=== PATIENT | male | born 1970 | race African-American/Black ===

== ENCOUNTER 2018-04-25 10:36 | Inpatient (IN) ==
[2018-04-25] MEDS ORDERED: Morphine Sulfate Inj 8 MG/ML Vial IV.PUSH ONE (11:25)
[2018-04-25] MEDS ORDERED: Acetaminophen 325 MG Tablet PO ONE (11:25)
[2018-04-25] MEDS ORDERED: Piperacil/Tazo 4.5 GM Premix 4.5 GM/100 ML BAG IV.SIG STA (11:25)
[2018-04-25] MEDS ORDERED: Vancomycin Inj 1,000 MG in Sodium Chlor 0.9% Inj 250 ML IV.SIG STA (11:25)
[2018-04-25] MEDS ORDERED: Sod Chloride 0.9% Inj 1,000 ML IV.SIG SCH ×2 (11:30)
[2018-04-25] MEDS ORDERED: Sod Chloride 0.9% Inj 400 ML IV.SIG SCH (11:30)
--- NOTE | 2018-04-25 11:39 | ED ---
HPI General Chief complaint: Skin/Abscess/Foreign Body Stated complaint: medical clearance/evac Time Seen by Provider: 04/25/18 11:09 Source: patient Mode of arrival: ambulatory Limitations: no limitations History of Present Illness HPI narrative: 47-year-old male presents to the emergency department for evaluation of swelling, erythema, pain to the left arm. Patient states his symptoms started approximately 1-1.5 weeks ago. He went to the [place] soon after symptoms started and was placed on doxycycline. He has been taking this as prescribed, but symptoms are worsening. Patient reports subjective fevers. His temperatures 100.0 in the emergency department. Patient reports 10/10 pain , throbbing and aching without radiation. He has reduced flexion of the left elbow due to pain. Patient reports being HIV positive. He states he has been off of his HIV medications for approximately 3 months. Patient denies any headaches. No chest pain or shortness of breath. No abdominal pain. No nausea , vomiting, diarrhea. Exacerbating factor is movement of the left arm. No alleviating factors. Moderate severity. Patient denies any history of IV drug use. Onset (ago): week(s) (1-1.5) Location: left and upper extremity Radiation: non-radiation Severity: moderate Severity scale (1-10): 10 Quality: aching Pain Consistency: constant Relieving factors: none and immobilization Exacerbating factors: movement Associated symptoms: fever/chills Treatments prior to arrival: NSAID and other (antibiotic) Related Data Home Medications Medication Instructions Recorded Confirmed No Known Home Medications 04/25/18 04/25/18 Allergies Allergy/AdvReac Type Severity Reaction Status Date / Time No Known Allergies Allergy Verified 04/25/18 11:26 Review of Systems ROS Unobtainable All other systems reviewed negative except as stated in HPI [facility] Medical History Medical History HIV (human immunodeficiency virus infection) (Acute) Surgical History Surgical History No history of previous surgery (Acute) Social History Social History Substance History: Past History Smoking Status: Current every day smoker Tobacco Type: Cigarettes How Often Do You Have a Drink Containing Alcohol: Never Recent Travel in [facility] within the Last 8 Weeks: No Recent Out of Country Travel within the Last 8 Weeks: No Substance Abuse Detail Marijuana: Substance Use Status: Early Remission Substance Abuse Comment: STOPPED 45 DAYS AGO Immunization History Tetanus Immunization: Unsure Hx Influenza Vaccine This Season: Yes Exam Const General: cooperative, well developed and well groomed Nutritional Appearance: average body habitus Orientation: alert, awake and oriented x3 HENMT Head: normal to inspection Eyes General: appearance normal, both eyes and all related structures Neck Neck: normal visual inspection Chest Chest: normal inspection of the chest Resp Effort & Inspection: normal respiratory effort and able to speak in complete sentences Auscultation: clear to auscultation bilaterally Cardio Rate: tachycardic Rhythm: regular rhythm GI Inspection: normal to inspection Palpation: soft and nontender Back/Spine/Pelvis Cervical Spine: normal cervical lordosis Thoracic/Lumbar Spine: thoracic and lumbar spine normal to inspection Skin General: erythema (Patient has diffuse erythema and swelling without obvious fluctuance or induration to left upper extremity.) Trauma: lacerations and/or abrasions noted Wounds: wound noted Neuro General: alert, awake and oriented x3 Cognition: normal cognition Speech: speech normal Motor: muscle tone normal throughout Extrem Left upper extremity: elbow/forearm (Patient has decreased extension of left elbow due to pain and swelling) Details: abnormal to inspection, tenderness, swelling, abnormal ROM, warmth and distal pulses intact Psych Appearance: grossly normal Mental Status: mental status grossly normal Speech and Movement: speech and movement normal Attitude: cooperative Judgment: judgment good Course Initial Documented Vital Signs Temperature 100.0 F H 04/25/18 10:51 Pulse Rate 110 H 04/25/18 10:51 Respiratory Rate 18 04/25/18 10:51 Blood Pressure 130/62 04/25/18 10:51 Pulse Oximetry 97 04/25/18 10:51 Last Documented Vital Signs Temperature 98.9 F 04/25/18 14:03 Pulse Rate 96 H 04/25/18 14:03 Respiratory Rate 17 04/25/18 14:03 Blood Pressure 99/63 L 04/25/18 14:03 Pulse Oximetry 97 04/25/18 14:03 Medical Decision Making MANASA Attestation MANASA supervised visit: No MDM Narrative Medical decision making narrative: 47-year-old male presents to the emergency department for erythema, swelling, decreased extension of the left elbow due to pain. He has been on antibiotics without improvement. Patient is HIV positive , not currently on HIV medications. He is slightly febrile upon arrival emergency department tachycardic. Sepsis workup was initiated. IV access obtained. Patient is given normal saline 30 mL's per kilogram. CBC, CMP, PTT, PT/INR are ordered and pending. Patient is given vancomycin 1 g IV, Zosyn 4.5 g IV, morphine 4 mg IV, Reglan 10 mg IV, Tylenol [address] of the left upper extremity with IV contrast is ordered and pending. CBC shows leukocytosis of 26.2. CMP shows hyponatremia of 132, BUN 26, creatinine of 2.08. Coags show no acute abnormality. Lactic acid is 2.7. CT had to be done without contrast due to elevated creatinine. CTs show soft tissue swelling. Hospitalist is called for admission for sepsis, cellulitis. Residents accepted admission. Differential Diagnosis Differential Diagnosis: Sepsis versus cellulitis versus abscess versus septic joint Medical Records Medical records reviewed: Yes I reviewed the patient's medical records. Lab Data Result diagrams: 04/25/18 11:40 04/25/18 11:40 Lab Results 04/25/18 04/25/18 04/25/18 Range/Units 11:40 11:40 11:40 WBC 26.2 H (4.0-11.0) th/mm3 RBC 4.52 (4.50-5.90) mil/mm3 Hgb 13.6 (13.0-17.0) gm/dL Hct 40.7 (39.0-51.0) % MCV 90.2 (80.0-100.0) fL MCH 30.2 (27.0-34.0) pg MCHC 33.5 (32.0-36.0) % RDW 14.0 (11.6-17.2) % Plt Count 261 (150-450) th/mm3 MPV 7.2 (7.0-11.0) fL Neut % (Auto) 88.1 H (16.0-70.0) % Lymph % (Auto) 5.5 L (9.0-44.0) % [place] % (Auto) 6.3 (0.0-8.0) % Eos % (Auto) 0.0 (0.0-4.0) % Baso % (Auto) 0.1 (0.0-2.0) % Neut # (Auto) 23.1 H (1.8-7.7) th/mm3 Lymph # (Auto) 1.4 (1.0-4.8) th/mm3 [place] # (Auto) 1.7 H (0.0-0.9) th/mm3 Eos # (Auto) 0.0 (0.0-0.4) th/mm3 Baso # (Auto) 0.0 (0.0-0.2) th/mm3 WBC Differential . Differential Comment Auto diff final PT 12.0 H (9.8-11.6) sec INR 1.2 Ratio APTT 27.4 (24.3-30.1) sec Sodium 132 L (136-145) meq/L Potassium 3.9 (3.5-5.1) meq/L Chloride 95 L (98-107) meq/L Carbon Dioxide 24.9 (21.0-32.0) meq/L Anion Gap 12 (5-15) meq/L BUN 26 H (7-18) mg/dL Creatinine 2.08 H (0.60-1.30) mg/dL Estimated GFR 42 L (>89) mL/min Random Glucose 88 (74-106) mg/dL Lactic Acid (0.4-2.0) mmol/L Calcium 8.7 (8.5-10.1) mg/dL Total Bilirubin 0.9 (0.2-1.0) mg/dL AST 33 (15-37) U/L ALT 26 (12-78) U/L Alkaline Phosphatase 72 (45-117) U/L Total Protein 8.8 H (6.4-8.2) g/dL Albumin 3.2 L (3.4-5.0) g/dL 04/25/18 Range/Units 11:40 WBC (4.0-11.0) th/mm3 RBC (4.50-5.90) mil/mm3 Hgb (13.0-17.0) gm/dL Hct (39.0-51.0) % MCV (80.0-100.0) fL MCH (27.0-34.0) pg MCHC (32.0-36.0) % RDW (11.6-17.2) % Plt Count (150-450) th/mm3 MPV (7.0-11.0) fL Neut % (Auto) (16.0-70.0) % Lymph % (Auto) (9.0-44.0) % [place] % (Auto) (0.0-8.0) % Eos % (Auto) (0.0-4.0) % Baso % (Auto) (0.0-2.0) % Neut # (Auto) (1.8-7.7) th/mm3 Lymph # (Auto) (1.0-4.8) th/mm3 [place] # (Auto) (0.0-0.9) th/mm3 Eos # (Auto) (0.0-0.4) th/mm3 Baso # (Auto) (0.0-0.2) th/mm3 WBC Differential Differential Comment PT (9.8-11.6) sec INR Ratio APTT (24.3-30.1) sec Sodium (136-145) meq/L Potassium (3.5-5.1) meq/L Chloride (98-107) meq/L Carbon Dioxide (21.0-32.0) meq/L Anion Gap (5-15) meq/L BUN (7-18) mg/dL Creatinine (0.60-1.30) mg/dL Estimated GFR (>89) mL/min Random Glucose (74-106) mg/dL Lactic Acid 2.7 H (0.4-2.0) mmol/L Calcium (8.5-10.1) mg/dL Total Bilirubin (0.2-1.0) mg/dL AST (15-37) U/L ALT (12-78) U/L Alkaline Phosphatase (45-117) U/L Total Protein (6.4-8.2) g/dL Albumin (3.4-5.0) g/dL Imaging Data Radiologist's impression: ITS Impressions Forearm CT 04/25/18 12:57 CONCLUSION: 1. Nonspecific subcutaneous edema along the medial aspect of the proximal forearm. 2. The bony structures are grossly intact. Humerus CT 04/25/18 12:57 CONCLUSION: 1. Nonspecific edema throughout the subcutaneous soft tissues along the medial aspect of the upper arm. No drainable loculated fluid collections. 2. The bony structures of the humerus are grossly unremarkable. Discharge Plan Discharge Disposition Patient Disposition: 30 Still Patient Discharge Details Anticipated Discharge Date: 04/30/18 Physicians Team ED Provider: Kelly Pascual ED Midlevel Provider: Leila Chilel Primary Care Provider: UNKNOWN, Rxs /Orders / Referrals /Forms Prescriptions: No Action No Known Home Medications RF: 0 Status ED Status: With Doctor
[2018-04-25 12:08] LABS: Baso % (Auto) 0.1 % (0.0-2.0); Hematocrit 40.7 % (39.0-51.0); Hemoglobin 13.6 gm/dL (13.0-17.0); Lymph # (Auto) 1.4 th/mm3 (1.0-4.8); Lymph % (Auto) 5.5 % (9.0-44.0); Mean Corpuscular HGB Conc 33.5 % (32.0-36.0); Mean Corpuscular Hemoglobin 30.2 pg (27.0-34.0); Mean Corpuscular Volume 90.2 fL (80.0-100.0); Mean Platelet Volume 7.2 fL (7.0-11.0); Mono # (Auto) 1.7 th/mm3 (0.0-0.9); Mono % (Auto) 6.3 % (0.0-8.0); Neut # (Auto) 23.1 th/mm3 (1.8-7.7); Neut % (Auto) 88.1 % (16.0-70.0); Platelet Count 261 th/mm3 (150-450); Red Blood Count 4.52 mil/mm3 (4.50-5.90); White Blood Count 26.2 th/mm3 (4.0-11.0)
[2018-04-25 12:16] LABS: Activated Partial Thrombo Time 27.4 sec (24.3-30.1); INR 1.2 Ratio
[2018-04-25 12:30] LABS: Alkaline Phosphatase 72 U/L (45-117); Total Protein 8.8 g/dL (6.4-8.2)
[2018-04-25 12:53] LABS: Alanine Aminotransferase 26 U/L (12-78); Albumin 3.2 g/dL (3.4-5.0); Anion Gap 12 meq/L (5-15); Aspartate Aminotransferase 33 U/L (15-37); Blood Urea Nitrogen 26 mg/dL (7-18); Calcium 8.7 mg/dL (8.5-10.1); Carbon Dioxide 24.9 meq/L (21.0-32.0); Chloride 95 meq/L (98-107); Glomerular Filtration Rate 42 mL/min (>89); Glucose,Random 88 mg/dL (74-106); Potassium 3.9 meq/L (3.5-5.1); Sodium 132 meq/L (136-145)
--- NOTE | 2018-04-25 15:36 | P.HPFP ---
<Asya Mcneil - Last Filed: 04/25/18 19:49> History of Present Illness Primary Care Physician: UNKNOWN History of Present Illness: Mr. Quezada is a 47yo male with a PMH of HIV, Bipolar disorder, PTSD, MDD presenting with left upper arm swelling. He starts that this issue started 2 weeks ago with an abscess in his left axilla that was the size of a little knot. He is unsure of the inciting even (no bites etc). He then went to the doctor [facility] the [facility] on 04/15 and was prescribed doxycycline. He has not yet finished the course. After taking this his axilla started draining malodorous green pus. 4 days ago his left upper arm starting swelling. He developed night sweats, fever/chills, fatigue, loss of appetite. No hx of IV drug use. Pt has not been on any medications in over a year for any of his chronic problems. Is to restart antiretroviral therapy at the [facility] next month. - Diagnosis (1) Sepsis (2) Abscess of left axilla (3) HIV (human immunodeficiency virus infection) (4) Nutrition, metabolism, and development symptoms (5) DVT prophylaxis - Inpatient Certification If this patient has been admitted as an Inpatient: I certify that the inpatient services were ordered in accordance with Medicare regulations governing the order. This includes certification that hospital inpatient services are reasonable and necessary and in the case of services not specified as inpatient-only under 42 CFR 419.22(n), that they are appropriately provided as inpatient services in accordance to with the 2-midnight benchmark under 43 CFR 412.3(e) Review of Systems Constitutional: Denies headache(s) Eyes: Denies blurry vision Cardiovascular: Denies chest pain Respiratory: Reports cough (nonproductive, for 2 weeks), Denies shortness of breath Gastrointestinal: Denies abdominal pain, Denies change in stools Genitourinary: Denies difficulty urinating Musculoskeletal: Denies muscle weakness PMFSH - History History Provided By: Patient - Medical History Medical History: Medical History (Last Updated 04/25/18 @ 15:32 by Asya Mcneil MD, R1) Bipolar disorder HIV (human immunodeficiency virus infection) PTSD (post-traumatic stress disorder) - Surgical History Surgical History: Surgical History (Last Reviewed 04/25/18 @ 11:35 by DANIEL Snow) No history of previous surgery - Family History Family History: Family History (Last Updated 04/25/18 @ 15:33 by Asya Mcneil MD, R1) Other Unknown family medical history - Tobacco History Tobacco Use In Past 30 Days: Yes Smoking Status: Current every day smoker (0.5 ppd for 30 yrs) Tobacco Type: Cigarettes - Alcohol History How Often Do You Have a Drink Containing Alcohol: Never (quit 5 yrs ago) - Substance Use History Substance History: Past History (stopped smoking marijuana) - Substance Use Type Marijuana Status: Early Remission Comment: STOPPED 45 DAYS AGO - Travel History Recent Travel in the [place] Within the Last 8 Weeks: No Recent Travel Out of the Country Within the Last 8 Weeks: No - Immunization History Tetanus Immunization: Unsure Hx Influenza Vaccine This Season: Yes Medications and Allergies Allergies Allergy/AdvReac Type Severity Reaction Status Date / Time No Known Allergies Allergy Verified 04/25/18 11:26 Home Medications Medication Instructions Recorded Confirmed Type No Known Home Medications 04/25/18 04/25/18 History Active Medications: Active Medications Sodium Chloride (Ns Inj) 1,000 mls @ 0 mls/hr IV.SIG .Q0M [facility] Last Infusion: 04/25/18 12:45 Dose: Infused Sodium Chloride (Ns Inj) 1,000 mls @ 0 mls/hr IV.SIG .Q0M [facility] Last Infusion: 04/25/18 12:45 Dose: Infused Sodium Chloride (Ns Inj) 400 mls @ 0 mls/hr IV.SIG .Q0M [facility]AN Last Infusion: 04/25/18 12:45 Dose: Infused Exam Vital signs: Vital Signs 04/25/18 10:51 04/25/18 11:29 04/25/18 11:33 Temperature 100.0 F H Pulse Rate 110 H 106 H 105 H Respiratory Rate 18 19 Blood Pressure 130/62 111/68 Pulse Oximetry 97 99 04/25/18 11:48 04/25/18 12:13 04/25/18 13:06 Temperature Pulse Rate 108 H 96 H Respiratory Rate 17 17 16 Blood Pressure 120/66 102/59 L Pulse Oximetry 97 98 04/25/18 14:03 Temperature 98.9 F Pulse Rate 96 H Respiratory Rate 17 Blood Pressure 99/63 L Pulse Oximetry 97 Intake & Output 04/24/18 04/25/18 04/25/18 18:59 06:59 18:59 Intake Total 2750 / 2750 Balance 2750 / 2750 Weight 72.57 kg Intake: IV 2750 / 2750 Zosyn 4.5 GM Premix 4.5 gm In 100 / 100 100 ml @ 200 mls/hr IV.SIG STAT STA Rx#:[id number] NS Inj 400 ML @ Wide Open IV. 2400 / 2400 SIG .Q0M [facility] Rx#:[id number] Vancomycin Inj 1,000 MG In NS 250 / 250 Inj 250 ML @ 250 mls/hr IV.SIG STAT STA Rx#:[id number] Narrative: GENERAL: thin male laying in bed with sling on his arm, in no acute distress SKIN: Warm and dry. HEAD: Atraumatic. Normocephalic. EYES: Pupils equal and round. No scleral icterus. No injection or drainage. ENT: No nasal bleeding or discharge. Mucous membranes pink and moist. NECK: Trachea midline. No JVD. CARDIOVASCULAR: Regular rate and rhythm. No murmurs, rubs, or gallops detected RESPIRATORY: No accessory muscle use. Course breath sounds. Breath sounds equal bilaterally. GASTROINTESTINAL: Abdomen soft, RUQ tenderness, nondistended. Hepatic and splenic margins not palpable. MUSCULOSKELETAL: Extremities without clubbing, cyanosis, or edema. No obvious deformities. Left axilla: 3.5 x 2 cm area of fluctuance. 2x2cm area of fluctuance superiorly to previous area. Medial upper arm edematous with large area of warmth and induration to elbow. No erythema. NEUROLOGICAL: Awake and alert. No obvious cranial nerve deficits. Motor grossly within normal limits. Five out of 5 muscle strength in the arms and legs. Normal speech. PSYCHIATRIC: Appropriate mood and affect; insight and judgment normal. Results - Labs Result diagrams: 04/25/18 11:40 04/25/18 11:40 Abnormal lab results 04/25/18 04/25/18 04/25/18 Range/Units 11:40 11:40 11:40 WBC 26.2 H (4.0-11.0) th/mm3 Neut % (Auto) 88.1 H (16.0-70.0) % Lymph % (Auto) 5.5 L (9.0-44.0) % Neut # (Auto) 23.1 H (1.8-7.7) th/mm3 Amite # (Auto) 1.7 H (0.0-0.9) th/mm3 PT 12.0 H (9.8-11.6) sec Sodium 132 L (136-145) meq/L Chloride 95 L (98-107) meq/L BUN 26 H (7-18) mg/dL Creatinine 2.08 H (0.60-1.30) mg/dL Estimated GFR 42 L (>89) mL/min Lactic Acid (0.4-2.0) mmol/L Total Protein 8.8 H (6.4-8.2) g/dL Albumin 3.2 L (3.4-5.0) g/dL 04/25/18 Range/Units 11:40 WBC (4.0-11.0) th/mm3 Neut % (Auto) (16.0-70.0) % Lymph % (Auto) (9.0-44.0) % Neut # (Auto) (1.8-7.7) th/mm3 Amite # (Auto) (0.0-0.9) th/mm3 PT (9.8-11.6) sec Sodium (136-145) meq/L Chloride (98-107) meq/L BUN (7-18) mg/dL Creatinine (0.60-1.30) mg/dL Estimated GFR (>89) mL/min Lactic Acid 2.7 H (0.4-2.0) mmol/L Total Protein (6.4-8.2) g/dL Albumin (3.4-5.0) g/dL Short CBC 04/25/18 Range/Units 11:40 WBC 26.2 H (4.0-11.0) th/mm3 Hgb 13.6 (13.0-17.0) gm/dL Hct 40.7 (39.0-51.0) % Plt Count 261 (150-450) th/mm3 BMP 04/25/18 11:40 Sodium 132 L Potassium 3.9 Chloride 95 L Carbon Dioxide 24.9 BUN 26 H Creatinine 2.08 H Calcium 8.7 Liver Function 04/25/18 Range/Units 11:40 Total Bilirubin 0.9 (0.2-1.0) mg/dL AST 33 (15-37) U/L ALT 26 (12-78) U/L Alkaline Phosphatase 72 (45-117) U/L Albumin 3.2 L (3.4-5.0) g/dL - Imaging Impressions Forearm CT 04/25/18 12:57 CONCLUSION: 1. Nonspecific subcutaneous edema along the medial aspect of the proximal forearm. 2. The bony structures are grossly intact. Humerus CT 04/25/18 12:57 CONCLUSION: 1. Nonspecific edema throughout the subcutaneous soft tissues along the medial aspect of the upper arm. No drainable loculated fluid collections. 2. The bony structures of the humerus are grossly unremarkable. Caprini VTE Risk Assessment Caprini VTE Risk Assessment: Moderate/High Risk (score >= 2) Caprini Risk Assessment Model: Point Value = 1 Point Value = 2 Point Value = 3 Point Value = 5 Age 41-60 Minor surgery BMI > 25 kg/m2 Swollen legs Varicose veins or History of unexplained or recurrent spontaneous Oral contraceptives or hormone replacement Sepsis (< 1 month) Serious lung disease, including pneumonia (< 1 month) Abnormal pulmonary function Acute myocardial infarction Congestive heart failure (< 1 month) History of inflammatory bowel disease Medical patient at bed rest Age 61-74 Arthroscopic surgery Major open surgery (> 45 min) Laparoscopic surgery (> 45 min) Malignancy Confined to bed (> 72 hours) Immobilizing plaster cast Central venous access Age >= 75 History of VTE Family history of VTE Factor V Leiden Prothrombin [id number] Lupus anticoagulant Anticardiolipin antibodies Elevated serum homocysteine Heparin-induced thrombocytopenia Other congenital or acquired thrombophilia Stroke (< 1 month) Elective arthroplasty Hip, pelvis, or leg fracture Acute spinal cord injury (< 1 month) Prophylaxis Regimen: Total Risk Factor Score Risk Level Prophylaxis Regimen 0-1 Low Early ambulation 2 Moderate Order ONE of the following: *Sequential Compression Device (SCD) *Heparin 5000 units SQ BID 3-4 Higher Order ONE of the following medications: *Heparin 5000 units SQ TID *Enoxaparin/Lovenox 40 mg SQ daily (WT < 150 kg, CrCl > 30 mL/min) *Enoxaparin/Lovenox 30 mg SQ daily (WT < 150 kg, CrCl > 10-29 mL/min) *Enoxaparin/Lovenox 30 mg SQ BID (WT < 150 kg, CrCl > 30 mL/min) AND/OR *Sequential Compression Device (SCD) 5 or more Highest Order ONE of the following medications: *Heparin 5000 units SQ TID (Preferred with Epidurals) *Enoxaparin/Lovenox 40 mg SQ daily (WT < 150 kg, CrCl > 30 mL/min) *Enoxaparin/Lovenox 30 mg SQ daily (WT < 150 kg, CrCl > 10-29 mL/min) *Enoxaparin/Lovenox 30 mg SQ BID (WT < 150 kg, CrCl > 30 mL/min) AND *Sequential Compression Device (SCD) Assessment and Plan - Assessment (1) Sepsis Code(s): A41.9 - Sepsis, unspecified organism Status: Acute Plan: Patient meeting sepsis criteria upon admission: WBC count of 26.2 (neutrophil predominant), Tachycardic to the 100s, with a known source of infection (left axillary abscess, see plan below) BP decreased to the 90s/60s, was given 2x 1L boluses and a 400ml bolus in the ED Lactic acid is high at 2.7. -Lactic acid protocol initiated -Blood cx pending -NS IVF at 1.5 maintenance 165 mls/hr -See plan for abscess below (2) Abscess of left axilla Code(s): L02.412 - Cutaneous abscess of left axilla Status: Acute Plan: Initial presentation of left axilla abscess, s/p treatment with doxycycline. Worsening swelling of the left upper arm. Imaging: Humerus CT: 1. Nonspecific edema throughout the subcutaneous soft tissues along the medial aspect of the upper arm. No drainable loculated fluid collections. 2. The bony structures of the humerus are grossly unremarkable. Forearm CT: 1. Nonspecific subcutaneous edema along the medial aspect of the proximal forearm. 2. The bony structures are grossly intact. Left UE US: lenticular 4 cm by slightly less than 1 cm heterogeneous hypoechoic mass/ collection in the superficial subcutaneous tissues of the left axillary region at site of focal palpable tenderness. This is presumably a phlegmonous collection. There are enlarged ipsilateral axillary lymph nodes also noted -Consult General Surgery for possible I&D, appreciate recommendations -Consult ID for abx recommendations and HIV as below, appreciate recommendations -NPO after midnight -Pt started on Vanc and Zosyn in ED -Consult Pharmacy for Vancomycin -Continue Vancomycin 1000mg IV q24h, decreased in frequency due to renal impairment -Continue Zosyn 4.5g IV q6h, do not need to adjust for GFR >40 (3) HIV (human immunodeficiency virus infection) Code(s): B20 - Human immunodeficiency virus [HIV] disease Status: Chronic Plan: PT with HIV, unsure of last CD4 count and not current on antiretroviral therapy -Ordered lymphocyte profile -Consulted christopher AZEVEDO recommendations (4) Nutrition, metabolism, and development symptoms Code(s): R63.8 - Other symptoms and signs concerning food and fluid intake Status: Acute Plan: Fluids: NS @ 165 ml/hr Electrolytes: monitor and replete as needed Nutrition: NPO after midnight GI Prophylaxis: none indicated at this time (5) DVT prophylaxis Status: Acute Plan: Early ambulation. bilateral SCDs - Plan 47yo AAM with PMH of HIV presenting with left upper arm edema and axillary abscess. Discussed Condition With: Dr. Russell and Dr. Vyas Discharge Planning: following clinical course and car sales consultant recommendations <Bianca Gonzalez - Last Filed: 04/26/18 09:58> History of Present Illness Primary Care Physician: UNKNOWN - Diagnosis (1) Sepsis (2) Abscess of left axilla (3) HIV (human immunodeficiency virus infection) (4) Nutrition, metabolism, and development symptoms (5) DVT prophylaxis - Inpatient Certification If this patient has been admitted as an Inpatient: I certify that the inpatient services were ordered in accordance with Medicare regulations governing the order. This includes certification that hospital inpatient services are reasonable and necessary and in the case of services not specified as inpatient-only under 42 CFR 419.22(n), that they are appropriately provided as inpatient services in accordance to with the 2-midnight benchmark under 43 CFR 412.3(e) [facility] - Medical History Medical History: Medical History (Last Updated 04/25/18 @ 15:32 by Asya Mcneil MD, R1) Bipolar disorder HIV (human immunodeficiency virus infection) PTSD (post-traumatic stress disorder) - Surgical History Surgical History: Surgical History (Last Reviewed 04/25/18 @ 11:35 by DANIEL Snow) No history of previous surgery - Family History Family History: Family History (Last Updated 04/25/18 @ 15:33 by Asya Mcneil MD, R1) Other Unknown family medical history Medications and Allergies Active Medications: Active Medications Acetaminophen (Tylenol) 650 mg PO Q4H PRN PRN Reason: Temp > 100.4 Last Admin: 04/26/18 04:01 Dose: 650 mg Sodium Chloride (Ns Inj) 1,000 mls @ 0 mls/hr IV.SIG .Q0M [facility] Last Infusion: 04/25/18 12:45 Dose: Infused Sodium Chloride (Ns Inj) 1,000 mls @ 0 mls/hr IV.SIG .Q0M [facility] Last Infusion: 04/25/18 12:45 Dose: Infused Sodium Chloride (Ns Inj) 400 mls @ 0 mls/hr IV.SIG .Q0M [facility] Last Infusion: 04/25/18 12:45 Dose: Infused Sodium Chloride (Ns Inj) 1,000 mls @ 165 mls/hr IV.CONT .Q6H4M [facility]AN Last Admin: 04/26/18 09:05 Dose: Not Given Pharmacy Profile Note (Vancomycin Consult Pharmacy) 0 mls @ 0 mls/hr OTHER UNSCH [facility] Piperacillin/Tazobactam/Dextrose (Zosyn 4.5 Gm Premix) 4.5 gm in 100 mls @ 200 mls/hr IV.SIG Q8H [facility]AN Last Infusion: 04/26/18 07:23 Dose: Infused Vancomycin HCl 1,250 mg/ (Sodium Chloride) 262.5 mls @ 250 mls/hr IV.SIG Q24H [facility]AN Last Admin: 04/26/18 09:05 Dose: 250 mls/hr Sodium Chloride (Ns Inj) 1,000 mls @ 0 mls/hr IV.SIG BOLUS ONE Stop: 04/26/18 09:56 Miscellaneous Information ([facility] Ordered Lab Info) 0 each OTHER ONCE ONE Stop: 04/28/18 09:46 Ondansetron HCl (Zofran Inj) 4 mg IV.PUSH Q6H PRN PRN Reason: NAUSEA OR VOMITING Senna/Docusate Sodium (Karen-Colace) 1 tab PO BID TWAN Last Admin: 04/26/18 09:05 Dose: 1 tab Exam Vital signs: Vital Signs 04/25/18 10:51 04/25/18 11:29 04/25/18 11:33 Temperature 100.0 F H Pulse Rate 110 H 106 H 105 H Respiratory Rate 18 19 Blood Pressure 130/62 111/68 Pulse Oximetry 97 99 04/25/18 11:48 04/25/18 12:13 04/25/18 13:06 Temperature Pulse Rate 108 H 96 H Respiratory Rate 17 17 16 Blood Pressure 120/66 102/59 L Pulse Oximetry 97 98 04/25/18 14:03 04/25/18 15:00 04/25/18 15:14 Temperature 98.9 F Pulse Rate 96 H 97 H 100 H Respiratory Rate 17 18 17 Blood Pressure 99/63 L 97/62 L 97/62 L Pulse Oximetry 97 97 97 04/25/18 16:23 04/25/18 17:00 04/25/18 18:10 Temperature Pulse Rate 100 H 96 H 108 H Respiratory Rate 18 18 17 Blood Pressure 94/68 L 110/76 98/59 L Pulse Oximetry 99 98 04/25/18 18:18 04/25/18 20:00 04/26/18 00:00 Temperature 103.1 F H 100.3 F H Pulse Rate 111 H 91 H Respiratory Rate 18 18 Blood Pressure 108/60 92/52 L Pulse Oximetry 97 97 04/26/18 04:00 04/26/18 08:00 Temperature 101.7 F H 98.8 F Pulse Rate 99 H 85 Respiratory Rate 18 20 Blood Pressure 107/56 L 89/54 L Pulse Oximetry 98 96 Intake & Output 04/25/18 04/26/18 04/26/18 18:59 06:59 18:59 Intake Total 2750 / 2750 1100 / 1100 100 / 100 Balance 2750 / 2750 1100 / 1100 100 / 100 Weight 72.57 kg 70.9 kg Intake: IV 2750 / 2750 1100 / 1100 100 / 100 NS Inj 1,000 ML @ 165 mls/hr IV 1000 / 1000 .CONT .Q6H4M [facility] Rx#:[id number] Zosyn 4.5 GM Premix 4.5 gm In 100 / 100 100 / 100 100 / 100 100 ml @ 200 mls/hr IV.SIG Q8H [facility] Rx#:[id number] NS Inj 400 ML @ Wide Open IV. 2400 / 2400 SIG .Q0M [facility]AN Rx#:[id number] Vancomycin Inj 1,000 MG In NS 250 / 250 Inj 250 ML @ 250 mls/hr IV.SIG STAT STA Rx#:[id number] Other: # Voids 2 Results - Labs Result diagrams: 04/26/18 07:20 04/26/18 07:20 Abnormal lab results 04/25/18 04/25/18 04/25/18 Range/Units 11:40 11:40 11:40 WBC 26.2 H (4.0-11.0) th/mm3 RBC (4.50-5.90) mil/mm3 Hgb (13.0-17.0) gm/dL Hct (39.0-51.0) % Neut % (Auto) 88.1 H (16.0-70.0) % Lymph % (Auto) 5.5 L (9.0-44.0) % Neut # (Auto) 23.1 H (1.8-7.7) th/mm3 Amite # (Auto) 1.7 H (0.0-0.9) th/mm3 PT 12.0 H (9.8-11.6) sec Sodium 132 L (136-145) meq/L Chloride 95 L (98-107) meq/L Carbon Dioxide (21.0-32.0) meq/L BUN 26 H (7-18) mg/dL Creatinine 2.08 H (0.60-1.30) mg/dL Estimated GFR 42 L (>89) mL/min Random Glucose (74-106) mg/dL Lactic Acid (0.4-2.0) mmol/L Calcium (8.5-10.1) mg/dL Total Protein 8.8 H (6.4-8.2) g/dL Albumin 3.2 L (3.4-5.0) g/dL 04/25/18 04/26/18 04/26/18 Range/Units 11:40 07:20 07:20 WBC 23.5 H (4.0-11.0) th/mm3 RBC 3.94 L (4.50-5.90) mil/mm3 Hgb 11.6 L D (13.0-17.0) gm/dL Hct 35.0 L (39.0-51.0) % Neut % (Auto) 90.7 H (16.0-70.0) % Lymph % (Auto) 4.1 L (9.0-44.0) % Neut # (Auto) 21.3 H (1.8-7.7) th/mm3 [place] # (Auto) 1.1 H (0.0-0.9) th/mm3 PT (9.8-11.6) sec Sodium (136-145) meq/L Chloride (98-107) meq/L Carbon Dioxide 20.7 L (21.0-32.0) meq/L BUN 25 H (7-18) mg/dL Creatinine 1.62 H (0.60-1.30) mg/dL Estimated GFR 56 L (>89) mL/min Random Glucose 72 L (74-106) mg/dL Lactic Acid 2.7 H (0.4-2.0) mmol/L Calcium 8.4 L (8.5-10.1) mg/dL Total Protein (6.4-8.2) g/dL Albumin 2.2 L D (3.4-5.0) g/dL Short CBC 04/25/18 04/26/18 Range/Units 11:40 07:20 WBC 26.2 H 23.5 H (4.0-11.0) th/mm3 Hgb 13.6 11.6 L D (13.0-17.0) gm/dL Hct 40.7 35.0 L (39.0-51.0) % Plt Count 261 249 (150-450) th/mm3 BMP 04/25/18 04/26/18 11:40 07:20 Sodium 132 L 140 Potassium 3.9 3.8 Chloride 95 L 107 D Carbon Dioxide 24.9 20.7 L BUN 26 H 25 H Creatinine 2.08 H 1.62 H Calcium 8.7 8.4 L Liver Function 04/25/18 04/26/18 Range/Units 11:40 07:20 Total Bilirubin 0.9 0.9 (0.2-1.0) mg/dL AST 33 20 (15-37) U/L ALT 26 16 (12-78) U/L Alkaline Phosphatase 72 64 (45-117) U/L Albumin 3.2 L 2.2 L D (3.4-5.0) g/dL - Imaging Impressions Upper Extremity Ultrasound 04/25/18 00:00 CONCLUSION: Subcutaneous tissue phlegmon in the left axillary region. Forearm CT 04/25/18 12:57 CONCLUSION: 1. Nonspecific subcutaneous edema along the medial aspect of the proximal forearm. 2. The bony structures are grossly intact. Humerus CT 04/25/18 12:57 CONCLUSION: 1. Nonspecific edema throughout the subcutaneous soft tissues along the medial aspect of the upper arm. No drainable loculated fluid collections. 2. The bony structures of the humerus are grossly unremarkable. Chest X-Ray 04/26/18 00:00 CONCLUSION: The lungs are clear. Caprini VTE Risk Assessment Caprini Risk Assessment Model: Point Value = 1 Point Value = 2 Point Value = 3 Point Value = 5 Age 41-60 Minor surgery BMI > 25 kg/m2 Swollen legs Varicose veins or History of unexplained or recurrent spontaneous Oral contraceptives or hormone replacement Sepsis (< 1 month) Serious lung disease, including pneumonia (< 1 month) Abnormal pulmonary function Acute myocardial infarction Congestive heart failure (< 1 month) History of inflammatory bowel disease Medical patient at bed rest Age 61-74 Arthroscopic surgery Major open surgery (> 45 min) Laparoscopic surgery (> 45 min) Malignancy Confined to bed (> 72 hours) Immobilizing plaster cast Central venous access Age >= 75 History of VTE Family history of VTE Factor V Leiden Prothrombin [id number] Lupus anticoagulant Anticardiolipin antibodies Elevated serum homocysteine Heparin-induced thrombocytopenia Other congenital or acquired thrombophilia Stroke (< 1 month) Elective arthroplasty Hip, pelvis, or leg fracture Acute spinal cord injury (< 1 month) Prophylaxis Regimen: Total Risk Factor Score Risk Level Prophylaxis Regimen 0-1 Low Early ambulation 2 Moderate Order ONE of the following: *Sequential Compression Device (SCD) *Heparin 5000 units SQ BID 3-4 Higher Order ONE of the following medications: *Heparin 5000 units SQ TID *Enoxaparin/Lovenox 40 mg SQ daily (WT < 150 kg, CrCl > 30 mL/min) *Enoxaparin/Lovenox 30 mg SQ daily (WT < 150 kg, CrCl > 10-29 mL/min) *Enoxaparin/Lovenox 30 mg SQ BID (WT < 150 kg, CrCl > 30 mL/min) AND/OR *Sequential Compression Device (SCD) 5 or more Highest Order ONE of the following medications: *Heparin 5000 units SQ TID (Preferred with Epidurals) *Enoxaparin/Lovenox 40 mg SQ daily (WT < 150 kg, CrCl > 30 mL/min) *Enoxaparin/Lovenox 30 mg SQ daily (WT < 150 kg, CrCl > 10-29 mL/min) *Enoxaparin/Lovenox 30 mg SQ BID (WT < 150 kg, CrCl > 30 mL/min) AND *Sequential Compression Device (SCD) Assessment and Plan - Assessment (1) Sepsis Code(s): A41.9 - Sepsis, unspecified organism Status: Acute (2) Abscess of left axilla Code(s): L02.412 - Cutaneous abscess of left axilla Status: Acute (3) HIV (human immunodeficiency virus infection) Code(s): B20 - Human immunodeficiency virus [HIV] disease Status: Chronic (4) Nutrition, metabolism, and development symptoms Code(s): R63.8 - Other symptoms and signs concerning food and fluid intake Status: Acute (5) DVT prophylaxis Status: Acute - Attending Attestation The exam, history, and the medical decision-making described in the above note were completed with the assistance of the resident physician. I reviewed and agree with the findings presented. <Asya Mcneil G - Last Filed: 04/25/18 19:49> (1) Sepsis Qualifiers: Sepsis type: sepsis due to unspecified organism Qualified Code(s): A41.9 - Sepsis, unspecified organism <Bianca Gonzalez - Last Filed: 04/26/18 09:58> (1) Sepsis Qualifiers: Sepsis type: sepsis due to unspecified organism Qualified Code(s): A41.9 - Sepsis, unspecified organism
[2018-04-25] MEDS ORDERED: Vancomycin Consult Pharmacy 1 EACH OTHER SCH (17:00)
--- NOTE | 2018-04-25 17:50 | US ---
EXAM DATE: 04/25/2018 5:36 PM EDT AGE/SEX: 47 years / Male INDICATIONS: Left axillary pain and swelling. CLINICAL DATA: This is the patient's initial encounter. Patient reports that signs and symptoms have been present for 2 weeks and indicates a pain score of 8/10. MEDICAL/SURGICAL HISTORY: HIV. None. COMPARISON: No prior exams available for comparison. FINDINGS: There is a lenticular 4 cm by slightly less than 1 cm heterogeneous hypoechoic mass/collection in the superficial subcutaneous tissues of the left axillary region at site of focal palpable tenderness. T his is presumably a phlegmonous collection. There are enlarged ipsilateral axillary lymph nodes also noted. CONCLUSION: Subcutaneous tissue phlegmon in the left axillary region. Electronically signed by: Avery Russell MD 04/25/2018 5:48 PM EDT
[2018-04-25] MEDS: Sod Chloride 0.9% Inj 1,000 ML IV.CONT SCH (18:15)
[2018-04-25] MEDS: Piperacil/Tazo 4.5 GM Premix 4.5 GM/100 ML BAG IV.SIG SCH (20:20)
[2018-04-25] MEDS: Senna/Docusate Sodium 8.6/50 MG Tablet PO SCH (20:20)
[2018-04-25] MEDS: Acetaminophen 325 MG Tablet PO PRN (20:29)
[2018-04-26] MEDS: Acetaminophen 325 MG Tablet PO PRN (04:01)
[2018-04-26] MEDS: Piperacil/Tazo 4.5 GM Premix 4.5 GM/100 ML BAG IV.SIG SCH ×3 (04:01→20:48)
[2018-04-26] MEDS: Sod Chloride 0.9% Inj 1,000 ML IV.CONT SCH ×3 (04:07→14:18)
--- NOTE | 2018-04-26 07:00 | XR ---
EXAM DATE: 04/26/2018 6:52 AM EDT AGE/SEX: 47 years / Male INDICATIONS: Cough CLINICAL DATA: This is the patient's subsequent encounter. Patient reports that signs and symptoms h ave been present for 1 day and indicates a pain score of 0/10. MEDICAL/SURGICAL HISTORY: . HIV None. COMPARISON: No prior exams available for comparison. FINDINGS: A single AP view of the chest demonstrates the lungs to be symmetrically aerated without evidence of mass, infiltrate or effusion. The cardiomediastinal contours are unremarkable. Osseous structures a re intact. CONCLUSION: The lungs are clear. Electronically signed by: Ahsan Payton MD 04/26/2018 6:58 AM EDT
--- NOTE | 2018-04-26 07:53 | P.CONGS ---
[facility] Gen Surgery Consult Note Consult date: 04/26/18 Reason for consult: other (Axillary infection) Requesting physician: Asya Mcneil Narrative: The patient is a 47-year-old male with a history of HIV who developed left axillary infection a few weeks ago and was treated as an outpatient at the [place] with oral antibiotics. He had done well until this weekend when he developed drainage from the left axilla as well as night sweats, fevers and chills. He had swelling of the left upper extremity with increasing pain. He currently complains of severe pain center primarily around the upper arm bicep area. He denies numbness or tingling. He has pain with extension of the elbow. White blood count was noted to be 26,000. Humerus CT showed significant soft tissue edema with no obvious fluid collections. Ultrasound of the axilla showed small fluid collection. Review of Systems All other systems reviewed negative except as stated in [facility] PMF[facility] - History History Provided By: Patient - Medical History Medical History: Medical History (Last Updated 04/25/18 @ 15:32 by Asya Mcneil MD, R1) Bipolar disorder HIV (human immunodeficiency virus infection) PTSD (post-traumatic stress disorder) - Surgical History Surgical History: Surgical History (Last Reviewed 04/25/18 @ 11:35 by DANIEL Snow) No history of previous surgery - Family History Family History: Family History (Last Updated 04/25/18 @ 15:33 by Asya Mcneil MD, R1) Other Unknown family medical history - Tobacco History Tobacco Use In Past 30 Days: Yes Smoking Status: Current every day smoker (0.5 ppd for 30 yrs) Tobacco Type: Cigarettes - Alcohol History How Often Do You Have a Drink Containing Alcohol: Never (quit 5 yrs ago) - Substance Use History Substance History: Past History (stopped smoking marijuana) - Substance Use Type Marijuana Status: Early Remission Comment: STOPPED 45 DAYS AGO - Travel History Recent Travel in the [place] Within the Last 8 Weeks: No Recent Travel Out of the Country Within the Last 8 Weeks: No - Immunization History Tetanus Immunization: Unsure Hx Influenza Vaccine This Season: Yes Medications and Allergies Active Medications: Active Medications Acetaminophen (Tylenol) 650 mg PO Q4H PRN PRN Reason: Temp > 100.4 Last Admin: 04/26/18 04:01 Dose: 650 mg Sodium Chloride (Ns Inj) 1,000 mls @ 0 mls/hr IV.SIG .Q0M [facility] Last Infusion: 04/25/18 12:45 Dose: Infused Sodium Chloride (Ns Inj) 1,000 mls @ 0 mls/hr IV.SIG .Q0M [facility] Last Infusion: 04/25/18 12:45 Dose: Infused Sodium Chloride (Ns Inj) 400 mls @ 0 mls/hr IV.SIG .Q0M [facility] Last Infusion: 04/25/18 12:45 Dose: Infused Sodium Chloride (Ns Inj) 1,000 mls @ 165 mls/hr IV.CONT .Q6H4M [facility] Last Admin: 04/26/18 04:07 Dose: 110 mls/hr Pharmacy Profile Note (Vancomycin Consult Pharmacy) 0 mls @ 0 mls/hr OTHER UNSCH [facility] Piperacillin/Tazobactam/Dextrose (Zosyn 4.5 Gm Premix) 4.5 gm in 100 mls @ 200 mls/hr IV.SIG Q8H [facility] Last Infusion: 04/26/18 07:23 Dose: Infused Vancomycin HCl 1,250 mg/ (Sodium Chloride) 262.5 mls @ 250 mls/hr IV.SIG Q24H [facility] Miscellaneous Information ([facility] Ordered Lab Info) 0 each OTHER ONCE ONE Stop: 04/28/18 09:46 Ondansetron HCl (Zofran Inj) 4 mg IV.PUSH Q6H PRN PRN Reason: NAUSEA OR VOMITING Senna/Docusate Sodium (Karen-Colace) 1 tab PO BID [facility] Last Admin: 04/25/18 20:20 Dose: 1 tab Allergies Allergy/AdvReac Type Severity Reaction Status Date / Time No Known Allergies Allergy Verified 04/25/18 11:26 Home Medications Medication Instructions Recorded Confirmed Type No Known Home Medications 04/25/18 04/25/18 History Exam Vital signs: Vital Signs 04/25/18 10:51 04/25/18 11:29 04/25/18 11:33 Temperature 100.0 F H Pulse Rate 110 H 106 H 105 H Respiratory Rate 18 19 Blood Pressure 130/62 111/68 Pulse Oximetry 97 99 04/25/18 11:48 04/25/18 12:13 04/25/18 13:06 Temperature Pulse Rate 108 H 96 H Respiratory Rate 17 17 16 Blood Pressure 120/66 102/59 L Pulse Oximetry 97 98 04/25/18 14:03 04/25/18 15:00 04/25/18 15:14 Temperature 98.9 F Pulse Rate 96 H 97 H 100 H Respiratory Rate 17 18 17 Blood Pressure 99/63 L 97/62 L 97/62 L Pulse Oximetry 97 97 97 04/25/18 16:23 04/25/18 17:00 04/25/18 18:10 Temperature Pulse Rate 100 H 96 H 108 H Respiratory Rate 18 18 17 Blood Pressure 94/68 L 110/76 98/59 L Pulse Oximetry 99 98 04/25/18 18:18 04/25/18 20:00 04/26/18 00:00 Temperature 103.1 F H 100.3 F H Pulse Rate 111 H 91 H Respiratory Rate 18 18 Blood Pressure 108/60 92/52 L Pulse Oximetry 97 97 04/26/18 04:00 Temperature 101.7 F H Pulse Rate 99 H Respiratory Rate 18 Blood Pressure 107/56 L Pulse Oximetry 98 Intake & Output 04/25/18 04/26/18 04/26/18 18:59 06:59 18:59 Intake Total 2750 / 2750 1100 / 1100 100 / 100 Balance 2750 / 2750 1100 / 1100 100 / 100 Weight 72.57 kg 70.9 kg Intake: IV 2750 / 2750 1100 / 1100 100 / 100 NS Inj 1,000 ML @ 165 mls/hr IV 1000 / 1000 .CONT .Q6H4M [facility] Rx#:[id number] Zosyn 4.5 GM Premix 4.5 gm In 100 / 100 100 / 100 100 / 100 100 ml @ 200 mls/hr IV.SIG Q8H [facility] Rx#:[id number] NS Inj 400 ML @ Wide Open IV. 2400 / 2400 SIG .Q0M [facility] Rx#:[id number] Vancomycin Inj 1,000 MG In NS 250 / 250 Inj 250 ML @ 250 mls/hr IV.SIG STAT [facility] Rx#:[id number] Other: # Voids 2 Narrative: GENERAL: Awake and alert. No acute distress. Cooperative. HEAD: Normocephalic. Atraumatic. EYES: Pupils equal round and reactive to light bilaterally. No scleral icterus. ENT: Moist oral mucosa. NECK: Trachea midline. CHEST: Nonlabored breathing. No respiratory distress. CARDIOVASCULAR: Regular rate and rhythm. EXTREMITIES: Left upper extremity-3 x 3 cm superficial fluctuance in the axilla. Significant edema and induration in the left upper arm primarily anteriorly in the biceps area with some erythema. Edema extends onto the proximal forearm. Pain with extension of the elbow. Full range of motion of the wrist and hand fingers. 2+ radial pulse. SKIN: Warm, dry, nonjaundiced. Results - Labs 04/25/18 11:40 04/25/18 11:40 Abnormal lab results 04/25/18 04/25/18 04/25/18 Range/Units 11:40 11:40 11:40 WBC 26.2 H (4.0-11.0) th/mm3 Neut % (Auto) 88.1 H (16.0-70.0) % Lymph % (Auto) 5.5 L (9.0-44.0) % Neut # (Auto) 23.1 H (1.8-7.7) th/mm3 [place] # (Auto) 1.7 H (0.0-0.9) th/mm3 PT 12.0 H (9.8-11.6) sec Sodium 132 L (136-145) meq/L Chloride 95 L (98-107) meq/L BUN 26 H (7-18) mg/dL Creatinine 2.08 H (0.60-1.30) mg/dL Estimated GFR 42 L (>89) mL/min Lactic Acid (0.4-2.0) mmol/L Total Protein 8.8 H (6.4-8.2) g/dL Albumin 3.2 L (3.4-5.0) g/dL 04/25/18 Range/Units 11:40 WBC (4.0-11.0) th/mm3 Neut % (Auto) (16.0-70.0) % Lymph % (Auto) (9.0-44.0) % Neut # (Auto) (1.8-7.7) th/mm3 [place] # (Auto) (0.0-0.9) th/mm3 PT (9.8-11.6) sec Sodium (136-145) meq/L Chloride (98-107) meq/L BUN (7-18) mg/dL Creatinine (0.60-1.30) mg/dL Estimated GFR (>89) mL/min Lactic Acid 2.7 H (0.4-2.0) mmol/L Total Protein (6.4-8.2) g/dL Albumin (3.4-5.0) g/dL Diabetes panel 04/25/18 Range/Units 11:40 Sodium 132 L (136-145) meq/L Potassium 3.9 (3.5-5.1) meq/L Chloride 95 L (98-107) meq/L Carbon Dioxide 24.9 (21.0-32.0) meq/L BUN 26 H (7-18) mg/dL Creatinine 2.08 H (0.60-1.30) mg/dL Calcium 8.7 (8.5-10.1) mg/dL AST 33 (15-37) U/L ALT 26 (12-78) U/L Alkaline Phosphatase 72 (45-117) U/L Total Protein 8.8 H (6.4-8.2) g/dL Albumin 3.2 L (3.4-5.0) g/dL Calcium panel 04/25/18 Range/Units 11:40 Calcium 8.7 (8.5-10.1) mg/dL Albumin 3.2 L (3.4-5.0) g/dL Pituitary panel 04/25/18 Range/Units 11:40 Sodium 132 L (136-145) meq/L Potassium 3.9 (3.5-5.1) meq/L Chloride 95 L (98-107) meq/L Carbon Dioxide 24.9 (21.0-32.0) meq/L BUN 26 H (7-18) mg/dL Creatinine 2.08 H (0.60-1.30) mg/dL Calcium 8.7 (8.5-10.1) mg/dL Adrenal panel 04/25/18 Range/Units 11:40 Sodium 132 L (136-145) meq/L Potassium 3.9 (3.5-5.1) meq/L Chloride 95 L (98-107) meq/L Carbon Dioxide 24.9 (21.0-32.0) meq/L BUN 26 H (7-18) mg/dL Creatinine 2.08 H (0.60-1.30) mg/dL Calcium 8.7 (8.5-10.1) mg/dL Total Bilirubin 0.9 (0.2-1.0) mg/dL AST 33 (15-37) U/L ALT 26 (12-78) U/L Alkaline Phosphatase 72 (45-117) U/L Total Protein 8.8 H (6.4-8.2) g/dL Albumin 3.2 L (3.4-5.0) g/dL All other labs normal. - Imaging Additional studies: Images and report of CT humerus reviewed. Report of axillary ultrasound reviewed. Assessment and Plan - Assessment (1) Cellulitis Code(s): L03.90 - Cellulitis, unspecified Status: Acute (2) Abscess of left axilla Code(s): L02.412 - Cutaneous abscess of left axilla Status: Acute - Plan Small superficial abscess of the left axilla. His primary problem at this point is severe cellulitis of the left upper extremity. I reviewed the CT images closely and I do not see any fluid collections at this point which would require drainage. He may develop fluid collections over the next few days as he continues on IV antibiotics and I will continue to follow. He has fairly significant pain but no other signs or symptoms of compartment syndrome but will continue to monitor.
[2018-04-26 08:13] LABS: Baso % (Auto) 0.2 % (0.0-2.0); Eos % (Auto) 0.1 % (0.0-4.0); Hemoglobin 11.6 gm/dL (13.0-17.0); Lymph % (Auto) 4.1 % (9.0-44.0); Mean Corpuscular HGB Conc 33.2 % (32.0-36.0); Mean Corpuscular Hemoglobin 29.5 pg (27.0-34.0); Mean Corpuscular Volume 88.9 fL (80.0-100.0); Mean Platelet Volume 7.1 fL (7.0-11.0); Mono # (Auto) 1.1 th/mm3 (0.0-0.9); Mono % (Auto) 4.9 % (0.0-8.0); Neut # (Auto) 21.3 th/mm3 (1.8-7.7); Neut % (Auto) 90.7 % (16.0-70.0); Platelet Count 249 th/mm3 (150-450); Red Blood Count 3.94 mil/mm3 (4.50-5.90); Red Cell Distribution Width 14.2 % (11.6-17.2); White Blood Count 23.5 th/mm3 (4.0-11.0)
[2018-04-26 08:41] LABS: Alanine Aminotransferase 16 U/L (12-78); Albumin 2.2 g/dL (3.4-5.0); Alkaline Phosphatase 64 U/L (45-117); Anion Gap 12 meq/L (5-15); Aspartate Aminotransferase 20 U/L (15-37); Blood Urea Nitrogen 25 mg/dL (7-18); Calcium 8.4 mg/dL (8.5-10.1); Carbon Dioxide 20.7 meq/L (21.0-32.0); Chloride 107 meq/L (98-107); Glomerular Filtration Rate 56 mL/min (>89); Glucose,Random 72 mg/dL (74-106); Potassium 3.8 meq/L (3.5-5.1); Sodium 140 meq/L (136-145); Total Protein 6.8 g/dL (6.4-8.2)
[2018-04-26] MEDS: Senna/Docusate Sodium 8.6/50 MG Tablet PO SCH ×2 (09:05→20:49)
[2018-04-26] MEDS: Vancomycin Inj 1,250 MG in Sodium Chlor 0.9% Inj 250 ML IV.SIG SCH (09:05)
--- NOTE | 2018-04-26 10:11 | P.PNADD ---
Addendum to Inpatient Note Reason for Addendum: Additional Documentation Additional information: Please see resident H/P for full documentation of the patients history. Patient with HIV not on retrovirals for over a year was admitted for left UE cellulitis. Since admission he has continued to spike fevers, patient reports swelling has increased and the pain has increased. He has pain and does not feel able to move his left elbow which is new since yesterday. He reports some pain up into the shoulder but able to move the shoulder. He denies CP, SOB, GI changes or other new issues. GENERAL: Vital Signs Temp Pulse Resp BP Pulse Ox 04/26/18 08:00 98.8 F 85 20 89/54 L 96 04/26/18 04:00 101.7 F H 99 H 18 107/56 L 98 04/26/18 00:00 100.3 F H 91 H 18 92/52 L 97 04/25/18 20:00 103.1 F H 111 H 108/60 97 04/25/18 18:18 18 04/25/18 18:10 108 H 17 98/59 L 98 04/25/18 17:00 96 H 18 110/76 99 04/25/18 16:23 100 H 18 94/68 L 04/25/18 15:14 100 H 17 97/62 L 97 04/25/18 15:00 97 H 18 97/62 L 97 04/25/18 14:03 98.9 F 96 H 17 99/63 L 97 04/25/18 13:06 96 H 16 102/59 L 98 04/25/18 12:13 108 H 17 120/66 97 04/25/18 11:48 17 04/25/18 11:33 105 H 04/25/18 11:29 106 H 19 111/68 99 04/25/18 10:51 100.0 F H 110 H 18 130/62 97 Intake and Output 04/25/18 04/26/18 04/26/18 22:59 06:59 14:59 Intake Total 100 / 100 1000 / 1000 100 / 100 Balance 100 / 100 1000 / 1000 100 / 100 Intake: IV 100 / 100 1000 / 1000 100 / 100 NS Inj 1,000 ML @ 165 mls/hr IV 1000 / 1000 .CONT .Q6H4M [facility] Rx#:[id number] Zosyn 4.5 GM Premix 4.5 gm In 100 / 100 100 / 100 100 ml @ 200 mls/hr IV.SIG Q8H [facility] Rx#:[id number] Other: # Voids 2 Weight 70.9 kg Abnormal Lab Results 04/25/18 04/25/18 04/25/18 11:40 11:40 11:40 WBC 26.2 H RBC 4.52 Hgb 13.6 Hct 40.7 MCV 90.2 MCH 30.2 MCHC 33.5 RDW 14.0 Plt Count 261 MPV 7.2 Neut % (Auto) 88.1 H Lymph % (Auto) 5.5 L Moore % (Auto) 6.3 Eos % (Auto) 0.0 Baso % (Auto) 0.1 Neut # (Auto) 23.1 H Lymph # (Auto) 1.4 Moore # (Auto) 1.7 H Eos # (Auto) 0.0 Baso # (Auto) 0.0 WBC Differential . Differential Comment Auto diff final PT 12.0 H INR 1.2 APTT 27.4 Sodium 132 L Potassium 3.9 Chloride 95 L Carbon Dioxide 24.9 Anion Gap 12 BUN 26 H Creatinine 2.08 H Estimated GFR 42 L Random Glucose 88 Lactic Acid Calcium 8.7 Total Bilirubin 0.9 AST 33 ALT 26 Alkaline Phosphatase 72 Total Protein 8.8 H Albumin 3.2 L 04/25/18 04/25/18 04/26/18 11:40 15:40 07:20 WBC 23.5 H RBC 3.94 L Hgb 11.6 L D Hct 35.0 L MCV 88.9 MCH 29.5 MCHC 33.2 RDW 14.2 Plt Count 249 MPV 7.1 Neut % (Auto) 90.7 H Lymph % (Auto) 4.1 L Moore % (Auto) 4.9 Eos % (Auto) 0.1 Baso % (Auto) 0.2 Neut # (Auto) 21.3 H Lymph # (Auto) 1.0 Moore # (Auto) 1.1 H Eos # (Auto) 0.0 Baso # (Auto) 0.0 WBC Differential . Differential Comment Auto diff final PT INR APTT Sodium Potassium Chloride Carbon Dioxide Anion Gap BUN Creatinine Estimated GFR Random Glucose Lactic Acid 2.7 H 1.2 Calcium Total Bilirubin AST ALT Alkaline Phosphatase Total Protein Albumin 04/26/18 07:20 WBC RBC Hgb Hct MCV MCH MCHC RDW Plt Count MPV Neut % (Auto) Lymph % (Auto) Moore % (Auto) Eos % (Auto) Baso % (Auto) Neut # (Auto) Lymph # (Auto) Moore # (Auto) Eos # (Auto) Baso # (Auto) WBC Differential Differential Comment PT INR APTT Sodium 140 Potassium 3.8 Chloride 107 D Carbon Dioxide 20.7 L Anion Gap 12 BUN 25 H Creatinine 1.62 H Estimated GFR 56 L Random Glucose 72 L Lactic Acid Calcium 8.4 L Total Bilirubin 0.9 AST 20 ALT 16 Alkaline Phosphatase 64 Total Protein 6.8 D Albumin 2.2 L D SKIN: Warm and dry - left upper arm -- skin is erythematous and edematous circumferentially around the upper arm. Elbow is flexed, unable to extend, edema extends about 1/[address] down the forearm. Area of air/gas seen on the bicep area. EYES: No scleral icterus. No injection or drainage. NECK: Supple, trachea midline. No JVD or lymphadenopathy. CARDIOVASCULAR: Regular rate and rhythm without murmurs, gallops, or rubs. RESPIRATORY: Breath sounds equal bilaterally. No accessory muscle use. GASTROINTESTINAL: Abdomen soft, non-tender, nondistended. MUSCULOSKELETAL: No cyanosis, or edema. BACK: Nontender without obvious deformity. : No CVA tenderness. NEURO: non-focal, no deficits A/P 1. Cellulitis/abscess -- this has worsened since admission, patient continues to spike fevers, BP low - gen surgery does not feel there is an abscess that is drainable - ortho consulted for their opinion as well due to the lack of ability to extend of the elbow -- he is aware of the patient and wants MRI - ID consult pending -- they are aware of the patient and rec adding the clinda - continue vanc/zosyn, add clinda - check lactic acid, ESR, CRP, CK, re-bolus 1L - check MRI -- if renal function improves will do contrast portion. 2. HIV - viral load pending 3. Psych - relatively stable for now. Patient seen and dw the resident team -_ Dr. Mcneil, Dr. Russell, Dr. Vyas
[2018-04-26] MEDS ORDERED: Sod Chloride 0.9% Inj 1,000 ML IV.SIG ONE (10:15)
[2018-04-26] MEDS ORDERED: Neostigmine Inj 5 MG/5 ML Syringe IV.PUSH ONE (12:00)
[2018-04-26] MEDS ORDERED: Lidocaine PF 1% Inj 5 ML Syringe INFILTRATN ONE (12:00)
[2018-04-26] MEDS ORDERED: Glycopyrrolate Inj 1 MG/5 ML Syringe IV.PUSH ONE (12:00)
[2018-04-26] MEDS ORDERED: Phenylephrine/NS 1000 MCG/10ML Syringe IV.PUSH ONE (12:00)
[2018-04-26] MEDS: Clindamycin 600 mg/NS Premix 600 MG/50 ML PIGGYBACK IV.SIG SCH ×2 (12:05→20:48)
[2018-04-26] MEDS ORDERED: Vancomycin Inj 1 GM/200 ML PIGGYBACK IV.SIG SCH (12:45)
--- NOTE | 2018-04-26 13:28 | P.CONID ---
History of Present Illness Service: Infectious Disease Consult date: 04/26/18 Requesting Physician: Asya Mcneil Reason for Consult: Evaluation and Mment of LUE axillary, Left arm,Left forearm nec fascitis Primary Care Provider: UNKNOWN History of Present Illness: Patient is not a reliable historian. Mr. Quezada is a 47yo AAM with a PMH of HIV (diagnosed in [facility] per patient, sexually transmitted, denies any IVDA. He reports he was diagnosed with HIV 10 years back and since then has been on treatment off and on. He reports he has never has any opportunistic infections or hospitalizations that would point towards these diagnosis. He reports he has been off HAART for last 1 year. He says he was depressed and hence quit taking medications. He denies any suicidal ideations. His PMHx is also significant for reported history of Bipolar disorder, PTSD, MDD unsure if he is on treatment for the same. He denies any IVDA adamantly. With this background patient presents to the hospital with left UE arm swelling. He reports this started as an axillary area swelling approximately 2 weeks back [facility] which [facility] and [facility]. He denies any trauma, insect bites, or IVDA. He reports he is still on his antibiotics unsure if he has been compliant with his medications. He then went to the [facility] on 04/15 and was prescribed doxycycline. He goes on to report that he started draining malodorous green pus. Patient reports that approximately 4 days back patient left upper arm starting swelling, became erythematous, warm. He reports he had no bus ride so he toughed it out. He reports having developed night sweats, fever/chills, fatigue, loss of appetite. He reports pain in his left UE and is unable to move his hand due to significant pain and swelling. He denies any chest pain or back pain. He denies prior endocarditis or epidural abscess. ID consulted for evaluation and Mment of possible LUE abscess ? Nec fascitis. I discussed case briefly in am (no chart reviewed, no names disclosed: vitals ok, BP improved,lactic acid improved, concern for worsening limb findings with blisters and increase in girth. Asked to add Clinda if concern for Nec fascitis and call STAT surgery consult if concern for Nec fascitis as it would be a surgical emergency. I have not seen the patient or reviewed chart at this point so asked her to use her own clinical discretion/senior/attending. Asked to order MRI LUE Stat as well. At the time of my evaluation, patient was on regular floor, vitals stable and was being taken for an MRI. Reviewed Dr.Dean eagle. RN and residents inform me worsening LUE findings since seen by him. dw about LUE findings and my concern for Nec fascitis with increasing girth imminent Compartment syndrome. will evaluate patient but also requesting hand surgery as well as general surgery evaluation. Patient is NPO post breakfast pending further evaluation by surgeons. Review of Systems All other systems reviewed negative except as stated in HPI PMFSH - History History Provided By: Patient - Medical History Medical History: Medical History (Last Updated 04/25/18 @ 15:32 by Asya Mcneil MD, R1) Bipolar disorder HIV (human immunodeficiency virus infection) PTSD (post-traumatic stress disorder) - Surgical History Surgical History: Surgical History (Last Reviewed 04/25/18 @ 11:35 by Leila Chilel PIN MACHINE OPERATOR) No history of previous surgery - Family History Family History: Family History (Last Updated 04/25/18 @ 15:33 by Asya Mcneil MD, R1) Other Unknown family medical history - Tobacco History Tobacco Use In Past 30 Days: Yes Smoking Status: Current every day smoker (0.5 ppd for 30 yrs) Tobacco Type: Cigarettes - Alcohol History How Often Do You Have a Drink Containing Alcohol: Never (quit 5 yrs ago) - Substance Use History Substance History: Past History (stopped smoking marijuana) - Substance Use Type Marijuana Status: Early Remission Comment: STOPPED 45 DAYS AGO - Travel History Recent Travel in the [place] Within the Last 8 Weeks: No Recent Travel Out of the Country Within the Last 8 Weeks: No - Immunization History Tetanus Immunization: Unsure Hx Influenza Vaccine This Season: Yes Medications and Allergies Active Medications: Active Medications Acetaminophen (Tylenol) 650 mg PO Q4H PRN PRN Reason: Temp > 100.4 Last Admin: 04/26/18 04:01 Dose: 650 mg Sodium Chloride (Ns Inj) 1,000 mls @ 0 mls/hr IV.SIG .Q0M TWAN Last Infusion: 04/25/18 12:45 Dose: Infused Sodium Chloride (Ns Inj) 1,000 mls @ 0 mls/hr IV.SIG .Q0M TWAN Last Infusion: 04/25/18 12:45 Dose: Infused Sodium Chloride (Ns Inj) 400 mls @ 0 mls/hr IV.SIG .Q0M TWAN Last Infusion: 04/25/18 12:45 Dose: Infused Sodium Chloride (Ns Inj) 1,000 mls @ 165 mls/hr IV.CONT .Q6H4M TWAN Last Infusion: 04/26/18 12:06 Dose: 165 mls/hr Pharmacy Profile Note (Vancomycin Consult Pharmacy) 0 mls @ 0 mls/hr OTHER UNSCH [facility] Piperacillin/Tazobactam/Dextrose (Zosyn 4.5 Gm Premix) 4.5 gm in 100 mls @ 200 mls/hr IV.SIG Q8H [facility] Last Admin: 04/26/18 12:42 Dose: 200 mls/hr Vancomycin HCl 1,250 mg/ (Sodium Chloride) 262.5 mls @ 250 mls/hr IV.SIG Q24H TWAN Last Infusion: 04/26/18 12:06 Dose: Infused Clindamycin/Sodium Chloride (Cleocin 600 Mg/Ns Premix) 600 mg in 50 mls @ 100 mls/hr IV.SIG Q8H TWAN Last Infusion: 04/26/18 12:42 Dose: Infused Miscellaneous Information ([facility] Ordered Lab Info) 0 each OTHER ONCE ONE Stop: 04/28/18 09:46 Ondansetron HCl (Zofran Inj) 4 mg IV.PUSH Q6H PRN PRN Reason: NAUSEA OR VOMITING Senna/Docusate Sodium (Karen-Colace) 1 tab PO BID [facility] Last Admin: 04/26/18 09:05 Dose: 1 tab Allergies Allergy/AdvReac Type Severity Reaction Status Date / Time No Known Allergies Allergy Verified 04/25/18 11:26 Home Medications Medication Instructions Recorded Confirmed Type No Known Home Medications 04/25/18 04/25/18 History Exam Vital signs: Vital Signs 04/25/18 14:03 04/25/18 15:00 04/25/18 15:14 Temperature 98.9 F Pulse Rate 96 H 97 H 100 H Respiratory Rate 17 18 17 Blood Pressure 99/63 L 97/62 L 97/62 L Pulse Oximetry 97 97 97 04/25/18 16:23 04/25/18 17:00 04/25/18 18:10 Temperature Pulse Rate 100 H 96 H 108 H Respiratory Rate 18 18 17 Blood Pressure 94/68 L 110/76 98/59 L Pulse Oximetry 99 98 04/25/18 18:18 04/25/18 20:00 04/26/18 00:00 Temperature 103.1 F H 100.3 F H Pulse Rate 111 H 91 H Respiratory Rate 18 18 Blood Pressure 108/60 92/52 L Pulse Oximetry 97 97 04/26/18 04:00 04/26/18 08:00 04/26/18 12:00 Temperature 101.7 F H 98.8 F 100.5 F H Pulse Rate 99 H 85 99 H Respiratory Rate 18 20 24 Blood Pressure 107/56 L 89/54 L 100/65 Pulse Oximetry 98 96 95 Intake & Output 04/25/18 04/26/18 04/26/18 18:59 06:59 18:59 Intake Total 2750 / 2750 1100 / 1100 1412.5 / 1412.5 Balance 2750 / 2750 1100 / 1100 1412.5 / 1412.5 Weight 72.57 kg 70.9 kg Intake: IV 2750 / 2750 1100 / 1100 1412.5 / 1412.5 NS Inj 1,000 ML @ 165 mls/hr IV 1000 / 1000 .CONT .Q6H4M TWAN Rx#:[id number] Cleocin 600 mg/NS Premix 600 mg 50 / 50 In 50 ml @ 100 mls/hr IV.SIG Q8H TWAN Rx#:[id number] Zosyn 4.5 GM Premix 4.5 gm In 100 / 100 100 / 100 100 / 100 100 ml @ 200 mls/hr IV.SIG Q8H TWAN Rx#:[id number] NS Inj 1,000 ML @ Wide Open IV. 2400 / 2400 1000 / 1000 SIG BOLUS ONE Rx#:[id number] Vancomycin Inj 1,000 MG In NS 250 / 250 Inj 250 ML @ 250 mls/hr IV.SIG STAT STA Rx#:[id number] Vancomycin Inj 1,250 MG In NS 262.5 / 262.5 Inj 250 ML @ 250 mls/hr IV.SIG Q24H TWAN Rx#:[id number] Other: # Voids 2 Date of Last Bowel Movement 04/24/18 - Constitutional no acute distress - Routine HEENT Exam Head: Present: normocephalic, atraumatic Eye: Present: EOMI, PERRL. Absent: conjunctival icterus, scleral injection ENT: Present: mucous membranes moist - Routine Neck Exam Absent: full ROM, tenderness, swelling - Routine Chest/Breast/Axilla Exam Chest wall: Absent: tenderness Breast: Absent: tenderness Axillae: Present: mass (axillary LN vs mass palpable.), tenderness - Routine Respiratory Exam Present: CTA bilaterally - Routine Cardiovascular Exam Present: S1, S2, murmur - Routine Abdominal Exam Present: soft, normoactive bowel sounds - Routine Extremities Exam Absent: cyanosis, clubbing, full ROM (LUE reduced ROM. LUE swelling, erythema, tenderness noted. Blisters noted on the LUE. Swelling of arm elbow, down to mid forearm level. The girth and size of LUE was almost twice the other limb. There were no subq creps noted. Tense skin, some tenderness, but still able to indent skin.) - Routine Skin Exam Present: intact - Routine Neurological Exam Present: alert, oriented X3 - Routine Psychiatric Exam Present: cooperative Results - Labs CBC & Chem 7: 04/27/18 03:03 04/27/18 03:03 Labs: Laboratory Results - last 24 hr 04/25/18 04/26/18 04/26/18 15:40 07:20 07:20 WBC 23.5 H RBC 3.94 L Hgb 11.6 L D Hct 35.0 L MCV 88.9 MCH 29.5 MCHC 33.2 RDW 14.2 Plt Count 249 MPV 7.1 Neut % (Auto) 90.7 H Lymph % (Auto) 4.1 L Sunflower % (Auto) 4.9 Eos % (Auto) 0.1 Baso % (Auto) 0.2 Neut # (Auto) 21.3 H Lymph # (Auto) 1.0 Sunflower # (Auto) 1.1 H Eos # (Auto) 0.0 Baso # (Auto) 0.0 WBC Differential . Differential Comment Auto diff final Sodium 140 Potassium 3.8 Chloride 107 D Carbon Dioxide 20.7 L Anion Gap 12 BUN 25 H Creatinine 1.62 H Estimated GFR 56 L Random Glucose 72 L Lactic Acid 1.2 Calcium 8.4 L Total Bilirubin 0.9 AST 20 ALT 16 Alkaline Phosphatase 64 Total Protein 6.8 D Albumin 2.2 L D - Imaging Impressions Upper Extremity Ultrasound 04/25/18 00:00 CONCLUSION: Subcutaneous tissue phlegmon in the left axillary region. Forearm CT 04/25/18 12:57 CONCLUSION: 1. Nonspecific subcutaneous edema along the medial aspect of the proximal forearm. 2. The bony structures are grossly intact. Humerus CT 04/25/18 12:57 CONCLUSION: 1. Nonspecific edema throughout the subcutaneous soft tissues along the medial aspect of the upper arm. No drainable loculated fluid collections. 2. The bony structures of the humerus are grossly unremarkable. Chest X-Ray 04/26/18 00:00 CONCLUSION: The lungs are clear. Assessment and Plan - Plan Severe Sepsis fever, leucocytosis, hypotension, lactic acid elevation. LUE abscess/cellulitis. With concern for Necrotizing fascitis due to blistering , pain out of proportion, decreased ROM. ? Infective Myositis. Axillary abscess Was on antibiotics prior to admission. HIV Immunocompromised. Recs: debbie Sousa to call Hand Surgery consult and General Surgery (with change in clinical findings and MRI results) Debbie Mars who recommends adding Hand surgery consult and he will evaluate patient as well. Informed him of pending MRI LUE. Continue Zosyn IV Continue Vanco IV (target trough 15-20) Continue Clindamycin (asked to add this to regimen for toxin neutralizing effect) Follow blood cultures. Follow clinically. debbie Sousa to follow MRI and update surgeons and continue NPO until evaluated and decisions made re:surgery. debbie pt debbie RN
[2018-04-26] MEDS ORDERED: Bupivacaine/Epinephrine 0.5% Inj 50 ML Vial ONE (13:50)
[2018-04-26] MEDS ORDERED: Gadodiamide PF Inj 287 MG/ML 5 ML Syringe (for RAD MRI) IVCONTRAST ONE (14:48)
--- NOTE | 2018-04-26 15:27 | MR ---
EXAM DATE: 04/26/2018 2:44 PM EDT AGE/SEX: 47 years / Male INDICATIONS: Swelling and pain left arm. CLINICAL DATA: This is the patient's subsequent encounter. Patient reports that signs and symptoms h ave been present for 2 days and indicates a pain score of 3/10. MEDICAL/SURGICAL HISTORY: HIV. bipolar, PTSD . Lt shoulder COMPARISON: No prior exams available for comparison. TECHNIQUE: Multiplanar, multisequence MRI examination was performed without and with 14 ml Omniscan (gadodiamide) contrast as single exam dose. FINDINGS: There is severe subcutaneous edema. There may be a tiny abscess versus a necrotic lymph node high in the upper arm on the last slice measuring 1.9 cm. Following the administration of contrast there is e xtensive weblike enhancement and subcutaneous tissues as well as enhancement of the fascia which may be reactive in nature. There is no enhancement of the deep fascial layers or muscular edema. No gas i s identified within the soft tissues. No focal areas of marrow placement are identified. CONCLUSION: Severe cellulitis confined to subcutaneous location with fascial enhancement which may be reactive in nature. There is no evidence of abscess. There is no evidence of osteomyelitis. Electronically signed by: Ike Barnhart MD 04/26/2018 3:26 PM EDT
[2018-04-26] MEDS ORDERED: Metoprolol Tartrate 25 MG Tablet PO SCH (15:30)
[2018-04-26] MEDS ORDERED: Chlorhexidine Gluconate 2% 1 Pack (2 Cloths) TOPICAL SCH (15:30)
[2018-04-26] MEDS ORDERED: Sodium Chlor 0.9% Inj 500 ML IV.SIG SCH (16:00)
[2018-04-26] MEDS ORDERED: ceFAZolin 2 GM Premix Inj 2 GM/50 ML PIGGYBACK IV.SIG ONE (16:18)
[2018-04-26] MEDS ORDERED: Post-op Orders (for Pharmacy) OTHER STA (17:46)
[2018-04-26 17:51] LABS: Hematocrit 29.1 % (39.0-51.0); Hemoglobin 9.5 gm/dL (13.0-17.0)
[2018-04-26] MEDS ORDERED: ceFAZolin Inj 2,000 MG in Sodium Chlor 0.9% Inj 80 ML IV.SIG SCH (18:00)
--- NOTE | 2018-04-26 18:08 | MP ---
cc: Jax Allen MD, Jeffrey W MD DATE OF OPERATION: 04/26/2018 PREOPERATIVE DIAGNOSES: Necrotizing fasciitis, left arm, left elbow, left forearm with septic shock. POSTOPERATIVE DIAGNOSES: Necrotizing fasciitis, left arm, left elbow, left forearm with septic shock. PROCEDURE PERFORMED: Incision and drainage, irrigation and excisional debridement of left arm, left elbow, left forearm. SURGEON: Jax Allen MD ANESTHESIA: General. ESTIMATED BLOOD LOSS: 600 mL TOURNIQUET TIME: Zero minutes. COMPLICATIONS: None. JUSTIFICATION FOR PROCEDURE: The patient is a 47-year-old male who initially developed the onset of pain and swelling in the left axilla. He has subsequently had progression of symptoms with obvious infection into the region of the left arm extending into the antecubital fossa and into the forearm along the volar aspect. He has been on IV antibiotics after admission to [facility] with progression and worsening of symptoms. He has a history of HIV with immunosuppression and compromise. The patient shows signs of septic shock with hypotension, elevated white count over 20,000 and elevated temperatures. I was consulted emergently to evaluate this patient by initially the primary care and subsequently infectious disease doctor. The Infectious Disease doctor thought the patient had necrotizing infection and potentially development of acute onset compartment syndrome. MRI was ordered, and I discussed the findings personally with Dr. Barnhart from radiology who thought the patient had significant soft tissue swellings and potentially necrotizing fasciitis by MR imaging. I canceled my clinic and came to the hospital emergently to evaluate this patient for this potentially limb and life threatening infection. I also contacted the OR prior to seeing the patient and arranged to have priority placed on his potential need for surgery. Upon evaluation of the patient, I did confirm diagnosis of necrotizing fasciitis based on my clinical examination and review of his records and above named findings. I counseled the patient as to the severe nature of his condition and treatment options. We spoke about the option of a large incision, drainage, irrigation and debridement procedure. Risks of surgery were discussed in detail including anesthesia, bleeding, continued infection, pain, damage to nerves and blood vessels, stiffness. The patient understands this is a potentially limb and life threatening infection and did wish to proceed with surgery. The patient stated "do whatever you have to do to fix it". I have obtained appropriate written consent and the surgical site has been marked. PROCEDURE IN DETAIL: The patient was taken to the operating room emergently. General anesthesia was administered as well as 2 grams of IV Ancef. He has been on Zosyn and clindamycin. The left upper extremity was prepped and draped using isopropyl alcohol, Hibiclens solution and ChloraPrep solution. After a timeout was performed, a longitudinal incision was made just distal to the axilla along the medial aspect of the left arm. The incision was carried distally to the region of the antecubital fossa and elbow and then distally into the region of the forearm, stopping just before the wrist. There was evidence of obvious infection involving the fascia with evidence of purulence and necrosis. Deep cultures were obtained. At this point, an extensive debridement was performed to include skin, subcutaneous tissue, fascia, and muscle. The debridement included tissues of the forearm, as well as into the antecubital fossa and into the region of the biceps and fascial layer extending all the way up to the region of the axilla. Bovie cautery was used for hemostasis. It was a very extensive and long debridement and I was able to undermine the tissues and create skin flaps to get exposure to the infection, which had progressed near circumferentially around the arm, elbow and forearm region. I then thoroughly irrigated with multiple liters of sterile saline pulse lavage antibiotic impregnated solution. Again, Bovie cautery was used for hemostasis. I did consult Dr. Cobb, who is the general surgeon science consultant as well. Because the infection appeared to start in the patient's axilla with an infected axillary node as per the patient report, the patient does have again swelling and sense of the pain in that region as well, I thought Dr. Cobb should explore this area as well. This is area of focus in regards to he does routine axillary node dissections in that area as opposed to myself who is an orthopedic surgeon. At this point, when I concluded my portion of the procedure, there was no significant bleeding noted from the wound. A sterile saline antibiotic soaked gauze was placed throughout the wound. I instructed the nurse to have a wound VAC sponge available for when Dr. Cobb finishes so that he can place a wound VAC over this region. Postoperatively, the patient will receive continued IV antibiotics and may require additional staged planned return to the operating room for additional debridement procedures. At this point, Dr. Cobb will take over his portion of the procedure and will dictate a separate operative report. MD ORLANDO Luz/ , 05:43 PM , 06:07 PM
[2018-04-26] MEDS ORDERED: fentaNYL Citrate Inj 100 MCG/2 ML Ampul ONE ×3 (18:13→18:54)
[2018-04-26] MEDS ORDERED: *morphine SULFATE 4 MG/ML PERIprocedure ONLY ONE ×2 (18:52→19:09)
--- NOTE | 2018-04-26 18:52 | MB ---
cc: Jax Allen MD, Jeffrey W MD DATE: 04/26/2018 REASON FOR CONSULTATION: Necrotizing fasciitis of the left arm, elbow, forearm with septic shock. HISTORY OF PRESENT ILLNESS: This patient is a 47-year-old male with a past history of HIV, who has had this condition for over 10 years. He is currently not medicated. He states he stopped taking his medications because of depression. He denies suicidal ideations. He does have a history of left axillary swelling with enlarged lymph node in this region. He states this happened about 2 weeks ago. He went to the [facility] and was placed on oral antibiotics. He denies trauma, insect bites or IV drug use. He states the pain and swelling got worse in spite of taking the doxycycline. The swelling and pain extended into the region of the left arm, left elbow and then subsequently antecubital fossa and forearm. He was admitted to [facility] and was placed on IV antibiotics. He did notice a blister forming with some malodorous drainage noted. He has been having fevers and chills, fatigue, loss of appetite. Again, his symptoms are getting worse and he has been on antibiotics since admission to [facility]. I was initially consulted by the family practice physician who had informed me of the patient's condition today and did have a consultation with the general surgeon, Dr. Cobb. Based on CT scan which showed no evidence of abscess or drainable fluid collection, Dr. Cobb felt as though surgery was not indicated at this point. Based on the patient's history, I would recommend an MRI examination. I was later contacted by the infectious disease doctor, who felt that the patient would likely require surgical intervention. I also spoke to Dr. Barnhart, the radiologist, who has read the patient's Stat MRI and, based on the soft tissue swelling and the patient's clinical picture, thought it was likely the patient may be developing some necrotizing fasciitis involving his extremity. I did, at this point, cancel my scheduled clinic and came to the hospital emergently a potentially limb threatening and life threatening infection. I also contacted the operating room to place elective scheduled cases on hold for possible emergent surgical requirements as patient's condition. PAST MEDICAL HISTORY: Positive for bipolar, HIV, posttraumatic stress disorder. PAST SURGICAL HISTORY:. No previous surgical history. FAMILY HISTORY: Reviewed and noncontributory. SOCIAL HISTORY: He does smoke about half a pack to 1 pack per day for the last 30 years. He states he stopped drinking alcohol 5 years ago. He states he has smoked marijuana in the past, but currently smoked marijuana about a month ago. CURRENT MEDICATIONS: 1. Tylenol. 2. Zosyn. 3. Vancomycin. 4. Clindamycin. REVIEW OF SYSTEMS: Negative for 10 systems other than stated in HPI. PHYSICAL EXAMINATION: VITAL SIGNS: Temperature is 101.7, pulse 99, respirations 18, blood pressure 107/56, pulse oximetry 98% on room air. GENERAL: The patient is awake, alert, lying in bed. He appears in mild distress as related to left upper extremity. HEENT: Normocephalic, atraumatic. Pupils round. Extraocular muscles intact. No scleral icterus. NECK: Supple. LUNGS: Clear. HEART: Regular rate and rhythm. ABDOMEN: Soft, nontender. EXTREMITIES: Left upper extremity shows swelling which begins in the region of the axilla extending down the medial aspect of the left arm into the antecubital fossa and then extending into the volar aspect of the forearm towards the wrist. There is an area of fluctuance and some drainage noted of the arm and region towards the antecubital fossa. He can flex his digits, but with pain. Again, he has significant swelling of his arm as well. IMAGING STUDIES: CT scan of the humerus shows nonspecific edema throughout subcutaneous soft tissues. No drainable loculated fluid collection. Bony structures unremarkable. LABORATORY DATA: White blood cell count is 23.5, hemoglobin is 11, hematocrit 35, platelets 249. Glucose is 72. Creatinine is 1.6, BUN is 25. IMPRESSION: A 47-year-old male, human immunodeficiency virus immunocompromised. He appears to have a necrotizing fasciitis infection involving his left arm, antecubital fossa of his elbow extending into the forearm. This may have started with an infected axillary lymph node. He has been noncompliant with his human immunodeficiency virus medication so he does have a likely immunosuppression, although he has significant elevated white blood cell count and is showing elevated temperatures. I do feel as though this is a limb threatening and potentially life threatening infection that does require emergent surgery. PLAN: I have discussed the above named findings with the patient as well as I spoke about treatment options. It is my recommendation and the patient's wish to undergo surgical intervention to include incision, drainage, irrigation and debridement. Risks and benefits of the procedure, necessity of the procedure have been discussed in detail. The patient does wish to proceed with surgery as outlined above. Written consent has been obtained. The surgical site has been marked. I have contacted the operating room and we will take the patient to the operating room emergently to treat his limb and life threatening infection. MD ORLANDO Luz/ , 06:23 PM , 06:50 PM
[2018-04-26] MEDS ORDERED: HYDROmorphone PF Inj 2 MG/ML Vial ONE (19:24)
--- NOTE | 2018-04-26 21:16 | P.CONCC ---
History of Present Illness Primary Care Provider: UNKNOWN History of Present Illness: 47 year old male with a PMH of HIV, Bipolar disorder, PTSD, MDD has been admitted with left upper arm swelling. He says that this issue started 2 weeks ago with an abscess in his left axilla that was the size of a little knot. He is unsure of the inciting even (no bites etc). He then went to the doctor at the [facility] on 04/15 and was prescribed doxycycline. He has not yet finished the course. After taking this, his axilla started draining malodorous green pus. 4 days ago his left upper arm starting swelling. He developed night sweats, fever/chills, fatigue, loss of appetite. No history of IV drug use. Today he was taken to operating room for I&D of his left upper arm. Postoperatively he is admitted to ICU with critical care consultation in place. During my assessment the patient is alert awake oriented 3 in no acute distress comfortable on nasal cannula with map above 65. Review of Systems Constitutional: Denies anorexia, Denies body ache(s), Denies chills, Denies daytime sleepiness, Denies excessive sweating, Denies fatigue, Denies fever(s), Denies headache(s), Denies increased appetite, Denies lack of energy, Denies malaise, Denies night sweats, Denies weakness, Denies weight gain, Denies weight loss, Denies other Eyes: Denies blind spots, Denies blurry vision, Denies bulging eyes, Denies change in vision, Denies double vision, Denies discharge, Denies dry eyes, Denies floaters, Denies irritation, Denies itchy eyes, Denies loss of vision, Denies pain, Denies requires corrective lenses, Denies sensitivity to light, Denies other Ears, Nose, Mouth, and Throat: Denies abnormal hearing, Denies bleeding gums, Denies bad breath, Denies change in voice, Denies dental pain, Denies difficulty swallowing, Denies dizziness, Denies dry mouth, Denies ear discharge , Denies ear pain, Denies facial pain, Denies headache(s), Denies hearing loss, Denies hoarseness, Denies lip swelling, Denies nosebleed, Denies mouth lesions, Denies mouth pain, Denies nasal congestion, Denies nasal discharge, Denies nasal obstruction, Denies nasal trauma, Denies neck lump, Denies neck pain, Denies nose pain, Denies pain with swallowing, Denies poor balance, Denies post nasal drip, Denies ringing in the ears, Denies sinus pain, Denies sinus pressure , Denies sore throat, Denies throat swelling, Denies tongue swelling, Denies other Cardiovascular: Denies chest pain, Denies chest pain at rest, Denies chest pain with activity, Denies excessive sweating, Denies fainting, Denies fast heart rate, Denies foot swelling, Denies generalized swelling, Denies irregular heart rhythm, Denies leg pain with activity, Denies leg sores, Denies leg swelling, Denies lightheadedness, Denies radiating jaw, neck or arm pain, Denies rapid, pounding, or irregular heartbeat, Denies shortness of breath, Denies shortness of breath with activity, Denies shortness of breath when lying down, Denies shortness of breath causing sudden awakening, Denies slow heart rate, Denies other Respiratory: Denies change in phlegm color, Denies chest congestion, Denies cough, Denies coughing up blood, Denies excessive phlegm production, Denies pain on inspiration, Denies pain with cough, Denies shortness of breath, Denies shortness of breath with activity, Denies snoring, Denies stridor, Denies wheezing, Denies other Gastrointestinal: Denies abdominal pain, Denies belching, Denies black, tarry stools, Denies bloating, Denies bright, red blood in stools, Denies change in bowel habits, Denies constant urge to pass stool, Denies change in stools, Denies coffee ground vomit, Denies constipation, Denies cramping, Denies difficulty swallowing, Denies excessive passing of gas, Denies feeling full early, Denies heartburn, Denies incontinent of stools, Denies loose stools, Denies nausea, Denies pain with swallowing, Denies vomiting, Denies vomiting blood, Denies other Genitourinary: Denies blood in semen, Denies blood in urine, Denies decreased urination, Denies difficulty urinating, Denies difficulty with ejaculations, Denies erectile dysfunction, Denies genital lesions, Denies genital pain, Denies painful urination, Denies side pain, Denies frequent nighttime urination , Denies painful ejaculations, Denies penile discharge, Denies scrotal swelling , Denies testicle lump, Denies testicle pain, Denies urinary frequency, Denies urinary hesitancy, Denies urinary incontinence, Denies urinary urgency, Denies other Musculoskeletal: Denies abnormal walking, Denies back pain, Denies body aches, Denies decreased muscle mass, Denies deformity, Denies joint pain, Denies joint swelling, Denies limited joint movement, Denies loss of height, Denies muscle cramps, Denies muscle weakness, Denies neck pain, Denies numbness, Denies radiating pain into limb, Denies stiffness, Denies tingling, Denies other Skin/Breast: Reports new lesions, Reports redness, Denies acne, Denies bleeding lesions, Denies boil, Denies breast swelling, Denies breast skin changes, Denies breast pain, Denies breast lump, Denies change in breast shape, Denies change in hair, Denies change in skin color, Denies changing lesions, Denies dry skin, Denies excessive hair growth, Denies hair loss, Denies itching, Denies lesions, Denies nail changes, Denies nipple discharge, Denies non- healing lesions, Denies sensitivity to light, Denies rash, Denies skin pain, Denies skin ulcer, Denies sores, Denies stretch pro, Denies unusual bruising, Denies wounds, Denies yellowing of the skin, Denies other Neurologic: Denies abnormal hearing, Denies abnormal movements, Denies abnormal speech, Denies abnormal walking, Denies behavioral changes, Denies burning sensations, Denies confusion, Denies dizziness, Denies fainting, Denies frequent falls, Denies headache(s), Denies lack of coordination, Denies localized weakness, Denies loss of vision, Denies memory loss, Denies numbness, Denies other visual disturbances, Denies radiating pain, Denies restless legs, Denies convulsions, Denies seizure-like activity, Denies sensory deficit, Denies tingling, Denies tingling/numbness/burning sensations, Denies tremor(s), Denies unsteadiness, Denies weakness, Denies other Psychiatric: Denies abnormal sleep pattern, Denies anxiety, Denies behavioral changes, Denies change in appetite, Denies change in sex drive, Denies confusion , Denies depression, Denies difficulty concentrating, Denies hearing things others do not hear, Denies hopelessness, Denies irritability, Denies lack of enjoyment, Denies memory loss, Denies mood swings, Denies panic attacks, Denies paranoia, Denies seeing things others do not see, Denies sensing things others do not sense, Denies tactile hallucinations, Denies thoughts of hurting/killing others, Denies thoughts of hurting/killing yourself, Denies other Endocrine: Denies cold intolerance, Denies excessive sweating, Denies flushing, Denies heat intolerance, Denies increased hunger, Denies increased thirst, Denies increased urination, Denies rapid, pounding, or irregular heartbeat, Denies other Hematologic/Lymphatic: Denies easy bleeding, Denies easy bruising, Denies enlarged lymph nodes, Denies other Allergic/Immunologic: Denies GI upset with certain foods, Denies hives, Denies itchy eyes, Denies lip swelling, Denies seasonal runny nose, Denies throat swelling, Denies tongue swelling, Denies wheezing, Denies other PMFSH - History History Provided By: Patient - Medical History Medical History: Medical History (Last Updated 04/25/18 @ 15:32 by Asya Mcneil MD, R1) Bipolar disorder HIV (human immunodeficiency virus infection) PTSD (post-traumatic stress disorder) - Surgical History Surgical History: Surgical History (Last Reviewed 04/25/18 @ 11:35 by DANIEL Snow) No history of previous surgery - Family History Family History: Family History (Last Updated 04/25/18 @ 15:33 by Asya Mcneil MD, R1) Other Unknown family medical history - Tobacco History Tobacco Use In Past 30 Days: Yes Smoking Status: Current every day smoker (0.5 ppd for 30 yrs) Tobacco Type: Cigarettes - Alcohol History How Often Do You Have a Drink Containing Alcohol: Never (quit 5 yrs ago) - Substance Use History Substance History: Past History (stopped smoking marijuana) - Substance Use Type Marijuana Status: Early Remission Comment: STOPPED 45 DAYS AGO - Travel History Recent Travel in the [facility] Within the Last 8 Weeks: No Recent Travel Out of the Country Within the Last 8 Weeks: No - Immunization History Tetanus Immunization: Unsure Hx Influenza Vaccine This Season: Yes Medications and Allergies Active Medications: Active Medications Acetaminophen (Tylenol) 650 mg PO Q4H PRN PRN Reason: Temp > 100.4 Last Admin: 04/26/18 04:01 Dose: 650 mg Hydrocodone Bitart/Acetaminophen ([place] 5/325) 1 tab PO Q4H PRN PRN Reason: PAIN SCALE 4 TO 6 MODERATE Celecoxib (Celebrex) 200 mg PO DAILY [facility] Chlorhexidine Gluconate (Chlorhexidine 2% Cloth) 3 pack TOPICAL CVICU NURSE [facility] Stop: 04/29/18 15:26 Diphenhydramine HCl (Benadryl) 25 mg PO Q6H PRN PRN Reason: ITCHING Folic Acid (Folic Acid) 1 mg PO DAILY [facility] Sodium Chloride (Ns Inj) 1,000 mls @ 0 mls/hr IV.SIG .Q0M [facility] Last Infusion: 04/25/18 12:45 Dose: Infused Sodium Chloride (Ns Inj) 1,000 mls @ 0 mls/hr IV.SIG .Q0M [facility] Last Infusion: 04/25/18 12:45 Dose: Infused Sodium Chloride (Ns Inj) 400 mls @ 0 mls/hr IV.SIG .Q0M [facility] Last Infusion: 04/25/18 12:45 Dose: Infused Sodium Chloride (Ns Inj) 1,000 mls @ 165 mls/hr IV.CONT .Q6H4M [facility] Last Admin: 04/26/18 14:18 Dose: Not Given Pharmacy Profile Note (Vancomycin Consult Pharmacy) 0 mls @ 0 mls/hr OTHER [facility] Piperacillin/Tazobactam/Dextrose (Zosyn 4.5 Gm Premix) 4.5 gm in 100 mls @ 200 mls/hr IV.SIG Q8H [facility] Last Admin: 04/26/18 20:48 Dose: 200 mls/hr Vancomycin HCl 1,250 mg/ (Sodium Chloride) 262.5 mls @ 250 mls/hr IV.SIG Q24H [facility] Last Infusion: 04/26/18 12:06 Dose: Infused Clindamycin/Sodium Chloride (Cleocin 600 Mg/Ns Premix) 600 mg in 50 mls @ 100 mls/hr IV.SIG Q8H [facility] Last Admin: 04/26/18 20:48 Dose: 100 mls/hr Lactated Ringer's (Lr 1000 Ml Inj) 1,000 mls @ 30 mls/hr IV.SIG .Q24H [facility] Stop: 04/29/18 15:26 Last Admin: 04/26/18 15:00 Dose: 30 mls/hr Sodium Chloride (Ns Inj) 500 mls @ 30 mls/hr IV.SIG .Q10H [facility] Stop: 04/29/18 15:26 Lactated Ringer's (Lr 1000 Ml Inj) 1,000 mls @ 100 mls/hr IV.CONT .Q10H [facility] Cefazolin Sodium/Dextrose (Ancef 2 Gm Premix Inj) 2 gm in 50 mls @ 100 mls/hr IV.SIG Q8H [facility] Stop: 04/27/18 16:29 Metoprolol Tartrate (Lopressor) 25 mg PO CVICU NURSE [facility] Stop: 04/29/18 15:26 Miscellaneous Information ([facility] Ordered Lab Info) 0 each OTHER ONCE ONE Stop: 04/28/18 09:46 Miscellaneous Information ([facility]) 1 each OTHER UNSCH PRN PRN Reason: SEE LABEL COMMENTS Stop: 04/27/18 18:43 Morphine Sulfate (Morphine Inj) 4 mg IV.PUSH Q3H PRN PRN Reason: BREAKTHROUGH PAIN Multivitamins/Minerals (Theragran-M) 1 tab PO DAILY [facility] Ondansetron HCl (Zofran Inj) 4 mg IV.PUSH Q6H PRN PRN Reason: NAUSEA OR VOMITING Pantoprazole Sodium (Protonix) 40 mg PO DAILY [facility] Povidone Iodine (Betadine 5% Antisepsis Kit) 1 applicatio EACH NARE CVICU NURSE [facility] Stop: 04/29/18 15:26 Senna/Docusate Sodium (Karen-Colace) 1 tab PO BID [facility] Last Admin: 04/26/18 20:49 Dose: 1 tab Sodium Chloride (Ns Flush) 2 ml IV.FLUSH BID [facility] Sodium Chloride (Ns Flush) 2 ml IV.FLUSH PRN PRN PRN Reason: FLUSH AFTER USING IV ACCESS Thiamine HCl (Vitamin B1) 100 mg PO DAILY [facility] Zolpidem Tartrate (Ambien) 5 mg PO HS PRN PRN Reason: INSOMNIA Allergies Allergy/AdvReac Type Severity Reaction Status Date / Time No Known Allergies Allergy Verified 04/25/18 11:26 Home Medications Medication Instructions Recorded Confirmed Type No Known Home Medications 04/25/18 04/25/18 History Physical Exam Vital signs: Vital Signs 04/26/18 00:00 04/26/18 04:00 04/26/18 08:00 Temperature 100.3 F H 101.7 F H 98.8 F Pulse Rate 91 H 99 H 85 Respiratory Rate 18 18 20 Blood Pressure 92/52 L 107/56 L 89/54 L Pulse Oximetry 97 98 96 04/26/18 12:00 04/26/18 18:45 04/26/18 19:00 Temperature 100.5 F H 98.4 F Pulse Rate 99 H 97 H 91 H Respiratory Rate 24 18 18 Blood Pressure 100/65 106/66 103/55 L Pulse Oximetry 95 95 97 04/26/18 19:15 04/26/18 19:21 04/26/18 19:22 Temperature Pulse Rate 91 H Respiratory Rate 18 18 16 Blood Pressure 103/55 L Pulse Oximetry 97 04/26/18 19:30 04/26/18 19:45 04/26/18 20:00 Temperature 98.0 F Pulse Rate 93 H 93 H 95 H Respiratory Rate 19 19 19 Blood Pressure 105/65 96/59 L 101/58 L Pulse Oximetry 100 98 98 Intake & Output 04/26/18 04/26/18 04/27/18 06:59 18:59 06:59 Intake Total 1100 / 1100 1562.5 / 1562.5 3200 / 3200 Output Total 600 / 600 Balance 1100 / 1100 1562.5 / 1562.5 2600 / 2600 Weight 70.9 kg Intake: IV 1100 / 1100 1562.5 / 1562.5 NS Inj 1,000 ML @ 165 mls/hr IV 1000 / 1000 .CONT .Q6H4M [facility] Rx#:[id number] Cleocin 600 mg/NS Premix 600 mg 50 / 50 In 50 ml @ 100 mls/hr IV.SIG Q8H [facility] Rx#:[id number] Zosyn 4.5 GM Premix 4.5 gm In 100 / 100 200 / 200 100 ml @ 200 mls/hr IV.SIG Q8H [facility] Rx#:[id number] NS Inj 1,000 ML @ Wide Open IV. 1000 / 1000 SIG BOLUS ONE Rx#:[id number] Vancomycin Inj 1,250 MG In NS 262.5 / 262.5 Inj 250 ML @ 250 mls/hr IV.SIG Q24H [facility] Rx#:[id number] Ancef 2 GM Premix Inj 2 gm In 50 / 50 50 ml @ 0 mls/hr IV.SIG .STK- MED ONE Rx#:[id number] Anesthesia Amount 3200 / 3200 Output: Estimated Blood Loss 600 / 600 Other: # Voids 2 Date of Last Bowel Movement 04/24/18 - Constitutional no acute distress - Routine HEENT Exam Head: Present: normocephalic, atraumatic Eye: Present: PERRL ENT: Present: mucous membranes moist - Routine Neck Exam Present: supple, full ROM. Absent: JVD, carotid bruit - Routine Respiratory Exam Absent: accessory muscle use, decreased breath sounds, rales, rhonchi, stridor - Routine Cardiovascular Exam Present: RRR, S1, S2 - Routine Abdominal Exam Present: soft, normoactive bowel sounds. Absent: tenderness - Routine Skin Exam Present: intact - Routine Neurological Exam Present: alert, oriented X3 - Detailed Neurological Exam: Coma Scale Eye Opening: Spontaneous Verbal Response: Oriented Motor Response: Obey commands [place] Coma Scale Total: 15 - Routine Psychiatric Exam Present: normal affect Assessment and Plan - Assessment and Plan Plan: LUE abscess/cellulitis -concern for Necrotizing fascitis d -Status post OR I&D by general surgery and orthopedic surgery -Vancomycin, clindamycin, Zosyn -Continue antibiotics per ID recommendations and follow-up cultures HIV -Antiretroviral meds per ID DVT GI prophylaxis -Teds SCDs -Pharmacological DVT prophylaxis per surgery -Pepcid Level 3 Patient has been hemodynamically stable. Comfortable on room air. Critical care medicine will sign off. Please reconsult us if needed. Thank you very much for allowing us to participate in care of this very pleasant gentleman.
--- NOTE | 2018-04-27 00:04 | MB ---
cc: Roya Rosas MD DATE: 04/26/2018 REASON FOR CONSULTATION: Abscess and swelling, left upper extremity. HISTORY OF PRESENT ILLNESS: Korin Quezada is a 47-year-old right hand dominant male who was admitted on 04/25/2018. I was not consulted until the afternoon on 04/26/2018. At the time of my consult, the patient was seen in the PACU, after undergoing surgery by orthopedic surgery and general surgery. Hand surgery was also requested to evaluate the patient, but I was not called prior to the patient being taken to the operating room. The patient denied any paresthesias in the left upper extremity. He reported improving pain in the left upper extremity. He denied prior problems with the left upper extremity. PAST MEDICAL HISTORY: Significant for HIV, bipolar disorder, PTSD. The patient states he was initially seen at the [facility] on 04/15 and was given doxycycline. He reported drainage from his left axilla. He presented to the emergency room on 04/25/2018. Infectious disease was consulted and the patient was started on IV antibiotics. PAST SURGICAL HISTORY: Unknown. SOCIAL HISTORY: The patient is currently not working, reports a half pack per day cigarette use. Social alcohol use, intermittent IV drug use. LABORATORY DATA: White count was 23.5. ESR 31, CRP 37.2. IMAGING: MRI and CT showed no obvious abscess, left upper extremity, but significant cellulitis. PHYSICAL EXAMINATION: GENERAL: The patient is alert and oriented and evaluated in the recovery room. MUSCULOSKELETAL: Dressing in place over the left upper extremity as well as the VAC dressing. His hand is exposed. Sensation intact in the median, ulnar, radial distribution, 2+ radial pulse. No swelling over the hand. Function intact of hand intrinsics, as well as thumb opposition. No evidence of abscess in the left hand. ASSESSMENT AND PLAN: This is a 47-year-old male recently taken to the operating room by orthopedic surgery and general surgery for possible necrotizing fasciitis of left upper extremity abscess, in the axilla. At this time, no indication for involvement with hand surgery. I will sign off at this time. Please call with any further questions. At this time, the patient will be managed by orthopedic surgery and general surgery. Roya Rosas MD [facility] , 11:31 PM , 12:02 AM CINDY
[2018-04-27] MEDS: ceFAZolin 2 GM Premix Inj 2 GM/50 ML PIGGYBACK IV.SIG SCH ×3 (00:59→16:23)
[2018-04-27] MEDS: Morphine Inj 4 MG/ML Vial IV.PUSH PRN ×6 (01:13→22:18)
[2018-04-27] MEDS: Piperacil/Tazo 4.5 GM Premix 4.5 GM/100 ML BAG IV.SIG SCH ×3 (03:07→22:17)
[2018-04-27] MEDS: Clindamycin 600 mg/NS Premix 600 MG/50 ML PIGGYBACK IV.SIG SCH ×3 (03:07→17:51)
[2018-04-27 03:22] LABS: Baso # (Auto) 0.1 th/mm3 (0.0-0.2); Baso % (Auto) 0.2 % (0.0-2.0); Eos % (Auto) 0.1 % (0.0-4.0); Hematocrit 28.6 % (39.0-51.0); Hemoglobin 9.2 gm/dL (13.0-17.0); Lymph # (Auto) 0.8 th/mm3 (1.0-4.8); Lymph % (Auto) 3.5 % (9.0-44.0); Mean Corpuscular HGB Conc 32.2 % (32.0-36.0); Mean Corpuscular Hemoglobin 29.2 pg (27.0-34.0); Mean Corpuscular Volume 90.5 fL (80.0-100.0); Mean Platelet Volume 7.1 fL (7.0-11.0); Mono # (Auto) 0.7 th/mm3 (0.0-0.9); Mono % (Auto) 2.9 % (0.0-8.0); Neut # (Auto) 21.8 th/mm3 (1.8-7.7); Neut % (Auto) 93.3 % (16.0-70.0); Platelet Count 239 th/mm3 (150-450); Red Blood Count 3.16 mil/mm3 (4.50-5.90); Red Cell Distribution Width 14.6 % (11.6-17.2); White Blood Count 23.4 th/mm3 (4.0-11.0)
[2018-04-27 03:44] LABS: Anion Gap 11 meq/L (5-15); Aspartate Aminotransferase 30 U/L (15-37); Blood Urea Nitrogen 22 mg/dL (7-18); Calcium 8.6 mg/dL (8.5-10.1); Carbon Dioxide 20.6 meq/L (21.0-32.0); Chloride 106 meq/L (98-107); Glomerular Filtration Rate 64 mL/min (>89); Glucose,Random 111 mg/dL (74-106); Potassium 4.5 meq/L (3.5-5.1); Sodium 138 meq/L (136-145)
[2018-04-27 03:45] LABS: Alanine Aminotransferase 20 U/L (12-78)
[2018-04-27 03:53] LABS: Alkaline Phosphatase 67 U/L (45-117); Total Protein 6.3 g/dL (6.4-8.2)
[2018-04-27] MEDS: Vancomycin Inj 1,250 MG in Sodium Chlor 0.9% Inj 250 ML IV.SIG SCH (08:43)
[2018-04-27] MEDS: Folic Acid 1 MG Tablet PO SCH (08:44)
[2018-04-27] MEDS: Senna/Docusate Sodium 8.6/50 MG Tablet PO SCH ×2 (08:44→22:16)
[2018-04-27] MEDS: Multivitamin/Minerals Therapeutic Tablet PO SCH (08:44)
--- NOTE | 2018-04-27 09:51 | P.PNGS ---
Subjective Interval history: S/p extensive debridement left upper extremity for necrotizing fasciitis. He has no complaints this am and has been stable overnight with some marginal blood pressures. Physical Exam Vital signs: Vital Signs 04/26/18 12:00 04/26/18 18:45 04/26/18 19:00 Temperature 100.5 F H 98.4 F Pulse Rate 99 H 97 H 91 H Respiratory Rate 24 18 18 Blood Pressure 100/65 106/66 103/55 L Pulse Oximetry 95 95 97 04/26/18 19:15 04/26/18 19:21 04/26/18 19:22 Temperature Pulse Rate 91 H Respiratory Rate 18 18 16 Blood Pressure 103/55 L Pulse Oximetry 97 04/26/18 19:30 04/26/18 19:45 04/26/18 20:00 Temperature 98.0 F Pulse Rate 93 H 93 H 95 H Respiratory Rate 19 19 19 Blood Pressure 105/65 96/59 L 101/58 L Pulse Oximetry 100 98 98 04/26/18 20:15 04/26/18 22:00 04/27/18 00:00 Temperature 98.2 F 97.8 F Pulse Rate 80 60 72 Respiratory Rate 16 14 Blood Pressure 102/65 86/54 L Pulse Oximetry 98 98 04/27/18 02:00 04/27/18 02:44 04/27/18 04:00 Temperature 97.7 F Pulse Rate 70 70 Respiratory Rate 22 15 Blood Pressure 90/56 L Pulse Oximetry 100 04/27/18 06:00 Temperature Pulse Rate 92 H Respiratory Rate Blood Pressure Pulse Oximetry Intake & Output 04/26/18 04/27/18 04/27/18 18:59 06:59 18:59 Intake Total 1562.5 / 1562.5 3910 / 3910 Output Total 1200 / 1200 150 / 150 Balance 1562.5 / 1562.5 2710 / 2710 -150 / -150 Weight 72.2 kg Intake: IV 1562.5 / 1562.5 350 / 350 Cleocin 600 mg/NS Premix 600 mg 50 / 50 100 / 100 In 50 ml @ 100 mls/hr IV.SIG Q8H [facility] Rx#:[id number] Zosyn 4.5 GM Premix 4.5 gm In 200 / 200 200 / 200 100 ml @ 200 mls/hr IV.SIG Q8H [facility] Rx#:[id number] NS Inj 1,000 ML @ Wide Open IV. 1000 / 1000 SIG [facility]OL[facility] ONE Rx#:[id number] Vancomycin Inj 1,250 MG In NS 262.5 / 262.5 Inj 250 ML @ 250 mls/hr IV.SIG Q24H [facility] Rx#:[id number] Ancef 2 GM Premix Inj 2 gm In 50 / 50 50 / 50 50 ml @ 100 mls/hr IV.SIG Q8H [facility] Rx#:[id number] Oral 360 / 360 Anesthesia Amount 3200 / 3200 Output: Urine 600 / 600 Estimated Blood Loss 600 / 600 Wound Drainage 150 / 150 Left Arm 150 / 150 Other: Date of Last Bowel Movement 04/24/18 04/24/18 Narrative: LUE vac in place, good seal, soft roll and jc. Left hand with full function, no paresthesias, 2+ radial pulse Assessment and Plan - Assessment (1) Cellulitis Code(s): L03.90 - Cellulitis, unspecified Status: Acute (2) Abscess of left axilla Code(s): L02.412 - Cutaneous abscess of left axilla Status: Acute - Plan S/p extensive debridement LUE by Dr. Allen last night for necrotizing fasciitis. No significant spread into axilla at time of surgery although superficial abscesses were present and drained and likely the source of his infection. I will sign off and be available as needed.
--- NOTE | 2018-04-27 12:25 | P.PNOP ---
Subjective Interval history: Patient comfortable. Pain controlled. NAD. Physical Exam Vital signs: Vital Signs 04/26/18 18:45 04/26/18 19:00 04/26/18 19:15 Temperature 98.4 F Pulse Rate 97 H 91 H 91 H Respiratory Rate 18 18 18 Blood Pressure 106/66 103/55 L 103/55 L Pulse Oximetry 95 97 97 04/26/18 19:21 04/26/18 19:22 04/26/18 19:30 Temperature Pulse Rate 93 H Respiratory Rate 18 16 19 Blood Pressure 105/65 Pulse Oximetry 100 04/26/18 19:45 04/26/18 20:00 04/26/18 20:15 Temperature 98.0 F 98.2 F Pulse Rate 93 H 95 H 80 Respiratory Rate 19 19 16 Blood Pressure 96/59 L 101/58 L 102/65 Pulse Oximetry 98 98 98 04/26/18 22:00 04/27/18 00:00 04/27/18 02:00 Temperature 97.8 F Pulse Rate 60 72 70 Respiratory Rate 14 Blood Pressure 86/54 L Pulse Oximetry 98 04/27/18 02:44 04/27/18 04:00 04/27/18 06:00 Temperature 97.7 F Pulse Rate 70 92 H Respiratory Rate 22 15 Blood Pressure 90/56 L Pulse Oximetry 100 04/27/18 08:00 04/27/18 10:00 Temperature 97.9 F Pulse Rate 63 63 Respiratory Rate 13 Blood Pressure 84/56 L Pulse Oximetry 100 Intake & Output 04/26/18 04/27/18 04/27/18 18:59 06:59 18:59 Intake Total 1562.5 / 1562.5 3910 / 3910 Output Total 1200 / 1200 150 / 150 Balance 1562.5 / 1562.5 2710 / 2710 -150 / -150 Weight 72.2 kg Intake: IV 1562.5 / 1562.5 350 / 350 Cleocin 600 mg/NS Premix 600 mg 50 / 50 100 / 100 In 50 ml @ 100 mls/hr IV.SIG Q8H [facility] Rx#:[id number] Zosyn 4.5 GM Premix 4.5 gm In 200 / 200 200 / 200 100 ml @ 200 mls/hr IV.SIG Q8H [facility] Rx#:[id number] NS Inj 1,000 ML @ Wide Open IV. 1000 / 1000 SIG BOLUS ONE Rx#:[id number] Vancomycin Inj 1,250 MG In NS 262.5 / 262.5 Inj 250 ML @ 250 mls/hr IV.SIG Q24H [facility] Rx#:[id number] Ancef 2 GM Premix Inj 2 gm In 50 / 50 50 / 50 50 ml @ 100 mls/hr IV.SIG Q8H [facility] Rx#:[id number] Oral 360 / 360 Anesthesia Amount 3200 / 3200 Output: Urine 600 / 600 Estimated Blood Loss 600 / 600 Wound Drainage 150 / 150 Left Arm 150 / 150 Other: Date of Last Bowel Movement 04/24/18 04/24/18 04/24/18 Narrative: Left arm: jc wrap and dressing C/D/I wound vac intact good movement of digits + sensation Results - Labs CBC & Chem 7: 04/27/18 03:03 04/27/18 03:03 Laboratory Results - last 24 hr 04/26/18 04/26/18 04/26/18 12:45 12:45 12:45 WBC RBC Hgb Hct MCV MCH MCHC RDW Plt Count MPV Neut % (Auto) Lymph % (Auto) [place] % (Auto) Eos % (Auto) Baso % (Auto) Neut # (Auto) Lymph # (Auto) [place] # (Auto) Eos # (Auto) Baso # (Auto) WBC Differential Differential Comment ESR 31 H Sodium Potassium Chloride Carbon Dioxide Anion Gap BUN Creatinine Estimated GFR Random Glucose Lactic Acid 2.6 H Calcium Total Bilirubin AST ALT Alkaline Phosphatase Total Creatine Kinase 108 C-Reactive Protein Total Protein Albumin 04/26/18 04/26/18 04/27/18 12:45 17:15 03:03 WBC 23.4 H RBC 3.16 L Hgb 9.5 L D 9.2 L Hct 29.1 L 28.6 L MCV 90.5 MCH 29.2 MCHC 32.2 RDW 14.6 Plt Count 239 MPV 7.1 Neut % (Auto) 93.3 H Lymph % (Auto) 3.5 L [place] % (Auto) 2.9 Eos % (Auto) 0.1 Baso % (Auto) 0.2 Neut # (Auto) 21.8 H Lymph # (Auto) 0.8 L [place] # (Auto) 0.7 Eos # (Auto) 0.0 Baso # (Auto) 0.1 WBC Differential . Differential Comment Auto diff final ESR Greater than 140 H Sodium Potassium Chloride Carbon Dioxide Anion Gap BUN Creatinine Estimated GFR Random Glucose Lactic Acid Calcium Total Bilirubin AST ALT Alkaline Phosphatase Total Creatine Kinase C-Reactive Protein 37.20 H Total Protein Albumin 04/27/18 03:03 WBC RBC Hgb Hct MCV MCH MCHC RDW Plt Count MPV Neut % (Auto) Lymph % (Auto) [place] % (Auto) Eos % (Auto) Baso % (Auto) Neut # (Auto) Lymph # (Auto) [place] # (Auto) Eos # (Auto) Baso # (Auto) WBC Differential Differential Comment ESR Sodium 138 Potassium 4.5 Chloride 106 Carbon Dioxide 20.6 L Anion Gap 11 BUN 22 H Creatinine 1.43 H Estimated GFR 64 L Random Glucose 111 H Lactic Acid Calcium 8.6 Total Bilirubin 0.5 AST 30 ALT 20 Alkaline Phosphatase 67 Total Creatine Kinase C-Reactive Protein 30.00 H Total Protein 6.3 L Albumin 2.0 L Microbiology 04/25/18 11:40 Blood - Peripheral Aerobic Blood Culture - Preliminary No growth in 2 days 04/25/18 11:40 Blood - Peripheral Anaerobic Blood Culture - Preliminary No growth in 2 days - Imaging Impressions Humerus MRI 04/26/18 00:00 CONCLUSION: Severe cellulitis confined to subcutaneous location with fascial enhancement which may be reactive in nature. There is no evidence of abscess. There is no evidence of osteomyelitis. Assessment and Plan - Ortho Post Op Day # 1 - Assessment and Plan POD #1 s/p Incision and drainage, irrigation and excisional debridement of left arm, left elbow, left forearm. Pain management Medical management IV antibiotic therapy per ID Continue with wound vac Patient understands the possibilities of repeat surgeries. Monitor
[2018-04-27] MEDS: Celecoxib 200 MG Capsule PO SCH (14:44)
--- NOTE | 2018-04-27 14:44 | P.PNID ---
Subjective Remarks: Patient is not a reliable historian. Mr. Quezada is a 47yo AAM with a PMH of HIV (diagnosed in [facility] per patient, sexually transmitted, denies any IVDA. He reports he was diagnosed with HIV 10 years back and since then has been on treatment off and on. He reports he has never has any opportunistic infections or hospitalizations that would point towards these diagnosis. He reports he has been off HAART for last 1 year. He says he was depressed and hence quit taking medications. He denies any suicidal ideations. His PMHx is also significant for reported history of Bipolar disorder, PTSD, MDD unsure if he is on treatment for the same. He denies any IVDA adamantly. With this background patient presents to the hospital with left UE arm swelling. He reports this started as an axillary area swelling approximately 2 weeks back [facility]. He denies any trauma, insect bites, or IVDA. He reports he is still on his antibiotics unsure if he has been compliant with his medications. He then went to the doctor at the [facility] on 04/15 and was prescribed doxycycline. He goes on to report that he started draining malodorous green pus. Patient reports that approximately 4 days back patient left upper arm starting swelling, became erythematous, warm. He reports he had no bus ride so he toughed it out. He reports having developed night sweats, fever/chills, fatigue, loss of appetite. He reports pain in his left UE and is unable to move his hand due to significant pain and swelling. He denies any chest pain or back pain. He denies prior endocarditis or epidural abscess. ID consulted for evaluation and Mment of possible LUE abscess ? Nec fascitis. Overnight events reviewed. s/p s.p Irrigation and Debridement for Necrotizing fascitis. Operative note details not available. Post op patient was sent to [facility], evaluated by Critical Care who signed off once stabilized. No fever No rash No diarrhea Post op patient has a wound vac in place in his LUE and part of forearm. Not on pressors. UO ok. Antibiotics: Zosyn IV Vanco IV Clinda Lines: Lines ok Past Medical History: reviewed Allergies/Adverse Reactions: Allergies No Known Allergies Allergy (Verified 04/25/18 11:26) Objective Vital Signs 04/26/18 18:45 04/26/18 19:00 04/26/18 19:15 Temperature 98.4 F Pulse Rate 97 H 91 H 91 H Respiratory Rate 18 18 18 Blood Pressure 106/66 103/55 L 103/55 L Pulse Oximetry 95 97 97 04/26/18 19:21 04/26/18 19:22 04/26/18 19:30 Temperature Pulse Rate 93 H Respiratory Rate 18 16 19 Blood Pressure 105/65 Pulse Oximetry 100 04/26/18 19:45 04/26/18 20:00 04/26/18 20:15 Temperature 98.0 F 98.2 F Pulse Rate 93 H 95 H 80 Respiratory Rate 19 19 16 Blood Pressure 96/59 L 101/58 L 102/65 Pulse Oximetry 98 98 98 04/26/18 22:00 04/27/18 00:00 04/27/18 02:00 Temperature 97.8 F Pulse Rate 60 72 70 Respiratory Rate 14 Blood Pressure 86/54 L Pulse Oximetry 98 04/27/18 02:44 04/27/18 04:00 04/27/18 06:00 Temperature 97.7 F Pulse Rate 70 92 H Respiratory Rate 22 15 Blood Pressure 90/56 L Pulse Oximetry 100 04/27/18 08:00 04/27/18 10:00 Temperature 97.9 F Pulse Rate 63 63 Respiratory Rate 13 Blood Pressure 84/56 L Pulse Oximetry 100 Intake & Output 04/26/18 04/27/18 04/27/18 18:59 06:59 18:59 Intake Total 1562.5 / 1562.5 3910 / 3910 Output Total 1200 / 1200 150 / 150 Balance 1562.5 / 1562.5 2710 / 2710 -150 / -150 Weight 72.2 kg Intake: IV 1562.5 / 1562.5 350 / 350 Cleocin 600 mg/NS Premix 600 mg 50 / 50 100 / 100 In 50 ml @ 100 mls/hr IV.SIG Q8H [facility] Rx#:[id number] Zosyn 4.5 GM Premix 4.5 gm In 200 / 200 200 / 200 100 ml @ 200 mls/hr IV.SIG Q8H [facility] Rx#:[id number] NS Inj 1,000 ML @ Wide Open IV. 1000 / 1000 SIG BOLUS ONE Rx#:[id number] Vancomycin Inj 1,250 MG In NS 262.5 / 262.5 Inj 250 ML @ 250 mls/hr IV.SIG Q24H [facility] Rx#:[id number] Ancef 2 GM Premix Inj 2 gm In 50 / 50 50 / 50 50 ml @ 100 mls/hr IV.SIG Q8H [facility] Rx#:[id number] Oral 360 / 360 Anesthesia Amount 3200 / 3200 Output: Urine 600 / 600 Estimated Blood Loss 600 / 600 Wound Drainage 150 / 150 Left Arm 150 / 150 Other: Date of Last Bowel Movement 04/24/18 04/24/18 04/24/18 04/25/18 11:40 Blood - Peripheral Aerobic Blood Culture - Preliminary No growth in 2 days 04/25/18 11:40 Blood - Peripheral Anaerobic Blood Culture - Preliminary No growth in 2 days 04/27/18 03:03 Blood - Peripheral Aerobic Blood Culture - Pending 04/27/18 03:03 Blood - Peripheral Anaerobic Blood Culture - Pending Lab - Hematology Results 04/26/18 04/26/18 04/26/18 07:20 12:45 17:15 WBC 23.5 H RBC 3.94 L Hgb 11.6 L D 9.5 L D Hct 35.0 L 29.1 L MCV 88.9 MCH 29.5 MCHC 33.2 RDW 14.2 Plt Count 249 MPV 7.1 Neut % (Auto) 90.7 H Lymph % (Auto) 4.1 L [place] % (Auto) 4.9 Eos % (Auto) 0.1 Baso % (Auto) 0.2 Neut # (Auto) 21.3 H Lymph # (Auto) 1.0 [place] # (Auto) 1.1 H Eos # (Auto) 0.0 Baso # (Auto) 0.0 WBC Differential . Differential Comment Auto diff final ESR 31 H 04/27/18 03:03 WBC 23.4 H RBC 3.16 L Hgb 9.2 L Hct 28.6 L MCV 90.5 MCH 29.2 MCHC 32.2 RDW 14.6 Plt Count 239 MPV 7.1 Neut % (Auto) 93.3 H Lymph % (Auto) 3.5 L [place] % (Auto) 2.9 Eos % (Auto) 0.1 Baso % (Auto) 0.2 Neut # (Auto) 21.8 H Lymph # (Auto) 0.8 L [place] # (Auto) 0.7 Eos # (Auto) 0.0 Baso # (Auto) 0.1 WBC Differential . Differential Comment Auto diff final ESR Greater than 140 H Lab - Chemistry Results 04/25/18 04/26/18 04/26/18 15:40 07:20 12:45 Sodium 140 Potassium 3.8 Chloride 107 D Carbon Dioxide 20.7 L Anion Gap 12 BUN 25 H Creatinine 1.62 H Estimated GFR 56 L Random Glucose 72 L Lactic Acid 1.2 Calcium 8.4 L Total Bilirubin 0.9 AST 20 ALT 16 Alkaline Phosphatase 64 Total Creatine Kinase 108 C-Reactive Protein Total Protein 6.8 D Albumin 2.2 L D 04/26/18 04/26/18 04/27/18 12:45 12:45 03:03 Sodium 138 Potassium 4.5 Chloride 106 Carbon Dioxide 20.6 L Anion Gap 11 BUN 22 H Creatinine 1.43 H Estimated GFR 64 L Random Glucose 111 H Lactic Acid 2.6 H Calcium 8.6 Total Bilirubin 0.5 AST 30 ALT 20 Alkaline Phosphatase 67 Total Creatine Kinase C-Reactive Protein 37.20 H 30.00 H Total Protein 6.3 L Albumin 2.0 L 04/27/18 12:22 Sodium Potassium Chloride Carbon Dioxide Anion Gap BUN Creatinine Estimated GFR Random Glucose Lactic Acid 1.7 Calcium Total Bilirubin AST ALT Alkaline Phosphatase Total Creatine Kinase C-Reactive Protein Total Protein Albumin Imaging: ITS Impressions Upper Extremity Ultrasound 04/25/18 00:00 CONCLUSION: Subcutaneous tissue phlegmon in the left axillary region. Forearm CT 04/25/18 12:57 CONCLUSION: 1. Nonspecific subcutaneous edema along the medial aspect of the proximal forearm. 2. The bony structures are grossly intact. Humerus CT 04/25/18 12:57 CONCLUSION: 1. Nonspecific edema throughout the subcutaneous soft tissues along the medial aspect of the upper arm. No drainable loculated fluid collections. 2. The bony structures of the humerus are grossly unremarkable. Chest X-Ray 04/26/18 00:00 CONCLUSION: The lungs are clear. Humerus MRI 04/26/18 00:00 CONCLUSION: Severe cellulitis confined to subcutaneous location with fascial enhancement which may be reactive in nature. There is no evidence of abscess. There is no evidence of osteomyelitis. Physical Exam: GENERAL: In no acute distress SKIN: Warm and dry. HEAD: Atraumatic. Normocephalic. EYES: No scleral icterus. No injection or drainage. ENT: No nasal bleeding or discharge. NECK: Trachea midline. No JVD. CARDIOVASCULAR: Regular rate and rhythm. RESPIRATORY: No accessory muscle use. Clear to auscultation. Course breath sounds, but equal bilaterally. GASTROINTESTINAL: Abdomen soft, non-tender, nondistended. MUSCULOSKELETAL: Extremities without clubbing, cyanosis, or edema. Left arm wrapped in jc bandage c/d/i. Wound vac in place actively draining sanguinous fluid NEUROLOGICAL: Awake and alert. No obvious cranial nerve deficits. Motor grossly within normal limits. Normal speech. PSYCHIATRIC: Cooperative Assessment and Plan - Plan Severe Sepsis fever, leucocytosis, hypotension, lactic acid elevation. LUE abscess/cellulitis. With some concern for Necrotizing fascitis due to blistering, pain out of proportion, decreased ROM. ? Infective Myositis. Axillary abscess Was on antibiotics prior to admission. HIV Immunocompromised. Recs: Continue Zosyn IV Continue Vanco IV (target trough 15-20) Continue Clindamycin ok to change to oral. Follow blood cultures and intraop cultures. Follow clinically. debbie pt debbie RN debbie Resident
--- NOTE | 2018-04-27 14:46 | P.PNFP ---
Subjective Interval history: Patient seen and examined this afternoon. He states that he is doing a lot better after his surgery yesterday. He is able to move his arm again. Pain is controlled. No fever/chills, no CP, no shortness of breath, no abdominal pain. He has had some feelings of sadness and has cried while in the hospital. He is amenable to restarting his psychiatric medications. He is also amenable to speaking with a vein pumper about this acute life change. <Asya Mcneil G - 04/27/18 14:45> Results - Labs Result diagrams: 04/28/18 05:19 04/28/18 05:19 <Bianca Gonzalez R - 04/28/18 07:48> Abnormal lab results 04/26/18 04/28/18 04/28/18 Range/Units 07:20 05:19 05:19 WBC 18.8 H (4.0-11.0) th/mm3 RBC 3.34 L (4.50-5.90) mil/mm3 Hgb 9.6 L (13.0-17.0) gm/dL Hct 29.6 L (39.0-51.0) % Band Neuts % (Manual) 7 H (0-6) % Monocytes % (Manual) 11 H (0-8) % Abs Neuts (Manual) 13.7 H (1.8-7.7) th/mm3 Toxic Granulation 1+ H (None) Toxic Vacuolation Present H (None) Georgette Cells 1+ H (None) Calcium 8.3 L (8.5-10.1) mg/dL Total Protein 6.3 L (6.4-8.2) g/dL Albumin 1.9 L (3.4-5.0) g/dL Absolute CD3 Count 806 L (840-3060) /uL % CD4 Cells 12 L (30-61) % Absolute CD4 Count 128 L (490-1740) cells/uL T-Help/Suppress Ratio 0.20 L (0.86-5.00) % CD8 Cells 62 H (12-42) % Short CBC 04/28/18 Range/Units 05:19 WBC 18.8 H (4.0-11.0) th/mm3 Hgb 9.6 L (13.0-17.0) gm/dL Hct 29.6 L (39.0-51.0) % Plt Count 294 (150-450) th/mm3 BMP 04/28/18 05:19 Sodium 139 Potassium 4.1 Chloride 105 Carbon Dioxide 23.7 BUN 15 Creatinine 1.00 Calcium 8.3 L Liver Function 04/28/18 Range/Units 05:19 Total Bilirubin 0.4 (0.2-1.0) mg/dL AST 25 (15-37) U/L ALT 18 (12-78) U/L Alkaline Phosphatase 76 (45-117) U/L Albumin 1.9 L (3.4-5.0) g/dL <Bianca Gonzalez R - 04/28/18 07:48> Abnormal lab results 04/26/18 04/27/18 04/27/18 Range/Units 17:15 03:03 03:03 WBC 23.4 H (4.0-11.0) th/mm3 RBC 3.16 L (4.50-5.90) mil/mm3 Hgb 9.5 L D 9.2 L (13.0-17.0) gm/dL Hct 29.1 L 28.6 L (39.0-51.0) % Neut % (Auto) 93.3 H (16.0-70.0) % Lymph % (Auto) 3.5 L (9.0-44.0) % Neut # (Auto) 21.8 H (1.8-7.7) th/mm3 Lymph # (Auto) 0.8 L (1.0-4.8) th/mm3 ESR Greater than 140 H (0-15) mm/hr Carbon Dioxide 20.6 L (21.0-32.0) meq/L BUN 22 H (7-18) mg/dL Creatinine 1.43 H (0.60-1.30) mg/dL Estimated GFR 64 L (>89) mL/min Random Glucose 111 H (74-106) mg/dL C-Reactive Protein 30.00 H (0.00-0.30) mg/dL Total Protein 6.3 L (6.4-8.2) g/dL Albumin 2.0 L (3.4-5.0) g/dL Short CBC 04/26/18 04/27/18 Range/Units 17:15 03:03 WBC 23.4 H (4.0-11.0) th/mm3 Hgb 9.5 L D 9.2 L (13.0-17.0) gm/dL Hct 29.1 L 28.6 L (39.0-51.0) % Plt Count 239 (150-450) th/mm3 BMP 04/27/18 03:03 Sodium 138 Potassium 4.5 Chloride 106 Carbon Dioxide 20.6 L BUN 22 H Creatinine 1.43 H Calcium 8.6 Liver Function 04/27/18 Range/Units 03:03 Total Bilirubin 0.5 (0.2-1.0) mg/dL AST 30 (15-37) U/L ALT 20 (12-78) U/L Alkaline Phosphatase 67 (45-117) U/L Albumin 2.0 L (3.4-5.0) g/dL <Asya Mcneil - 04/27/18 14:45> - Imaging Impressions Upper Extremity Ultrasound 04/25/18 00:00 CONCLUSION: Subcutaneous tissue phlegmon in the left axillary region. Chest X-Ray 04/26/18 00:00 CONCLUSION: The lungs are clear. Humerus MRI 04/26/18 00:00 CONCLUSION: Severe cellulitis confined to subcutaneous location with fascial enhancement which may be reactive in nature. There is no evidence of abscess. There is no evidence of osteomyelitis. <Asya Mcneil - 04/27/18 14:45> Physical Exam Vital signs: Vital Signs 04/27/18 08:00 04/27/18 10:00 04/27/18 12:00 Temperature 97.9 F Pulse Rate 63 63 80 Respiratory Rate 13 Blood Pressure 84/56 L Pulse Oximetry 100 04/27/18 16:00 04/27/18 18:00 04/27/18 20:00 Temperature 97.8 F 98 F Pulse Rate 80 80 79 Respiratory Rate 16 20 Blood Pressure 102/70 115/75 Pulse Oximetry 100 99 04/28/18 00:00 04/28/18 04:00 Temperature 97.8 F 97.7 F Pulse Rate 64 76 Respiratory Rate 20 20 Blood Pressure 89/53 L 99/60 L Pulse Oximetry 99 99 Intake & Output 04/27/18 04/28/18 04/28/18 18:59 06:59 18:59 Intake Total 920 / 920 1440 / 1440 Output Total 950 / 950 Balance -30 / -30 1440 / 1440 Intake: IV 200 / 200 1100 / 1100 NS Inj 1,000 ML @ 165 mls/hr IV 1000 / 1000 .CONT .Q6H4M TWAN Rx#:[id number] Cleocin 600 mg/NS Premix 600 mg 50 / 50 In 50 ml @ 100 mls/hr IV.SIG Q8H TWAN Rx#:[id number] Zosyn 4.5 GM Premix 4.5 gm In 100 / 100 100 / 100 100 ml @ 200 mls/hr IV.SIG Q8H TWAN Rx#:[id number] Ancef 2 GM Premix Inj 2 gm In 50 / 50 50 ml @ 100 mls/hr IV.SIG Q8H TWAN Rx#:[id number] Oral 720 / 720 340 / 340 Output: Urine 800 / 800 Wound Drainage 150 / 150 Left Arm 150 / 150 Other: # Voids 2 Date of Last Bowel Movement 04/24/18 04/24/18 <Bianca Gonzalez R - 04/28/18 07:48> Vital Signs 04/26/18 18:45 04/26/18 19:00 04/26/18 19:15 Temperature 98.4 F Pulse Rate 97 H 91 H 91 H Respiratory Rate 18 18 18 Blood Pressure 106/66 103/55 L 103/55 L Pulse Oximetry 95 97 97 04/26/18 19:21 04/26/18 19:22 04/26/18 19:30 Temperature Pulse Rate 93 H Respiratory Rate 18 16 19 Blood Pressure 105/65 Pulse Oximetry 100 04/26/18 19:45 04/26/18 20:00 04/26/18 20:15 Temperature 98.0 F 98.2 F Pulse Rate 93 H 95 H 80 Respiratory Rate 19 19 16 Blood Pressure 96/59 L 101/58 L 102/65 Pulse Oximetry 98 98 98 04/26/18 22:00 04/27/18 00:00 04/27/18 02:00 Temperature 97.8 F Pulse Rate 60 72 70 Respiratory Rate 14 Blood Pressure 86/54 L Pulse Oximetry 98 04/27/18 02:44 04/27/18 04:00 04/27/18 06:00 Temperature 97.7 F Pulse Rate 70 92 H Respiratory Rate 22 15 Blood Pressure 90/56 L Pulse Oximetry 100 04/27/18 08:00 04/27/18 10:00 Temperature 97.9 F Pulse Rate 63 63 Respiratory Rate 13 Blood Pressure 84/56 L Pulse Oximetry 100 Intake & Output 04/26/18 04/27/18 04/27/18 18:59 06:59 18:59 Intake Total 1562.5 / 1562.5 3910 / 3910 Output Total 1200 / 1200 150 / 150 Balance 1562.5 / 1562.5 2710 / 2710 -150 / -150 Weight 72.2 kg Intake: IV 1562.5 / 1562.5 350 / 350 Cleocin 600 mg/NS Premix 600 mg 50 / 50 100 / 100 In 50 ml @ 100 mls/hr IV.SIG Q8H TWAN Rx#:[id number] Zosyn 4.5 GM Premix 4.5 gm In 200 / 200 200 / 200 100 ml @ 200 mls/hr IV.SIG Q8H TWAN Rx#:[id number] NS Inj 1,000 ML @ Wide Open IV. 1000 / 1000 SIG BOLUS ONE Rx#:[id number] Vancomycin Inj 1,250 MG In NS 262.5 / 262.5 Inj 250 ML @ 250 mls/hr IV.SIG Q24H TWAN Rx#:[id number] Ancef 2 GM Premix Inj 2 gm In 50 / 50 50 / 50 50 ml @ 100 mls/hr IV.SIG Q8H TWAN Rx#:[id number] Oral 360 / 360 Anesthesia Amount 3200 / 3200 Output: Urine 600 / 600 Estimated Blood Loss 600 / 600 Wound Drainage 150 / 150 Left Arm 150 / 150 Other: Date of Last Bowel Movement 04/24/18 04/24/18 04/24/18 <Asya Mcneil - 04/27/18 14:45> Narrative: GENERAL: thin AA male laying in bed, in no acute distress SKIN: Warm and dry. HEAD: Atraumatic. Normocephalic. EYES: No scleral icterus. No injection or drainage. ENT: No nasal bleeding or discharge. NECK: Trachea midline. No JVD. CARDIOVASCULAR: Regular rate and rhythm. RESPIRATORY: No accessory muscle use. Clear to auscultation. Course breath sounds, but equal bilaterally. GASTROINTESTINAL: Abdomen soft, non-tender, nondistended. MUSCULOSKELETAL: Extremities without clubbing, cyanosis, or edema. Left arm wrapped in jc bandage c/d/i. Wound vac in place actively draining sanguinous fluid NEUROLOGICAL: Awake and alert. No obvious cranial nerve deficits. Motor grossly within normal limits. Normal speech. PSYCHIATRIC: Appropriate mood and affect; insight and judgment normal. <Asya Mcneil G - 04/27/18 14:45> Assessment and Plan - Assessment (1) Sepsis Code(s): A41.9 - Sepsis, unspecified organism Status: Acute (2) Necrotizing fasciitis of upper arm Code(s): M72.6 - Necrotizing fasciitis Status: Acute (3) HIV (human immunodeficiency virus infection) Code(s): B20 - Human immunodeficiency virus [HIV] disease Status: Chronic (4) Nutrition, metabolism, and development symptoms Code(s): R63.8 - Other symptoms and signs concerning food and fluid intake Status: Acute (5) DVT prophylaxis Status: Acute <Bianca Gonzalez Ozzy - 04/28/18 07:48> (1) Sepsis Code(s): A41.9 - Sepsis, unspecified organism Status: Acute Plan: Patient meeting sepsis criteria upon admission: WBC count of 26.2 (neutrophil predominant), Tachycardic to the 100s, with a known source of infection (left axillary abscess, see plan below) BP decreased to the 90s/60s, was given 2x 1L boluses and a 400ml bolus in the ED Lactic acid is high at 2.7. -Lactic acid protocol initiated -Blood cx NGTD -NS IVF at 1.5 maintenance 165 mls/hr -See plan for abscess below (2) Necrotizing fasciitis of upper arm Code(s): M72.6 - Necrotizing fasciitis Status: Acute Plan: Initial presentation of left axilla abscess, s/p treatment with doxycycline. Worsening swelling of the left upper arm. 7 Rapidly worsened swelling with new erythema and multiple blisters formed. 04/27 patient is stable, will transfer to med/surg floor Imaging: Humerus CT: 1. Nonspecific edema throughout the subcutaneous soft tissues along the medial aspect of the upper arm. No drainable loculated fluid collections. 2. The bony structures of the humerus are grossly unremarkable. Forearm CT: 1. Nonspecific subcutaneous edema along the medial aspect of the proximal forearm. 2. The bony structures are grossly intact. Left UE US: lenticular 4 cm by slightly less than 1 cm heterogeneous hypoechoic mass/ collection in the superficial subcutaneous tissues of the left axillary region at site of focal palpable tenderness. This is presumably a phlegmonous collection. There are enlarged ipsilateral axillary lymph nodes also noted Left Humerus MRI: Severe cellulitis confined to subcutaneous location with fascial enhancement which may be reactive in nature. There is no evidence of abscess. There is no evidence of osteomyelitis. -Consult General Surgery for possible I&D, appreciate recommendations -Advised for us to consult Orthopedics due to possibility for fasciotomy -Signed off on 04/27 -Consulted Orthopedic Surgery, Dr. Allen -Recommended MRI -Emergency Incision and drainage, irrigation and excisional debridement of left arm, left elbow, left forearm on 04/26 -Pt may have to go back for repeat surgeries -Consult ID for abx recommendations and HIV as below, appreciate recommendations -Recommended to add Clindamycin for its toxin neutralizing effects (added 600mg q8h) -Pt started on Vanc and Zosyn in ED -Consult Pharmacy for Vancomycin -Continue Vancomycin 1000mg IV q24h, decreased in frequency due to renal impairment -Continue Zosyn 4.5g IV q6h, do not need to adjust for GFR >40 (3) HIV (human immunodeficiency virus infection) Code(s): B20 - Human immunodeficiency virus [HIV] disease Status: Chronic Plan: PT with HIV, unsure of last CD4 count and not current on antiretroviral therapy -Ordered lymphocyte profile, pending -Consulted ID, appreciate recommendations (4) Nutrition, metabolism, and development symptoms Code(s): R63.8 - Other symptoms and signs concerning food and fluid intake Status: Acute Plan: Fluids: NS @ 165 ml/hr Electrolytes: monitor and replete as needed Nutrition: regular diet GI Prophylaxis: none indicated at this time (5) DVT prophylaxis Status: Acute Plan: Early ambulation. bilateral SCDs <Asya Mcneil - 04/27/18 14:18> - Assessment and Plan 47yo AAM with PMH of HIV presenting meeting sepsis criteria with left upper arm edema and axillary abscess later determined to be necrotizing fasciitis due to rapidly progressing swelling with blister formation. POD 1 from I&D and debridement of LUE with Orthopedic Surgery. <Asya Mcneil - 04/27/18 14:45> Discussed Condition With: Dr. Gonzalez <Asya Mcneil - 04/27/18 14:45> Discharge Planning: following clinical course and residential solar sales consultant recommendations <Asya Mcneil - 04/27/18 14:45> - Attending Attestation The exam, history, and the medical decision-making described in the above note were completed with the assistance of the resident physician. I reviewed and agree with the findings presented. I attest that I had a [id number] encounter with the patient on the same day, and personally performed and documented my assessment and findings in the medical record. <Bianca Gonzalez - 04/28/18 07:48> <Asya Mcneil G - Last Filed: 04/27/18 14:18> (1) Sepsis Qualifiers: Sepsis type: sepsis due to unspecified organism Qualified Code(s): A41.9 - Sepsis, unspecified organism <Bianca Gonzalez R - Last Filed: 04/28/18 07:48> (1) Sepsis Qualifiers: Sepsis type: sepsis due to unspecified organism Qualified Code(s): A41.9 - Sepsis, unspecified organism <Asya Mcneil - Last Filed: 04/27/18 14:18> (1) Sepsis Qualifiers: Sepsis type: sepsis due to unspecified organism Qualified Code(s): A41.9 - Sepsis, unspecified organism <Bianca Gonzalez - Last Filed: 04/28/18 07:48> (1) Sepsis Qualifiers: Sepsis type: sepsis due to unspecified organism Qualified Code(s): A41.9 - Sepsis, unspecified organism
[2018-04-27] MEDS: Acetaminophen 325 MG Tablet PO PRN (17:50)
[2018-04-27] MEDS: Sod Chloride 0.9% Inj 1,000 ML IV.CONT SCH (22:27)
[2018-04-28] MEDS: Piperacil/Tazo 4.5 GM Premix 4.5 GM/100 ML BAG IV.SIG SCH ×3 (04:17→20:53)
[2018-04-28] MEDS: Sod Chloride 0.9% Inj 1,000 ML IV.CONT SCH (04:19)
[2018-04-28 06:29] LABS: Hematocrit 29.6 % (39.0-51.0); Hemoglobin 9.6 gm/dL (13.0-17.0); Mean Corpuscular HGB Conc 32.3 % (32.0-36.0); Mean Corpuscular Hemoglobin 28.7 pg (27.0-34.0); Mean Corpuscular Volume 88.6 fL (80.0-100.0); Mean Platelet Volume 7.6 fL (7.0-11.0); Platelet Count 294 th/mm3 (150-450); Red Blood Count 3.34 mil/mm3 (4.50-5.90); Red Cell Distribution Width 14.8 % (11.6-17.2); White Blood Count 18.8 th/mm3 (4.0-11.0)
[2018-04-28 06:45] LABS: Alanine Aminotransferase 18 U/L (12-78); Albumin 1.9 g/dL (3.4-5.0); Anion Gap 10 meq/L (5-15); Aspartate Aminotransferase 25 U/L (15-37); Blood Urea Nitrogen 15 mg/dL (7-18); Calcium 8.3 mg/dL (8.5-10.1); Carbon Dioxide 23.7 meq/L (21.0-32.0); Chloride 105 meq/L (98-107); Glomerular Filtration Rate Greater Than 89 mL/min (>89); Glucose,Random 77 mg/dL (74-106); Potassium 4.1 meq/L (3.5-5.1); Sodium 139 meq/L (136-145)
[2018-04-28 06:47] LABS: Alkaline Phosphatase 76 U/L (45-117); Total Protein 6.3 g/dL (6.4-8.2)
[2018-04-28 07:47] LABS: Lymphocytes 16 % (9-44); Monocytes 11 % (0-8); Toxic Granulation 1+
[2018-04-28 07:48] LABS: Burr Cells 1+; Platelet Estimate Normal (Normal); Platelet Morphology Normal (Normal); Toxic Vacuolation Present
--- NOTE | 2018-04-28 08:13 | P.PNOP ---
Subjective Interval history: pain tolerable. Physical Exam Vital signs: Vital Signs 04/27/18 10:00 04/27/18 12:00 04/27/18 16:00 Temperature 97.8 F Pulse Rate 63 80 80 Respiratory Rate 16 Blood Pressure 102/70 Pulse Oximetry 100 04/27/18 18:00 04/27/18 20:00 04/28/18 00:00 Temperature 98 F 97.8 F Pulse Rate 80 79 64 Respiratory Rate 20 20 Blood Pressure 115/75 89/53 L Pulse Oximetry 99 99 04/28/18 04:00 Temperature 97.7 F Pulse Rate 76 Respiratory Rate 20 Blood Pressure 99/60 L Pulse Oximetry 99 Intake & Output 04/27/18 04/28/18 04/28/18 18:59 06:59 18:59 Intake Total 920 / 920 1440 / 1440 Output Total 950 / 950 Balance -30 / -30 1440 / 1440 Intake: IV 200 / 200 1100 / 1100 NS Inj 1,000 ML @ 165 mls/hr IV 1000 / 1000 .CONT .Q6H4M TWAN Rx#:[id number] Cleocin 600 mg/NS Premix 600 mg 50 / 50 In 50 ml @ 100 mls/hr IV.SIG Q8H TWAN Rx#:[id number] Zosyn 4.5 GM Premix 4.5 gm In 100 / 100 100 / 100 100 ml @ 200 mls/hr IV.SIG Q8H TWAN Rx#:[id number] Ancef 2 GM Premix Inj 2 gm In 50 / 50 50 ml @ 100 mls/hr IV.SIG Q8H TWAN Rx#:[id number] Oral 720 / 720 340 / 340 Output: Urine 800 / 800 Wound Drainage 150 / 150 Left Arm 150 / 150 Other: # Voids 2 Date of Last Bowel Movement 04/24/18 04/24/18 Narrative: dressing removed, vac intact arm soft, no spreading erythema noted 2 radial pulse nvi, sensation intact distally - Constitutional no acute distress Results - Labs CBC & Chem 7: 04/28/18 05:19 04/28/18 05:19 Laboratory Results - last 24 hr 04/26/18 04/27/18 04/28/18 07:20 12:22 05:19 WBC 18.8 H RBC 3.34 L Hgb 9.6 L Hct 29.6 L MCV 88.6 MCH 28.7 MCHC 32.3 RDW 14.8 Plt Count 294 MPV 7.6 Prelim Diff (Auto) Manual diff required WBC Differential Manual diff final Seg Neuts % (Manual) 66 Band Neuts % (Manual) 7 H Lymphocytes % (Manual) 16 Monocytes % (Manual) 11 H Abs Neuts (Manual) 13.7 H Differential Comment . Toxic Granulation 1+ H Toxic Vacuolation Present H Platelet Estimate Normal Platelet Morphology Normal Georgette Cells 1+ H Sodium Potassium Chloride Carbon Dioxide Anion Gap BUN Creatinine Estimated GFR Random Glucose Lactic Acid 1.7 Calcium Total Bilirubin AST ALT Alkaline Phosphatase Total Protein Albumin Absolute Lymphocytes 1062 % CD3 Cells 76 Absolute CD3 Count 806 L % CD3-/CD16+/CD56+ 9 Abs CD3-/CD16+/CD56+ 92 % CD4 Cells 12 L Absolute CD4 Count 128 L T-Help/Suppress Ratio 0.20 L % CD8 Cells 62 H Absolute CD8 Count 649 % CD19 Cells 14 Absolute CD19 Count 156 04/28/18 05:19 WBC RBC Hgb Hct MCV MCH MCHC RDW Plt Count MPV Prelim Diff (Auto) WBC Differential Seg Neuts % (Manual) Band Neuts % (Manual) Lymphocytes % (Manual) Monocytes % (Manual) Abs Neuts (Manual) Differential Comment Toxic Granulation Toxic Vacuolation Platelet Estimate Platelet Morphology [place] Cells Sodium 139 Potassium 4.1 Chloride 105 Carbon Dioxide 23.7 Anion Gap 10 BUN 15 Creatinine 1.00 Estimated GFR Greater than 89 Random Glucose 77 Lactic Acid Calcium 8.3 L Total Bilirubin 0.4 AST 25 ALT 18 Alkaline Phosphatase 76 Total Protein 6.3 L Albumin 1.9 L Absolute Lymphocytes % CD3 Cells Absolute CD3 Count % CD3-/CD16+/CD56+ Abs CD3-/CD16+/CD56+ % CD4 Cells Absolute CD4 Count T-Help/Suppress Ratio % CD8 Cells Absolute CD8 Count % CD19 Cells Absolute CD19 Count Microbiology 04/25/18 11:40 Blood - Peripheral Aerobic Blood Culture - Preliminary No growth in 2 days 04/25/18 11:40 Blood - Peripheral Anaerobic Blood Culture - Preliminary No growth in 2 days Assessment and Plan - Ortho Post Op Day # 2 - Assessment and Plan POD #2 s/p Incision and drainage, irrigation and excisional debridement of left arm, left elbow, left forearm. Pain management Medical management IV antibiotic therapy per ID Continue with wound vac, will need to start vac changes m/w/f Patient understands the possibilities of repeat surgeries. Monitor
[2018-04-28] MEDS: Vancomycin Inj 1,250 MG in Sodium Chlor 0.9% Inj 250 ML IV.SIG SCH (09:00)
[2018-04-28] MEDS: Folic Acid 1 MG Tablet PO SCH (09:33)
[2018-04-28] MEDS: Multivitamin/Minerals Therapeutic Tablet PO SCH (09:33)
[2018-04-28] MEDS: Senna/Docusate Sodium 8.6/50 MG Tablet PO SCH ×2 (09:33→20:58)
[2018-04-28] MEDS: Celecoxib 200 MG Capsule PO SCH (09:33)
[2018-04-28] MEDS ORDERED: Pharmacy Ordered Lab Info OTHER ONE (09:45)
[2018-04-28] MEDS: Clindamycin 600 mg/NS Premix 600 MG/50 ML PIGGYBACK IV.SIG SCH (11:00)
--- NOTE | 2018-04-28 13:04 | P.PNFP ---
Subjective Interval history: Patient seen and examined this morning. He states that he is feeling a lot better. Last night he states that he had a period where he was crying. He is open to talk to psychiatry about this. His pain is well controlled. No chest pain, no shortness of breath, no abdominal pain, fevers or chills. <Asya Mcneil G - 04/28/18 13:04> Results - Labs Result diagrams: 04/29/18 10:12 04/29/18 10:12 <Bianca Gonzalez R - 04/29/18 16:31> Abnormal lab results 04/29/18 04/29/18 04/29/18 Range/Units 05:52 10:12 10:12 WBC 11.4 H (4.0-11.0) th/mm3 RBC 3.25 L (4.50-5.90) mil/mm3 Hgb 9.6 L (13.0-17.0) gm/dL Hct 28.8 L (39.0-51.0) % Estimated GFR 86 L (>89) mL/min Calcium 8.1 L (8.5-10.1) mg/dL Short CBC 04/29/18 Range/Units 10:12 WBC 11.4 H (4.0-11.0) th/mm3 Hgb 9.6 L (13.0-17.0) gm/dL Hct 28.8 L (39.0-51.0) % Plt Count 343 (150-450) th/mm3 BMP 04/29/18 04/29/18 05:52 10:12 Sodium 142 Potassium 3.6 Chloride 107 Carbon Dioxide 26.4 BUN 10 Creatinine 1.11 1.08 Calcium 8.1 L <Bianca Gonzalez R - 04/29/18 16:31> Abnormal lab results 04/26/18 04/28/18 04/28/18 Range/Units 07:20 05:19 05:19 WBC 18.8 H (4.0-11.0) th/mm3 RBC 3.34 L (4.50-5.90) mil/mm3 Hgb 9.6 L (13.0-17.0) gm/dL Hct 29.6 L (39.0-51.0) % Band Neuts % (Manual) 7 H (0-6) % Monocytes % (Manual) 11 H (0-8) % Abs Neuts (Manual) 13.7 H (1.8-7.7) th/mm3 Toxic Granulation 1+ H (None) Toxic Vacuolation Present H (None) [place] Cells 1+ H (None) Calcium 8.3 L (8.5-10.1) mg/dL Total Protein 6.3 L (6.4-8.2) g/dL Albumin 1.9 L (3.4-5.0) g/dL Absolute CD3 Count 806 L (840-3060) /uL % CD4 Cells 12 L (30-61) % Absolute CD4 Count 128 L (490-1740) cells/uL T-Help/Suppress Ratio 0.20 L (0.86-5.00) % CD8 Cells 62 H (12-42) % Short CBC 04/28/18 Range/Units 05:19 WBC 18.8 H (4.0-11.0) th/mm3 Hgb 9.6 L (13.0-17.0) gm/dL Hct 29.6 L (39.0-51.0) % Plt Count 294 (150-450) th/mm3 BMP 04/28/18 05:19 Sodium 139 Potassium 4.1 Chloride 105 Carbon Dioxide 23.7 BUN 15 Creatinine 1.00 Calcium 8.3 L Liver Function 04/28/18 Range/Units 05:19 Total Bilirubin 0.4 (0.2-1.0) mg/dL AST 25 (15-37) U/L ALT 18 (12-78) U/L Alkaline Phosphatase 76 (45-117) U/L Albumin 1.9 L (3.4-5.0) g/dL <Asya Mcneil - 04/28/18 13:04> - Imaging ITS Impressions Upper Extremity Ultrasound 04/25/18 00:00 CONCLUSION: Subcutaneous tissue phlegmon in the left axillary region. Forearm CT 04/25/18 12:57 CONCLUSION: 1. Nonspecific subcutaneous edema along the medial aspect of the proximal forearm. 2. The bony structures are grossly intact. Humerus CT 04/25/18 12:57 CONCLUSION: 1. Nonspecific edema throughout the subcutaneous soft tissues along the medial aspect of the upper arm. No drainable loculated fluid collections. 2. The bony structures of the humerus are grossly unremarkable. Chest X-Ray 04/26/18 00:00 CONCLUSION: The lungs are clear. Humerus MRI 04/26/18 00:00 CONCLUSION: Severe cellulitis confined to subcutaneous location with fascial enhancement which may be reactive in nature. There is no evidence of abscess. There is no evidence of osteomyelitis. <EwaAsya G - 04/28/18 13:04> Physical Exam Vital signs: Vital Signs 04/28/18 17:16 04/28/18 20:00 04/28/18 21:23 Temperature 98 F Pulse Rate 68 Respiratory Rate 18 20 20 Blood Pressure 106/68 Pulse Oximetry 99 04/29/18 00:00 04/29/18 04:00 04/29/18 08:00 Temperature 98.2 F 98.4 F 98.9 F Pulse Rate 77 86 85 Respiratory Rate 20 20 16 Blood Pressure 104/67 117/69 119/68 Pulse Oximetry 98 95 100 04/29/18 12:00 Temperature 98.8 F Pulse Rate 88 Respiratory Rate 16 Blood Pressure 114/65 Pulse Oximetry 100 Intake & Output 04/28/18 04/29/18 04/29/18 18:59 06:59 18:59 Intake Total 1402.5 / 1402.5 782.5 / 782.5 Output Total 600 / 600 1200 / 1200 Balance 802.5 / 802.5 -417.5 / -417.5 Intake: IV 412.5 / 412.5 362.5 / 362.5 Cleocin 600 mg/NS Premix 600 mg 50 / 50 In 50 ml @ 100 mls/hr IV.SIG Q8H [facility] Rx#:[id number] Zosyn 4.5 GM Premix 4.5 gm In 100 / 100 100 / 100 100 ml @ 200 mls/hr IV.SIG Q8H TWAN Rx#:[id number] Vancomycin Inj 1,250 MG In NS 262.5 / 262.5 262.5 / 262.5 Inj 250 ML @ 250 mls/hr IV.SIG Q12H [facility]AN Rx#:[id number] Oral 990 / 990 420 / 420 Output: Urine 600 / 600 1200 / 1200 Other: Date of Last Bowel Movement 04/27/18 04/28/18 04/28/18 # Bowel Movements 0 <Bianca Gonzalez - 04/29/18 16:31> Vital Signs 04/27/18 16:00 04/27/18 18:00 04/27/18 20:00 Temperature 97.8 F 98 F Pulse Rate 80 80 79 Respiratory Rate 16 20 Blood Pressure 102/70 115/75 Pulse Oximetry 100 99 04/28/18 00:00 04/28/18 04:00 04/28/18 08:00 Temperature 97.8 F 97.7 F 98.2 F Pulse Rate 64 76 64 Respiratory Rate 20 20 21 Blood Pressure 89/53 L 99/60 L 98/64 L Pulse Oximetry 99 99 100 04/28/18 12:00 04/28/18 12:27 Temperature 97.9 F Pulse Rate 66 Respiratory Rate 20 18 Blood Pressure 102/67 Pulse Oximetry 100 Intake & Output 04/27/18 04/28/18 04/28/18 18:59 06:59 18:59 Intake Total 1182.5 / 1182.5 1490 / 1490 312.5 / 312.5 Output Total 950 / 950 Balance 232.5 / 232.5 1490 / 1490 312.5 / 312.5 Intake: IV 462.5 / 462.5 1150 / 1150 312.5 / 312.5 NS Inj 1,000 ML @ 165 mls/hr IV 1000 / 1000 .CONT .Q6H4M [facility] Rx#:[id number] Cleocin 600 mg/NS Premix 600 mg 50 / 50 50 / 50 50 / 50 In 50 ml @ 100 mls/hr IV.SIG Q8H [facility] Rx#:[id number] Zosyn 4.5 GM Premix 4.5 gm In 100 / 100 100 / 100 100 ml @ 200 mls/hr IV.SIG Q8H [facility]AN Rx#:[id number] Vancomycin Inj 1,250 MG In NS 262.5 / 262.5 262.5 / 262.5 Inj 250 ML @ 250 mls/hr IV.SIG Q24H [facility] Rx#:[id number] Ancef 2 GM Premix Inj 2 gm In 50 / 50 50 ml @ 100 mls/hr IV.SIG Q8H [facility]AN Rx#:[id number] Oral 720 / 720 340 / 340 Output: Urine 800 / 800 Wound Drainage 150 / 150 Left Arm 150 / 150 Other: # Voids 2 Date of Last Bowel Movement 04/24/18 04/24/18 <Asya Mcneil - 04/28/18 13:04> Narrative: Narrative: GENERAL: thin AA male laying in bed watching TV, in no acute distress SKIN: Warm and dry. HEAD: Atraumatic. Normocephalic. EYES: No scleral icterus. No injection or drainage. ENT: No nasal bleeding or discharge. NECK: Trachea midline. No JVD. CARDIOVASCULAR: Regular rate and rhythm. RESPIRATORY: No accessory muscle use. Clear to auscultation. Course breath sounds, but equal bilaterally. GASTROINTESTINAL: Abdomen soft, non-tender, nondistended. MUSCULOSKELETAL: Extremities without clubbing, cyanosis, or edema. Left arm wrapped in jc bandage c/d/i. Wound vac in place actively draining sanguinous fluid NEUROLOGICAL: Awake and alert. No obvious cranial nerve deficits. Motor grossly within normal limits. Normal speech. PSYCHIATRIC: Appropriate mood and affect; insight and judgment normal. <Asya Mcneil G - 04/28/18 13:04> Assessment and Plan - Assessment (1) Necrotizing fasciitis of upper arm Code(s): M72.6 - Necrotizing fasciitis Status: Acute (2) Sepsis Code(s): A41.9 - Sepsis, unspecified organism Status: Acute (3) HIV (human immunodeficiency virus infection) Code(s): B20 - Human immunodeficiency virus [HIV] disease Status: Chronic (4) Nutrition, metabolism, and development symptoms Code(s): R63.8 - Other symptoms and signs concerning food and fluid intake Status: Acute (5) DVT prophylaxis Status: Acute <Bianca Gonzalez Ozzy - 04/29/18 16:31> (1) Necrotizing fasciitis of upper arm Code(s): M72.6 - Necrotizing fasciitis Status: Acute Plan: Initial presentation of left axilla abscess, s/p treatment with doxycycline. Worsening swelling of the left upper arm. 04/26 Rapidly worsened swelling with new erythema and multiple blisters formed. 04/28 POD 2, Patient is currently stable. Imaging: See above in Results section Medications: -Vancomycin 1000mg IV q24h, decreased in frequency due to renal impairment. Pharmacy consulted -Zosyn 4.5g IV q6h, do not need to adjust for GFR >40 -Clindamycin 300 q6h (IV to po equivalent) -Consult General Surgery for possible I&D, appreciate recommendations -Advised for us to consult Orthopedics due to possibility for fasciotomy -Signed off on 04/27 -Consulted Orthopedic Surgery, Dr. Allen -Recommended MRI -Emergency Incision and drainage, irrigation and excisional debridement of left arm, left elbow, left forearm on 04/26 -Pt may have to go back for repeat surgeries -Consult ID for abx recommendations and HIV as below, appreciate recommendations -Recommended to add Clindamycin for its toxin neutralizing effects, can change to oral -Follow blood cx and intraop cx (2) Sepsis Code(s): A41.9 - Sepsis, unspecified organism Status: Acute Plan: Patient meeting sepsis criteria upon admission: WBC count of 26.2 (neutrophil predominant), Tachycardic to the 100s, with a known source of infection (left axillary abscess, see plan below) BP decreased to the 90s/60s, was given 2x 1L boluses and a 400ml bolus in the ED Lactic acid is high at 2.7. 7/5, one episode of hypotension overnight -Lactic acid protocol initiated -Blood cx NGTD -NS IVF at 1.5 maintenance 165 mls/hr, will likely d/c tomorrow -See plan for abscess above (3) HIV (human immunodeficiency virus infection) Code(s): B20 - Human immunodeficiency virus [HIV] disease Status: Chronic Plan: PT with HIV, unsure of last CD4 count and not current on antiretroviral therapy -Ordered lymphocyte profile, pending -Consulted ID, appreciate recommendations (4) Nutrition, metabolism, and development symptoms Code(s): R63.8 - Other symptoms and signs concerning food and fluid intake Status: Acute Plan: Fluids: NS @ 165 ml/hr Electrolytes: monitor and replete as needed Nutrition: regular diet GI Prophylaxis: none indicated at this time (5) DVT prophylaxis Status: Acute Plan: Early ambulation. bilateral SCDs <Asya Mcneil - 04/28/18 17:11> - Assessment and Plan 47yo AAM with PMH of HIV presenting meeting sepsis criteria with left upper arm edema and axillary abscess later determined to be necrotizing fasciitis due to rapidly progressing swelling with blister formation. POD 2 from I&D and debridement of LUE with Orthopedic Surgery. <Asya Mcneil - 04/28/18 13:04> Discussed Condition With: Dr. Gonzalez, Dr. Russell <Asya Mcneil - 04/28/18 13:04> Discharge Planning: following clinical course and technical assistance consultant recommendations <Asya Mcneil - 04/28/18 13:04> - Attending Attestation The exam, history, and the medical decision-making described in the above note were completed with the assistance of the resident physician. I reviewed and agree with the findings presented. I attest that I had a [id number] encounter with the patient on the same day, and personally performed and documented my assessment and findings in the medical record. <Bianca Gonzalez - 04/29/18 16:31> <Asya Mcneil G - Last Filed: 04/28/18 17:11> (2) Sepsis Qualifiers: Sepsis type: sepsis due to unspecified organism Qualified Code(s): A41.9 - Sepsis, unspecified organism <Bianca Gonzalez R - Last Filed: 04/29/18 16:31> (2) Sepsis Qualifiers: Sepsis type: sepsis due to unspecified organism Qualified Code(s): A41.9 - Sepsis, unspecified organism <Asya Mcneil - Last Filed: 04/28/18 17:11> (2) Sepsis Qualifiers: Sepsis type: sepsis due to unspecified organism Qualified Code(s): A41.9 - Sepsis, unspecified organism <Bianca Gonzalez - Last Filed: 04/29/18 16:31> (2) Sepsis Qualifiers: Sepsis type: sepsis due to unspecified organism Qualified Code(s): A41.9 - Sepsis, unspecified organism
[2018-04-28] MEDS: Morphine Inj 4 MG/ML Vial IV.PUSH PRN (13:33)
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
--- NOTE | 2018-04-28 16:21 | P.PNWCN ---
Wound Care Nurse Consult Description: Received consult from Doctor Jax Allen for L arm wound VAC change. Communicated with: SHELLIE Castro Recommendation: Changed wound VAC to L arm on 04/28/2018. Doctor will do next dressing change in [place]. Additional information: Patient seen on [facility] for wound VAC dressing change on 04/28/2018. Removed dressing in place and sherman including 1 large piece of black granufoam. Cleansed wound to L arm extending from L axilla to L forearm. Wound was cleansed with normal saline and patted dry. Periwound is presenting with partial thickness skin loss that is minimally draining sero-sanguinous drainage. Wound bed description and measurements are noted below.Periwound partial thickness skin loss was covered with maxorb II and hydrocolloid dressing. Wound was window paned with VAC drape. then applied 3 pieces of black granufoam to wound bed and secured with VAC drape. Hole was cut in VAc drape to expose granufoam. Mushroom cap of granufoam was then applied over exposed granufoam with attached sensitrac pad. Wound VAC dressing was further sealed with zaira seal and stoma paste in the AC area. Wound VAC is suctioning at 125 mm/Hg low continuous suction. Low leak rate is noted. Stoma paste and extra drape was left in room to seal leaks. Wound/Pressure Injury - Patient Status Premedicated for Pain Prior to Dressing Change: Yes - Wound Left Arm Wound Assessment: Ongoing Wound Type: Abscess (L arm abscess was opened and drained surgically now is an open wound extending from L forearm to L axilla) Is This a Chronic Wound: No Requested from Provider a Wound Care Consult: Yes (Wound care was consulted for wound VAC dressing change.) Length: 33.5 (cm) Width: 9 (cm) Depth: 1.5 (~1.5cm) Wound Bed Appearance: Wound bed presents with ~70% muscle tissue, ~20% facia and ~10% adipose tissue Surrounding Tissue Appearance: Weeping (Periwound presents with partial thickness skin loss from 8 to 10 o'clock and then from 2 to 3 o'clock that has scant weeping of sanguinous drainage.) Surrounding Tissue Temperature: Warm Drainage Description: Serosanguinous Drainage Amount: Minimal Drainage Odor: No Odor Dressing Status: Changed Cleansing Solution: Saline Wound Packing Type: Woundvac Sponge Wound Dressing Change Date: 04/28/18 Wound Vac - Wound Vac Left Arm Pressure Setting (mmHg): 125 (mm/Hg) Mode Setting: Continuous Drainage Description: Serosanguinous Foam type: Black (three pieces of black granufoam)
[2018-04-28] MEDS: QUEtiapine 25 MG Tablet PO SCH (17:16)
--- NOTE | 2018-04-28 18:42 | P.PNID ---
Subjective Remarks: Patient is not a reliable historian. Mr. Quezada is a 47yo AAM with a PMH of HIV (diagnosed in [facility] per patient, sexually transmitted, denies any IVDA. He reports he was diagnosed with HIV 10 years back and since then has been on treatment off and on. He reports he has never has any opportunistic infections or hospitalizations that would point towards these diagnosis. He reports he has been off HAART for last 1 year. He says he was depressed and hence quit taking medications. He denies any suicidal ideations. His PMHx is also significant for reported history of Bipolar disorder, PTSD, MDD unsure if he is on treatment for the same. He denies any IVDA adamantly. With this background patient presents to the hospital with left UE arm swelling. He reports this started as an axillary area swelling approximately 2 weeks back [facility] which [facility]. He denies any trauma, insect bites, or IVDA. He reports he is still on his antibiotics unsure if he has been compliant with his medications. He then went to the doctor at the [facility] on 04/15 and was prescribed doxycycline. He goes on to report that he started draining malodorous green pus. Patient reports that approximately 4 days back patient left upper arm starting swelling, became erythematous, warm. He reports he had no bus ride so he toughed it out. He reports having developed night sweats, fever/chills, fatigue, loss of appetite. He reports pain in his left UE and is unable to move his hand due to significant pain and swelling. He denies any chest pain or back pain. He denies prior endocarditis or epidural abscess. ID consulted for evaluation and Mment of possible LUE abscess ? Nec fascitis. Overnight events reviewed. s/p s.p Irrigation and Debridement for Necrotizing fascitis. Operative note details not available. Post op patient was sent to [facility], evaluated by Critical Care who signed off once stabilized. No fever No rash No diarrhea Post op patient has a wound vac in place in his LUE and part of forearm. Not on pressors. UO ok. Antibiotics: Zosyn IV Vanco IV Clinda Lines: Lines ok Past Medical History: reviewed Allergies/Adverse Reactions: Allergies No Known Allergies Allergy (Verified 04/25/18 11:26) Objective Vital Signs 04/27/18 20:00 04/28/18 00:00 04/28/18 04:00 Temperature 98 F 97.8 F 97.7 F Pulse Rate 79 64 76 Respiratory Rate 20 20 20 Blood Pressure 115/75 89/53 L 99/60 L Pulse Oximetry 99 99 99 04/28/18 08:00 04/28/18 12:00 04/28/18 12:27 Temperature 98.2 F 97.9 F Pulse Rate 64 66 Respiratory Rate 21 20 18 Blood Pressure 98/64 L 102/67 Pulse Oximetry 100 100 04/28/18 16:00 04/28/18 17:16 Temperature 98.2 F Pulse Rate 73 Respiratory Rate 20 18 Blood Pressure 101/64 Pulse Oximetry 98 Intake & Output 04/27/18 04/28/18 04/28/18 18:59 06:59 18:59 Intake Total 2182.5 / 2182.5 1590 / 1590 1402.5 / 1402.5 Output Total 950 / 950 600 / 600 Balance 1232.5 / 1232.5 1590 / 1590 802.5 / 802.5 Intake: IV 1462.5 / 1462.5 1250 / 1250 412.5 / 412.5 LR 1000 mL Inj 1,000 ML @ 100 1000 / 1000 mls/hr IV.CONT .Q10H TWAN Rx#: [id number] NS Inj 1,000 ML @ 165 mls/hr IV 1000 / 1000 .CONT .Q6H4M TWAN Rx#:[id number] Cleocin 600 mg/NS Premix 600 mg 50 / 50 50 / 50 50 / 50 In 50 ml @ 100 mls/hr IV.SIG Q8H TWAN Rx#:[id number] Zosyn 4.5 GM Premix 4.5 gm In 100 / 100 200 / 200 100 / 100 100 ml @ 200 mls/hr IV.SIG Q8H TWAN Rx#:[id number] Vancomycin Inj 1,250 MG In NS 262.5 / 262.5 262.5 / 262.5 Inj 250 ML @ 250 mls/hr IV.SIG Q24H TWAN Rx#:[id number] Ancef 2 GM Premix Inj 2 gm In 50 / 50 50 ml @ 100 mls/hr IV.SIG Q8H TWAN Rx#:[id number] Oral 720 / 720 340 / 340 990 / 990 Output: Urine 800 / 800 600 / 600 Wound Drainage 150 / 150 Left Arm 150 / 150 Other: # Voids 2 Date of Last Bowel Movement 04/24/18 04/24/18 04/27/18 # Bowel Movements 0 04/26/18 16:30 Wound - Arm Fungal Smear - Final No fungal elements seen 04/26/18 16:30 Wound - Arm Fungal Culture - Pending 04/26/18 16:30 Wound - Arm Gram Stain - Final 04/26/18 16:30 Wound - Arm Wound Culture - Pending 04/26/18 16:30 Wound - Arm Gram Stain - Final 04/26/18 16:30 Wound - Arm Wound Culture - Pending 04/26/18 16:30 Wound - Arm Acid Fast Bacilli Smear - Pending 04/26/18 16:30 Wound - Arm Mycobacterial Culture - Pending 04/26/18 16:30 Wound - Arm Acid Fast Bacilli Smear - Pending 04/26/18 16:30 Wound - Arm Mycobacterial Culture - Pending 04/26/18 16:30 Wound - Arm Fungal Smear - Pending 04/26/18 16:30 Wound - Arm Fungal Culture - Pending 04/27/18 03:03 Blood - Peripheral Aerobic Blood Culture - Preliminary No growth in 1 day 04/27/18 03:03 Blood - Peripheral Anaerobic Blood Culture - Preliminary No growth in 1 day 04/25/18 11:40 Blood - Peripheral Aerobic Blood Culture - Preliminary No growth in 3 days 04/25/18 11:40 Blood - Peripheral Anaerobic Blood Culture - Preliminary No growth in 3 days Lab - Hematology Results 04/27/18 04/28/18 03:03 05:19 WBC 23.4 H 18.8 H RBC 3.16 L 3.34 L Hgb 9.2 L 9.6 L Hct 28.6 L 29.6 L MCV 90.5 88.6 MCH 29.2 28.7 MCHC 32.2 32.3 RDW 14.6 14.8 Plt Count 239 294 MPV 7.1 7.6 Prelim Diff (Auto) Manual diff required Neut % (Auto) 93.3 H Lymph % (Auto) 3.5 L Clarke % (Auto) 2.9 Eos % (Auto) 0.1 Baso % (Auto) 0.2 Neut # (Auto) 21.8 H Lymph # (Auto) 0.8 L Clarke # (Auto) 0.7 Eos # (Auto) 0.0 Baso # (Auto) 0.1 WBC Differential . Manual diff final Seg Neuts % (Manual) 66 Band Neuts % (Manual) 7 H Lymphocytes % (Manual) 16 Monocytes % (Manual) 11 H Abs Neuts (Manual) 13.7 H Differential Comment Auto diff final . Toxic Granulation 1+ H Toxic Vacuolation Present H Platelet Estimate Normal Platelet Morphology Normal [place] Cells 1+ H ESR Greater than 140 H Lab - Chemistry Results 04/27/18 04/27/18 04/28/18 03:03 12:22 05:19 Sodium 138 139 Potassium 4.5 4.1 Chloride 106 105 Carbon Dioxide 20.6 L 23.7 Anion Gap 11 10 BUN 22 H 15 Creatinine 1.43 H 1.00 Estimated GFR 64 L Greater than 89 Random Glucose 111 H 77 Lactic Acid 1.7 Calcium 8.6 8.3 L Total Bilirubin 0.5 0.4 AST 30 25 ALT 20 18 Alkaline Phosphatase 67 76 C-Reactive Protein 30.00 H Total Protein 6.3 L 6.3 L Albumin 2.0 L 1.9 L Imaging: ITS Impressions Upper Extremity Ultrasound 04/25/18 00:00 CONCLUSION: Subcutaneous tissue phlegmon in the left axillary region. Forearm CT 04/25/18 12:57 CONCLUSION: 1. Nonspecific subcutaneous edema along the medial aspect of the proximal forearm. 2. The bony structures are grossly intact. Humerus CT 04/25/18 12:57 CONCLUSION: 1. Nonspecific edema throughout the subcutaneous soft tissues along the medial aspect of the upper arm. No drainable loculated fluid collections. 2. The bony structures of the humerus are grossly unremarkable. Chest X-Ray 04/26/18 00:00 CONCLUSION: The lungs are clear. Humerus MRI 04/26/18 00:00 CONCLUSION: Severe cellulitis confined to subcutaneous location with fascial enhancement which may be reactive in nature. There is no evidence of abscess. There is no evidence of osteomyelitis. Physical Exam: GENERAL: In no acute distress SKIN: Warm and dry. HEAD: Atraumatic. Normocephalic. EYES: No scleral icterus. No injection or drainage. ENT: No nasal bleeding or discharge. NECK: Trachea midline. No JVD. CARDIOVASCULAR: Regular rate and rhythm. RESPIRATORY: No accessory muscle use. Clear to auscultation. Course breath sounds, but equal bilaterally. GASTROINTESTINAL: Abdomen soft, non-tender, nondistended. MUSCULOSKELETAL: Extremities without clubbing, cyanosis, or edema. Left arm wrapped in jc bandage c/d/i. Wound vac in place actively draining sanguinous fluid NEUROLOGICAL: Awake and alert. No obvious cranial nerve deficits. Motor grossly within normal limits. Normal speech. PSYCHIATRIC: Cooperative Assessment and Plan - Plan Severe Sepsis fever, leucocytosis, hypotension, lactic acid elevation. LUE abscess/cellulitis. With concern for Necrotizing fascitis due to blistering , pain out of proportion, decreased ROM. ? Infective Myositis. Axillary abscess Was on antibiotics prior to admission. HIV Immunocompromised. Recs: Continue Zosyn IV Continue Vanco IV (target trough 15-20) Continue Clindamycin (asked to add this to regimen for toxin neutralizing effect) Follow blood cultures. Follow clinically. debbie pt debbie RN
[2018-04-28] MEDS: QUEtiapine 100 MG Tablet PO SCH (20:58)
[2018-04-28] MEDS: Zolpidem Tartrate 5 MG Tablet PO PRN (20:58)
[2018-04-29] MEDS: Vancomycin Inj 1,250 MG in Sodium Chlor 0.9% Inj 250 ML IV.SIG SCH ×3 (02:57→21:23)
[2018-04-29] MEDS: Sod Chloride 0.9% Inj 1,000 ML IV.CONT SCH ×5 (05:06→18:26)
[2018-04-29] MEDS: Piperacil/Tazo 4.5 GM Premix 4.5 GM/100 ML BAG IV.SIG SCH ×3 (05:54→20:15)
--- NOTE | 2018-04-29 07:38 | P.PNOP ---
Subjective Interval history: pain tolerable. vac changed yesterday. Physical Exam Vital signs: Vital Signs 04/28/18 08:00 04/28/18 12:00 04/28/18 12:27 Temperature 98.2 F 97.9 F Pulse Rate 64 66 Respiratory Rate 21 20 18 Blood Pressure 98/64 L 102/67 Pulse Oximetry 100 100 04/28/18 16:00 04/28/18 17:16 04/28/18 20:00 Temperature 98.2 F 98 F Pulse Rate 73 68 Respiratory Rate 20 18 20 Blood Pressure 101/64 106/68 Pulse Oximetry 98 99 04/28/18 21:23 04/29/18 00:00 04/29/18 04:00 Temperature 98.2 F 98.4 F Pulse Rate 77 86 Respiratory Rate 20 20 20 Blood Pressure 104/67 117/69 Pulse Oximetry 98 95 Intake & Output 04/28/18 04/29/18 04/29/18 18:59 06:59 18:59 Intake Total 1402.5 / 1402.5 520 / 520 Output Total 600 / 600 1200 / 1200 Balance 802.5 / 802.5 -680 / -680 Intake: IV 412.5 / 412.5 100 / 100 Cleocin 600 mg/NS Premix 600 mg 50 / 50 In 50 ml @ 100 mls/hr IV.SIG Q8H TWAN Rx#:[id number] Zosyn 4.5 GM Premix 4.5 gm In 100 / 100 100 / 100 100 ml @ 200 mls/hr IV.SIG Q8H TWAN Rx#:[id number] Vancomycin Inj 1,250 MG In NS 262.5 / 262.5 Inj 250 ML @ 250 mls/hr IV.SIG Q24H TWAN Rx#:[id number] Oral 990 / 990 420 / 420 Output: Urine 600 / 600 1200 / 1200 Other: Date of Last Bowel Movement 04/27/18 04/28/18 # Bowel Movements 0 Narrative: in bed, nad dressing and vac intact mild swelling, compartments soft no spreading erythema noted nvi Results - Labs CBC & Chem 7: 04/28/18 05:19 04/29/18 05:52 Laboratory Results - last 24 hr 04/28/18 04/29/18 05:19 05:52 WBC Differential Manual diff final Seg Neuts % (Manual) 66 Band Neuts % (Manual) 7 H Lymphocytes % (Manual) 16 Monocytes % (Manual) 11 H Abs Neuts (Manual) 13.7 H Toxic Granulation 1+ H Toxic Vacuolation Present H Platelet Estimate Normal Platelet Morphology Normal [place] Cells 1+ H Creatinine 1.11 Estimated GFR 86 L Microbiology 04/26/18 16:30 Wound - Arm Fungal Smear - Final No fungal elements seen 04/26/18 16:30 Wound - Arm Gram Stain - Final 04/26/18 16:30 Wound - Arm Gram Stain - Final 04/27/18 03:03 Blood - Peripheral Aerobic Blood Culture - Preliminary No growth in 1 day 04/27/18 03:03 Blood - Peripheral Anaerobic Blood Culture - Preliminary No growth in 1 day 04/25/18 11:40 Blood - Peripheral Aerobic Blood Culture - Preliminary No growth in 3 days 04/25/18 11:40 Blood - Peripheral Anaerobic Blood Culture - Preliminary No growth in 3 days Assessment and Plan - Ortho Post Op Day # 3 - Assessment and Plan POD #3 s/p Incision and drainage, irrigation and excisional debridement of left arm, left elbow, left forearm. Pain management Medical management IV antibiotic therapy per ID Continue with wound vac, vac changed Wednesday Patient understands the possibilities of repeat surgeries. possible return to OR on Wednesday for repeat I&D with wound closure vs vac exchange. NPO after midnight wednesday night
[2018-04-29] MEDS: Celecoxib 200 MG Capsule PO SCH (09:46)
[2018-04-29] MEDS: Senna/Docusate Sodium 8.6/50 MG Tablet PO SCH ×2 (09:47→20:17)
[2018-04-29] MEDS: Multivitamin/Minerals Therapeutic Tablet PO SCH (09:47)
[2018-04-29] MEDS: QUEtiapine 25 MG Tablet PO SCH (09:47)
[2018-04-29] MEDS: Folic Acid 1 MG Tablet PO SCH (09:47)
[2018-04-29 10:37] LABS: Hematocrit 28.8 % (39.0-51.0); Hemoglobin 9.6 gm/dL (13.0-17.0); Mean Corpuscular HGB Conc 33.4 % (32.0-36.0); Mean Corpuscular Hemoglobin 29.5 pg (27.0-34.0); Mean Corpuscular Volume 88.6 fL (80.0-100.0); Mean Platelet Volume 7.2 fL (7.0-11.0); Platelet Count 343 th/mm3 (150-450); Red Blood Count 3.25 mil/mm3 (4.50-5.90); Red Cell Distribution Width 14.5 % (11.6-17.2); White Blood Count 11.4 th/mm3 (4.0-11.0)
[2018-04-29 11:02] LABS: Calcium 8.1 mg/dL (8.5-10.1); Carbon Dioxide 26.4 meq/L (21.0-32.0); Potassium 3.6 meq/L (3.5-5.1)
--- NOTE | 2018-04-29 11:06 | P.PNFP ---
Subjective Interval history: Patient seen and examined this morning. Patient states that he is feeling well this morning. Complains of mild LUE pain, 4/10, well controlled with pain medication. He is able to move his arm and states that he has been able to get up and move around the room during the night. Denies fever , chills, nausea, vomiting, abdominal pain, chest pain, shortness of breath or leg pain. He states that he is in good spirits this morning. Patient has a history of bipolar disorder, MDD and PTSD and was seen by Dr. Posada who started him on Seroquel 50mg in the morning and 100mg at night, Paxil 20 mg daily and prazosin 5 mg at bedtime last night. Surgery stopped by earlier this morning and told the patient that they expect to take him back to the OR on Wednesday for possible repeat I&D and wound closure vs wound vac replacement. <Lorri Russell B - 04/29/18 21:03> Results - Labs Result diagrams: 04/30/18 04:23 04/30/18 04:23 <Bianca Gonzalez R - 04/30/18 12:36> Abnormal lab results 04/29/18 04/30/18 04/30/18 Range/Units Unknown 04:23 04:23 RBC 3.19 L (4.50-5.90) mil/mm3 Hgb 9.5 L (13.0-17.0) gm/dL Hct 28.4 L (39.0-51.0) % Potassium 3.4 L (3.5-5.1) meq/L Chloride 108 H (98-107) meq/L Calcium 7.8 L (8.5-10.1) mg/dL Vancomycin Trough 12.5 H (5.0-10.0) mcg/mL Short CBC 04/30/18 Range/Units 04:23 WBC 10.4 (4.0-11.0) th/mm3 Hgb 9.5 L (13.0-17.0) gm/dL Hct 28.4 L (39.0-51.0) % Plt Count 405 (150-450) th/mm3 BMP 04/30/18 04:23 Sodium 144 Potassium 3.4 L Chloride 108 H Carbon Dioxide 26.8 BUN 9 Creatinine 1.01 Calcium 7.8 L <Bianca Gonzalez R - 04/30/18 12:36> Abnormal lab results 04/29/18 04/29/18 Range/Units 05:52 10:12 WBC 11.4 H (4.0-11.0) th/mm3 RBC 3.25 L (4.50-5.90) mil/mm3 Hgb 9.6 L (13.0-17.0) gm/dL Hct 28.8 L (39.0-51.0) % Estimated GFR 86 L (>89) mL/min Short CBC 04/29/18 Range/Units 10:12 WBC 11.4 H (4.0-11.0) th/mm3 Hgb 9.6 L (13.0-17.0) gm/dL Hct 28.8 L (39.0-51.0) % Plt Count 343 (150-450) th/mm3 BMP 04/29/18 05:52 Creatinine 1.11 <Lorri Russell B - 04/29/18 11:06> Physical Exam Vital signs: Vital Signs 04/29/18 16:00 04/29/18 20:00 04/30/18 00:00 Temperature 98.6 F 98.8 F 98.6 F Pulse Rate 82 83 84 Respiratory Rate 16 20 20 Blood Pressure 115/59 L 126/63 130/74 Pulse Oximetry 99 99 04/30/18 04:00 04/30/18 08:00 Temperature 98.9 F 98.7 F Pulse Rate 84 83 Respiratory Rate 20 19 Blood Pressure 136/79 122/75 Pulse Oximetry 97 99 Intake & Output 04/29/18 04/30/18 04/30/18 18:59 06:59 18:59 Intake Total 700 / 700 1345.0 / 1345.0 1000 / 1000 Output Total 1200 / 1200 850 / 850 Balance -500 / -500 495.0 / 495.0 1000 / 1000 Weight 72.4 kg Intake: IV 100 / 100 625.0 / 625.0 1000 / 1000 NS Inj 1,000 ML @ 165 mls/hr IV 1000 / 1000 .CONT .Q6H4M TWAN Rx#:[id number] Zosyn 4.5 GM Premix 4.5 gm In 100 / 100 100 / 100 100 ml @ 200 mls/hr IV.SIG Q8H TWAN Rx#:[id number] Vancomycin Inj 1,250 MG In NS 525.0 / 525.0 Inj 250 ML @ 250 mls/hr IV.SIG Q12H TWAN Rx#:[id number] Oral 600 / 600 720 / 720 Output: Urine 1200 / 1200 850 / 850 Other: # Voids 1 Date of Last Bowel Movement 04/28/18 <Bianca Gonzalez R - 04/30/18 12:36> Vital Signs 04/28/18 12:00 04/28/18 12:27 04/28/18 16:00 Temperature 97.9 F 98.2 F Pulse Rate 66 73 Respiratory Rate 20 18 20 Blood Pressure 102/67 101/64 Pulse Oximetry 100 98 04/28/18 17:16 04/28/18 20:00 04/28/18 21:23 Temperature 98 F Pulse Rate 68 Respiratory Rate 18 20 20 Blood Pressure 106/68 Pulse Oximetry 99 04/29/18 00:00 04/29/18 04:00 04/29/18 08:00 Temperature 98.2 F 98.4 F 98.9 F Pulse Rate 77 86 85 Respiratory Rate 20 20 16 Blood Pressure 104/67 117/69 119/68 Pulse Oximetry 98 95 98 Intake & Output 04/28/18 04/29/18 04/29/18 18:59 06:59 18:59 Intake Total 1402.5 / 1402.5 782.5 / 782.5 Output Total 600 / 600 1200 / 1200 Balance 802.5 / 802.5 -417.5 / -417.5 Intake: IV 412.5 / 412.5 362.5 / 362.5 Cleocin 600 mg/NS Premix 600 mg 50 / 50 In 50 ml @ 100 mls/hr IV.SIG Q8H TWAN Rx#:[id number] Zosyn 4.5 GM Premix 4.5 gm In 100 / 100 100 / 100 100 ml @ 200 mls/hr IV.SIG Q8H TWAN Rx#:[id number] Vancomycin Inj 1,250 MG In NS 262.5 / 262.5 262.5 / 262.5 Inj 250 ML @ 250 mls/hr IV.SIG Q12H TWAN Rx#:[id number] Oral 990 / 990 420 / 420 Output: Urine 600 / 600 1200 / 1200 Other: Date of Last Bowel Movement 07/04/18 07/05/18 # Bowel Movements 0 <[facility] 04/29/18 11:06> - Constitutional no acute distress <[facility] 04/29/18 11:06> Comments: patient laying down in bed watch television <[facility] 04/29/18 11:06> - Routine HEENT Exam Head: Present: normocephalic, atraumatic <[facility] 04/29/18 11:06> Eye: Present: EOMI. Absent: scleral injection <[facility] 04/29/18 11: 06> - Routine Respiratory Exam Present: CTA bilaterally. Absent: rhonchi, wheezes, crackles <[facility] 04/29/18 11:06> - Routine Cardiovascular Exam Present: RRR. Absent: murmur <[facility] 04/29/18 11:06> - Routine Abdominal Exam Present: soft, normoactive bowel sounds. Absent: tenderness <[facility] 04/29/18 11:06> - Routine Extremities Exam Present: full ROM, normal capillary refill. Absent: cyanosis, edema, calf tenderness <[facility] 04/29/18 20:24> Comments: Wound vac on LUE draining serosanginous fluid. Soft dressing in place. Full ROM of left arm and hand without pain. Radial pulses intact. <[facility] 04/29/18 20:24> - Routine Skin Exam Present: dry, warm <[facility] 04/29/18 11:06> - Routine Neurological Exam Present: alert, oriented X3 <[facility] 04/29/18 11:06> - Routine Psychiatric Exam Comments: patient states he is in good spirits today and is optimistic about his recovery <[facility] 04/29/18 11:06> Assessment and Plan - Assessment (1) Necrotizing fasciitis of upper arm Code(s): M72.6 - Necrotizing fasciitis Status: Acute (2) Sepsis Code(s): A41.9 - Sepsis, unspecified organism Status: Acute (3) HIV (human immunodeficiency virus infection) Code(s): B20 - Human immunodeficiency virus [HIV] disease Status: Chronic (4) Nutrition, metabolism, and development symptoms Code(s): R63.8 - Other symptoms and signs concerning food and fluid intake Status: Acute (5) DVT prophylaxis Status: Acute <Bianca Gonzalez - 04/30/18 12:36> (1) Necrotizing fasciitis of upper arm Code(s): M72.6 - Necrotizing fasciitis Status: Acute Plan: Initial presentation of left axilla abscess, s/p treatment with doxycycline. Worsening swelling of the left upper arm. 04/26 Rapidly worsened swelling with new erythema and multiple blisters formed. 04/29 POD 3. Patient is currently stable. Imaging: See above in Results section Medications: -Vancomycin 1000mg IV q24h, decreased in frequency due to renal impairment. Pharmacy consulted. -Zosyn 4.5g IV q6h, do not need to adjust for GFR >40 -Clindamycin 300 q6h (IV to po equivalent on 04/28) -Consulted Orthopedic Surgery, Dr. Allen -Recommended MRI -Emergency Incision and drainage, irrigation and excisional debridement of left arm, left elbow, left forearm on 04/26 -Wound vac placed on 04/27, changed on 04/28 -Seen by orthopedic surgery on 04/29. Per surgery, possible repeat I&D and wound closure vs wound vac replacement on 05/02. -Consult General Surgery for possible I&D, appreciate recommendations -Advised for us to consult Orthopedics due to possibility for fasciotomy -Signed off on 04/27 -Consult ID for abx recommendations and HIV as below, appreciate recommendations -Recommended to add Clindamycin for its toxin neutralizing effects, can change to oral -Blood cultures: NGTD -Intraoperative cultures: pending (2) Sepsis Code(s): A41.9 - Sepsis, unspecified organism Status: Acute Plan: Patient meeting sepsis criteria upon admission: WBC count of 26.2 (neutrophil predominant), Tachycardic to the 100s, with a known source of infection (left axillary abscess, see plan below) BP decreased to the 90s/60s, was given 2x 1L boluses and a 400ml bolus in the ED Lactic acid is high at 2.7. 04/28, one episode of hypotension overnight 04/29, patient stable overnight -Blood cx NGTD -Lactic acid protocol initiated on admission -NS IVF at 1.5 maintenance 165 mls/hr -See plan for abscess above (3) HIV (human immunodeficiency virus infection) Code(s): B20 - Human immunodeficiency virus [HIV] disease Status: Chronic Plan: PT with HIV, unsure of last CD4 count and not current on antiretroviral therapy -CD4 count 128 -Consulted ID, appreciate recommendations (4) Nutrition, metabolism, and development symptoms Code(s): R63.8 - Other symptoms and signs concerning food and fluid intake Status: Acute Plan: Fluids: NS @ 165 ml/hr Electrolytes: monitor and replete as needed Nutrition: regular diet GI Prophylaxis: none indicated at this time (5) DVT prophylaxis Status: Acute Plan: Early ambulation. bilateral SCDs <Lorri Russell - 04/30/18 00:07> - Assessment and Plan 47yo AAM with PMH of HIV presenting meeting sepsis criteria with left upper arm edema and axillary abscess later determined to be necrotizing fasciitis due to rapidly progressing swelling with blister formation. POD 2 from I&D and debridement of LUE with Orthopedic Surgery. <Lorri Russell - 04/29/18 11:06> - Attending Attestation The exam, history, and the medical decision-making described in the above note were completed with the assistance of the resident physician. I reviewed and agree with the findings presented. I attest that I had a [id number] encounter with the patient on the same day, and personally performed and documented my assessment and findings in the medical record. <Bianca Gonzalez - 04/30/18 12:36> <Lorri Russell - Last Filed: 04/30/18 00:07> (2) Sepsis Qualifiers: Sepsis type: sepsis due to unspecified organism Qualified Code(s): A41.9 - Sepsis, unspecified organism <Bianca Gonzalez Last Filed: 04/30/18 12:36> (2) Sepsis Qualifiers: Sepsis type: sepsis due to unspecified organism Qualified Code(s): A41.9 - Sepsis, unspecified organism <Lorri Russell B - Last Filed: 04/30/18 00:07> (2) Sepsis Qualifiers: Sepsis type: sepsis due to unspecified organism Qualified Code(s): A41.9 - Sepsis, unspecified organism <Bianca Gonzalez R - Last Filed: 04/30/18 12:36> (2) Sepsis Qualifiers: Sepsis type: sepsis due to unspecified organism Qualified Code(s): A41.9 - Sepsis, unspecified organism
--- NOTE | 2018-04-29 13:53 | P.PNPSY ---
Subjective Remarks: Patient was seen today for psychiatric reevaluation. Case was discussed with nurse in charge and primary medical team. The patient is found eating his breakfast, he is calm, cooperative, pleasant. The patient reports to be in a good spirits today, reports good mood. He says that last night he had a very good night, Seroquel made the difference. He denies suicidal and homicidal ideation, he denies visual and auditory hallucinations. Oriented 3. No agitation, no aggressive behavior present. Review of Systems Psychiatric: Denies abnormal sleep pattern, Denies anxiety, Denies behavioral changes, Denies change in appetite, Denies change in sex drive, Denies confusion , Denies depression, Denies difficulty concentrating, Denies hearing things others do not hear, Denies hopelessness, Denies irritability, Denies lack of enjoyment, Denies memory loss, Denies mood swings, Denies panic attacks, Denies paranoia, Denies seeing things others do not see, Denies sensing things others do not sense, Denies tactile hallucinations, Denies thoughts of hurting/killing others, Denies thoughts of hurting/killing yourself, Denies other Mental Status Examination Appearance: Appropriate Consciousness: Alert Orientation: x4 Motor Activity: Normal gait Speech: Unremarkable Language: Adequate Fund of Knowledge: Adequate Memory: Unremarkable Mood: Appropriate Affect: Sad, Flat Thought Process & Associations: Intact Thought Content: Appropriate Hallucination Type: None Suicidal Ideation: No Suicidal Plan: No Suicidal Intention: No Homicidal Ideation: No Homicidal Plan: No Homicidal Intention: No Insight: Fair Judgment: Impulsive Assessment and Plan - Assessment (1) Bipolar 1 disorder, depressed Code(s): F31.9 - Bipolar disorder, unspecified Status: Acute (2) Bipolar 1 disorder, depressed Code(s): F31.9 - Bipolar disorder, unspecified Status: Acute - Plan Plan: The patient today seems to be doing much better. He is in a better spirit, reports good mood. Compliant with medications, no significant side effects. Continue current psychotropic. No admission indicated. Brief supportive psychotherapy provided. Justification for Continued Inpatient Stay: No admission indicated
[2018-04-29] MEDS: QUEtiapine 100 MG Tablet PO SCH (20:15)
[2018-04-29] MEDS ORDERED: Pharmacy Ordered Lab Info OTHER ONE (20:45)
[2018-04-30] MEDS: Sod Chloride 0.9% Inj 1,000 ML IV.CONT SCH ×6 (03:34→23:29)
[2018-04-30] MEDS: Piperacil/Tazo 4.5 GM Premix 4.5 GM/100 ML BAG IV.SIG SCH ×3 (04:16→20:11)
[2018-04-30 05:06] LABS: Anion Gap 9 meq/L (5-15); Blood Urea Nitrogen 9 mg/dL (7-18); Calcium 7.8 mg/dL (8.5-10.1); Carbon Dioxide 26.8 meq/L (21.0-32.0); Chloride 108 meq/L (98-107); Glomerular Filtration Rate Greater Than 89 mL/min (>89); Glucose,Random 84 mg/dL (74-106); Potassium 3.4 meq/L (3.5-5.1); Sodium 144 meq/L (136-145)
[2018-04-30 05:09] LABS: Hematocrit 28.4 % (39.0-51.0); Hemoglobin 9.5 gm/dL (13.0-17.0); Mean Corpuscular HGB Conc 33.6 % (32.0-36.0); Mean Corpuscular Hemoglobin 29.8 pg (27.0-34.0); Mean Corpuscular Volume 88.9 fL (80.0-100.0); Mean Platelet Volume 7.3 fL (7.0-11.0); Platelet Count 405 th/mm3 (150-450); Red Blood Count 3.19 mil/mm3 (4.50-5.90); Red Cell Distribution Width 14.7 % (11.6-17.2); White Blood Count 10.4 th/mm3 (4.0-11.0)
--- NOTE | 2018-04-30 08:19 | P.PNOP ---
Subjective Interval history: POD #4 s/p Incision and drainage, irrigation and excisional debridement of left arm, left elbow, left forearm. The patient is awake alert answers questions appropriately. He has no new complaint. Physical Exam Vital signs: Vital Signs 04/29/18 12:00 04/29/18 16:00 04/29/18 20:00 Temperature 98.8 F 98.6 F 98.8 F Pulse Rate 88 82 83 Respiratory Rate 16 16 20 Blood Pressure 114/65 115/59 L 126/63 Pulse Oximetry 100 99 04/30/18 00:00 04/30/18 04:00 Temperature 98.6 F 98.9 F Pulse Rate 84 84 Respiratory Rate 20 20 Blood Pressure 130/74 136/79 Pulse Oximetry 99 97 Intake & Output 04/29/18 04/30/18 04/30/18 18:59 06:59 18:59 Intake Total 700 / 700 1082.5 / 1082.5 Output Total 1200 / 1200 850 / 850 Balance -500 / -500 232.5 / 232.5 Weight 72.4 kg Intake: IV 100 / 100 362.5 / 362.5 Zosyn 4.5 GM Premix 4.5 gm In 100 / 100 100 / 100 100 ml @ 200 mls/hr IV.SIG Q8H TWAN Rx#:[id number] Vancomycin Inj 1,250 MG In NS 262.5 / 262.5 Inj 250 ML @ 250 mls/hr IV.SIG Q12H TWAN Rx#:[id number] Oral 600 / 600 720 / 720 Output: Urine 1200 / 1200 850 / 850 Other: # Voids 1 Date of Last Bowel Movement 04/28/18 - Constitutional no acute distress - Routine Extremities Exam Comments: The left upper extremity dressing is dry and intact. The VAC device is intact. He moves his fingers freely and has good capillary refill and sensation. Results - Labs CBC & Chem 7: 04/30/18 04:23 04/30/18 04:23 Laboratory Results - last 24 hr 04/29/18 04/29/18 04/29/18 10:12 10:12 Unknown WBC 11.4 H RBC 3.25 L Hgb 9.6 L Hct 28.8 L MCV 88.6 MCH 29.5 MCHC 33.4 RDW 14.5 Plt Count 343 MPV 7.2 Sodium 142 Potassium 3.6 Chloride 107 Carbon Dioxide 26.4 Anion Gap 9 BUN 10 Creatinine 1.08 Estimated GFR 89 Random Glucose 91 Calcium 8.1 L Vancomycin Trough 12.5 H 04/30/18 04/30/18 04:23 04:23 WBC 10.4 RBC 3.19 L Hgb 9.5 L Hct 28.4 L MCV 88.9 MCH 29.8 MCHC 33.6 RDW 14.7 Plt Count 405 MPV 7.3 Sodium 144 Potassium 3.4 L Chloride 108 H Carbon Dioxide 26.8 Anion Gap 9 BUN 9 Creatinine 1.01 Estimated GFR Greater than 89 Random Glucose 84 Calcium 7.8 L Vancomycin Trough Microbiology 04/26/18 16:30 Wound - Arm Gram Stain - Final 04/26/18 16:30 Wound - Arm Wound Culture - Preliminary Group A beta Strep 04/26/18 16:30 Wound - Arm Gram Stain - Final 04/26/18 16:30 Wound - Arm Wound Culture - Preliminary Group A beta Strep 04/27/18 03:03 Blood - Peripheral Aerobic Blood Culture - Preliminary No growth in 2 days 04/27/18 03:03 Blood - Peripheral Anaerobic Blood Culture - Preliminary No growth in 2 days 04/25/18 11:40 Blood - Peripheral Aerobic Blood Culture - Preliminary No growth in 4 days 04/25/18 11:40 Blood - Peripheral Anaerobic Blood Culture - Preliminary No growth in 4 days 04/26/18 16:30 Wound - Arm Acid Fast Bacilli Smear - Final No acid fast bacilli seen 04/26/18 16:30 Wound - Arm Acid Fast Bacilli Smear - Final No acid fast bacilli seen 04/26/18 16:30 Wound - Arm Fungal Smear - Final No fungal elements seen - Procedures Incision and drainage, irrigation and excisional debridement of left arm, left elbow, left forearm. Assessment and Plan - Assessment and Plan POD #4 s/p Incision and drainage, irrigation and excisional debridement of left arm, left elbow, left forearm. Pain management Medical management IV antibiotic therapy per ID Continue with wound vac, vac changed Patient understands the possibilities of repeat surgeries. possible return to OR on Wednesday for repeat I&D with wound closure vs vac exchange. NPO after midnight Wednesday night
[2018-04-30] MEDS: Folic Acid 1 MG Tablet PO SCH (09:30)
[2018-04-30] MEDS: Multivitamin/Minerals Therapeutic Tablet PO SCH (09:30)
[2018-04-30] MEDS: QUEtiapine 25 MG Tablet PO SCH (09:30)
[2018-04-30] MEDS: Senna/Docusate Sodium 8.6/50 MG Tablet PO SCH ×2 (09:32→20:13)
[2018-04-30] MEDS: Vancomycin Inj 1,250 MG in Sodium Chlor 0.9% Inj 250 ML IV.SIG SCH ×2 (09:46→21:11)
[2018-04-30] MEDS: Celecoxib 200 MG Capsule PO SCH (09:57)
--- NOTE | 2018-04-30 14:37 | P.PNFP ---
Subjective Interval history: Patient seen and examined this morning. He states that he is doing well, no complaints, pain is well controlled. He does not like to take opiates so has been going long periods between doses. No fevers or chills, no chest pain, no shortness of breath, no abdominal pain, urinating and stooling well. <Asya Mcneil - 04/30/18 14:37> Results - Labs Result diagrams: 05/02/18 06:18 05/02/18 06:18 <Bianca Simon - 05/02/18 13:05> Abnormal lab results 05/01/18 05/01/18 Range/Units 05:32 05:32 RBC 3.42 L (4.50-5.90) mil/mm3 Hgb 10.1 L (13.0-17.0) gm/dL Hct 30.2 L (39.0-51.0) % Plt Count 548 H D (150-450) th/mm3 Chloride 110 H (98-107) meq/L Estimated GFR 78 L (>89) mL/min Calcium 8.3 L (8.5-10.1) mg/dL Short CBC 05/01/18 Range/Units 05:32 WBC 9.6 (4.0-11.0) th/mm3 Hgb 10.1 L (13.0-17.0) gm/dL Hct 30.2 L (39.0-51.0) % Plt Count 548 H D (150-450) th/mm3 BMP 05/01/18 05:32 Sodium 143 Potassium 3.9 Chloride 110 H Carbon Dioxide 25.9 BUN 13 Creatinine 1.21 Calcium 8.3 L <Bianca Simon R - 05/02/18 13:05> Abnormal lab results 04/29/18 04/30/18 04/30/18 Range/Units Unknown 04:23 04:23 RBC 3.19 L (4.50-5.90) mil/mm3 Hgb 9.5 L (13.0-17.0) gm/dL Hct 28.4 L (39.0-51.0) % Potassium 3.4 L (3.5-5.1) meq/L Chloride 108 H (98-107) meq/L Calcium 7.8 L (8.5-10.1) mg/dL Vancomycin Trough 12.5 H (5.0-10.0) mcg/mL Short CBC 04/30/18 Range/Units 04:23 WBC 10.4 (4.0-11.0) th/mm3 Hgb 9.5 L (13.0-17.0) gm/dL Hct 28.4 L (39.0-51.0) % Plt Count 405 (150-450) th/mm3 BMP 04/30/18 04:23 Sodium 144 Potassium 3.4 L Chloride 108 H Carbon Dioxide 26.8 BUN 9 Creatinine 1.01 Calcium 7.8 L <Asya Mcneil - 04/30/18 14:37> - Imaging ITS Impressions Upper Extremity Ultrasound 04/25/18 00:00 CONCLUSION: Subcutaneous tissue phlegmon in the left axillary region. Forearm CT 04/25/18 12:57 CONCLUSION: 1. Nonspecific subcutaneous edema along the medial aspect of the proximal forearm. 2. The bony structures are grossly intact. Humerus CT 04/25/18 12:57 CONCLUSION: 1. Nonspecific edema throughout the subcutaneous soft tissues along the medial aspect of the upper arm. No drainable loculated fluid collections. 2. The bony structures of the humerus are grossly unremarkable. Chest X-Ray 04/26/18 00:00 CONCLUSION: The lungs are clear. Humerus MRI 04/26/18 00:00 CONCLUSION: Severe cellulitis confined to subcutaneous location with fascial enhancement which may be reactive in nature. There is no evidence of abscess. There is no evidence of osteomyelitis. <Asya Mcneil - 04/30/18 14:37> Physical Exam Vital signs: Vital Signs 04/30/18 16:00 04/30/18 20:00 05/01/18 00:00 Temperature 98.1 F 98.6 F 98.4 F Pulse Rate 89 79 76 Respiratory Rate 19 16 16 Blood Pressure 110/75 145/83 H 123/78 Pulse Oximetry 100 99 99 05/01/18 04:00 05/01/18 08:00 Temperature 99.0 F 99.3 F Pulse Rate 83 Respiratory Rate 16 20 Blood Pressure 133/79 138/84 Pulse Oximetry 99 98 Intake & Output 04/30/18 05/01/18 05/01/18 18:59 06:59 18:59 Intake Total 2362.5 / 2362.5 2842.5 / 2842.5 1842.5 / 1842.5 Output Total 1550 / 1550 2 / 2 Balance 2362.5 / 2362.5 1292.5 / 1292.5 1840.5 / 1840.5 Intake: IV 2362.5 / 2362.5 2362.5 / 2362.5 1362.5 / 1362.5 NS Inj 1,000 ML @ 165 mls/hr IV 1999 / 1999 1999 / 1999 1000 / 1000 .CONT .Q6H4M TWAN Rx#:[id number] Zosyn 4.5 GM Premix 4.5 gm In 100 / 100 100 / 100 100 / 100 100 ml @ 200 mls/hr IV.SIG Q8H TWAN Rx#:[id number] Vancomycin Inj 1,250 MG In NS 262.5 / 262.5 262.5 / 262.5 262.5 / 262.5 Inj 250 ML @ 250 mls/hr IV.SIG Q12H TWAN Rx#:[id number] Oral 480 / 480 480 / 480 Output: Urine 1550 / 1550 2 Other: # Voids 2 Date of Last Bowel Movement 04/28/18 <Bianca Simon R - 05/02/18 13:05> Vital Signs 04/29/18 16:00 04/29/18 20:00 04/30/18 00:00 Temperature 98.6 F 98.8 F 98.6 F Pulse Rate 82 83 84 Respiratory Rate 16 20 20 Blood Pressure 115/59 L 126/63 130/74 Pulse Oximetry 99 99 04/30/18 04:00 04/30/18 08:00 04/30/18 12:00 Temperature 98.9 F 98.7 F 98.5 F Pulse Rate 84 83 84 Respiratory Rate 20 19 19 Blood Pressure 136/79 122/75 122/76 Pulse Oximetry 97 99 99 Intake & Output 04/29/18 04/30/18 04/30/18 18:59 06:59 18:59 Intake Total 700 / 700 1445.0 / 1445.0 1000 / 1000 Output Total 1200 / 1200 850 / 850 Balance -500 / -500 595.0 / 595.0 1000 / 1000 Weight 72.4 kg Intake: IV 100 / 100 725.0 / 725.0 1000 / 1000 NS Inj 1,000 ML @ 165 mls/hr IV 1000 / 1000 .CONT .Q6H4M TWAN Rx#:[id number] Zosyn 4.5 GM Premix 4.5 gm In 100 / 100 200 / 200 100 ml @ 200 mls/hr IV.SIG Q8H TWAN Rx#:[id number] Vancomycin Inj 1,250 MG In NS 525.0 / 525.0 Inj 250 ML @ 250 mls/hr IV.SIG Q12H TWAN Rx#:[id number] Oral 600 / 600 720 / 720 Output: Urine 1200 / 1200 850 / 850 Other: # Voids 1 Date of Last Bowel Movement 04/28/18 04/28/18 <Asya Mcneil G - 04/30/18 14:37> Narrative: GENERAL: thin AA male laying in bed watching TV, in no acute distress SKIN: Warm and dry. HEAD: Atraumatic. Normocephalic. EYES: No scleral icterus. No injection or drainage. ENT: No nasal bleeding or discharge. NECK: Trachea midline. No JVD. CARDIOVASCULAR: Regular rate and rhythm. RESPIRATORY: No accessory muscle use. Clear to auscultation. Course breath sounds, but equal bilaterally. GASTROINTESTINAL: Abdomen soft, non-tender, nondistended. MUSCULOSKELETAL: Extremities without clubbing, cyanosis, or edema. Left arm wrapped in cj bandage c/d/i. Wound vac in place actively draining sanguinous fluid NEUROLOGICAL: Awake and alert. No obvious cranial nerve deficits. Motor grossly within normal limits. Normal speech. PSYCHIATRIC: Appropriate mood and affect; insight and judgment normal. <Asya Mcneil - 04/30/18 14:37> Assessment and Plan - Assessment (1) Necrotizing fasciitis of upper arm Code(s): M72.6 - Necrotizing fasciitis Status: Acute (2) Sepsis Code(s): A41.9 - Sepsis, unspecified organism Status: Resolved (3) HIV (human immunodeficiency virus infection) Code(s): B20 - Human immunodeficiency virus [HIV] disease Status: Chronic (4) Nutrition, metabolism, and development symptoms Code(s): R63.8 - Other symptoms and signs concerning food and fluid intake Status: Acute (5) DVT prophylaxis Status: Acute <Bianca Simon - 05/02/18 13:05> (1) Necrotizing fasciitis of upper arm Code(s): M72.6 - Necrotizing fasciitis Status: Acute Plan: Initial presentation of left axilla abscess, s/p treatment with doxycycline. Worsening swelling of the left upper arm. 04/26 Rapidly worsened swelling with new erythema and multiple blisters formed. 04/29 POD 4. Patient is currently stable. Imaging: See above in Results section Medications: -Vancomycin 1000mg IV q24h, decreased in frequency due to renal impairment. Pharmacy consulted. -Zosyn 4.5g IV q6h, do not need to adjust for GFR >40 -Clindamycin 300 q6h (IV to po equivalent on 04/28) -Consulted Orthopedic Surgery, Dr. Allen -Recommended MRI -Emergency Incision and drainage, irrigation and excisional debridement of left arm, left elbow, left forearm on 04/26 -Wound vac placed on 04/27, changed on 04/28 -Seen by orthopedic surgery on 04/29. Per surgery, possible repeat I&D with wound closure vs wound vac replacement on 05/02. -Consult ID for abx recommendations and HIV as below, appreciate recommendations -Recommended to add Clindamycin for its toxin neutralizing effects, can change to oral -Blood cultures: NGTD -Intraoperative cultures: Group A beta Strep (2) Sepsis Code(s): A41.9 - Sepsis, unspecified organism Status: Resolved Plan: Patient meeting sepsis criteria upon admission: WBC count of 26.2 (neutrophil predominant), Tachycardic to the 100s, with a known source of infection (left axillary abscess, see plan below) BP decreased to the 90s/60s, was given 2x 1L boluses and a 400ml bolus in the ED Lactic acid is high at 2.7. 04/28, one episode of hypotension overnight Patient has remained stable -Blood cx NGTD -Lactic acid protocol initiated on admission -NS IVF at 1.5 maintenance 165 mls/hr, will d/c this today, 04/30 -See plan for abscess above (3) HIV (human immunodeficiency virus infection) Code(s): B20 - Human immunodeficiency virus [HIV] disease Status: Chronic Plan: PT with HIV, unsure of last CD4 count and not current on antiretroviral therapy -CD4 count 128 -Consulted ID, appreciate recommendations -Will consider placing pt on prophylactic abx on d/c, but [facility] (4) Nutrition, metabolism, and development symptoms Code(s): R63.8 - Other symptoms and signs concerning food and fluid intake Status: Acute Plan: Fluids: tolerating po Electrolytes: monitor and replete as needed Nutrition: regular diet GI Prophylaxis: none indicated at this time (5) DVT prophylaxis Status: Acute Plan: Early ambulation. bilateral SCDs <Asya Mcneil - 04/30/18 14:11> - Assessment and Plan 47yo AAM with PMH of HIV presenting meeting sepsis criteria with left upper arm edema and axillary abscess later determined to be necrotizing fasciitis due to rapidly progressing swelling with blister formation. POD 4 from I&D and debridement of LUE with Orthopedic Surgery. <Asya Mcneil - 04/30/18 14:37> Discussed Condition With: Dr. Simon, Dr. Vyas <Asya Mcneil - 04/30/18 14:37> Discharge Planning: Patient is scheduled to have another procedure on 05/02, will continue to follow clinical course. Case management is consulted and will [facility]. <Asya Mcneil - 04/30/18 14:37> - Attending Attestation The exam, history, and the medical decision-making described in the above note were completed with the assistance of the resident physician. I reviewed and agree with the findings presented. I attest that I had a [id number] encounter with the patient on the same day, and personally performed and documented my assessment and findings in the medical record. <Bianca Simon - 05/01/18 12:23> <Asya Mcneil - Last Filed: 04/30/18 14:11> (2) Sepsis Qualifiers: Sepsis type: sepsis due to unspecified organism Qualified Code(s): A41.9 - Sepsis, unspecified organism <Bianca Simon R - Last Filed: 05/02/18 13:05> (2) Sepsis Qualifiers: Sepsis type: sepsis due to unspecified organism Qualified Code(s): A41.9 - Sepsis, unspecified organism <Asya Mcneil G - Last Filed: 04/30/18 14:11> (2) Sepsis Qualifiers: Sepsis type: sepsis due to unspecified organism Qualified Code(s): A41.9 - Sepsis, unspecified organism <Bianca Simon R - Last Filed: 05/02/18 13:05> (2) Sepsis Qualifiers: Sepsis type: sepsis due to unspecified organism Qualified Code(s): A41.9 - Sepsis, unspecified organism
--- NOTE | 2018-04-30 18:07 | P.PNID ---
Subjective Remarks: Patient is not a reliable historian. Mr. Quezada is a 47yo AAM with a PMH of HIV (diagnosed in [facility] per patient, sexually transmitted, denies any IVDA. He reports he was diagnosed with HIV 10 years back and since then has been on treatment off and on. He reports he has never has any opportunistic infections or hospitalizations that would point towards these diagnosis. He reports he has been off HAART for last 1 year. He says he was depressed and hence quit taking medications. He denies any suicidal ideations. His PMHx is also significant for reported history of Bipolar disorder, PTSD, MDD unsure if he is on treatment for the same. He denies any IVDA adamantly. With this background patient presents to the hospital with left UE arm swelling. He reports this started as an axillary area swelling approximately 2 weeks back for which [facility] and was prescribed antibiotics. He denies any trauma, insect bites, or IVDA. He reports he is still on his antibiotics unsure if he has been compliant with his medications. He then went to the doctor at the [facility] on 04/15 and was prescribed doxycycline. He goes on to report that he started draining malodorous green pus. Patient reports that approximately 4 days back patient left upper arm starting swelling, became erythematous, warm. He reports he had no bus ride so he toughed it out. He reports having developed night sweats, fever/chills, fatigue, loss of appetite. He reports pain in his left UE and is unable to move his hand due to significant pain and swelling. He denies any chest pain or back pain. He denies prior endocarditis or epidural abscess. ID consulted for evaluation and Mment of possible LUE abscess ? Nec fascitis. Overnight events reviewed. No fever No rash No diarrhea Post op patient has a wound vac in place in his LUE and part of forearm. Not on pressors. UO ok. Antibiotics: Zosyn IV Vanco IV Clinda Lines: Lines ok Past Medical History: reviewed Allergies/Adverse Reactions: Allergies No Known Allergies Allergy (Verified 04/25/18 11:26) Objective Vital Signs 04/29/18 20:00 04/30/18 00:00 04/30/18 04:00 Temperature 98.8 F 98.6 F 98.9 F Pulse Rate 83 84 84 Respiratory Rate 20 20 20 Blood Pressure 126/63 130/74 136/79 Pulse Oximetry 99 97 04/30/18 08:00 04/30/18 12:00 Temperature 98.7 F 98.5 F Pulse Rate 83 84 Respiratory Rate 19 19 Blood Pressure 122/75 122/76 Pulse Oximetry 99 99 Intake & Output 04/29/18 04/30/18 04/30/18 18:59 06:59 18:59 Intake Total 700 / 700 1445.0 / 1445.0 1999 Output Total 1200 / 1200 850 / 850 Balance -500 / -500 595.0 / 595.0 1999 Weight 72.4 kg Intake: IV 100 / 100 725.0 / 725.0 1999 NS Inj 1,000 ML @ 165 mls/hr IV 1999 .CONT .Q6H4M TWAN Rx#:[id number] Zosyn 4.5 GM Premix 4.5 gm In 100 / 100 200 / 200 100 ml @ 200 mls/hr IV.SIG Q8H TWAN Rx#:[id number] Vancomycin Inj 1,250 MG In NS 525.0 / 525.0 Inj 250 ML @ 250 mls/hr IV.SIG Q12H TWAN Rx#:[id number] Oral 600 / 600 720 / 720 Output: Urine 1200 / 1200 850 / 850 Other: # Voids 1 Date of Last Bowel Movement 04/28/18 04/28/18 04/26/18 16:30 Wound - Arm Gram Stain - Final 04/26/18 16:30 Wound - Arm Wound Culture - Final Group A beta Strep 04/26/18 16:30 Wound - Arm Gram Stain - Final 04/26/18 16:30 Wound - Arm Wound Culture - Final Group A beta Strep 04/27/18 03:03 Blood - Peripheral Aerobic Blood Culture - Preliminary No growth in 3 days 04/27/18 03:03 Blood - Peripheral Anaerobic Blood Culture - Preliminary No growth in 3 days 04/25/18 11:40 Blood - Peripheral Aerobic Blood Culture - Final No growth in 5 days 04/25/18 11:40 Blood - Peripheral Anaerobic Blood Culture - Final No growth in 5 days 04/26/18 16:30 Wound - Arm Acid Fast Bacilli Smear - Final No acid fast bacilli seen 04/26/18 16:30 Wound - Arm Mycobacterial Culture - Pending 04/26/18 16:30 Wound - Arm Acid Fast Bacilli Smear - Final No acid fast bacilli seen 04/26/18 16:30 Wound - Arm Mycobacterial Culture - Pending 04/26/18 16:30 Wound - Arm Fungal Smear - Final No fungal elements seen 04/26/18 16:30 Wound - Arm Fungal Culture - Pending 04/26/18 16:30 Wound - Arm Fungal Smear - Final No fungal elements seen 04/26/18 16:30 Wound - Arm Fungal Culture - Pending Lab - Hematology Results 04/29/18 04/30/18 10:12 04:23 WBC 11.4 H 10.4 RBC 3.25 L 3.19 L Hgb 9.6 L 9.5 L Hct 28.8 L 28.4 L MCV 88.6 88.9 MCH 29.5 29.8 MCHC 33.4 33.6 RDW 14.5 14.7 Plt Count 343 405 MPV 7.2 7.3 Lab - Chemistry Results 04/29/18 04/29/18 04/30/18 05:52 10:12 04:23 Sodium 142 144 Potassium 3.6 3.4 L Chloride 107 108 H Carbon Dioxide 26.4 26.8 Anion Gap 9 9 BUN 10 9 Creatinine 1.11 1.08 1.01 Estimated GFR 86 L 89 Greater than 89 Random Glucose 91 84 Calcium 8.1 L 7.8 L Imaging: ITS Impressions Upper Extremity Ultrasound 04/25/18 00:00 CONCLUSION: Subcutaneous tissue phlegmon in the left axillary region. Forearm CT 04/25/18 12:57 CONCLUSION: 1. Nonspecific subcutaneous edema along the medial aspect of the proximal forearm. 2. The bony structures are grossly intact. Humerus CT 04/25/18 12:57 CONCLUSION: 1. Nonspecific edema throughout the subcutaneous soft tissues along the medial aspect of the upper arm. No drainable loculated fluid collections. 2. The bony structures of the humerus are grossly unremarkable. Chest X-Ray 04/26/18 00:00 CONCLUSION: The lungs are clear. Humerus MRI 04/26/18 00:00 CONCLUSION: Severe cellulitis confined to subcutaneous location with fascial enhancement which may be reactive in nature. There is no evidence of abscess. There is no evidence of osteomyelitis. Physical Exam: GENERAL: In no acute distress SKIN: Warm and dry. HEAD: Atraumatic. Normocephalic. EYES: No scleral icterus. No injection or drainage. ENT: No nasal bleeding or discharge. NECK: Trachea midline. No JVD. CARDIOVASCULAR: Regular rate and rhythm. RESPIRATORY: No accessory muscle use. Clear to auscultation. Course breath sounds, but equal bilaterally. GASTROINTESTINAL: Abdomen soft, non-tender, nondistended. MUSCULOSKELETAL: Extremities without clubbing, cyanosis, or edema. Left arm wrapped in jc bandage c/d/i. Wound vac in place actively draining sanguinous fluid NEUROLOGICAL: Awake and alert. No obvious cranial nerve deficits. Motor grossly within normal limits. Normal speech. PSYCHIATRIC: Cooperative Assessment and Plan - Plan Severe Sepsis fever, leucocytosis, hypotension, lactic acid elevation. Group A strep from Intra-Op wound cultures LUE abscess/cellulitis. With some concern for Necrotizing fascitis due to blistering, pain out of proportion, decreased ROM. ? Infective Myositis. Axillary abscess Was on antibiotics prior to admission. HIV Immunocompromised. Recs: Continue Zosyn IV Continue Vanco IV (target trough 15-20) Continue Clindamycin ok to change to oral. Follow blood cultures and intraop cultures. Follow clinically. debbie pt debbie RN debbie Resident
[2018-04-30] MEDS: QUEtiapine 100 MG Tablet PO SCH (20:11)
[2018-04-30] MEDS ORDERED: Pharmacy Ordered Lab Info OTHER ONE (20:45)
[2018-04-30] MEDS: Zolpidem Tartrate 5 MG Tablet PO PRN (21:12)
[2018-05-01] MEDS: Piperacil/Tazo 4.5 GM Premix 4.5 GM/100 ML BAG IV.SIG SCH ×3 (04:08→20:39)
[2018-05-01] MEDS: Sod Chloride 0.9% Inj 1,000 ML IV.CONT SCH ×4 (05:37→20:37)
[2018-05-01 06:08] LABS: Hematocrit 30.2 % (39.0-51.0); Hemoglobin 10.1 gm/dL (13.0-17.0); Mean Corpuscular HGB Conc 33.4 % (32.0-36.0); Mean Corpuscular Hemoglobin 29.4 pg (27.0-34.0); Mean Corpuscular Volume 88.3 fL (80.0-100.0); Platelet Count 548 th/mm3 (150-450); Red Blood Count 3.42 mil/mm3 (4.50-5.90); Red Cell Distribution Width 14.7 % (11.6-17.2); White Blood Count 9.6 th/mm3 (4.0-11.0)
[2018-05-01 06:23] LABS: Calcium 8.3 mg/dL (8.5-10.1); Carbon Dioxide 25.9 meq/L (21.0-32.0); Potassium 3.9 meq/L (3.5-5.1)
[2018-05-01] MEDS: Senna/Docusate Sodium 8.6/50 MG Tablet PO SCH ×2 (09:11→20:43)
[2018-05-01] MEDS: QUEtiapine 25 MG Tablet PO SCH (09:11)
[2018-05-01] MEDS: Folic Acid 1 MG Tablet PO SCH (09:11)
[2018-05-01] MEDS: Multivitamin/Minerals Therapeutic Tablet PO SCH (09:12)
[2018-05-01] MEDS: Celecoxib 200 MG Capsule PO SCH (09:12)
[2018-05-01] MEDS: Vancomycin Inj 1,250 MG in Sodium Chlor 0.9% Inj 250 ML IV.SIG SCH ×2 (09:14→22:37)
--- NOTE | 2018-05-01 12:22 | P.PNFP ---
Subjective Interval history: Overnight no new events. Denies fevers/chills/CP/SOB, Cough or congestion. No change with bowels or bladder. States pain is reasonable. Tolerating meals well. Walking around the room without issues. Results - Labs Result diagrams: 05/01/18 05:32 05/01/18 05:32 Abnormal lab results 05/01/18 05/01/18 Range/Units 05:32 05:32 RBC 3.42 L (4.50-5.90) mil/mm3 Hgb 10.1 L (13.0-17.0) gm/dL Hct 30.2 L (39.0-51.0) % Plt Count 548 H D (150-450) th/mm3 Chloride 110 H (98-107) meq/L Estimated GFR 78 L (>89) mL/min Calcium 8.3 L (8.5-10.1) mg/dL Short CBC 05/01/18 Range/Units 05:32 WBC 9.6 (4.0-11.0) th/mm3 Hgb 10.1 L (13.0-17.0) gm/dL Hct 30.2 L (39.0-51.0) % Plt Count 548 H D (150-450) th/mm3 BMP 05/01/18 05:32 Sodium 143 Potassium 3.9 Chloride 110 H Carbon Dioxide 25.9 BUN 13 Creatinine 1.21 Calcium 8.3 L Physical Exam Vital signs: Vital Signs 04/30/18 16:00 04/30/18 20:00 05/01/18 00:00 Temperature 98.1 F 98.6 F 98.4 F Pulse Rate 89 79 76 Respiratory Rate 19 16 16 Blood Pressure 110/75 145/83 H 123/78 Pulse Oximetry 100 99 99 05/01/18 04:00 05/01/18 08:00 Temperature 99.0 F 99.3 F Pulse Rate 83 Respiratory Rate 16 20 Blood Pressure 133/79 138/84 Pulse Oximetry 99 98 Intake & Output 04/30/18 05/01/18 05/01/18 18:59 06:59 18:59 Intake Total 2362.5 / 2362.5 2842.5 / 2842.5 1842.5 / 1842.5 Output Total 1550 / 1550 2 / 2 Balance 2362.5 / 2362.5 1292.5 / 1292.5 1840.5 / 1840.5 Intake: IV 2362.5 / 2362.5 2362.5 / 2362.5 1362.5 / 1362.5 NS Inj 1,000 ML @ 165 mls/hr IV 1999 / 1999 1999 / 1999 1000 / 1000 .CONT .Q6H4M [facility]AN Rx#:[id number] Zosyn 4.5 GM Premix 4.5 gm In 100 / 100 100 / 100 100 / 100 100 ml @ 200 mls/hr IV.SIG Q8H TWAN Rx#:[id number] Vancomycin Inj 1,250 MG In NS 262.5 / 262.5 262.5 / 262.5 262.5 / 262.5 Inj 250 ML @ 250 mls/hr IV.SIG Q12H TWAN Rx#:[id number] Oral 480 / 480 480 / 480 Output: Urine 1550 / 1550 / Other: # Voids 2 Date of Last Bowel Movement 04/28/18 Narrative: GENERAL: thin AA male laying in bed watching TV, in no acute distress SKIN: Warm and dry. HEAD: Atraumatic. Normocephalic. EYES: No scleral icterus. No injection or drainage. ENT: No nasal bleeding or discharge. NECK: Trachea midline. No JVD. CARDIOVASCULAR: Regular rate and rhythm. RESPIRATORY: No accessory muscle use. Clear to auscultation. Course breath sounds, but equal bilaterally. GASTROINTESTINAL: Abdomen soft, non-tender, nondistended. MUSCULOSKELETAL: Extremities without clubbing, cyanosis, or edema. Left arm wrapped in jc bandage c/d/i. Wound vac in place actively draining sanguinous fluid NEUROLOGICAL: Awake and alert. No obvious cranial nerve deficits. Motor grossly within normal limits. Normal speech. PSYCHIATRIC: Appropriate mood and affect; insight and judgment normal. Assessment and Plan - Assessment (1) Necrotizing fasciitis of upper arm Code(s): M72.6 - Necrotizing fasciitis Status: Acute Plan: Initial presentation of left axilla abscess, s/p treatment with doxycycline. Worsening swelling of the left upper arm. 7/3 Rapidly worsened swelling with new erythema and multiple blisters formed. / POD 5. Patient is currently stable. Imaging: See above in Results section Medications: -Vancomycin 1000mg IV q24h, decreased in frequency due to renal impairment. Pharmacy consulted. -Zosyn 4.5g IV q6h, do not need to adjust for GFR >40 -Clindamycin 300 q6h (IV to po equivalent on 04/28) -Consulted Orthopedic Surgery, Dr. Allen -Recommended MRI -Emergency Incision and drainage, irrigation and excisional debridement of left arm, left elbow, left forearm on 04/26 -Wound vac placed on 04/27, changed on 04/28 -Seen by orthopedic surgery. Per surgery, possible repeat I&D with wound closure vs wound vac replacement on 05/02. -Consult ID for abx recommendations and HIV as below, appreciate recommendations -Recommended to add Clindamycin for its toxin neutralizing effects, can change to oral -Blood cultures: NGTD -Intraoperative cultures: Group A beta Strep (2) Sepsis Code(s): A41.9 - Sepsis, unspecified organism Status: Resolved Plan: Patient meeting sepsis criteria upon admission: WBC count of 26.2 (neutrophil predominant), Tachycardic to the 100s, with a known source of infection (left axillary abscess, see plan below) BP decreased to the 90s/60s, was given 2x 1L boluses and a 400ml bolus in the ED Lactic acid is high at 2.7. 04/28, one episode of hypotension overnight Patient has remained stable -Blood cx NGTD -Lactic acid protocol initiated on admission -NS IVF at 1.5 maintenance 165 mls/hr, dc on 04/30 as patient tolerating PO intake -See plan for abscess above (3) HIV (human immunodeficiency virus infection) Code(s): B20 - Human immunodeficiency virus [HIV] disease Status: Chronic Plan: PT with HIV, unsure of last CD4 count and not current on antiretroviral therapy -CD4 count 128 -Consulted ID, appreciate recommendations -Will consider placing pt on prophylactic abx on d/c, but [facility] (4) Nutrition, metabolism, and development symptoms Code(s): R63.8 - Other symptoms and signs concerning food and fluid intake Status: Acute Plan: Fluids: tolerating po Electrolytes: monitor and replete as needed Nutrition: regular diet GI Prophylaxis: none indicated at this time (5) DVT prophylaxis Status: Acute Plan: Early ambulation. bilateral SCDs - Assessment and Plan 47yo AAM with PMH of HIV presenting meeting sepsis criteria with left upper arm edema and axillary abscess later determined to be necrotizing fasciitis due to rapidly progressing swelling with blister formation. POD 5 from I&D and debridement of LUE with Orthopedic Surgery awaintg possible repeat surgery in am. Currently stable. Discussed Condition With: Resident team: Dr. Russell (2) Sepsis Qualifiers: Sepsis type: sepsis due to unspecified organism Qualified Code(s): A41.9 - Sepsis, unspecified organism
--- NOTE | 2018-05-01 15:01 | P.PNOP ---
Subjective Interval history: POD #5 s/p Incision and drainage, irrigation and excisional debridement of left arm, left elbow, left forearm. The patient is awake alert answers questions appropriately. He has no new complaint. Physical Exam Vital signs: Vital Signs 04/30/18 16:00 04/30/18 20:00 05/01/18 00:00 Temperature 98.1 F 98.6 F 98.4 F Pulse Rate 89 79 76 Respiratory Rate 19 16 16 Blood Pressure 110/75 145/83 H 123/78 Pulse Oximetry 100 99 99 05/01/18 04:00 05/01/18 08:00 Temperature 99.0 F 99.3 F Pulse Rate 83 Respiratory Rate 16 20 Blood Pressure 133/79 138/84 Pulse Oximetry 99 98 Intake & Output 04/30/18 05/01/18 05/01/18 18:59 06:59 18:59 Intake Total 2362.5 / 2362.5 2842.5 / 2842.5 1842.5 / 1842.5 Output Total 1550 / 1550 2 / 2 Balance 2362.5 / 2362.5 1292.5 / 1292.5 1840.5 / 1840.5 Intake: IV 2362.5 / 2362.5 2362.5 / 2362.5 1362.5 / 1362.5 NS Inj 1,000 ML @ 165 mls/hr IV 1999 / 1999 1999 / 1999 1000 / 1000 .CONT .Q6H4M [facility] Rx#:[id number] Zosyn 4.5 GM Premix 4.5 gm In 100 / 100 100 / 100 100 / 100 100 ml @ 200 mls/hr IV.SIG Q8H TWAN Rx#:[id number] Vancomycin Inj 1,250 MG In NS 262.5 / 262.5 262.5 / 262.5 262.5 / 262.5 Inj 250 ML @ 250 mls/hr IV.SIG Q12H TWAN Rx#:[id number] Oral 480 / 480 480 / 480 Output: Urine 1550 / 1550 2 / 2 Other: # Voids 2 Date of Last Bowel Movement 04/28/18 - Routine Extremities Exam Comments: The left upper extremity dressing is dry and intact. The VAC device is intact. He moves his fingers freely and has good capillary refill and sensation. Results - Labs CBC & Chem 7: 05/01/18 05:32 05/01/18 05:32 Laboratory Results - last 24 hr 05/01/18 05/01/18 05:32 05:32 WBC 9.6 RBC 3.42 L Hgb 10.1 L Hct 30.2 L MCV 88.3 MCH 29.4 MCHC 33.4 RDW 14.7 Plt Count 548 H D MPV 7.0 Sodium 143 Potassium 3.9 Chloride 110 H Carbon Dioxide 25.9 Anion Gap 7 BUN 13 Creatinine 1.21 Estimated GFR 78 L Random Glucose 80 Calcium 8.3 L Microbiology 04/27/18 03:03 Blood - Peripheral Aerobic Blood Culture - Preliminary No growth in 4 days 04/27/18 03:03 Blood - Peripheral Anaerobic Blood Culture - Preliminary No growth in 4 days 04/26/18 16:30 Wound - Arm Gram Stain - Final 04/26/18 16:30 Wound - Arm Wound Culture - Final Group A beta Strep 04/26/18 16:30 Wound - Arm Gram Stain - Final 04/26/18 16:30 Wound - Arm Wound Culture - Final Group A beta Strep 04/25/18 11:40 Blood - Peripheral Aerobic Blood Culture - Final No growth in 5 days 04/25/18 11:40 Blood - Peripheral Anaerobic Blood Culture - Final No growth in 5 days - Procedures Incision and drainage, irrigation and excisional debridement of left arm, left elbow, left forearm. Assessment and Plan - Ortho Post Op Day # 5 - Assessment and Plan POD #5 s/p Incision and drainage, irrigation and excisional debridement of left arm, left elbow, left forearm. Pain management Medical management IV antibiotic therapy per ID Continue with wound vac, vac changed Patient understands the possibilities of repeat surgeries. possible return to OR on Wednesday for repeat I&D with wound closure vs vac exchange.
[2018-05-01] MEDS: QUEtiapine 100 MG Tablet PO SCH (20:44)
[2018-05-02] MEDS: Piperacil/Tazo 4.5 GM Premix 4.5 GM/100 ML BAG IV.SIG SCH (03:49)
[2018-05-02 04:31] LABS: Bilirubin,Urine Negative (Negative); Clarity,Urine Clear (Clear); Color,Urine Straw (Yellw/Straw); Glucose,Urine (UA) Negative (Negative); Leukocyte Esterase,Urine Negative (Negative); Mucus,Urine Few /lpf (Occasional); Nitrite,Urine Negative (Negative); Specific Gravity,Urine 1.006 (1.002-1.035)
[2018-05-02 06:47] LABS: Hematocrit 31.2 % (39.0-51.0); Hemoglobin 10.4 gm/dL (13.0-17.0); Mean Corpuscular HGB Conc 33.2 % (32.0-36.0); Mean Corpuscular Hemoglobin 29.1 pg (27.0-34.0); Mean Corpuscular Volume 87.7 fL (80.0-100.0); Mean Platelet Volume 6.5 fL (7.0-11.0); Platelet Count 661 th/mm3 (150-450); Red Blood Count 3.56 mil/mm3 (4.50-5.90); Red Cell Distribution Width 14.5 % (11.6-17.2); White Blood Count 10.9 th/mm3 (4.0-11.0)
[2018-05-02 07:08] LABS: Calcium 8.4 mg/dL (8.5-10.1); Carbon Dioxide 26.8 meq/L (21.0-32.0); Potassium 4.2 meq/L (3.5-5.1)
[2018-05-02] MEDS: QUEtiapine 25 MG Tablet PO SCH (09:19)
[2018-05-02] MEDS: Celecoxib 200 MG Capsule PO SCH (09:19)
[2018-05-02] MEDS: Senna/Docusate Sodium 8.6/50 MG Tablet PO SCH ×2 (09:19→21:49)
[2018-05-02] MEDS: Vancomycin Inj 1,250 MG in Sodium Chlor 0.9% Inj 250 ML IV.SIG SCH ×2 (09:19→21:50)
[2018-05-02] MEDS: Multivitamin/Minerals Therapeutic Tablet PO SCH (09:19)
[2018-05-02] MEDS: Folic Acid 1 MG Tablet PO SCH (09:19)
--- NOTE | 2018-05-02 11:08 | P.PNFP ---
Subjective Interval history: Patient seen and examined at 8:10 am this morning. No increase in left upper extremity pain. Denies fever, chills, chest pain, shortness of breath, abdominal pain, nausea, vomiting or leg pain. Patient states he has been using the incentive spirometer. Able to move about the room without problems. POD 6 s/p left upper extremity fasciotomy. Per nurse, scheduled for repeat surgery at 11:30 am today. <Lorri Russell B - 05/02/18 11:08> Results - Labs Result diagrams: 05/02/18 06:18 05/02/18 06:18 <Bianca Gonzalez R - 05/02/18 13:06> Abnormal lab results 05/02/18 05/02/18 05/02/18 Range/Units 03:58 06:18 06:18 RBC 3.56 L (4.50-5.90) mil/mm3 Hgb 10.4 L (13.0-17.0) gm/dL Hct 31.2 L (39.0-51.0) % Plt Count 661 H (150-450) th/mm3 MPV 6.5 L (7.0-11.0) fL Chloride 108 H (98-107) meq/L Estimated GFR 75 L (>89) mL/min Calcium 8.4 L (8.5-10.1) mg/dL Urine Occult Blood Small H (Negative) Urine Mucus Few H (Occasional) /lpf Short CBC 05/02/18 Range/Units 06:18 WBC 10.9 (4.0-11.0) th/mm3 Hgb 10.4 L (13.0-17.0) gm/dL Hct 31.2 L (39.0-51.0) % Plt Count 661 H (150-450) th/mm3 BMP 05/02/18 06:18 Sodium 142 Potassium 4.2 Chloride 108 H Carbon Dioxide 26.8 BUN 9 Creatinine 1.25 Calcium 8.4 L Urine 05/02/18 Range/Units 03:58 Urine Color Straw (Yellw/Straw) Urine Clarity Clear (Clear) Urine pH 6.0 (5.0-8.5) Ur Specific [place] 1.006 (1.002-1.035) Urine Protein Negative (Neg-Trace) mg/dL Urine Glucose (UA) Negative (Negative) mg/dL <Bianca Gonzalez R - 05/02/18 13:06> Abnormal lab results 05/02/18 05/02/18 05/02/18 Range/Units 03:58 06:18 06:18 RBC 3.56 L (4.50-5.90) mil/mm3 Hgb 10.4 L (13.0-17.0) gm/dL Hct 31.2 L (39.0-51.0) % Plt Count 661 H (150-450) th/mm3 MPV 6.5 L (7.0-11.0) fL Chloride 108 H (98-107) meq/L Estimated GFR 75 L (>89) mL/min Calcium 8.4 L (8.5-10.1) mg/dL Urine Occult Blood Small H (Negative) Urine Mucus Few H (Occasional) /lpf Short CBC 05/02/18 Range/Units 06:18 WBC 10.9 (4.0-11.0) th/mm3 Hgb 10.4 L (13.0-17.0) gm/dL Hct 31.2 L (39.0-51.0) % Plt Count 661 H (150-450) th/mm3 BMP 05/02/18 06:18 Sodium 142 Potassium 4.2 Chloride 108 H Carbon Dioxide 26.8 BUN 9 Creatinine 1.25 Calcium 8.4 L Urine 05/02/18 Range/Units 03:58 Urine Color Straw (Yellw/Straw) Urine Clarity Clear (Clear) Urine pH 6.0 (5.0-8.5) Ur Specific [place] 1.006 (1.002-1.035) Urine Protein Negative (Neg-Trace) mg/dL Urine Glucose (UA) Negative (Negative) mg/dL <Lorri Russell - 05/02/18 11:08> Physical Exam Vital signs: Vital Signs 05/01/18 16:00 05/01/18 20:00 05/01/18 23:53 Temperature 98.5 F 98.2 F 98 F Pulse Rate 65 66 76 Respiratory Rate 20 19 19 Blood Pressure 130/85 121/74 123/78 Pulse Oximetry 100 100 99 05/02/18 04:00 05/02/18 08:00 Temperature 98.4 F 98.9 F Pulse Rate 77 77 Respiratory Rate 15 18 Blood Pressure 131/87 122/74 Pulse Oximetry 100 99 Intake & Output 05/01/18 05/02/18 05/02/18 18:59 06:59 18:59 Intake Total 1942.5 / 1942.5 1362.5 / 1362.5 Output Total 2 / 2 400 / 400 500 / 500 Balance 1940.5 / 1940.5 962.5 / 962.5 -500 / -500 Weight 83 kg Intake: IV 1462.5 / 1462.5 1362.5 / 1362.5 NS Inj 1,000 ML @ 165 mls/hr IV 1000 / 1000 1000 / 1000 .CONT .Q6H4M [facility] Rx#:[id number] Zosyn 4.5 GM Premix 4.5 gm In 200 / 200 100 / 100 100 ml @ 200 mls/hr IV.SIG Q8H [facility]AN Rx#:[id number] Vancomycin Inj 1,250 MG In NS 262.5 / 262.5 262.5 / 262.5 Inj 250 ML @ 250 mls/hr IV.SIG Q12H TWAN Rx#:[id number] Oral 480 / 480 Output: Urine 2 / 2 400 / 400 Wound Drainage 500 / 500 Left Arm 500 / 500 Other: Date of Last Bowel Movement 05/01/18 # Bowel Movements 1 <Bianca Gonzalez R - 05/02/18 13:06> Vital Signs 05/01/18 16:00 05/01/18 20:00 05/01/18 23:53 Temperature 98.5 F 98.2 F 98 F Pulse Rate 65 66 76 Respiratory Rate 20 19 19 Blood Pressure 130/85 121/74 123/78 Pulse Oximetry 100 100 99 05/02/18 04:00 05/02/18 08:00 Temperature 98.4 F 98.9 F Pulse Rate 77 77 Respiratory Rate 15 18 Blood Pressure 131/87 122/74 Pulse Oximetry 100 99 Intake & Output 05/01/18 05/02/18 05/02/18 18:59 06:59 18:59 Intake Total 1942.5 / 1942.5 1362.5 / 1362.5 Output Total 2 / 2 400 / 400 500 / 500 Balance 1940.5 / 1940.5 962.5 / 962.5 -500 / -500 Weight 83 kg Intake: IV 1462.5 / 1462.5 1362.5 / 1362.5 NS Inj 1,000 ML @ 165 mls/hr IV 1000 / 1000 1000 / 1000 .CONT .Q6H4M [facility]AN Rx#:[id number] Zosyn 4.5 GM Premix 4.5 gm In 200 / 200 100 / 100 100 ml @ 200 mls/hr IV.SIG Q8H [facility]AN Rx#:[id number] Vancomycin Inj 1,250 MG In NS 262.5 / 262.5 262.5 / 262.5 Inj 250 ML @ 250 mls/hr IV.SIG Q12H TWAN Rx#:[id number] Oral 480 / 480 Output: Urine 2 / 2 400 / 400 Wound Drainage 500 / 500 Left Arm 500 / 500 Other: Date of Last Bowel Movement 05/01/18 # Bowel Movements 1 <[facility] 05/02/18 11:08> Narrative: patient comfortably laying in bed watching television <[facility] 05/02/18 11:08> - Constitutional no acute distress, cooperative <[facility] 05/02/18 11:08> - Routine HEENT Exam Head: Present: normocephalic, atraumatic <[facility] 05/02/18 11:08> Eye: Present: EOMI. Absent: scleral injection <[facility] 05/02/18 11: 08> - Routine Respiratory Exam Present: CTA bilaterally. Absent: stridor, wheezes, crackles <[facility] 05/02/18 11:08> - Routine Cardiovascular Exam Present: RRR. Absent: murmur <[facility] 05/02/18 11:08> - Routine Abdominal Exam Present: soft, normoactive bowel sounds. Absent: tenderness, mass <[facility] 05/02/18 11:08> - Routine Extremities Exam Present: full ROM (of left upper extremity), pulses intact (in bilateral upper extremities ), normal capillary refill (in bilateral upper extremities ). Absent: edema, calf tenderness <[facility] 05/02/18 11:08> - Routine Skin Exam Present: dry, warm <[facility] 05/02/18 11:08> - Routine Neurological Exam Present: alert, oriented X3 <[facility] 05/02/18 11:08> - Routine Psychiatric Exam Present: normal affect, cooperative <Lorri Russell - 05/02/18 11:08> Assessment and Plan - Assessment (1) Necrotizing fasciitis of upper arm Code(s): M72.6 - Necrotizing fasciitis Status: Acute (2) Sepsis Code(s): A41.9 - Sepsis, unspecified organism Status: Resolved (3) HIV (human immunodeficiency virus infection) Code(s): B20 - Human immunodeficiency virus [HIV] disease Status: Chronic (4) Nutrition, metabolism, and development symptoms Code(s): R63.8 - Other symptoms and signs concerning food and fluid intake Status: Acute (5) DVT prophylaxis Status: Acute <Bianca Gonzalez Ozzy - 05/02/18 13:06> (1) Necrotizing fasciitis of upper arm Code(s): M72.6 - Necrotizing fasciitis Status: Acute Plan: Initial presentation of left axilla abscess, s/p treatment with doxycycline. Worsening swelling of the left upper arm. 04/26 Rapidly worsened swelling with new erythema and multiple blisters formed. 05/01 POD 5. Patient is currently stable. 05/02 POD 6. Patient remains stable. Imaging: See above in Reports section Medications: -Vancomycin 1000mg IV q24h, decreased in frequency due to renal impairment. Pharmacy consulted. -Zosyn 4.5g IV q6h, do not need to adjust for GFR >40 -Clindamycin 300 q6h (IV to po equivalent on 04/28) -Consulted Orthopedic Surgery, Dr. Allen -Recommended MRI -Emergency Incision and drainage, irrigation and excisional debridement of left arm, left elbow, left forearm on 04/26 -Wound vac placed on 04/27, changed on 04/28 -Seen by orthopedic surgery. Per surgery, possible repeat I&D with wound closure vs wound vac replacement on 05/02. -Consult ID for abx recommendations and HIV as below, appreciate recommendations -Recommended to add Clindamycin for its toxin neutralizing effects, can change to oral -Blood cultures: NGTD -Intraoperative cultures: Group A beta Strep -OT to be consulted following repeat surgery on 05/02 for evaluation of possible home health needs, [facility] (2) Sepsis Code(s): A41.9 - Sepsis, unspecified organism Status: Resolved Plan: Patient meeting sepsis criteria upon admission: WBC count of 26.2 (neutrophil predominant), Tachycardic to the 100s, with a known source of infection (left axillary abscess, see plan below) BP decreased to the 90s/60s, was given 2x 1L boluses and a 400ml bolus in the ED Lactic acid is high at 2.7. 7/, one episode of hypotension overnight Patient has remained stable -Blood cx NGTD -Lactic acid protocol initiated on admission -NS IVF at 1.5 maintenance 165 mls/hr, dc on 04/30 as patient tolerating PO intake -See plan for abscess above (3) HIV (human immunodeficiency virus infection) Code(s): B20 - Human immunodeficiency virus [HIV] disease Status: Chronic Plan: PT with HIV, unsure of last CD4 count and not current on antiretroviral therapy -CD4 count 128 -Consulted ID, appreciate recommendations -Will consider placing pt on prophylactic abx on d/c, but [facility] (4) Nutrition, metabolism, and development symptoms Code(s): R63.8 - Other symptoms and signs concerning food and fluid intake Status: Acute Plan: Fluids: tolerating po Electrolytes: monitor and replete as needed Nutrition: regular diet GI Prophylaxis: none indicated at this time (5) DVT prophylaxis Status: Acute Plan: Early ambulation. bilateral SCDs <Lorri Russell - 05/02/18 10:58> - Assessment and Plan 47yo AAM with PMH of HIV presenting meeting sepsis criteria with left upper arm edema and axillary abscess later determined to be necrotizing fasciitis due to rapidly progressing swelling with blister formation. POD 6 from I&D and debridement of LUE with Orthopedic Surgery awaiting possible repeat surgery in am. Currently stable. <Lorri Russell - 05/02/18 11:08> - Attending Attestation The exam, history, and the medical decision-making described in the above note were completed with the assistance of the resident physician. I reviewed and agree with the findings presented. I attest that I had a [id number] encounter with the patient on the same day, and personally performed and documented my assessment and findings in the medical record. <Bianca Gonzalez - 05/02/18 13:06> <DrewLorri B - Last Filed: 05/02/18 10:58> (2) Sepsis Qualifiers: Sepsis type: sepsis due to unspecified organism Qualified Code(s): A41.9 - Sepsis, unspecified organism <Bianca Gonzalez R - Last Filed: 05/02/18 13:06> (2) Sepsis Qualifiers: Sepsis type: sepsis due to unspecified organism Qualified Code(s): A41.9 - Sepsis, unspecified organism <Lorri Russell B - Last Filed: 05/02/18 10:58> (2) Sepsis Qualifiers: Sepsis type: sepsis due to unspecified organism Qualified Code(s): A41.9 - Sepsis, unspecified organism <Bianca Gonzalez R - Last Filed: 05/02/18 13:06> (2) Sepsis Qualifiers: Sepsis type: sepsis due to unspecified organism Qualified Code(s): A41.9 - Sepsis, unspecified organism
[2018-05-02] MEDS ORDERED: fentaNYL Citrate Inj 250 MCG/5 ML Ampul ONE (11:27)
--- NOTE | 2018-05-02 12:18 | MP ---
cc: Jax Allen MD DATE OF OPERATION: 05/02/2018 PREOPERATIVE DIAGNOSIS: Necrotizing fasciitis, left upper extremity. POSTOPERATIVE DIAGNOSIS: Necrotizing fasciitis, left upper extremity. PROCEDURE PERFORMED: Excisional irrigation and debridement, left upper extremity skin, subcutaneous tissue, fascia, muscle 60 cm. SURGEON: Jax Allen MD SINKER PULLER: Jax Lisa PA-C ANESTHESIA: General. ESTIMATED BLOOD LOSS: 200 mL. TOURNIQUET TIME: 0 minutes. COMPLICATIONS: None. JUSTIFICATION: This patient is a 47-year-old male with HIV, who developed severe infection of the left lower extremity with necrotizing fasciitis. He has undergone previous irrigation and debridement surgery. He has been admitted to the intensive care unit with a critical limb and life threatening infection. He has been receiving IV antibiotic therapy. The patient was counseled as to the risks, benefits and alternatives of return to the operating room for the procedure as listed above. He did wish to proceed. PROCEDURE IN DETAIL: Written consent was obtained. The patient was identified by name, taken to the operating room, placed supine on the operating table. General anesthesia was administered to the patient. He has been on continuous IV antibiotic therapy. The left upper extremity prepped and draped using isopropyl alcohol, Hibiclens solution and ChloraPrep solution. After a timeout was performed, an excisional irrigation and debridement was performed to include skin, subcutaneous tissue, fascia, and muscle. The debridement consisted of approximately 60 cm that began at the patient's axilla and coming all the way down to the elbow and then all the way down the forearm. There is evidence of some necrotic skin and subcutaneous tissue, but the muscle for the most part looked healthy. There were some areas that needed debridement, which I performed with the 10 blade scalpel. The wound was then thoroughly irrigated with a sterile saline pulse lavage antibiotic impregnated solution. Distally, the region of the forearm was closed primarily with a 2-0 nylon suture. After debridement of the skin and necrotic tissue, I was not able to close the antecubital fossa, as well as the upper arm all the way up to the axilla. A wound VAC sponge was placed at the conclusion of the debridement. All the tissue looked very healthy. A wound VAC sponge was applied. The patient will be transferred back to the ICU in guarded condition. Continue IV antibiotic therapy. I will consult plastic surgery as the patient will likely need some form of skin grafting because after the necrotic tissue was debrided with the wound VAC, there is no way to close his upper arm. MD ORLANDO Luz/TRISTON , 12:03 PM , 12:16 PM
--- NOTE | 2018-05-02 13:13 | P.PNID ---
Subjective Remarks: Patient is not a reliable historian. Mr. Quezada is a 47yo AAM with a PMH of HIV (diagnosed in [facility] per patient, sexually transmitted, denies any IVDA. He reports he was diagnosed with HIV 10 years back and since then has been on treatment off and on. He reports he has never has any opportunistic infections or hospitalizations that would point towards these diagnosis. He reports he has been off HAART for last 1 year. He says he was depressed and hence quit taking medications. He denies any suicidal ideations. His PMHx is also significant for reported history of Bipolar disorder, PTSD, MDD unsure if he is on treatment for the same. He denies any IVDA adamantly. With this background patient presents to the hospital with left UE arm swelling. He reports this started as an axillary area swelling approximately 2 weeks back [facility]. He denies any trauma, insect bites, or IVDA. He reports he is still on his antibiotics unsure if he has been compliant with his medications. He then went to the doctor at the [place] on 04/15 and was prescribed doxycycline. He goes on to report that he started draining malodorous green pus. Patient reports that approximately 4 days back patient left upper arm starting swelling, became erythematous, warm. He reports he had no bus ride so he toughed it out. He reports having developed night sweats, fever/chills, fatigue, loss of appetite. He reports pain in his left UE and is unable to move his hand due to significant pain and swelling. He denies any chest pain or back pain. He denies prior endocarditis or epidural abscess. ID consulted for evaluation and Mment of possible LUE abscess ? Nec fascitis. Overnight events reviewed. No fever No rash No diarrhea Post op patient has a wound vac in place in his LUE and part of forearm. Not on pressors. UO ok. Antibiotics: Zosyn IV Vanco IV Clinda Lines: Lines ok Past Medical History: reviewed Allergies/Adverse Reactions: Allergies No Known Allergies Allergy (Verified 04/25/18 11:26) Objective Vital Signs 05/01/18 16:00 05/01/18 20:00 05/01/18 23:53 Temperature 98.5 F 98.2 F 98 F Pulse Rate 65 66 76 Respiratory Rate 20 19 19 Blood Pressure 130/85 121/74 123/78 Pulse Oximetry 100 100 99 05/02/18 04:00 05/02/18 08:00 Temperature 98.4 F 98.9 F Pulse Rate 77 77 Respiratory Rate 15 18 Blood Pressure 131/87 122/74 Pulse Oximetry 100 99 Intake & Output 05/01/18 05/02/18 05/02/18 18:59 06:59 18:59 Intake Total 1942.5 / 1942.5 1362.5 / 1362.5 Output Total 2 / 2 400 / 400 500 / 500 Balance 1940.5 / 1940.5 962.5 / 962.5 -500 / -500 Weight 83 kg Intake: IV 1462.5 / 1462.5 1362.5 / 1362.5 NS Inj 1,000 ML @ 165 mls/hr IV 1000 / 1000 1000 / 1000 .CONT .Q6H4M TWAN Rx#:[id number] Zosyn 4.5 GM Premix 4.5 gm In 200 / 200 100 / 100 100 ml @ 200 mls/hr IV.SIG Q8H TWAN Rx#:[id number] Vancomycin Inj 1,250 MG In NS 262.5 / 262.5 262.5 / 262.5 Inj 250 ML @ 250 mls/hr IV.SIG Q12H TWAN Rx#:[id number] Oral 480 / 480 Output: Urine 2 / 2 400 / 400 Wound Drainage 500 / 500 Left Arm 500 / 500 Other: Date of Last Bowel Movement 05/01/18 # Bowel Movements 1 04/27/18 03:03 Blood - Peripheral Aerobic Blood Culture - Final No growth in 5 days 04/27/18 03:03 Blood - Peripheral Anaerobic Blood Culture - Final No growth in 5 days 04/26/18 16:30 Wound - Arm Gram Stain - Final 04/26/18 16:30 Wound - Arm Wound Culture - Final Group A beta Strep 04/26/18 16:30 Wound - Arm Gram Stain - Final 04/26/18 16:30 Wound - Arm Wound Culture - Final Group A beta Strep 04/25/18 11:40 Blood - Peripheral Aerobic Blood Culture - Final No growth in 5 days 04/25/18 11:40 Blood - Peripheral Anaerobic Blood Culture - Final No growth in 5 days 04/26/18 16:30 Wound - Arm Acid Fast Bacilli Smear - Final No acid fast bacilli seen 04/26/18 16:30 Wound - Arm Mycobacterial Culture - Pending 04/26/18 16:30 Wound - Arm Acid Fast Bacilli Smear - Final No acid fast bacilli seen 04/26/18 16:30 Wound - Arm Mycobacterial Culture - Pending Lab - Hematology Results 05/01/18 05/02/18 05:32 06:18 WBC 9.6 10.9 RBC 3.42 L 3.56 L Hgb 10.1 L 10.4 L Hct 30.2 L 31.2 L MCV 88.3 87.7 MCH 29.4 29.1 MCHC 33.4 33.2 RDW 14.7 14.5 Plt Count 548 H D 661 H MPV 7.0 6.5 L Lab - Chemistry Results 05/01/18 05/02/18 05:32 06:18 Sodium 143 142 Potassium 3.9 4.2 Chloride 110 H 108 H Carbon Dioxide 25.9 26.8 Anion Gap 7 7 BUN 13 9 Creatinine 1.21 1.25 Estimated GFR 78 L 75 L Random Glucose 80 76 Calcium 8.3 L 8.4 L Imaging: ITS Impressions Upper Extremity Ultrasound 04/25/18 00:00 CONCLUSION: Subcutaneous tissue phlegmon in the left axillary region. Forearm CT 04/25/18 12:57 CONCLUSION: 1. Nonspecific subcutaneous edema along the medial aspect of the proximal forearm. 2. The bony structures are grossly intact. Humerus CT 04/25/18 12:57 CONCLUSION: 1. Nonspecific edema throughout the subcutaneous soft tissues along the medial aspect of the upper arm. No drainable loculated fluid collections. 2. The bony structures of the humerus are grossly unremarkable. Chest X-Ray 04/26/18 00:00 CONCLUSION: The lungs are clear. Humerus MRI 04/26/18 00:00 CONCLUSION: Severe cellulitis confined to subcutaneous location with fascial enhancement which may be reactive in nature. There is no evidence of abscess. There is no evidence of osteomyelitis. Physical Exam: GENERAL: In no acute distress SKIN: Warm and dry. HEAD: Atraumatic. Normocephalic. EYES: No scleral icterus. No injection or drainage. ENT: No nasal bleeding or discharge. NECK: Trachea midline. No JVD. CARDIOVASCULAR: Regular rate and rhythm. RESPIRATORY: No accessory muscle use. Clear to auscultation. Course breath sounds, but equal bilaterally. GASTROINTESTINAL: Abdomen soft, non-tender, nondistended. MUSCULOSKELETAL: Extremities without clubbing, cyanosis, or edema. Left arm wrapped in jc bandage c/d/i. Wound vac in place actively draining sanguinous fluid NEUROLOGICAL: Awake and alert. No obvious cranial nerve deficits. Motor grossly within normal limits. Normal speech. PSYCHIATRIC: Cooperative Assessment and Plan - Plan Severe Sepsis fever, leucocytosis, hypotension, lactic acid elevation. Group A strep from Intra-Op wound cultures LUE abscess/cellulitis. With some concern for Necrotizing fascitis due to blistering, pain out of proportion, decreased ROM. ? Infective Myositis. Axillary abscess Was on antibiotics prior to admission. HIV Immunocompromised. Recs: DC Zosyn IV no GNR identified. Continue Vanco IV (target trough 15-20) covers Group A Strep resistant. Pending susceptibility by Micro. Continue Clindamycin ok to change to oral. Follow blood cultures and intraop cultures. Follow clinically. debbie pt debbie RN
[2018-05-02] MEDS: Morphine Inj 4 MG/ML Vial IV.PUSH PRN (14:58)
--- NOTE | 2018-05-02 16:48 | P.PNWCN ---
Wound Care Nurse Consult Description: Received call from Venus Fitzpatrick follow up rep VAC dressing that was changed in the OR is leaking and RN is unable to obtain seal. Communicated with: RN Venus Fitzpatrick and Doctor Julian Allen Recommendation: Please reinforce until Doctor takes patient back to OR. Wound/Pressure Injury - Wound Left Arm Surrounding Tissue Appearance: Weeping Surrounding Tissue Temperature: Warm Drainage Description: Serosanguinous Drainage Amount: Minimal Drainage Odor: No Odor Dressing Status: Reinforced Wound Packing Type: Woundvac Sponge Wound Vac - Wound Vac Left Arm Pressure Setting (mmHg): 125 (mm/Hg) Mode Setting: Continuous (low suction) Drainage Description: Sanguinous Foam type: Black - Additional Information Wound VAC was placed today in OR By Doctor Alejandro today.Patient seen on due to VAC leaking. VAC Iodoban drape in place was wrinkled, dislodged, peeling off patient, Surgical incision at 6 o'clock approximated with sutures is draining minimal sanguinous drainage and is dislodging VAC drape. Removed all wrinkled dislodged iodoban. Law's seal was placed from 11 to 2 o'clock to L axilla to seal VAC dressing. Applied VAC drape to seal entire wound VAC dressing cut hole in VAC drape and applied a mushroom cap of black granufoam in contact with granufoam in wound bed with attached trac pad. Wound VAC is now suctioning at 125 mm/hg
[2018-05-02] MEDS: QUEtiapine 100 MG Tablet PO SCH (21:49)
[2018-05-03 06:03] LABS: Hematocrit 27.6 % (39.0-51.0); Hemoglobin 9.2 gm/dL (13.0-17.0); Mean Corpuscular HGB Conc 33.2 % (32.0-36.0); Mean Corpuscular Hemoglobin 29.4 pg (27.0-34.0); Mean Corpuscular Volume 88.7 fL (80.0-100.0); Mean Platelet Volume 6.7 fL (7.0-11.0); Platelet Count 614 th/mm3 (150-450); Red Blood Count 3.12 mil/mm3 (4.50-5.90); Red Cell Distribution Width 14.8 % (11.6-17.2); White Blood Count 10.3 th/mm3 (4.0-11.0)
[2018-05-03 06:25] LABS: Calcium 7.9 mg/dL (8.5-10.1); Carbon Dioxide 26.5 meq/L (21.0-32.0); Potassium 4.1 meq/L (3.5-5.1)
--- NOTE | 2018-05-03 08:23 | P.PNOP ---
Subjective Interval history: pain controlled Physical Exam Vital signs: Vital Signs 05/02/18 16:00 05/02/18 20:00 05/03/18 00:00 Temperature 98.6 F 98.4 F 98.4 F Pulse Rate 76 79 79 Respiratory Rate 21 16 16 Blood Pressure 122/72 110/69 110/69 Pulse Oximetry 100 97 97 05/03/18 04:00 05/03/18 08:00 Temperature 98.2 F 99.4 F Pulse Rate 89 81 Respiratory Rate 16 20 Blood Pressure 120/70 118/69 Pulse Oximetry 99 Intake & Output 05/02/18 05/03/18 05/03/18 18:59 06:59 18:59 Intake Total 562.5 / 562.5 262.5 / 262.5 100 / 100 Output Total 1310 / 1310 175 / 175 1000 / 1000 Balance -747.5 / -747.5 87.5 / 87.5 -900 / -900 Intake: IV 262.5 / 262.5 262.5 / 262.5 Vancomycin Inj 1,250 MG In NS 262.5 / 262.5 262.5 / 262.5 Inj 250 ML @ 250 mls/hr IV.SIG Q12H TWAN Rx#:[id number] Oral 100 / 100 Anesthesia Amount 300 / 300 Output: Urine 800 / 800 1000 / 1000 Estimated Blood Loss 10 10 Wound Drainage 500 / 500 175 / 175 Left Arm 500 / 500 175 / 175 Other: Date of Last Bowel Movement 05/01/18 05/01/18 Narrative: in bed, nad vac intact and working skin soft 2+ radial pulse nvi, sensation intact distally full ROM of hand - Constitutional no acute distress Results - Labs CBC & Chem 7: 05/03/18 04:35 05/03/18 04:35 Laboratory Results - last 24 hr 05/03/18 05/03/18 04:35 04:35 WBC 10.3 RBC 3.12 L Hgb 9.2 L Hct 27.6 L MCV 88.7 MCH 29.4 MCHC 33.2 RDW 14.8 Plt Count 614 H MPV 6.7 L Sodium 141 Potassium 4.1 Chloride 107 Carbon Dioxide 26.5 Anion Gap 8 BUN 10 Creatinine 1.26 Estimated GFR 74 L Random Glucose 66 L Calcium 7.9 L Microbiology 04/26/18 16:30 Wound - Arm Gram Stain - Final 04/26/18 16:30 Wound - Arm Wound Culture - Preliminary Group A beta Strep 04/27/18 03:03 Blood - Peripheral Aerobic Blood Culture - Final No growth in 5 days 04/27/18 03:03 Blood - Peripheral Anaerobic Blood Culture - Final No growth in 5 days - Procedures Incision and drainage, irrigation and excisional debridement of left arm, left elbow, left forearm. Assessment and Plan - Assessment and Plan POD #1 s/p Incision and drainage, irrigation and excisional debridement of left arm, left elbow, left forearm, vac exchange Pain management Medical management IV antibiotic therapy per ID Continue with wound vac, vac changes m/w/f Patient understands the possibilities of repeat surgeries. consult Plastics for possible wound closure
[2018-05-03] MEDS ORDERED: Pharmacy Ordered Lab Info OTHER ONE (08:45)
[2018-05-03] MEDS: Multivitamin/Minerals Therapeutic Tablet PO SCH (10:00)
[2018-05-03] MEDS: Celecoxib 200 MG Capsule PO SCH (10:00)
[2018-05-03] MEDS: Folic Acid 1 MG Tablet PO SCH (10:00)
[2018-05-03] MEDS: QUEtiapine 25 MG Tablet PO SCH (10:00)
[2018-05-03] MEDS: Vancomycin Inj 1,250 MG in Sodium Chlor 0.9% Inj 250 ML IV.SIG SCH (11:05)
--- NOTE | 2018-05-03 13:14 | P.PNID ---
Subjective Remarks: Patient is not a reliable historian. Mr. Quezada is a 47yo AAM with a PMH of HIV (diagnosed in [facility] per patient, sexually transmitted, denies any IVDA. He reports he was diagnosed with HIV 10 years back and since then has been on treatment off and on. He reports he has never has any opportunistic infections or hospitalizations that would point towards these diagnosis. He reports he has been off HAART for last 1 year. He says he was depressed and hence quit taking medications. He denies any suicidal ideations. His PMHx is also significant for reported history of Bipolar disorder, PTSD, MDD unsure if he is on treatment for the same. He denies any IVDA adamantly. With this background patient presents to the hospital with left UE arm swelling. He reports this started as an axillary area swelling approximately 2 weeks back [facility]. He denies any trauma, insect bites, or IVDA. He reports he is still on his antibiotics unsure if he has been compliant with his medications. He then went to the doctor at the [place] on 04/15 and was prescribed doxycycline. He goes on to report that he started draining malodorous green pus. Patient reports that approximately 4 days back patient left upper arm starting swelling, became erythematous, warm. He reports he had no bus ride so he toughed it out. He reports having developed night sweats, fever/chills, fatigue, loss of appetite. He reports pain in his left UE and is unable to move his hand due to significant pain and swelling. He denies any chest pain or back pain. He denies prior endocarditis or epidural abscess. ID consulted for evaluation and Mment of possible LUE abscess ? Nec fascitis. Overnight events reviewed. No fever No rash No diarrhea Post op patient has a wound vac in place in his LUE and part of forearm. Not on pressors. UO ok. Antibiotics: Zosyn IV Vanco IV Clinda Lines: Lines ok Past Medical History: reviewed Allergies/Adverse Reactions: Allergies No Known Allergies Allergy (Verified 04/25/18 11:26) Objective Vital Signs 05/02/18 16:00 05/02/18 20:00 05/03/18 00:00 Temperature 98.6 F 98.4 F 98.4 F Pulse Rate 76 79 79 Respiratory Rate 21 16 16 Blood Pressure 122/72 110/69 110/69 Pulse Oximetry 100 97 97 05/03/18 04:00 05/03/18 08:00 05/03/18 12:00 Temperature 98.2 F 99.4 F 98.9 F Pulse Rate 89 81 94 H Respiratory Rate 16 18 Blood Pressure 120/70 118/69 106/67 Pulse Oximetry 99 98 Intake & Output 05/02/18 05/03/18 05/03/18 18:59 06:59 18:59 Intake Total 562.5 / 562.5 262.5 / 262.5 100 / 100 Output Total 1310 / 1310 175 / 175 1000 / 1000 Balance -747.5 / -747.5 87.5 / 87.5 -900 / -900 Intake: IV 262.5 / 262.5 262.5 / 262.5 Vancomycin Inj 1,250 MG In NS 262.5 / 262.5 262.5 / 262.5 Inj 250 ML @ 250 mls/hr IV.SIG Q12H TWAN Rx#:[id number] Oral 100 / 100 Anesthesia Amount 300 / 300 Output: Urine 800 / 800 1000 / 1000 Estimated Blood Loss Wound Drainage 500 / 500 175 / 175 Left Arm 500 / 500 175 / 175 Other: Date of Last Bowel Movement 05/01/18 05/01/18 04/26/18 16:30 Wound - Arm Gram Stain - Final 04/26/18 16:30 Wound - Arm Wound Culture - Preliminary Group A beta Strep 04/27/18 03:03 Blood - Peripheral Aerobic Blood Culture - Final No growth in 5 days 04/27/18 03:03 Blood - Peripheral Anaerobic Blood Culture - Final No growth in 5 days 04/26/18 16:30 Wound - Arm Gram Stain - Final 04/26/18 16:30 Wound - Arm Wound Culture - Final Group A beta Strep 04/25/18 11:40 Blood - Peripheral Aerobic Blood Culture - Final No growth in 5 days 04/25/18 11:40 Blood - Peripheral Anaerobic Blood Culture - Final No growth in 5 days Lab - Hematology Results 05/02/18 05/03/18 06:18 04:35 WBC 10.9 10.3 RBC 3.56 L 3.12 L Hgb 10.4 L 9.2 L Hct 31.2 L 27.6 L MCV 87.7 88.7 MCH 29.1 29.4 MCHC 33.2 33.2 RDW 14.5 14.8 Plt Count 661 H 614 H MPV 6.5 L 6.7 L Lab - Chemistry Results 05/02/18 05/03/18 06:18 04:35 Sodium 142 141 Potassium 4.2 4.1 Chloride 108 H 107 Carbon Dioxide 26.8 26.5 Anion Gap 7 8 BUN 9 10 Creatinine 1.25 1.26 Estimated GFR 75 L 74 L Random Glucose 76 66 L Calcium 8.4 L 7.9 L Imaging: ITS Impressions Upper Extremity Ultrasound 04/25/18 00:00 CONCLUSION: Subcutaneous tissue phlegmon in the left axillary region. Forearm CT 04/25/18 12:57 CONCLUSION: 1. Nonspecific subcutaneous edema along the medial aspect of the proximal forearm. 2. The bony structures are grossly intact. Humerus CT 04/25/18 12:57 CONCLUSION: 1. Nonspecific edema throughout the subcutaneous soft tissues along the medial aspect of the upper arm. No drainable loculated fluid collections. 2. The bony structures of the humerus are grossly unremarkable. Chest X-Ray 04/26/18 00:00 CONCLUSION: The lungs are clear. Humerus MRI 04/26/18 00:00 CONCLUSION: Severe cellulitis confined to subcutaneous location with fascial enhancement which may be reactive in nature. There is no evidence of abscess. There is no evidence of osteomyelitis. Physical Exam: GENERAL: In no acute distress SKIN: Warm and dry. HEAD: Atraumatic. Normocephalic. EYES: No scleral icterus. No injection or drainage. ENT: No nasal bleeding or discharge. NECK: Trachea midline. No JVD. CARDIOVASCULAR: Regular rate and rhythm. RESPIRATORY: No accessory muscle use. Clear to auscultation. Course breath sounds, but equal bilaterally. GASTROINTESTINAL: Abdomen soft, non-tender, nondistended. MUSCULOSKELETAL: Extremities without clubbing, cyanosis, or edema. Left arm wrapped in jc bandage c/d/i. Wound vac in place actively draining sanguinous fluid NEUROLOGICAL: Awake and alert. No obvious cranial nerve deficits. Motor grossly within normal limits. Normal speech. PSYCHIATRIC: Cooperative Assessment and Plan - Plan Severe Sepsis fever, leucocytosis, hypotension, lactic acid elevation. Group A strep from Intra-Op wound cultures LUE abscess/cellulitis. With some concern for Necrotizing fascitis due to blistering, pain out of proportion, decreased ROM. ? Infective Myositis. Axillary abscess Was on antibiotics prior to admission. HIV Immunocompromised. Recs: Continue Vanco IV (target trough 15-20) covers Group A Strep resistant. Pending susceptibility by Micro. DC Clindamycin as acute necrotizing/toxin producing phase appears controlled and op note with no further areas of necrosis. Follow cultures. Follow clinically. debbie pt debbie RN
[2018-05-03] MEDS: Senna/Docusate Sodium 8.6/50 MG Tablet PO SCH (13:46)
--- NOTE | 2018-05-03 15:06 | P.PNFP ---
Subjective Interval history: Patient seen and examined this morning. He states that he is doing okay. He is still trying not to take his pain medication due to fear of becoming addicted. He is still spacing it out. Otherwise, no fevers or chills , no chest pain, no shortness of breath, no abdominal pain. Is disheartened by the fact that he has to stay in the hospital and go through another procedure. <Asya Mcneil - 05/03/18 19:15> Results - Labs Result diagrams: 05/03/18 04:35 05/03/18 04:35 <Angle العلي - 05/03/18 20:34> Abnormal lab results 05/03/18 05/03/18 05/03/18 Range/Units 04:35 04:35 10:40 RBC 3.12 L (4.50-5.90) mil/mm3 Hgb 9.2 L (13.0-17.0) gm/dL Hct 27.6 L (39.0-51.0) % Plt Count 614 H (150-450) th/mm3 MPV 6.7 L (7.0-11.0) fL Estimated GFR 74 L (>89) mL/min Random Glucose 66 L (74-106) mg/dL Calcium 7.9 L (8.5-10.1) mg/dL Vancomycin Trough 20.4 H (5.0-10.0) mcg/mL Short CBC 05/03/18 Range/Units 04:35 WBC 10.3 (4.0-11.0) th/mm3 Hgb 9.2 L (13.0-17.0) gm/dL Hct 27.6 L (39.0-51.0) % Plt Count 614 H (150-450) th/mm3 BMP 05/03/18 04:35 Sodium 141 Potassium 4.1 Chloride 107 Carbon Dioxide 26.5 BUN 10 Creatinine 1.26 Calcium 7.9 L <Angle العلي - 05/03/18 20:34> Abnormal lab results 05/03/18 05/03/18 05/03/18 Range/Units 04:35 04:35 10:40 RBC 3.12 L (4.50-5.90) mil/mm3 Hgb 9.2 L (13.0-17.0) gm/dL Hct 27.6 L (39.0-51.0) % Plt Count 614 H (150-450) th/mm3 MPV 6.7 L (7.0-11.0) fL Estimated GFR 74 L (>89) mL/min Random Glucose 66 L (74-106) mg/dL Calcium 7.9 L (8.5-10.1) mg/dL Vancomycin Trough 20.4 H (5.0-10.0) mcg/mL Short CBC 05/03/18 Range/Units 04:35 WBC 10.3 (4.0-11.0) th/mm3 Hgb 9.2 L (13.0-17.0) gm/dL Hct 27.6 L (39.0-51.0) % Plt Count 614 H (150-450) th/mm3 BMP 05/03/18 04:35 Sodium 141 Potassium 4.1 Chloride 107 Carbon Dioxide 26.5 BUN 10 Creatinine 1.26 Calcium 7.9 L <Asya Mcneil - 05/03/18 15:06> - Imaging ITS Impressions Upper Extremity Ultrasound 04/25/18 00:00 CONCLUSION: Subcutaneous tissue phlegmon in the left axillary region. Forearm CT 04/25/18 12:57 CONCLUSION: 1. Nonspecific subcutaneous edema along the medial aspect of the proximal forearm. 2. The bony structures are grossly intact. Humerus CT 04/25/18 12:57 CONCLUSION: 1. Nonspecific edema throughout the subcutaneous soft tissues along the medial aspect of the upper arm. No drainable loculated fluid collections. 2. The bony structures of the humerus are grossly unremarkable. Chest X-Ray 04/26/18 00:00 CONCLUSION: The lungs are clear. Humerus MRI 04/26/18 00:00 CONCLUSION: Severe cellulitis confined to subcutaneous location with fascial enhancement which may be reactive in nature. There is no evidence of abscess. There is no evidence of osteomyelitis. <Asya Mcneil - 05/03/18 19:15> Physical Exam Vital signs: Vital Signs 05/03/18 00:00 05/03/18 04:00 05/03/18 08:00 Temperature 98.4 F 98.2 F 99.4 F Pulse Rate 79 89 81 Respiratory Rate 16 16 20 Blood Pressure 110/69 120/70 118/69 Pulse Oximetry 97 99 05/03/18 12:00 Temperature 98.9 F Pulse Rate 94 H Respiratory Rate 18 Blood Pressure 106/67 Pulse Oximetry 98 Intake & Output 05/03/18 05/03/18 05/04/18 06:59 18:59 06:59 Intake Total 262.5 / 262.5 820 / 820 Output Total 175 / 175 1800 / 1800 Balance 87.5 / 87.5 -980 / -980 Intake: IV 262.5 / 262.5 Vancomycin Inj 1,250 MG In NS 262.5 / 262.5 Inj 250 ML @ 250 mls/hr IV.SIG Q12H TWAN Rx#:[id number] Oral 820 / 820 Output: Urine 1800 / 1800 Wound Drainage 175 / 175 Left Arm 175 / 175 Other: # Voids 1 Date of Last Bowel Movement 05/01/18 <Angle العلي - 05/03/18 20:34> Vital Signs 05/02/18 16:00 05/02/18 20:00 05/03/18 00:00 Temperature 98.6 F 98.4 F 98.4 F Pulse Rate 76 79 79 Respiratory Rate 21 16 16 Blood Pressure 122/72 110/69 110/69 Pulse Oximetry 100 97 97 05/03/18 04:00 05/03/18 08:00 05/03/18 12:00 Temperature 98.2 F 99.4 F 98.9 F Pulse Rate 89 81 94 H Respiratory Rate 16 20 18 Blood Pressure 120/70 118/69 106/67 Pulse Oximetry 99 98 Intake & Output 05/02/18 05/03/18 05/03/18 18:59 06:59 18:59 Intake Total 562.5 / 562.5 262.5 / 262.5 100 / 100 Output Total 1310 / 1310 175 / 175 1000 / 1000 Balance -747.5 / -747.5 87.5 / 87.5 -900 / -900 Intake: IV 262.5 / 262.5 262.5 / 262.5 Vancomycin Inj 1,250 MG In NS 262.5 / 262.5 262.5 / 262.5 Inj 250 ML @ 250 mls/hr IV.SIG Q12H TWAN Rx#:[id number] Oral 100 / 100 Anesthesia Amount 300 / 300 Output: Urine 800 / 800 1000 / 1000 Estimated Blood Loss Wound Drainage 500 / 500 175 / 175 Left Arm 500 / 500 175 / 175 Other: Date of Last Bowel Movement 05/01/18 05/01/18 <Asya Mcneil - 05/03/18 15:06> Narrative: GENERAL: thin AA male laying in bed watching TV, in no acute distress SKIN: Warm and dry. HEAD: Atraumatic. Normocephalic. EYES: No scleral icterus. No injection or drainage. ENT: No nasal bleeding or discharge. NECK: Trachea midline. No JVD. CARDIOVASCULAR: Regular rate and rhythm. RESPIRATORY: No accessory muscle use. Clear to auscultation. Course breath sounds, but equal bilaterally. GASTROINTESTINAL: Abdomen soft, non-tender, nondistended. MUSCULOSKELETAL: Extremities without clubbing or cyanosis. Left arm slightly edematous. Wound VAC in place at medial aspect of arm draining sanguinous fluid. Sensation intact. Cap refill 2+ NEUROLOGICAL: Awake and alert. No obvious cranial nerve deficits. Motor grossly within normal limits. Normal speech. <Asya Mcneil - 05/03/18 19:15> Assessment and Plan - Assessment (1) Necrotizing fasciitis of upper arm Code(s): M72.6 - Necrotizing fasciitis Status: Acute (2) HIV (human immunodeficiency virus infection) Code(s): B20 - Human immunodeficiency virus [HIV] disease Status: Chronic (3) Nutrition, metabolism, and development symptoms Code(s): R63.8 - Other symptoms and signs concerning food and fluid intake Status: Acute (4) DVT prophylaxis Status: Acute <Angle العلي - 05/03/18 20:34> (1) Necrotizing fasciitis of upper arm Code(s): M72.6 - Necrotizing fasciitis Status: Acute Plan: Initial presentation of left axilla abscess, s/p treatment with doxycycline. Worsening swelling of the left upper arm. 04/26 Rapidly worsened swelling with new erythema and multiple blisters formed. 05/03 POD 7. Patient remains stable. POD 1 from repeat I&D, debridement Imaging: See above in Reports section Medications: -Vancomycin 1000mg IV q24h, decreased in frequency due to renal impairment. Pharmacy consulted. -Consulted Orthopedic Surgery, Dr. Allen -Recommended MRI -Emergency Incision and drainage, irrigation and excisional debridement of left arm, left elbow, left forearm on 04/26 -incision and drainage, irrigation and excisional debridement of left arm, left elbow, left forearm on 05/02 -wound VAC change on 05/02 -plastic surgery consult for skin grafting, wound closure -Consult ID for abx recommendations and HIV as below, appreciate recommendations -D/C clinda -Blood cultures: NGTD -Intraoperative cultures: Group A beta Strep -OT consulted for evaluation of possible home health needs, [facility] (2) HIV (human immunodeficiency virus infection) Code(s): B20 - Human immunodeficiency virus [HIV] disease Status: Chronic Plan: PT with HIV, unsure of last CD4 count and not current on antiretroviral therapy -CD4 count 128 -Consulted ID, appreciate recommendations -Will consider placing pt on prophylactic abx on d/c, but [facility] (3) Nutrition, metabolism, and development symptoms Code(s): R63.8 - Other symptoms and signs concerning food and fluid intake Status: Acute Plan: Fluids: tolerating po Electrolytes: monitor and replete as needed Nutrition: regular diet GI Prophylaxis: none indicated at this time (4) DVT prophylaxis Status: Acute Plan: Early ambulation. bilateral SCDs <Asya Mcneil - 05/03/18 19:04> - Assessment and Plan 47yo AAM with PMH of HIV presenting meeting sepsis criteria with left upper arm edema and axillary abscess later determined to be necrotizing fasciitis due to rapidly progressing swelling with blister formation. POD 6 from I&D and debridement of LUE with Orthopedic Surgery awaiting possible repeat surgery in am. Currently stable. <Asya Mcneil - 05/03/18 15:06> Discussed Condition With: Dr. Russell, Dr. العلي <Asya Mcneil - 05/03/18 19:15> Discharge Planning: Patient POD 1 from 2nd procedure, will continue to follow clinical course. Case management is consulted and [facility]. <Asya Mcneil - 05/03/18 19:15> - Attending Attestation Patient seen and examined today, discussed with Sujatha Mcneil and Drew. I agree with assessment and management as documented and discussed with me. Pt complains of some left arm pain. He is anxious due to the fact he has to "hurry up and wait" (wait for next steps/potential plastic surgery) He is tolerating antibiotics without significant diarrhea. Appreciate specialists involved in patient's care. <Angle العلي - 05/03/18 20:34>
[2018-05-03] MEDS: Acetaminophen 325 MG Tablet PO PRN (21:00)
[2018-05-03] MEDS: QUEtiapine 100 MG Tablet PO SCH (21:03)
[2018-05-04] MEDS: Senna/Docusate Sodium 8.6/50 MG Tablet PO SCH ×3 (04:29→22:50)
[2018-05-04] MEDS: Vancomycin Inj 1,000 MG in Sodium Chlor 0.9% Inj 250 ML IV.SIG SCH ×2 (04:32→17:19)
[2018-05-04 05:51] LABS: Hemoglobin 9.4 gm/dL (13.0-17.0); Mean Corpuscular HGB Conc 33.7 % (32.0-36.0); Mean Corpuscular Hemoglobin 29.9 pg (27.0-34.0); Mean Corpuscular Volume 88.9 fL (80.0-100.0); Mean Platelet Volume 6.6 fL (7.0-11.0); Platelet Count 571 th/mm3 (150-450); Red Blood Count 3.15 mil/mm3 (4.50-5.90); Red Cell Distribution Width 14.3 % (11.6-17.2); White Blood Count 10.3 th/mm3 (4.0-11.0)
[2018-05-04 05:52] LABS: Calcium 8.3 mg/dL (8.5-10.1); Carbon Dioxide 25.7 meq/L (21.0-32.0); Potassium 4.3 meq/L (3.5-5.1)
[2018-05-04 07:00] LABS: Hepatitis A IgM Antibody Nonreactive (Nonreactive); Hepatitits B Surface Antigen Nonreactive (Nonreactive)
[2018-05-04] MEDS: Celecoxib 200 MG Capsule PO SCH (10:03)
[2018-05-04] MEDS: QUEtiapine 25 MG Tablet PO SCH (10:04)
[2018-05-04] MEDS: Folic Acid 1 MG Tablet PO SCH (10:04)
[2018-05-04] MEDS: Multivitamin/Minerals Therapeutic Tablet PO SCH (10:04)
--- NOTE | 2018-05-04 10:50 | P.PNOP ---
Subjective Interval history: pain controlled. doing well. Physical Exam Vital signs: Vital Signs 05/03/18 12:00 05/03/18 20:00 05/04/18 00:00 Temperature 98.9 F 100.6 F H 99.2 F Pulse Rate 94 H 97 H 89 Respiratory Rate 18 20 20 Blood Pressure 106/67 124/77 113/62 Pulse Oximetry 98 100 98 05/04/18 08:00 Temperature 99.2 F Pulse Rate 86 Respiratory Rate 16 Blood Pressure 116/76 Pulse Oximetry 97 Intake & Output 05/03/18 05/04/18 05/04/18 18:59 06:59 18:59 Intake Total 820 / 820 420 / 420 Output Total 1800 / 1800 1750 / 1750 Balance -980 / -980 -1330 / -1330 Intake: Oral 820 / 820 420 / 420 Output: Urine 1800 / 1800 1750 / 1750 Other: # Voids 1 2 Date of Last Bowel Movement 05/03/18 # Bowel Movements 1 Narrative: in bed, nad vac in place and working arm soft 2+ radial pulse cap refill nvi, sensation intact 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 - Constitutional no acute distress Results - Labs CBC & Chem 7: 05/04/18 04:46 05/04/18 04:46 Laboratory Results - last 24 hr 05/03/18 05/04/18 05/04/18 10:40 04:46 04:46 WBC 10.3 RBC 3.15 L Hgb 9.4 L Hct 28.0 L MCV 88.9 MCH 29.9 MCHC 33.7 RDW 14.3 Plt Count 571 H MPV 6.6 L Sodium Potassium Chloride Carbon Dioxide Anion Gap BUN Creatinine Estimated GFR Random Glucose Calcium Vancomycin Trough 20.4 H Hepatitis A IgM Ab Nonreactive Hep Bs Antigen Nonreactive Hep B Core IgM Ab Nonreactive Hep C IgG Ab Nonreactive 05/04/18 04:46 WBC RBC Hgb Hct MCV MCH MCHC RDW Plt Count MPV Sodium 141 Potassium 4.3 Chloride 107 Carbon Dioxide 25.7 Anion Gap 8 BUN 13 Creatinine 1.46 H Estimated GFR 63 L Random Glucose 73 L Calcium 8.3 L Vancomycin Trough Hepatitis A IgM Ab Hep Bs Antigen Hep B Core IgM Ab Hep C IgG Ab - Procedures Incision and drainage, irrigation and excisional debridement of left arm, left elbow, left forearm. Assessment and Plan - Ortho Post Op Day # 2 - Assessment and Plan POD #1 s/p Repeat irrigation and excisional debridement of left arm, left elbow , left forearm, vac exchange Pain management Medical management IV antibiotic therapy per ID Continue with wound vac, vac changes m/w/f Patient understands the possibilities of repeat surgeries. awaiting Plastics consult for possible wound closure
--- NOTE | 2018-05-04 11:11 | P.PNFP ---
Subjective Interval history: Patient seen and examined this morning. He states that he is feeling well today. However, last night he spiked a fever to 100.6F. Overall he is in good spirits. No fevers/chills since last night, no chest pain, no shortness of breath, no abdominal pain, urinating and stooling well. His pain is tolerable. He is still spacing out taking his medication. <EwaAsya G - 05/04/18 11:52> Results - Labs Result diagrams: 05/04/18 04:46 05/04/18 04:46 <Angle العلي - 05/04/18 20:03> Abnormal lab results 05/04/18 05/04/18 Range/Units 04:46 04:46 RBC 3.15 L (4.50-5.90) mil/mm3 Hgb 9.4 L (13.0-17.0) gm/dL Hct 28.0 L (39.0-51.0) % Plt Count 571 H (150-450) th/mm3 MPV 6.6 L (7.0-11.0) fL Creatinine 1.46 H (0.60-1.30) mg/dL Estimated GFR 63 L (>89) mL/min Random Glucose 73 L (74-106) mg/dL Calcium 8.3 L (8.5-10.1) mg/dL Short CBC 05/04/18 Range/Units 04:46 WBC 10.3 (4.0-11.0) th/mm3 Hgb 9.4 L (13.0-17.0) gm/dL Hct 28.0 L (39.0-51.0) % Plt Count 571 H (150-450) th/mm3 [facility] 05/04/18 04:46 Sodium 141 Potassium 4.3 Chloride 107 Carbon Dioxide 25.7 BUN 13 Creatinine 1.46 H Calcium 8.3 L <Angle العلي - 05/04/18 20:03> Abnormal lab results 05/03/18 05/04/18 05/04/18 Range/Units 10:40 04:46 04:46 RBC 3.15 L (4.50-5.90) mil/mm3 Hgb 9.4 L (13.0-17.0) gm/dL Hct 28.0 L (39.0-51.0) % Plt Count 571 H (150-450) th/mm3 MPV 6.6 L (7.0-11.0) fL Creatinine 1.46 H (0.60-1.30) mg/dL Estimated GFR 63 L (>89) mL/min Random Glucose 73 L (74-106) mg/dL Calcium 8.3 L (8.5-10.1) mg/dL Vancomycin Trough 20.4 H (5.0-10.0) mcg/mL Short CBC 05/04/18 Range/Units 04:46 WBC 10.3 (4.0-11.0) th/mm3 Hgb 9.4 L (13.0-17.0) gm/dL Hct 28.0 L (39.0-51.0) % Plt Count 571 H (150-450) th/mm3 BMP 05/04/18 04:46 Sodium 141 Potassium 4.3 Chloride 107 Carbon Dioxide 25.7 BUN 13 Creatinine 1.46 H Calcium 8.3 L <Asya Mcneil - 05/04/18 11:11> Physical Exam Vital signs: Vital Signs 05/04/18 00:00 05/04/18 08:00 05/04/18 12:00 Temperature 99.2 F 99.2 F 99.3 F Pulse Rate 89 86 82 Respiratory Rate 20 16 17 Blood Pressure 113/62 116/76 121/72 Pulse Oximetry 98 97 100 05/04/18 16:00 Temperature 98.2 F Pulse Rate 74 Respiratory Rate 17 Blood Pressure 112/72 Pulse Oximetry 99 Intake & Output 05/04/18 05/04/18 05/05/18 06:59 18:59 06:59 Intake Total 670 / 670 Output Total 1750 / 1750 Balance -1080 / -1080 Intake: IV 250 / 250 Vancomycin Inj 1,000 MG In NS 250 / 250 Inj 250 ML @ 250 mls/hr IV.SIG Q12H TWAN Rx#:[id number] Oral 420 / 420 Output: Urine 1750 / 1750 Other: # Voids 2 Date of Last Bowel Movement 05/03/18 # Bowel Movements 1 <Angel العلي - 05/04/18 20:03> Vital Signs 05/03/18 12:00 05/03/18 20:00 05/04/18 00:00 Temperature 98.9 F 100.6 F H 99.2 F Pulse Rate 94 H 97 H 89 Respiratory Rate 18 20 20 Blood Pressure 106/67 124/77 113/62 Pulse Oximetry 98 100 98 05/04/18 08:00 Temperature 99.2 F Pulse Rate 86 Respiratory Rate 16 Blood Pressure 116/76 Pulse Oximetry 97 Intake & Output 05/03/18 05/04/18 05/04/18 18:59 06:59 18:59 Intake Total 820 / 820 420 / 420 Output Total 1800 / 1800 1750 / 1750 Balance -980 / -980 -1330 / -1330 Intake: Oral 820 / 820 420 / 420 Output: Urine 1800 / 1800 1750 / 1750 Other: # Voids 1 2 Date of Last Bowel Movement 05/03/18 # Bowel Movements 1 <Asya Mcneil - 05/04/18 11:11> Narrative: GENERAL: thin AA male laying in bed watching TV, in no acute distress SKIN: Warm and dry. HEAD: Atraumatic. Normocephalic. EYES: No scleral icterus. No injection or drainage. ENT: No nasal bleeding or discharge. NECK: Trachea midline. No JVD. CARDIOVASCULAR: Regular rate and rhythm. RESPIRATORY: No accessory muscle use. Clear to auscultation. Course breath sounds, but equal bilaterally. GASTROINTESTINAL: Abdomen soft, non-tender, nondistended. MUSCULOSKELETAL: Extremities without clubbing or cyanosis. Left arm slightly edematous. Wound VAC in place at medial aspect of arm draining sanguinous fluid. Sensation intact. Cap refill 2+ NEUROLOGICAL: Awake and alert. No obvious cranial nerve deficits. Motor grossly within normal limits. Normal speech. <Asya Mcneil - 05/04/18 11:52> Assessment and Plan - Assessment (1) Necrotizing fasciitis of upper arm Code(s): M72.6 - Necrotizing fasciitis Status: Acute (2) HIV (human immunodeficiency virus infection) Code(s): B20 - Human immunodeficiency virus [HIV] disease Status: Chronic (3) Nutrition, metabolism, and development symptoms Code(s): R63.8 - Other symptoms and signs concerning food and fluid intake Status: Acute (4) DVT prophylaxis Status: Acute <Angle العلي - 05/04/18 20:03> (1) Necrotizing fasciitis of upper arm Code(s): M72.6 - Necrotizing fasciitis Status: Acute Plan: Initial presentation of left axilla abscess, s/p treatment with doxycycline. Worsening swelling of the left upper arm. 04/26 Rapidly worsened swelling with new erythema and multiple blisters formed. 05/04 POD 8. Patient remains stable. POD 2 from repeat I&D, debridement. New fever to 100.6F overnight. Will continue to monitor. Imaging: See above in Reports section Medications: -Vancomycin. Pharmacy consulted and adjusts dosage as needed. -Consulted Orthopedic Surgery, Dr. Allen -Recommended MRI -Emergency Incision and drainage, irrigation and excisional debridement of left arm, left elbow, left forearm on 04/26 -incision and drainage, irrigation and excisional debridement of left arm, left elbow, left forearm on 05/02 -wound VAC change on 05/02, will change on /W/F -plastic surgery consult for skin grafting, wound closure -Consult ID for abx recommendations and HIV as below, appreciate recommendations -Blood cultures: NGTD -Intraoperative cultures: Group A beta Strep -OT consulted for evaluation of possible home health needs, which [facility] (2) HIV (human immunodeficiency virus infection) Code(s): B20 - Human immunodeficiency virus [HIV] disease Status: Chronic Plan: PT with HIV, unsure of last CD4 count and not current on antiretroviral therapy -CD4 count 128 -Consulted ID, appreciate recommendations -Will consider placing pt on prophylactic abx on d/c, but [facility] good [facility] (3) Nutrition, metabolism, and development symptoms Code(s): R63.8 - Other symptoms and signs concerning food and fluid intake Status: Acute Plan: Fluids: tolerating po Electrolytes: monitor and replete as needed Nutrition: regular diet GI Prophylaxis: none indicated at this time (4) DVT prophylaxis Status: Acute Plan: Early ambulation. bilateral SCDs, heparin 5000 units twice daily <Asya Mcneil - 05/04/18 16:56> - Assessment and Plan 47yo AAM with PMH of HIV presenting meeting sepsis criteria with left upper arm edema and axillary abscess later determined to be necrotizing fasciitis due to rapidly progressing swelling with blister formation. POD 6 from I&D and debridement of LUE with Orthopedic Surgery awaiting possible repeat surgery in am. Currently stable. <Asya Mcneil - 05/04/18 11:11> Discussed Condition With: Dr. العلي <Asya Mcneil - 05/04/18 11:52> Discharge Planning: Patient POD 1 from 2nd procedure, will continue to follow clinical course. Case management is consulted and [facility]. <Asya Mcneil - 05/04/18 11:11> - Attending Attestation Patient seen, examined today, and discussed with resident team. I agree with assessment and management as documented and discussed with me. No new concerns from patient. T 100.6 overnight, but no other symptoms. Await plastic surgery recs. <Angle العلي - 05/04/18 20:03>
[2018-05-04] MEDS ORDERED: Morphine Inj 4 MG/ML Vial IV.PUSH ONE (13:55)
--- NOTE | 2018-05-04 18:24 | P.PNWCN ---
Wound Care Nurse Consult Description: Received call from SHELLIE Christine [address] [place] [address] med surg over flow. She received telephone order from Julian AGEE for Doctor Alejandro reconsult wound care for wound VAC dressing change to L arm to be done by wound care nurse. Communicated with: SHELLIE Christine [address] [place] [address] med surg overflow. Recommendation: Please keep wound VAC in place and reinforce as needed. Wound care nurse will change wound VAC with Doctor Daniel on Wednesday. Wound/Pressure Injury - Patient Status Premedicated for Pain Prior to Dressing Change: Yes - Wound Left Arm Wound Assessment: Ongoing Wound Type: Abscess Is This a Chronic Wound: No Requested from Provider a Wound Care Consult: Yes (Wound care was consulted for wound VAC dressing change.) Length: 26 (cm) Width: 11.5 (cm) Depth: 0.8 (cm) Wound Bed Appearance: Tunneling/Undermining (Undermining from 10 to 11 o'clock deepest at 11 measuring 2.8 cm) Wound Bed Appearance: Wound bed presents with ~70% muscle tissue, ~20% facia and ~10% adipose tissue Surrounding Tissue Temperature: Warm Drainage Description: Serosanguinous Drainage Amount: Minimal Drainage Odor: No Odor Dressing Status: Reinforced Cleansing Solution: Saline Wound Packing Type: Woundvac Sponge Wound Dressing Change Date: 05/04/18 Left Forearm Wound Type: Abscess Is This a Chronic Wound: No Wound Bed Appearance: Surgical incision closed with sutures distal to open wound on L arm Primary Dressing: maxorb AG Cover Dressing: Transparent Wound Dressing Change Date: 05/04/18 Wound Vac - Wound Vac Left Arm Pressure Setting (mmHg): 125 Mode Setting: Continuous Drainage Description: Serosanguinous Foam type: Black Left Forearm Pressure Setting (mmHg): 125 - Additional Information Wound VAC was placed today in OR By Doctor Allen on Wednesday, contract technical writer reinforced dressing on Wednesday05/02/2018.Patient seen on [address] [place] [address] for wound VAC wound VAc dressing change.Removed all VAC drape to reveal wound VAC granufoam stapled to periwound. Removed 26 sherman from periwound.Removed Maxorb AG to reveal surgical incision at 6 o'clock approximated with sutures. No active drainage is seen from sutures with today's VAC change.Removed one large piece of granufoam from wound bed to reveal wound. Wound measurements and descriptions are noted above. Applied 4 pieces of granufoam to fill wound bed.Applied skin barrier film to periwound before wound paning with VAc drape. Law's seal was placed from 11 to 2 o'clock to L axilla to seal VAC dressing. Applied VAC drape to seal entire wound VAC dressing cut hole in VAC drape to expose granufoam and applied a mushroom cap of black granufoam in contact with granufoam in wound bed with attached trac pad. Wound VAC is now suctioning at 125 mm/hg. Incision - Patient Status Premedicated for Pain Prior to Dressing Change: Yes
[2018-05-04] MEDS: Heparin - SQ 10,000 UNITS/ML Vial SQ SCH (22:51)
[2018-05-04] MEDS: QUEtiapine 100 MG Tablet PO SCH (22:53)
[2018-05-05] MEDS: Vancomycin Inj 1,000 MG in Sodium Chlor 0.9% Inj 250 ML IV.SIG SCH ×2 (02:42→17:05)
[2018-05-05] MEDS ORDERED: Pharmacy Ordered Lab Info OTHER ONE (02:45)
[2018-05-05 05:41] LABS: Hematocrit 28.5 % (39.0-51.0); Hemoglobin 9.5 gm/dL (13.0-17.0); Mean Corpuscular HGB Conc 33.3 % (32.0-36.0); Mean Corpuscular Hemoglobin 29.3 pg (27.0-34.0); Mean Corpuscular Volume 87.9 fL (80.0-100.0); Mean Platelet Volume 6.5 fL (7.0-11.0); Platelet Count 626 th/mm3 (150-450); Red Blood Count 3.24 mil/mm3 (4.50-5.90); Red Cell Distribution Width 14.7 % (11.6-17.2); White Blood Count 11.2 th/mm3 (4.0-11.0)
[2018-05-05 06:11] LABS: Calcium 8.9 mg/dL (8.5-10.1); Carbon Dioxide 24.9 meq/L (21.0-32.0); Potassium 4.1 meq/L (3.5-5.1)
--- NOTE | 2018-05-05 07:49 | P.PNOP ---
Subjective Interval history: pain tolerable currently. vac was changed yesterday. Physical Exam Vital signs: Vital Signs 05/04/18 08:00 05/04/18 12:00 05/04/18 16:00 Temperature 99.2 F 99.3 F 98.2 F Pulse Rate 86 82 74 Respiratory Rate 16 17 17 Blood Pressure 116/76 121/72 112/72 Pulse Oximetry 97 100 99 05/04/18 20:00 05/05/18 00:00 05/05/18 04:00 Temperature 98 F 99.8 F H Pulse Rate 74 78 Respiratory Rate 20 20 20 Blood Pressure 107/65 141/84 H Pulse Oximetry 99 98 Intake & Output 05/04/18 05/05/18 05/05/18 18:59 06:59 18:59 Intake Total 250 / 250 560 / 560 Output Total 1400 / 1400 Balance 250 / 250 -840 / -840 Intake: IV 250 / 250 Vancomycin Inj 1,000 MG In NS 250 / 250 Inj 250 ML @ 250 mls/hr IV.SIG Q12H TWAN Rx#:[id number] Oral 560 / 560 Output: Urine 1400 / 1400 Other: Date of Last Bowel Movement 05/03/18 Narrative: in bed, nad vac in place and working no spreading erythema compartments soft 2+ radial pulse full rom of hand Results - Labs CBC & Chem 7: 05/05/18 05:12 05/05/18 05:12 Laboratory Results - last 24 hr 05/05/18 05/05/18 05/05/18 02:36 05:12 05:12 WBC 11.2 H RBC 3.24 L Hgb 9.5 L Hct 28.5 L MCV 87.9 MCH 29.3 MCHC 33.3 RDW 14.7 Plt Count 626 H MPV 6.5 L Sodium 138 Potassium 4.1 Chloride 103 Carbon Dioxide 24.9 Anion Gap 10 BUN 14 Creatinine 1.63 H Estimated GFR 55 L Random Glucose 71 L Calcium 8.9 Vancomycin Trough 11.4 H - Procedures Incision and drainage, irrigation and excisional debridement of left arm, left elbow, left forearm. Assessment and Plan - Ortho Post Op Day # 3 - Assessment and Plan POD #3 s/p Repeat irrigation and excisional debridement of left arm, left elbow , left forearm, vac exchange Pain management Medical management IV antibiotic therapy per ID Continue with wound vac, vac changes m/w/f - changed yesterday Patient understands the possibilities of repeat surgeries. awaiting Plastics consult for possible wound closure - likely will be seen Wednesday during vac change
[2018-05-05] MEDS: Multivitamin/Minerals Therapeutic Tablet PO SCH (09:25)
[2018-05-05] MEDS: Acetaminophen 325 MG Tablet PO PRN (09:25)
[2018-05-05] MEDS: Senna/Docusate Sodium 8.6/50 MG Tablet PO SCH ×2 (09:25→22:01)
[2018-05-05] MEDS: QUEtiapine 25 MG Tablet PO SCH (09:25)
[2018-05-05] MEDS: Folic Acid 1 MG Tablet PO SCH (09:25)
[2018-05-05] MEDS: Celecoxib 200 MG Capsule PO SCH (09:25)
[2018-05-05] MEDS: Heparin - SQ 10,000 UNITS/ML Vial SQ SCH ×2 (09:26→22:01)
--- NOTE | 2018-05-05 11:33 | P.PNFP ---
Subjective Interval history: Patient seen and examined this morning. Patient states that the pain in his upper extremity is tolerable and continues to be able to move the arm. The wound vac is in place and patient states that he was told this morning by the surgical PA that the plastic surgeon would return on Wednesday during the wound vac change to better evaluate the arm and decide if a skin graft would be appropriate. Patient denies fever, chills, nausea, vomiting, chest pain, shortness of breath, abdominal pain, or leg pain. <Lorri Russell - 05/05/18 16:01> Results - Labs Result diagrams: 05/05/18 05:12 05/05/18 05:12 <Angle العلي - 05/05/18 20:46> Abnormal lab results 05/05/18 05/05/18 05/05/18 Range/Units 02:36 05:12 05:12 WBC 11.2 H (4.0-11.0) th/mm3 RBC 3.24 L (4.50-5.90) mil/mm3 Hgb 9.5 L (13.0-17.0) gm/dL Hct 28.5 L (39.0-51.0) % Plt Count 626 H (150-450) th/mm3 MPV 6.5 L (7.0-11.0) fL Creatinine 1.63 H (0.60-1.30) mg/dL Estimated GFR 55 L (>89) mL/min Random Glucose 71 L (74-106) mg/dL Vancomycin Trough 11.4 H (5.0-10.0) mcg/mL Short CBC 05/05/18 Range/Units 05:12 WBC 11.2 H (4.0-11.0) th/mm3 Hgb 9.5 L (13.0-17.0) gm/dL Hct 28.5 L (39.0-51.0) % Plt Count 626 H (150-450) th/mm3 BMP 05/05/18 05:12 Sodium 138 Potassium 4.1 Chloride 103 Carbon Dioxide 24.9 BUN 14 Creatinine 1.63 H Calcium 8.9 <Angle العلي - 05/05/18 20:46> Abnormal lab results 05/05/18 05/05/18 05/05/18 Range/Units 02:36 05:12 05:12 WBC 11.2 H (4.0-11.0) th/mm3 RBC 3.24 L (4.50-5.90) mil/mm3 Hgb 9.5 L (13.0-17.0) gm/dL Hct 28.5 L (39.0-51.0) % Plt Count 626 H (150-450) th/mm3 MPV 6.5 L (7.0-11.0) fL Creatinine 1.63 H (0.60-1.30) mg/dL Estimated GFR 55 L (>89) mL/min Random Glucose 71 L (74-106) mg/dL Vancomycin Trough 11.4 H (5.0-10.0) mcg/mL Short CBC 05/05/18 Range/Units 05:12 WBC 11.2 H (4.0-11.0) th/mm3 Hgb 9.5 L (13.0-17.0) gm/dL Hct 28.5 L (39.0-51.0) % Plt Count 626 H (150-450) th/mm3 BMP 05/05/18 05:12 Sodium 138 Potassium 4.1 Chloride 103 Carbon Dioxide 24.9 BUN 14 Creatinine 1.63 H Calcium 8.9 <Lorri Russell - 05/05/18 11:33> Physical Exam Vital signs: Vital Signs 05/05/18 00:00 05/05/18 04:00 05/05/18 08:00 Temperature 98 F 99.8 F H 103.0 F H Pulse Rate 74 78 99 H Respiratory Rate 20 20 12 Blood Pressure 107/65 141/84 H 109/59 L Pulse Oximetry 99 98 97 05/05/18 12:00 05/05/18 16:00 Temperature 99.2 F 98.8 F Pulse Rate 82 84 Respiratory Rate 14 18 Blood Pressure 84/53 L 101/58 L Pulse Oximetry 97 99 Intake & Output 05/05/18 05/05/18 05/06/18 06:59 18:59 06:59 Intake Total 810 / 810 240 / 240 Output Total 1400 / 1400 1000 / 1000 Balance -590 / -590 -760 / -760 Intake: IV 250 / 250 Vancomycin Inj 1,000 MG In NS 250 / 250 Inj 250 ML @ 250 mls/hr IV.SIG Q12H [facility] Rx#:[id number] Oral 560 / 560 240 / 240 Output: Urine 1400 / 1400 1000 / 1000 Other: # Voids 5 Date of Last Bowel Movement 05/03/18 05/03/18 # Bowel Movements 2 <Angle العلي - 05/05/18 20:46> Vital Signs 05/04/18 12:00 05/04/18 16:00 05/04/18 20:00 Temperature 99.3 F 98.2 F Pulse Rate 82 74 Respiratory Rate 17 17 20 Blood Pressure 121/72 112/72 Pulse Oximetry 100 99 05/05/18 00:00 05/05/18 04:00 05/05/18 08:00 Temperature 98 F 99.8 F H 103.0 F H Pulse Rate 74 78 99 H Respiratory Rate 20 20 12 Blood Pressure 107/65 141/84 H 109/59 L Pulse Oximetry 99 98 97 Intake & Output 05/04/18 05/05/18 05/05/18 18:59 06:59 18:59 Intake Total 250 / 250 560 / 560 Output Total 1400 / 1400 Balance 250 / 250 -840 / -840 Intake: IV 250 / 250 Vancomycin Inj 1,000 MG In NS 250 / 250 Inj 250 ML @ 250 mls/hr IV.SIG Q12H [facility] Rx#:[id number] Oral 560 / 560 Output: Urine 1400 / 1400 Other: Date of Last Bowel Movement 05/03/18 05/03/18 <Lorri Russell - 05/05/18 11:33> Narrative: Narrative: GENERAL: thin AA male laying in bed watching TV, in no acute distress SKIN: Warm and dry. HEAD: Atraumatic. Normocephalic. EYES: No scleral icterus. No injection or drainage. ENT: No nasal bleeding or discharge. NECK: Trachea midline. No JVD. CARDIOVASCULAR: Regular rate and rhythm. RESPIRATORY: No accessory muscle use. Clear to auscultation. Course breath sounds, but equal bilaterally. GASTROINTESTINAL: Abdomen soft, non-tender, nondistended. MUSCULOSKELETAL: Extremities without clubbing or cyanosis. Left arm slightly edematous. Wound VAC in place at medial aspect of arm draining sanguinous fluid. Sensation intact. L radial pulse 2/4. Cap refill 2+. Able to move arm, wrist and hand freely. NEUROLOGICAL: Awake and alert. No obvious cranial nerve deficits. Motor grossly within normal limits. Normal speech. <Lorri Russell - 05/05/18 16:01> Assessment and Plan - Assessment (1) Necrotizing fasciitis of upper arm Code(s): M72.6 - Necrotizing fasciitis Status: Acute (2) HIV (human immunodeficiency virus infection) Code(s): B20 - Human immunodeficiency virus [HIV] disease Status: Chronic (3) Nutrition, metabolism, and development symptoms Code(s): R63.8 - Other symptoms and signs concerning food and fluid intake Status: Acute (4) DVT prophylaxis Status: Acute <Angle العلي - 05/05/18 20:46> (1) Necrotizing fasciitis of upper arm Code(s): M72.6 - Necrotizing fasciitis Status: Acute Plan: Initial presentation of left axilla abscess, s/p treatment with doxycycline. Worsening swelling of the left upper arm. Rapidly worsened swelling with new erythema and multiple blisters on 04/26, suspicious for nectrotizing fasciitis. Patient is now POD 3 from repeat I&D, debridement and new wound vac placement. Medications: -Vancomycin. Pharmacy consulted and adjusts dosage as needed. -Consulted Orthopedic Surgery, Dr. Allen -wound VAC change on 05/02, will change on M/W/ schedule -plastic surgery consult for skin grafting, wound closure. To see on 05/06 during wound vac change to better evaluate. -Consult ID for abx recommendations and HIV as below, appreciate recommendations -Blood cultures: NGTD -Intraoperative cultures: Group A beta Strep -OT consulted for evaluation of possible home health needs, which [facility] (2) HIV (human immunodeficiency virus infection) Code(s): B20 - Human immunodeficiency virus [HIV] disease Status: Chronic Plan: PT with HIV, unsure of last CD4 count and not current on antiretroviral therapy with CD4 count 128. -Consulted ID who state that pt can be on prophylactic abx on d/c, but [facility] (3) Nutrition, metabolism, and development symptoms Code(s): R63.8 - Other symptoms and signs concerning food and fluid intake Status: Acute Plan: Fluids: tolerating po Electrolytes: monitor and replete as needed Nutrition: regular diet GI Prophylaxis: none indicated at this time (4) DVT prophylaxis Status: Acute Plan: Early ambulation. bilateral SCDs, heparin 5000 units twice daily <Lorri Russell - 05/05/18 16:02> - Assessment and Plan 47yo AAM with PMH of HIV presenting meeting sepsis criteria with left upper arm edema and axillary abscess later determined to be necrotizing fasciitis due to rapidly progressing swelling with blister formation. POD 6 from I&D and debridement of LUE with Orthopedic Surgery awaiting possible repeat surgery in am. Currently stable. <Lorri Russell - 05/05/18 11:33> - Attending Attestation Patient seen, examined today, and discussed with Dr Russell. I agree with assessment and management as documented and discussed with me. Pt without significant complaints. Fever earlier today, but now has defervesced. ID aware. Await recs from plastic surgery tomorrow regarding wound vac vs graft. <Angle العلي - 05/05/18 20:46>
[2018-05-05] MEDS ORDERED: Sodium Chlor 0.9% Inj 500 ML IV.SIG ONE (19:22)
--- NOTE | 2018-05-05 19:29 | P.PNID ---
Subjective Remarks: Patient is not a reliable historian. Mr. Quezada is a 47yo AAM with a PMH of HIV (diagnosed in [facility] per patient, sexually transmitted, denies any IVDA. He reports he was diagnosed with HIV 10 years back and since then has been on treatment off and on. He reports he has never has any opportunistic infections or hospitalizations that would point towards these diagnosis. He reports he has been off HAART for last 1 year. He says he was depressed and hence quit taking medications. He denies any suicidal ideations. His PMHx is also significant for reported history of Bipolar disorder, PTSD, MDD unsure if he is on treatment for the same. He denies any IVDA adamantly. With this background patient presents to the hospital with left UE arm swelling. He reports this started as an axillary area swelling approximately 2 weeks back for which [facility] and was [facility]. He denies any trauma, insect bites, or IVDA. He reports he is still on his antibiotics unsure if he has been compliant with his medications. He then went to the doctor at the [facility] on 04/15 and was prescribed doxycycline. He goes on to report that he started draining malodorous green pus. Patient reports that approximately 4 days back patient left upper arm starting swelling, became erythematous, warm. He reports he had no bus ride so he toughed it out. He reports having developed night sweats, fever/chills, fatigue, loss of appetite. He reports pain in his left UE and is unable to move his hand due to significant pain and swelling. He denies any chest pain or back pain. He denies prior endocarditis or epidural abscess. ID consulted for evaluation and Mment of possible LUE abscess ? Nec fascitis. Overnight events reviewed. No fever No rash No diarrhea Low BP 2 readings. Patient Cr increased. Drinking only 2-3 small cups of water all day. Asymptomatic from low BP. Denies CP or dizziness. Fever 103 F appears to be drug fever from Vanco (cr increased and fevers ? AIN) . Vanco stopped. Antibiotics: Vanco IV Lines: Lines ok Past Medical History: reviewed Allergies/Adverse Reactions: Allergies No Known Allergies Allergy (Verified 04/25/18 11:26) Objective Vital Signs 05/04/18 20:00 05/05/18 00:00 05/05/18 04:00 Temperature 98 F 99.8 F H Pulse Rate 74 78 Respiratory Rate 20 20 20 Blood Pressure 107/65 141/84 H Pulse Oximetry 99 98 05/05/18 08:00 05/05/18 12:00 05/05/18 16:00 Temperature 103.0 F H 99.2 F 98.8 F Pulse Rate 99 H 82 84 Respiratory Rate 12 14 18 Blood Pressure 109/59 L 84/53 L 101/58 L Pulse Oximetry 97 97 99 Intake & Output 05/05/18 05/05/18 05/06/18 06:59 18:59 06:59 Intake Total 810 / 810 240 / 240 Output Total 1400 / 1400 1000 / 1000 Balance -590 / -590 -760 / -760 Intake: IV 250 / 250 Vancomycin Inj 1,000 MG In NS 250 / 250 Inj 250 ML @ 250 mls/hr IV.SIG Q12H [facility] Rx#:[id number] Oral 560 / 560 240 / 240 Output: Urine 1400 / 1400 1000 / 1000 Other: # Voids 5 Date of Last Bowel Movement 05/03/18 05/03/18 # Bowel Movements 2 04/26/18 16:30 Wound - Arm Acid Fast Bacilli Smear - Final No acid fast bacilli seen 04/26/18 16:30 Wound - Arm Mycobacterial Culture - Preliminary No growth in 1 week 04/26/18 16:30 Wound - Arm Acid Fast Bacilli Smear - Final No acid fast bacilli seen 04/26/18 16:30 Wound - Arm Mycobacterial Culture - Preliminary No growth in 1 week 04/26/18 16:30 Wound - Arm Fungal Smear - Final No fungal elements seen 04/26/18 16:30 Wound - Arm Fungal Culture - Preliminary No growth in 1 week 04/26/18 16:30 Wound - Arm Fungal Smear - Final No fungal elements seen 04/26/18 16:30 Wound - Arm Fungal Culture - Preliminary No growth in 1 week Lab - Hematology Results 05/04/18 05/05/18 04:46 05:12 WBC 10.3 11.2 H RBC 3.15 L 3.24 L Hgb 9.4 L 9.5 L Hct 28.0 L 28.5 L MCV 88.9 87.9 MCH 29.9 29.3 MCHC 33.7 33.3 RDW 14.3 14.7 Plt Count 571 H 626 H MPV 6.6 L 6.5 L Lab - Chemistry Results 05/04/18 05/05/18 04:46 05:12 Sodium 141 138 Potassium 4.3 4.1 Chloride 107 103 Carbon Dioxide 25.7 24.9 Anion Gap 8 10 BUN 13 14 Creatinine 1.46 H 1.63 H Estimated GFR 63 L 55 L Random Glucose 73 L 71 L Calcium 8.3 L 8.9 Imaging: ITS Impressions Upper Extremity Ultrasound 04/25/18 00:00 CONCLUSION: Subcutaneous tissue phlegmon in the left axillary region. Forearm CT 04/25/18 12:57 CONCLUSION: 1. Nonspecific subcutaneous edema along the medial aspect of the proximal forearm. 2. The bony structures are grossly intact. Humerus CT 04/25/18 12:57 CONCLUSION: 1. Nonspecific edema throughout the subcutaneous soft tissues along the medial aspect of the upper arm. No drainable loculated fluid collections. 2. The bony structures of the humerus are grossly unremarkable. Chest X-Ray 04/26/18 00:00 CONCLUSION: The lungs are clear. Humerus MRI 04/26/18 00:00 CONCLUSION: Severe cellulitis confined to subcutaneous location with fascial enhancement which may be reactive in nature. There is no evidence of abscess. There is no evidence of osteomyelitis. Physical Exam: GENERAL: In no acute distress SKIN: Warm and dry. HEAD: Atraumatic. Normocephalic. EYES: No scleral icterus. No injection or drainage. ENT: No nasal bleeding or discharge. NECK: Trachea midline. No JVD. CARDIOVASCULAR: Regular rate and rhythm. RESPIRATORY: No accessory muscle use. Clear to auscultation. Course breath sounds, but equal bilaterally. GASTROINTESTINAL: Abdomen soft, non-tender, nondistended. MUSCULOSKELETAL: Extremities without clubbing, cyanosis, or edema. Left arm wrapped in jc bandage c/d/i. Wound vac in place actively draining sanguinous fluid NEUROLOGICAL: Awake and alert. No obvious cranial nerve deficits. Motor grossly within normal limits. Normal speech. PSYCHIATRIC: Cooperative Assessment and Plan - Plan Severe Sepsis fever, leucocytosis, hypotension, lactic acid elevation. Group A strep from Intra-Op wound cultures LUE abscess/cellulitis. With some concern for Necrotizing fascitis due to blistering, pain out of proportion, decreased ROM. ? Infective Myositis. Axillary abscess Was on antibiotics prior to admission. HIV Immunocompromised. Recs: DC Vanco IV Start Ceftriaxone IV Check urine eosinophils Check repeat blood cultures Check lactic acid. NS bolus 500 cc now. RN asked to call residents with stat lactic acid, repeat vitals to assess escalation of treatment if e/o sepsis. If e/o sepsis overnight change to cefepime IV and Zyvox IV. Follow cultures. Follow clinically. debbie pt debbie RN
[2018-05-05] MEDS: QUEtiapine 100 MG Tablet PO SCH (22:01)
[2018-05-05 22:18] LABS: Baso % (Auto) 0.5 % (0.0-2.0); Eos # (Auto) 0.1 th/mm3 (0.0-0.4); Hematocrit 23.7 % (39.0-51.0); Hemoglobin 8.1 gm/dL (13.0-17.0); Lymph # (Auto) 1.2 th/mm3 (1.0-4.8); Lymph % (Auto) 18.3 % (9.0-44.0); Mean Corpuscular HGB Conc 34.1 % (32.0-36.0); Mean Corpuscular Hemoglobin 30.1 pg (27.0-34.0); Mean Corpuscular Volume 88.1 fL (80.0-100.0); Mean Platelet Volume 6.4 fL (7.0-11.0); Mono # (Auto) 0.6 th/mm3 (0.0-0.9); Mono % (Auto) 8.9 % (0.0-8.0); Neut # (Auto) 4.7 th/mm3 (1.8-7.7); Neut % (Auto) 70.3 % (16.0-70.0); Platelet Count 525 th/mm3 (150-450); Red Blood Count 2.69 mil/mm3 (4.50-5.90); Red Cell Distribution Width 14.5 % (11.6-17.2); White Blood Count 6.7 th/mm3 (4.0-11.0)
[2018-05-05 22:32] LABS: Alanine Aminotransferase 21 U/L (12-78); Albumin 1.9 g/dL (3.4-5.0); Alkaline Phosphatase 61 U/L (45-117); Anion Gap 7 meq/L (5-15); Aspartate Aminotransferase 22 U/L (15-37); Blood Urea Nitrogen 17 mg/dL (7-18); Calcium 7.9 mg/dL (8.5-10.1); Carbon Dioxide 25.6 meq/L (21.0-32.0); Chloride 106 meq/L (98-107); Glomerular Filtration Rate 49 mL/min (>89); Glucose,Random 104 mg/dL (74-106); Potassium 4.2 meq/L (3.5-5.1); Sodium 139 meq/L (136-145); Total Protein 6.7 g/dL (6.4-8.2)
[2018-05-06] MEDS ORDERED: Pharmacy Ordered Lab Info OTHER ONE (02:45)
[2018-05-06] MEDS: Sod Chloride 0.9% Inj 1,000 ML IV.CONT SCH ×4 (03:14→22:56)
[2018-05-06 05:41] LABS: Hematocrit 24.4 % (39.0-51.0); Hemoglobin 8.3 gm/dL (13.0-17.0); Mean Corpuscular Hemoglobin 29.9 pg (27.0-34.0); Mean Corpuscular Volume 87.9 fL (80.0-100.0); Mean Platelet Volume 6.4 fL (7.0-11.0); Platelet Count 527 th/mm3 (150-450); Red Blood Count 2.77 mil/mm3 (4.50-5.90); Red Cell Distribution Width 14.7 % (11.6-17.2); White Blood Count 4.8 th/mm3 (4.0-11.0)
[2018-05-06 05:54] LABS: Calcium 8.3 mg/dL (8.5-10.1); Carbon Dioxide 25.4 meq/L (21.0-32.0); Potassium 4.3 meq/L (3.5-5.1)
[2018-05-06] MEDS: QUEtiapine 25 MG Tablet PO SCH (11:04)
[2018-05-06] MEDS: Folic Acid 1 MG Tablet PO SCH (11:04)
[2018-05-06] MEDS: Multivitamin/Minerals Therapeutic Tablet PO SCH (11:04)
[2018-05-06] MEDS: Celecoxib 200 MG Capsule PO SCH (11:04)
--- NOTE | 2018-05-06 12:07 | P.PNFP ---
Subjective Interval history: Patient seen and examined this morning. He states that he is doing well. No fevers or chills, no chest pain, no shortness of breath, no abdominal pain, no trouble with urinating or stooling. He does admit that he needs to drink more water. He has been up to ambulate around his room. He has not taken his hydrocodone since Wednesday when his wound VAC was changed. He is expecting Plastics to come evaluate him today when it is is again changed. <Asya Mcneil - 05/06/18 12:54> Results - Labs Result diagrams: 05/06/18 04:53 05/06/18 04:53 <Angle العلي - 05/06/18 19:58> Abnormal lab results 05/05/18 05/05/18 05/05/18 Range/Units 21:30 21:30 21:30 RBC 2.69 L (4.50-5.90) mil/mm3 Hgb 8.1 L (13.0-17.0) gm/dL Hct 23.7 L (39.0-51.0) % Plt Count 525 H (150-450) th/mm3 MPV 6.4 L (7.0-11.0) fL Neut % (Auto) 70.3 H (16.0-70.0) % Dane % (Auto) 8.9 H (0.0-8.0) % Creatinine 1.80 H (0.60-1.30) mg/dL Estimated GFR 49 L (>89) mL/min Calcium 7.9 L D (8.5-10.1) mg/dL C-Reactive Protein 5.65 H (0.00-0.30) mg/dL Albumin 1.9 L (3.4-5.0) g/dL Urine Eosinophils (None Seen) /HPF 05/05/18 05/06/18 05/06/18 Range/Units 21:50 04:53 04:53 RBC 2.77 L (4.50-5.90) mil/mm3 Hgb 8.3 L (13.0-17.0) gm/dL Hct 24.4 L (39.0-51.0) % Plt Count 527 H (150-450) th/mm3 MPV 6.4 L (7.0-11.0) fL Neut % (Auto) (16.0-70.0) % Dane % (Auto) (0.0-8.0) % Creatinine 1.78 H (0.60-1.30) mg/dL Estimated GFR 50 L (>89) mL/min Calcium 8.3 L (8.5-10.1) mg/dL C-Reactive Protein (0.00-0.30) mg/dL Albumin (3.4-5.0) g/dL Urine Eosinophils Rare H (None Seen) /HPF Short CBC 05/05/18 05/06/18 Range/Units 21:30 04:53 WBC 6.7 4.8 (4.0-11.0) th/mm3 Hgb 8.1 L 8.3 L (13.0-17.0) gm/dL Hct 23.7 L 24.4 L (39.0-51.0) % Plt Count 525 H 527 H (150-450) th/mm3 BMP 05/05/18 05/06/18 21:30 04:53 Sodium 139 139 Potassium 4.2 4.3 Chloride 106 104 Carbon Dioxide 25.6 25.4 BUN 17 18 Creatinine 1.80 H 1.78 H Calcium 7.9 L D 8.3 L Liver Function 05/05/18 Range/Units 21:30 Total Bilirubin 0.2 (0.2-1.0) mg/dL AST 22 (15-37) U/L ALT 21 (12-78) U/L Alkaline Phosphatase 61 (45-117) U/L Albumin 1.9 L (3.4-5.0) g/dL <Angle العلي - 05/06/18 19:58> Abnormal lab results 05/05/18 05/05/18 05/05/18 Range/Units 21:30 21:30 21:30 RBC 2.69 L (4.50-5.90) mil/mm3 Hgb 8.1 L (13.0-17.0) gm/dL Hct 23.7 L (39.0-51.0) % Plt Count 525 H (150-450) th/mm3 MPV 6.4 L (7.0-11.0) fL Neut % (Auto) 70.3 H (16.0-70.0) % Dane % (Auto) 8.9 H (0.0-8.0) % Creatinine 1.80 H (0.60-1.30) mg/dL Estimated GFR 49 L (>89) mL/min Calcium 7.9 L D (8.5-10.1) mg/dL C-Reactive Protein 5.65 H (0.00-0.30) mg/dL Albumin 1.9 L (3.4-5.0) g/dL Urine Eosinophils (None Seen) /HPF 05/05/18 05/06/18 05/06/18 Range/Units 21:50 04:53 04:53 RBC 2.77 L (4.50-5.90) mil/mm3 Hgb 8.3 L (13.0-17.0) gm/dL Hct 24.4 L (39.0-51.0) % Plt Count 527 H (150-450) th/mm3 MPV 6.4 L (7.0-11.0) fL Neut % (Auto) (16.0-70.0) % Dane % (Auto) (0.0-8.0) % Creatinine 1.78 H (0.60-1.30) mg/dL Estimated GFR 50 L (>89) mL/min Calcium 8.3 L (8.5-10.1) mg/dL C-Reactive Protein (0.00-0.30) mg/dL Albumin (3.4-5.0) g/dL Urine Eosinophils Rare H (None Seen) /HPF Short CBC 05/05/18 05/06/18 Range/Units 21:30 04:53 WBC 6.7 4.8 (4.0-11.0) th/mm3 Hgb 8.1 L 8.3 L (13.0-17.0) gm/dL Hct 23.7 L 24.4 L (39.0-51.0) % Plt Count 525 H 527 H (150-450) th/mm3 BMP 05/05/18 05/06/18 21:30 04:53 Sodium 139 139 Potassium 4.2 4.3 Chloride 106 104 Carbon Dioxide 25.6 25.4 BUN 17 18 Creatinine 1.80 H 1.78 H Calcium 7.9 L D 8.3 L Liver Function 05/05/18 Range/Units 21:30 Total Bilirubin 0.2 (0.2-1.0) mg/dL AST 22 (15-37) U/L ALT 21 (12-78) U/L Alkaline Phosphatase 61 (45-117) U/L Albumin 1.9 L (3.4-5.0) g/dL <Asya Mcneil - 05/06/18 12:07> Physical Exam Vital signs: Vital Signs 05/05/18 20:00 05/06/18 00:00 05/06/18 04:00 Temperature 98 F 99 F 99 F Pulse Rate 92 H 84 83 Respiratory Rate 20 20 20 Blood Pressure 134/76 116/68 125/71 Pulse Oximetry 100 98 98 05/06/18 08:00 05/06/18 12:00 05/06/18 16:00 Temperature 99.0 F 98.6 F 98.2 F Pulse Rate 76 73 61 Respiratory Rate 12 12 14 Blood Pressure 117/63 118/73 119/67 Pulse Oximetry 99 100 100 Intake & Output 05/06/18 05/06/18 05/07/18 06:59 18:59 06:59 Intake Total 600 / 600 1060 / 1060 Output Total 2800 / 2800 1700 / 1700 Balance -2200 / -2200 -640 / -640 Intake: IV 100 / 100 Rocephin Inj 2,000 MG In NS Inj 100 / 100 100 ML @ 200 mls/hr IV.SIG Q24H [facility] Rx#:[id number] Oral 600 / 600 960 / 960 Output: Urine 2800 / 2800 1700 / 1700 Other: # Voids 5 Date of Last Bowel Movement 05/03/18 # Bowel Movements 1 <Angle العلي - 05/06/18 19:58> Vital Signs 05/05/18 16:00 05/05/18 20:00 05/06/18 00:00 Temperature 98.8 F 98 F 99 F Pulse Rate 84 92 H 84 Respiratory Rate 18 20 20 Blood Pressure 101/58 L 134/76 116/68 Pulse Oximetry 99 100 98 05/06/18 04:00 05/06/18 08:00 Temperature 99 F 99.0 F Pulse Rate 83 76 Respiratory Rate 20 12 Blood Pressure 125/71 117/63 Pulse Oximetry 98 99 Intake & Output 05/05/18 05/06/18 05/06/18 18:59 06:59 18:59 Intake Total 240 / 240 600 / 600 Output Total 1000 / 1000 2800 / 2800 Balance -760 / -760 -2200 / -2200 Intake: Oral 240 / 240 600 / 600 Output: Urine 1000 / 1000 2800 / 2800 Other: # Voids 5 Date of Last Bowel Movement 05/03/18 # Bowel Movements 2 <Asya Mcneil - 05/06/18 12:07> Narrative: GENERAL: thin AA male laying in bed watching TV, in no acute distress SKIN: Warm and dry. HEAD: Atraumatic. Normocephalic. EYES: No scleral icterus. No injection or drainage. ENT: No nasal bleeding or discharge. NECK: Trachea midline. No JVD. CARDIOVASCULAR: Regular rate and rhythm. RESPIRATORY: No accessory muscle use. Clear to auscultation bilaterally. GASTROINTESTINAL: Abdomen soft, non-tender, nondistended. MUSCULOSKELETAL: Extremities without clubbing or cyanosis. Left arm slightly edematous. Wound VAC in place at medial aspect of arm draining sanguinous fluid. Sensation intact. Cap refill 2+ NEUROLOGICAL: Awake and alert. No obvious cranial nerve deficits. Motor grossly within normal limits. Normal speech. <Asya Mcneil - 05/06/18 12:54> Assessment and Plan - Assessment (1) Necrotizing fasciitis of upper arm Code(s): M72.6 - Necrotizing fasciitis Status: Acute (2) ROSY (acute kidney injury) Code(s): N17.9 - Acute kidney failure, unspecified Status: Acute (3) HIV (human immunodeficiency virus infection) Code(s): B20 - Human immunodeficiency virus [HIV] disease Status: Chronic (4) Nutrition, metabolism, and development symptoms Code(s): R63.8 - Other symptoms and signs concerning food and fluid intake Status: Acute (5) DVT prophylaxis Status: Acute <Angle العلي - 05/06/18 19:58> (1) Necrotizing fasciitis of upper arm Code(s): M72.6 - Necrotizing fasciitis Status: Acute Plan: Initial presentation of left axilla abscess, s/p treatment with doxycycline. Worsening swelling of the left upper arm. Rapidly worsened swelling with new erythema and multiple blisters on 04/26, suspicious for necrotizing fasciitis. Patient is now POD 4 from repeat I&D, debridement and new wound vac placement. Patient is stable. Remains afebrile since 05/05. Medications: -Ceftriaxone 2000mg q24h -Consulted Orthopedic Surgery, Dr. Allen -wound VAC change on 05/04, will change on // schedule -plastic surgery consult for skin grafting, wound closure. To see on 05/06 during wound vac change to better evaluate. -Consult ID for abx recommendations and HIV as below, appreciate recommendations -DC'd Vanc and started Ceftriaxone IV after fever overnight on 05/05 -Urine eosinophils- Rare -Blood cultures: NGTD -Intraoperative cultures: Group A beta Strep (Strep pyogenes) -OT consulted for evaluation of possible home health needs, which will be arranged by the SD -Home with outpatient OT for ROM depending on progress (2) ROSY (acute kidney injury) Code(s): N17.9 - Acute kidney failure, unspecified Status: Acute Plan: Creatinine elevation began on 05/04, likely due to Vancomycin. Is trending downward slightly still it's discontinuation on yesterday evening. -IVF NS @ 125 mls/hr -Continue to monitor trend (3) HIV (human immunodeficiency virus infection) Code(s): B20 - Human immunodeficiency virus [HIV] disease Status: Chronic Plan: PT with HIV, unsure of last CD4 count and not current on antiretroviral therapy with CD4 count 128. -Consulted ID who states that pt can be on prophylactic abx on d/c, but [facility] (4) Nutrition, metabolism, and development symptoms Code(s): R63.8 - Other symptoms and signs concerning food and fluid intake Status: Acute Plan: Fluids: tolerating po, NS @ 125mls/hr Electrolytes: monitor and replete as needed Nutrition: regular diet GI Prophylaxis: none indicated at this time (5) DVT prophylaxis Status: Acute Plan: Early ambulation. bilateral SCDs, heparin 5000 units twice daily <Asya Mcneil - 05/06/18 12:56> - Assessment and Plan 47yo AAM with PMH of HIV presenting meeting sepsis criteria with left upper arm edema and axillary abscess later determined to be necrotizing fasciitis due to rapidly progressing swelling with blister formation. POD 4 from repeat I&D and debridement of LUE with Orthopedic Surgery awaiting recommendations from Plastic Surgery. Currently stable. <Asya Mcneil - 05/06/18 12:54> Discussed Condition With: Dr. العلي <Asya Mcneil - 05/06/18 12:54> Discharge Planning: Patient POD 4 from 2nd procedure, will continue to follow clinical course. Case management is consulted and will [facility] with [facility]. <Asya Mcneil - 05/06/18 13:04> - Attending Attestation Patient seen and examined this morning, discussed with Dr Mcneil. I agree with assessment and management as documented and discussed with me. Pt without significant complaints. Wound vac to be changed this morning and arm to be examined by plastic surgery. Discharge planning pending eval by plastic surgery. <Angle العلي - 05/06/18 19:58>
[2018-05-06] MEDS: Morphine Inj 4 MG/ML Vial IV.PUSH PRN (12:17)
--- NOTE | 2018-05-06 13:27 | MB ---
cc: Veronica Daniel MD DATE: 05/06/2018 REQUESTING PROVIDER: Dr. Allen. REASON FOR CONSULTATION: Open wound of the left arm. HISTORY OF PRESENT ILLNESS: The patient is a 47-year-old male who presented to the emergency room on 04/25/2018 for swelling, erythema and pain of the left arm. The symptoms started approximately 1 to 1-1/2 weeks prior to admission. [facility] soon after symptoms started and was placed on doxycycline. The symptoms worsened and the patient came in with a diagnosis of sepsis. The patient was seen by Dr. Jax Allen the following day, and the diagnosis of necrotizing fasciitis of the left arm, elbow and forearm with septic shock was made. The patient was taken to the operating room. He had extensive debridement of the skin, subcutaneous tissue, fascia, and muscle of the left arm and forearm. The patient was also dressed with a wound VAC. Dr. Allen subsequently took the patient back to the operating room on 05/02/2018. At that time, he did again debrided the arm and placed the wound VAC on the arm. Consultation is requested regarding evaluation and treatment of the wound. PAST MEDICAL HISTORY: The patient is positive for HIV. PAST SURGICAL HISTORY: He denies any previous surgery. SOCIAL HISTORY: The patient is an everyday smoker of cigarettes. He denies alcohol use or abuse. The patient admits he has used marijuana in the past. PHYSICAL EXAMINATION: GENERAL: The patient is lying comfortably in bed. HEENT: His extraocular muscles are intact. His pupils are equal, round and reactive to light. His mouth is clear with poor dentition. LUNGS: Clear. HEART: Regular rate and rhythm. EXTREMITIES: Examination of his left upper extremity reveals an open wound approximately 30 x 10-12 cm in greatest dimension. The medial area of the wound has a flap of skin, which undermines approximately 1-2 cm along the medial border of his arm. It extends from the axilla all the way to the antecubital fossa. On the lateral aspect, the skin is adherent to the deep tissue. The muscle and soft tissue noted are covered with granulation tissue. There is no odor. IMPRESSION: The patient had necrotizing fasciitis secondary to group A beta strep. PLAN: The wound itself is relatively clean. We will start him on local wound care. The patient can followup in the [facility] at the [facility] or in our hospital. I anticipate that the wound should be more stable and smaller in the next several weeks. At that point, we can either place a skin graft on it or allow it to heal by secondary intention depending upon the architecture of the wound and surrounding tissue. The patient understands and accepts the recommendation. He will be started on Silvadene dressings. MD DYLAN Abdi/PERLITA , 01:00 PM , 01:25 PM
--- NOTE | 2018-05-06 14:07 | P.PNWCN ---
Wound Care Nurse Consult Recommendation: Please Refer to wound care orders. Wound/Pressure Injury - Patient Status Premedicated for Pain Prior to Dressing Change: Yes - Wound Left Arm Wound Assessment: Ongoing Wound Type: Abscess Is This a Chronic Wound: No Requested from Provider a Wound Care Consult: Yes (Wound care was consulted for wound VAC dressing change.) Length: 26 (cm) Width: 11.5 (cm) Depth: 0.8 (cm) Wound Bed Appearance: [place], Red, Sutures, Tunneling/Undermining (Undermining from 10 to 11 o'clock deepest at 11 measuring 2.8 cm) Wound Bed Appearance: Wound bed presents with ~70% muscle tissue, ~20% facia and ~10% adipose tissue Surrounding Tissue Appearance: Shiny, Taut Surrounding Tissue Temperature: Cool Drainage Description: Serosanguinous Drainage Amount: Minimal Drainage Odor: No Odor Dressing Status: Changed Cleansing Solution: Saline Topical: Silvadene Primary Dressing: Petroleum Gauze Cover Dressing: Non-Adherent Gauze Pads Wound Dressing Change Date: 05/06/18 Left Forearm Wound Bed Appearance: Surgical incision closed with sutures distal to open wound on L arm Wound Dressing Change Date: 05/04/18 - Additional Information Patient seen on [address] [place] [address] for wound VAC dressing change per Doctor Alejandro consult, full note to follow. Wound Vac - Wound Vac Left Arm Pressure Setting (mmHg): 125 Mode Setting: Continuous Drainage Description: Brown Foam type: Black Wound Vac Discontinue Time: 12:30 Wound Vac DC'd by: Veronica Odonnell RN,[facility])
--- NOTE | 2018-05-06 17:12 | P.PNID ---
Subjective Remarks: Patient is not a reliable historian. Mr. Quezada is a 47yo AAM with a PMH of HIV (diagnosed in [facility] per patient, sexually transmitted, denies any IVDA. He reports he was diagnosed with HIV 10 years back and since then has been on treatment off and on. He reports he has never has any opportunistic infections or hospitalizations that would point towards these diagnosis. He reports he has been off HAART for last 1 year. He says he was depressed and hence quit taking medications. He denies any suicidal ideations. His PMHx is also significant for reported history of Bipolar disorder, PTSD, MDD unsure if he is on treatment for the same. He denies any IVDA adamantly. With this background patient presents to the hospital with left UE arm swelling. He reports this started as an axillary area swelling approximately 2 weeks back [facility]. He denies any trauma, insect bites, or IVDA. He reports he is still on his antibiotics unsure if he has been compliant with his medications. He then went to the doctor at the [place] on 04/15 and was prescribed doxycycline. He goes on to report that he started draining malodorous green pus. Patient reports that approximately 4 days back patient left upper arm starting swelling, became erythematous, warm. He reports he had no bus ride so he toughed it out. He reports having developed night sweats, fever/chills, fatigue, loss of appetite. He reports pain in his left UE and is unable to move his hand due to significant pain and swelling. He denies any chest pain or back pain. He denies prior endocarditis or epidural abscess. ID consulted for evaluation and Mment of possible LUE abscess ? Nec fascitis. Overnight events reviewed. Fever defervesced since Vanco stopped. No rash No diarrhea BP better. recd fluid bolus and maintenance IVF yday. s/b plastics wound vac removed. Antibiotics: Vanco IV Lines: Lines ok Past Medical History: reviewed Allergies/Adverse Reactions: Allergies No Known Allergies Allergy (Verified 04/25/18 11:26) Objective Vital Signs 05/05/18 20:00 05/06/18 00:00 05/06/18 04:00 Temperature 98 F 99 F 99 F Pulse Rate 92 H 84 83 Respiratory Rate 20 20 20 Blood Pressure 134/76 116/68 125/71 Pulse Oximetry 100 98 98 05/06/18 08:00 05/06/18 12:00 05/06/18 16:00 Temperature 99.0 F 98.6 F 98.2 F Pulse Rate 76 73 61 Respiratory Rate 12 12 14 Blood Pressure 117/63 118/73 119/67 Pulse Oximetry 99 100 100 Intake & Output 05/05/18 05/06/18 05/06/18 18:59 06:59 18:59 Intake Total 240 / 240 600 / 600 Output Total 1000 / 1000 2800 / 2800 Balance -760 / -760 -2200 / -2200 Intake: Oral 240 / 240 600 / 600 Output: Urine 1000 / 1000 2800 / 2800 Other: # Voids 5 Date of Last Bowel Movement 05/03/18 05/03/18 # Bowel Movements 2 05/05/18 21:17 Blood - Peripheral Aerobic Blood Culture - Preliminary No growth in 1 day 05/05/18 21:17 Blood - Peripheral Anaerobic Blood Culture - Preliminary No growth in 1 day 05/05/18 21:30 Blood - Peripheral Aerobic Blood Culture - Preliminary No growth in 1 day 05/05/18 21:30 Blood - Peripheral Anaerobic Blood Culture - Preliminary No growth in 1 day 04/26/18 16:30 Wound - Arm Gram Stain - Final 04/26/18 16:30 Wound - Arm Wound Culture - Preliminary Group A beta (Strep pyogenes) 04/26/18 16:30 Wound - Arm Acid Fast Bacilli Smear - Final No acid fast bacilli seen 04/26/18 16:30 Wound - Arm Mycobacterial Culture - Preliminary No growth in 1 week 04/26/18 16:30 Wound - Arm Acid Fast Bacilli Smear - Final No acid fast bacilli seen 04/26/18 16:30 Wound - Arm Mycobacterial Culture - Preliminary No growth in 1 week 04/26/18 16:30 Wound - Arm Fungal Smear - Final No fungal elements seen 04/26/18 16:30 Wound - Arm Fungal Culture - Preliminary No growth in 1 week 04/26/18 16:30 Wound - Arm Fungal Smear - Final No fungal elements seen 04/26/18 16:30 Wound - Arm Fungal Culture - Preliminary No growth in 1 week Lab - Hematology Results 05/05/18 05/05/18 05/06/18 05:12 21:30 04:53 WBC 11.2 H 6.7 4.8 RBC 3.24 L 2.69 L 2.77 L Hgb 9.5 L 8.1 L 8.3 L Hct 28.5 L 23.7 L 24.4 L MCV 87.9 88.1 87.9 MCH 29.3 30.1 29.9 MCHC 33.3 34.1 34.0 RDW 14.7 14.5 14.7 Plt Count 626 H 525 H 527 H MPV 6.5 L 6.4 L 6.4 L Neut % (Auto) 70.3 H Lymph % (Auto) 18.3 [place] % (Auto) 8.9 H Eos % (Auto) 2.0 Baso % (Auto) 0.5 Neut # (Auto) 4.7 Lymph # (Auto) 1.2 [place] # (Auto) 0.6 Eos # (Auto) 0.1 Baso # (Auto) 0.0 WBC Differential . Differential Comment Auto diff final Lab - Chemistry Results 05/05/18 05/05/18 05/05/18 05:12 21:30 21:30 Sodium 138 139 Potassium 4.1 4.2 Chloride 103 106 Carbon Dioxide 24.9 25.6 Anion Gap 10 7 BUN 14 17 Creatinine 1.63 H 1.80 H Estimated GFR 55 L 49 L Random Glucose 71 L 104 Lactic Acid Calcium 8.9 7.9 L D Total Bilirubin 0.2 AST 22 ALT 21 Alkaline Phosphatase 61 C-Reactive Protein 5.65 H Total Protein 6.7 Albumin 1.9 L 05/05/18 05/06/18 21:30 04:53 Sodium 139 Potassium 4.3 Chloride 104 Carbon Dioxide 25.4 Anion Gap 10 BUN 18 Creatinine 1.78 H Estimated GFR 50 L Random Glucose 77 Lactic Acid 1.1 Calcium 8.3 L Total Bilirubin AST ALT Alkaline Phosphatase C-Reactive Protein Total Protein Albumin Imaging: ITS Impressions Upper Extremity Ultrasound 04/25/18 00:00 CONCLUSION: Subcutaneous tissue phlegmon in the left axillary region. Forearm CT 04/25/18 12:57 CONCLUSION: 1. Nonspecific subcutaneous edema along the medial aspect of the proximal forearm. 2. The bony structures are grossly intact. Humerus CT 04/25/18 12:57 CONCLUSION: 1. Nonspecific edema throughout the subcutaneous soft tissues along the medial aspect of the upper arm. No drainable loculated fluid collections. 2. The bony structures of the humerus are grossly unremarkable. Chest X-Ray 04/26/18 00:00 CONCLUSION: The lungs are clear. Humerus MRI 04/26/18 00:00 CONCLUSION: Severe cellulitis confined to subcutaneous location with fascial enhancement which may be reactive in nature. There is no evidence of abscess. There is no evidence of osteomyelitis. Physical Exam: GENERAL: In no acute distress SKIN: Warm and dry. HEAD: Atraumatic. Normocephalic. EYES: No scleral icterus. No injection or drainage. ENT: No nasal bleeding or discharge. NECK: Trachea midline. No JVD. CARDIOVASCULAR: Regular rate and rhythm. RESPIRATORY: No accessory muscle use. Clear to auscultation. Course breath sounds, but equal bilaterally. GASTROINTESTINAL: Abdomen soft, non-tender, nondistended. MUSCULOSKELETAL: Extremities without clubbing, cyanosis, or edema. Left arm wrapped in jc bandage c/d/i. Wound vac in place actively draining sanguinous fluid NEUROLOGICAL: Awake and alert. No obvious cranial nerve deficits. Motor grossly within normal limits. Normal speech. PSYCHIATRIC: Cooperative Assessment and Plan - Plan Severe Sepsis fever, leucocytosis, hypotension, lactic acid elevation. Group A strep from Intra-Op wound cultures LUE abscess/cellulitis. With some concern for Necrotizing fascitis due to blistering, pain out of proportion, decreased ROM. ? Infective Myositis. Axillary abscess Was on antibiotics prior to admission. HIV Immunocompromised. Recs: Continue Ceftriaxone IV Urine eosinophils positive rare. Follow cultures. Follow clinically. debbie pt debbie RN I will be OOT from 05/07/2018. Other ID MDs covering for me.
[2018-05-06] MEDS: Heparin - SQ 10,000 UNITS/ML Vial SQ SCH ×2 (18:24→22:39)
[2018-05-06] MEDS: Senna/Docusate Sodium 8.6/50 MG Tablet PO SCH ×2 (18:24→22:38)
[2018-05-06] MEDS: Silver Sulfadiazine 1% Ceam 400 GM Jar TOPICAL SCH (18:25)
[2018-05-06] MEDS: QUEtiapine 100 MG Tablet PO SCH (22:37)
[2018-05-07 05:06] LABS: Hematocrit 24.7 % (39.0-51.0); Hemoglobin 8.2 gm/dL (13.0-17.0); Mean Corpuscular HGB Conc 33.3 % (32.0-36.0); Mean Corpuscular Hemoglobin 29.4 pg (27.0-34.0); Mean Corpuscular Volume 88.3 fL (80.0-100.0); Mean Platelet Volume 6.6 fL (7.0-11.0); Platelet Count 510 th/mm3 (150-450); Red Cell Distribution Width 14.7 % (11.6-17.2); White Blood Count 4.2 th/mm3 (4.0-11.0)
[2018-05-07 05:44] LABS: Calcium 8.4 mg/dL (8.5-10.1); Carbon Dioxide 24.9 meq/L (21.0-32.0); Potassium 4.2 meq/L (3.5-5.1)
--- NOTE | 2018-05-07 09:03 | P.PNOP ---
Subjective Interval history: pain tolerable. was seen by Plastics yesterday. Physical Exam Vital signs: Vital Signs 05/06/18 12:00 05/06/18 16:00 05/06/18 20:00 Temperature 98.6 F 98.2 F 98.0 F Pulse Rate 73 61 71 Respiratory Rate 12 14 21 Blood Pressure 118/73 119/67 122/71 Pulse Oximetry 100 100 99 05/07/18 00:00 05/07/18 04:00 05/07/18 08:00 Temperature 98.5 F 97.7 F 98.9 F Pulse Rate 76 66 69 Respiratory Rate 19 18 18 Blood Pressure 125/66 116/67 125/74 Pulse Oximetry 99 99 99 Intake & Output 05/06/18 05/07/18 05/07/18 18:59 06:59 18:59 Intake Total 1060 / 1060 1960 / 1960 Output Total 1700 / 1700 2400 / 2400 Balance -640 / -640 -440 / -440 Weight 83.1 kg Intake: IV 100 / 100 1000 / 1000 NS Inj 1,000 ML @ 125 mls/hr IV 1000 / 1000 .CONT .Q8H TWAN Rx#:[id number] Rocephin Inj 2,000 MG In NS Inj 100 / 100 100 ML @ 200 mls/hr IV.SIG Q24H TWAN Rx#:[id number] Oral 960 / 960 960 / 960 Output: Urine 1700 / 1700 2400 / 2400 Other: # Voids 5 Date of Last Bowel Movement 05/03/18 # Bowel Movements 1 Narrative: in bed, nad dressing LUE intact wound vac has been d/c arm soft 2+ radial pulse nvi Results - Labs CBC & Chem 7: 05/07/18 03:35 05/07/18 03:35 Laboratory Results - last 24 hr 05/07/18 05/07/18 03:35 03:35 WBC 4.2 RBC 2.80 L Hgb 8.2 L Hct 24.7 L MCV 88.3 MCH 29.4 MCHC 33.3 RDW 14.7 Plt Count 510 H MPV 6.6 L Sodium 142 Potassium 4.2 Chloride 107 Carbon Dioxide 24.9 Anion Gap 10 BUN 15 Creatinine 1.55 H Estimated GFR 59 L Random Glucose 77 Calcium 8.4 L Microbiology 05/05/18 21:17 Blood - Peripheral Aerobic Blood Culture - Preliminary No growth in 1 day 05/05/18 21:17 Blood - Peripheral Anaerobic Blood Culture - Preliminary No growth in 1 day 05/05/18 21:30 Blood - Peripheral Aerobic Blood Culture - Preliminary No growth in 1 day 05/05/18 21:30 Blood - Peripheral Anaerobic Blood Culture - Preliminary No growth in 1 day 04/26/18 16:30 Wound - Arm Gram Stain - Final 04/26/18 16:30 Wound - Arm Wound Culture - Preliminary Group A beta (Strep pyogenes) - Procedures Incision and drainage, irrigation and excisional debridement of left arm, left elbow, left forearm. Assessment and Plan - Assessment and Plan POD #5 s/p Repeat irrigation and excisional debridement of left arm, left elbow , left forearm, vac exchange Pain management Medical management IV antibiotic therapy per ID seen by Plastics - d/c wound vac and start dressing changes. they will reevaluate in several weeks ortho stable continue with wound care per Plastics
[2018-05-07] MEDS: Celecoxib 200 MG Capsule PO SCH (10:10)
[2018-05-07] MEDS: QUEtiapine 25 MG Tablet PO SCH (10:10)
[2018-05-07] MEDS: Multivitamin/Minerals Therapeutic Tablet PO SCH (10:10)
[2018-05-07] MEDS: Senna/Docusate Sodium 8.6/50 MG Tablet PO SCH ×3 (10:10→22:25)
[2018-05-07] MEDS: Heparin - SQ 10,000 UNITS/ML Vial SQ SCH ×2 (10:11→22:25)
[2018-05-07] MEDS: Morphine Inj 4 MG/ML Vial IV.PUSH PRN (10:11)
--- NOTE | 2018-05-07 12:30 | P.PNFP ---
Subjective Interval history: Patient seen and examined. Patient states he is experiencing more pain in his left upper extremity following wound vac removal, but states it is tolerable at the moment. Denies fever, chills, nausea, vomiting, abdominal pain, or leg pain. Patient is pending placement, which is currently being arranged by the [facility]. <DrewLorri Dalton - 05/07/18 18:13> Results - Labs Result diagrams: 05/07/18 03:35 05/07/18 03:35 <Angle العلي - 05/07/18 20:43> Abnormal lab results 05/07/18 05/07/18 Range/Units 03:35 03:35 RBC 2.80 L (4.50-5.90) mil/mm3 Hgb 8.2 L (13.0-17.0) gm/dL Hct 24.7 L (39.0-51.0) % Plt Count 510 H (150-450) th/mm3 MPV 6.6 L (7.0-11.0) fL Creatinine 1.55 H (0.60-1.30) mg/dL Estimated GFR 59 L (>89) mL/min Calcium 8.4 L (8.5-10.1) mg/dL Short CBC 05/07/18 Range/Units 03:35 WBC 4.2 (4.0-11.0) th/mm3 Hgb 8.2 L (13.0-17.0) gm/dL Hct 24.7 L (39.0-51.0) % Plt Count 510 H (150-450) th/mm3 BMP 05/07/18 03:35 Sodium 142 Potassium 4.2 Chloride 107 Carbon Dioxide 24.9 BUN 15 Creatinine 1.55 H Calcium 8.4 L <Angle العلي - 05/07/18 20:43> Abnormal lab results 05/07/18 05/07/18 Range/Units 03:35 03:35 RBC 2.80 L (4.50-5.90) mil/mm3 Hgb 8.2 L (13.0-17.0) gm/dL Hct 24.7 L (39.0-51.0) % Plt Count 510 H (150-450) th/mm3 MPV 6.6 L (7.0-11.0) fL Creatinine 1.55 H (0.60-1.30) mg/dL Estimated GFR 59 L (>89) mL/min Calcium 8.4 L (8.5-10.1) mg/dL Short CBC 05/07/18 Range/Units 03:35 WBC 4.2 (4.0-11.0) th/mm3 Hgb 8.2 L (13.0-17.0) gm/dL Hct 24.7 L (39.0-51.0) % Plt Count 510 H (150-450) th/mm3 BMP 05/07/18 03:35 Sodium 142 Potassium 4.2 Chloride 107 Carbon Dioxide 24.9 BUN 15 Creatinine 1.55 H Calcium 8.4 L <Lorri Russell B - 05/07/18 12:30> Physical Exam Vital signs: Vital Signs 05/07/18 00:00 05/07/18 04:00 05/07/18 08:00 Temperature 98.5 F 97.7 F 98.9 F Pulse Rate 76 66 69 Respiratory Rate 19 18 18 Blood Pressure 125/66 116/67 125/74 Pulse Oximetry 99 99 99 05/07/18 12:00 05/07/18 16:00 05/07/18 20:00 Temperature 98.8 F 98.1 F 98.2 F Pulse Rate 76 63 81 Respiratory Rate 18 18 18 Blood Pressure 103/56 L 112/69 111/65 Pulse Oximetry 98 99 99 Intake & Output 05/07/18 05/07/18 05/08/18 06:59 18:59 06:59 Intake Total 2060 / 2060 1120 / 1120 Output Total 2400 / 2400 2585 / 2585 Balance -340 / -340 -1465 / -1465 Weight 83.1 kg Intake: IV 1100 / 1100 NS Inj 1,000 ML @ 125 mls/hr IV 1000 / 1000 .CONT .Q8H TWAN Rx#:[id number] Rocephin Inj 2,000 MG In NS Inj 100 / 100 100 ML @ 200 mls/hr IV.SIG Q24H TWAN Rx#:[id number] Oral 960 / 960 820 / 820 Anesthesia Amount 300 / 300 Output: Urine 2400 / 2400 2400 / 2400 Estimated Blood Loss Wound Drainage 175 / 175 Left Arm 175 / 175 Other: # Voids 4 Date of Last Bowel Movement 05/03/18 # Bowel Movements 1 <Angle العلي - 05/07/18 20:43> Vital Signs 05/06/18 16:00 05/06/18 20:00 05/07/18 00:00 Temperature 98.2 F 98.0 F 98.5 F Pulse Rate 61 71 76 Respiratory Rate 14 21 19 Blood Pressure 119/67 122/71 125/66 Pulse Oximetry 100 99 99 05/07/18 04:00 05/07/18 08:00 05/07/18 12:00 Temperature 97.7 F 98.9 F 98.8 F Pulse Rate 66 69 76 Respiratory Rate 18 18 18 Blood Pressure 116/67 125/74 103/56 L Pulse Oximetry 99 99 98 Intake & Output 05/06/18 05/07/18 05/07/18 18:59 06:59 18:59 Intake Total 1060 / 1060 1960 / 1960 400 / 400 Output Total 1700 / 1700 2400 / 2400 2585 / 2585 Balance -640 / -640 -440 / -440 -2185 / -2185 Weight 83.1 kg Intake: IV 100 / 100 1000 / 1000 NS Inj 1,000 ML @ 125 mls/hr IV 1000 / 1000 .CONT .Q8H TWAN Rx#:[id number] Rocephin Inj 2,000 MG In NS Inj 100 / 100 100 ML @ 200 mls/hr IV.SIG Q24H TWAN Rx#:[id number] Oral 960 / 960 960 / 960 100 / 100 Anesthesia Amount 300 / 300 Output: Urine 1700 / 1700 2400 / 2400 2400 / 2400 Estimated Blood Loss 10 10 Wound Drainage 175 / 175 Left Arm 175 / 175 Other: # Voids 5 5 Date of Last Bowel Movement 05/03/18 05/03/18 # Bowel Movements 1 1 <Lorri Russell - 05/07/18 12:30> Narrative: Narrative: GENERAL: thin AA male laying in bed reading a book, in no acute distress SKIN: Warm and dry. HEAD: Atraumatic. Normocephalic. EYES: No scleral icterus. No injection or drainage. ENT: No nasal bleeding or discharge. NECK: Trachea midline. No JVD. CARDIOVASCULAR: Regular rate and rhythm. No murmur. RESPIRATORY: No accessory muscle use. Clear to auscultation bilaterally. GASTROINTESTINAL: Abdomen soft, non-tender, nondistended. MUSCULOSKELETAL: Extremities without clubbing or cyanosis. Left arm slightly edematous. Upper arm wrapped in jc bandage. Sensation intact. Cap refill 2+. Radial pulses 2+ bilaterally. Able to move arm, wrist and hand with minimal increase in pain. NEUROLOGICAL: Awake and alert. No obvious cranial nerve deficits. Motor grossly within normal limits. Normal speech. <Lorri Russell - 05/07/18 18:13> Assessment and Plan - Assessment (1) Necrotizing fasciitis of upper arm Code(s): M72.6 - Necrotizing fasciitis Status: Acute (2) ROSY (acute kidney injury) Code(s): N17.9 - Acute kidney failure, unspecified Status: Acute (3) HIV (human immunodeficiency virus infection) Code(s): B20 - Human immunodeficiency virus [HIV] disease Status: Chronic (4) Nutrition, metabolism, and development symptoms Code(s): R63.8 - Other symptoms and signs concerning food and fluid intake Status: Acute (5) DVT prophylaxis Status: Acute <Angle العلي - 05/07/18 20:43> (1) Necrotizing fasciitis of upper arm Code(s): M72.6 - Necrotizing fasciitis Status: Acute Plan: Initial presentation of left axilla abscess, s/p treatment with doxycycline. Worsening swelling of the left upper arm. Rapidly worsened swelling with new erythema and multiple blisters on 04/26, suspicious for necrotizing fasciitis. Patient is now POD 4 from repeat I&D, debridement and new wound vac placement. Patient is stable. Remains afebrile since 05/05. Medications: -Day 3 of Ceftriaxone 2000mg q24h -Plastic surgery consult: -Seen yesterday, will follow up patient in 2-3 weeks to decide skin graft vs. healing by secondary intention with closure of wound -Consult ID for abx recommendations and HIV as below, appreciate recommendations -DC'd Vanc and started Ceftriaxone IV after fever overnight on 05/05 -Urine eosinophils- Rare -Most recent blood cultures from 05/05: NGTD -Intraoperative cultures: Group A beta Strep (Strep pyogenes) from 04/26 -OT consulted for evaluation of possible home health needs, which will be arranged by the [facility] with outpatient OT for ROM depending on progress (2) ROSY (acute kidney injury) Code(s): N17.9 - Acute kidney failure, unspecified Status: Acute Plan: Creatinine elevation began on 05/04, likely due to Vancomycin. Is trending downward slightly still it's discontinuation 2 days ago. -Continue IVF NS @ 125 mls/hr -Continue to monitor trend BUN/Cr (3) HIV (human immunodeficiency virus infection) Code(s): B20 - Human immunodeficiency virus [HIV] disease Status: Chronic Plan: PT with HIV, unsure of last CD4 count and not current on antiretroviral therapy with CD4 count 128. -Consulted ID who states that pt can be on prophylactic abx on d/c, but [facility] (4) Nutrition, metabolism, and development symptoms Code(s): R63.8 - Other symptoms and signs concerning food and fluid intake Status: Acute Plan: Fluids: tolerating po, NS @ 125mls/hr Electrolytes: monitor and replete as needed Nutrition: regular diet GI Prophylaxis: none indicated at this time (5) DVT prophylaxis Status: Acute Plan: Early ambulation. bilateral SCDs, heparin 5000 units twice daily <Lorri Russell - 05/07/18 18:06> - Assessment and Plan 47yo AAM with PMH of HIV presenting meeting sepsis criteria with left upper arm edema and axillary abscess later determined to be necrotizing fasciitis due to rapidly progressing swelling with blister formation. POD 5 from repeat I&D and debridement of LUE with Orthopedic Surgery. Plastic surgery will continue to follow as an outpatient for closure of wound. [facility] Currently stable. <Lorri Russell - 05/07/18 18:13> - Attending Attestation Patient seen and examined this afternoon, discussed with resident team. I agree with assessment and management as documented and discussed with me. Pt seen during dressing change. Wound is healing well - no sign of infection. Good granulation tissue. <Angle العلي - 05/07/18 20:43>
[2018-05-07] MEDS: Folic Acid 1 MG Tablet PO SCH (16:45)
[2018-05-07] MEDS: Silver Sulfadiazine 1% Ceam 400 GM Jar TOPICAL SCH (16:45)
[2018-05-07] MEDS: QUEtiapine 100 MG Tablet PO SCH (22:25)
[2018-05-08 05:27] LABS: Hematocrit 26.4 % (39.0-51.0); Mean Corpuscular Hemoglobin 29.9 pg (27.0-34.0); Mean Platelet Volume 6.8 fL (7.0-11.0); Platelet Count 539 th/mm3 (150-450); Red Cell Distribution Width 14.8 % (11.6-17.2); White Blood Count 5.5 th/mm3 (4.0-11.0)
[2018-05-08 05:40] LABS: Calcium 8.4 mg/dL (8.5-10.1); Carbon Dioxide 25.9 meq/L (21.0-32.0); Potassium 4.4 meq/L (3.5-5.1)
[2018-05-08] MEDS: Celecoxib 200 MG Capsule PO SCH (10:23)
[2018-05-08] MEDS: Senna/Docusate Sodium 8.6/50 MG Tablet PO SCH ×2 (10:23→22:43)
[2018-05-08] MEDS: QUEtiapine 25 MG Tablet PO SCH (10:23)
[2018-05-08] MEDS: Multivitamin/Minerals Therapeutic Tablet PO SCH (10:24)
[2018-05-08] MEDS: Heparin - SQ 10,000 UNITS/ML Vial SQ SCH ×2 (10:24→22:44)
[2018-05-08] MEDS: Folic Acid 1 MG Tablet PO SCH (10:24)
--- NOTE | 2018-05-08 12:32 | P.PNFP ---
Subjective Interval history: Patient seen and examined. Patient states that he has continued, tolerable right upper arm pain since the last I&D 6 days ago. He remains able to move his arm and hand freely with mild to moderate pain. Patient denies fever, chills, nausea, vomiting, abdominal pain, chest pain or shortness of breath. \ [facility] <DrewLorri Dalton - 05/08/18 12:49> Results - Labs Result diagrams: 05/08/18 04:21 05/08/18 04:21 <Angle العلي - 05/08/18 21:00> Abnormal lab results 05/08/18 05/08/18 Range/Units 04:21 04:21 RBC 3.00 L (4.50-5.90) mil/mm3 Hgb 9.0 L (13.0-17.0) gm/dL Hct 26.4 L (39.0-51.0) % Plt Count 539 H (150-450) th/mm3 MPV 6.8 L (7.0-11.0) fL Creatinine 1.38 H (0.60-1.30) mg/dL Estimated GFR 67 L (>89) mL/min Calcium 8.4 L (8.5-10.1) mg/dL Short CBC 05/08/18 Range/Units 04:21 WBC 5.5 (4.0-11.0) th/mm3 Hgb 9.0 L (13.0-17.0) gm/dL Hct 26.4 L (39.0-51.0) % Plt Count 539 H (150-450) th/mm3 [facility] 05/08/18 04:21 Sodium 141 Potassium 4.4 Chloride 107 Carbon Dioxide 25.9 BUN 16 Creatinine 1.38 H Calcium 8.4 L <Angle العلي - 05/08/18 21:00> Abnormal lab results 05/08/18 05/08/18 Range/Units 04:21 04:21 RBC 3.00 L (4.50-5.90) mil/mm3 Hgb 9.0 L (13.0-17.0) gm/dL Hct 26.4 L (39.0-51.0) % Plt Count 539 H (150-450) th/mm3 MPV 6.8 L (7.0-11.0) fL Creatinine 1.38 H (0.60-1.30) mg/dL Estimated GFR 67 L (>89) mL/min Calcium 8.4 L (8.5-10.1) mg/dL Short CBC 05/08/18 Range/Units 04:21 WBC 5.5 (4.0-11.0) th/mm3 Hgb 9.0 L (13.0-17.0) gm/dL Hct 26.4 L (39.0-51.0) % Plt Count 539 H (150-450) th/mm3 BMP 05/08/18 04:21 Sodium 141 Potassium 4.4 Chloride 107 Carbon Dioxide 25.9 BUN 16 Creatinine 1.38 H Calcium 8.4 L <Lorri Russell - 05/08/18 12:32> Physical Exam Vital signs: Vital Signs 05/08/18 00:00 05/08/18 04:00 05/08/18 08:00 Temperature 98.3 F 98.0 F 99.9 F H Pulse Rate 83 14 L 78 Respiratory Rate 18 14 21 Blood Pressure 115/70 110/60 122/64 Pulse Oximetry 99 98 99 05/08/18 12:00 05/08/18 14:50 05/08/18 14:52 Temperature 98.7 F Pulse Rate 80 66 Respiratory Rate 20 16 16 Blood Pressure 107/58 L 102/57 L Pulse Oximetry 100 05/08/18 16:00 05/08/18 19:59 Temperature 98.3 F 97.9 F Pulse Rate 64 78 Respiratory Rate 20 17 Blood Pressure 101/59 L 110/69 Pulse Oximetry 99 99 Intake & Output 05/08/18 05/08/18 05/09/18 06:59 18:59 06:59 Intake Total 480 / 480 Output Total 1300 / 1300 Balance -820 / -820 Intake: Oral 480 / 480 Output: Urine 1300 / 1300 Other: # Voids 2 Date of Last Bowel Movement 05/03/18 <Angle العلي - 05/08/18 21:00> Vital Signs 05/07/18 16:00 05/07/18 20:00 05/08/18 00:00 Temperature 98.1 F 98.2 F 98.3 F Pulse Rate 63 81 83 Respiratory Rate 18 18 18 Blood Pressure 112/69 111/65 115/70 Pulse Oximetry 99 99 99 05/08/18 04:00 05/08/18 08:00 05/08/18 12:00 Temperature 98.0 F 99.9 F H 98.7 F Pulse Rate 14 L 78 80 Respiratory Rate 14 21 20 Blood Pressure 110/60 122/64 107/58 L Pulse Oximetry 98 99 100 Intake & Output 05/07/18 05/08/18 05/08/18 18:59 06:59 18:59 Intake Total 1120 / 1120 Output Total 2585 / 2585 1300 / 1300 Balance -1465 / -1465 -1300 / -1300 Intake: Oral 820 / 820 Anesthesia Amount 300 / 300 Output: Urine 2400 / 2400 1300 / 1300 Estimated Blood Loss Wound Drainage 175 / 175 Left Arm 175 / 175 Other: # Voids 4 Date of Last Bowel Movement 05/03/18 # Bowel Movements 1 <Lorri Russell - 05/08/18 12:32> Narrative: Narrative: Narrative: GENERAL: thin AA male laying in bed watching TV , in no acute distress SKIN: Warm and dry. HEAD: Atraumatic. Normocephalic. EYES: No scleral icterus. No injection or drainage. ENT: No nasal bleeding or discharge. NECK: Trachea midline. No JVD. CARDIOVASCULAR: Regular rate and rhythm. No murmur. RESPIRATORY: No accessory muscle use. Clear to auscultation bilaterally. GASTROINTESTINAL: Abdomen soft, non-tender, nondistended. MUSCULOSKELETAL: Extremities without clubbing or cyanosis. Left arm slightly edematous. Upper arm wrapped in jc bandage. Sensation intact. Cap refill 2+. Radial pulses 2+ bilaterally. Able to move arm, wrist and hand with minimal increase in pain. NEUROLOGICAL: Awake and alert. No obvious cranial nerve deficits. Motor grossly within normal limits. Normal speech. <Lorri Russell - 05/08/18 12:49> Assessment and Plan - Assessment (1) Necrotizing fasciitis of upper arm Code(s): M72.6 - Necrotizing fasciitis Status: Acute (2) ROSY (acute kidney injury) Code(s): N17.9 - Acute kidney failure, unspecified Status: Acute (3) HIV (human immunodeficiency virus infection) Code(s): B20 - Human immunodeficiency virus [HIV] disease Status: Chronic (4) Nutrition, metabolism, and development symptoms Code(s): R63.8 - Other symptoms and signs concerning food and fluid intake Status: Acute (5) DVT prophylaxis Status: Acute <Angle العلي - 05/08/18 21:00> (1) Necrotizing fasciitis of upper arm Code(s): M72.6 - Necrotizing fasciitis Status: Acute Plan: Initial presentation of left axilla abscess, s/p treatment with doxycycline. Worsening swelling of the left upper arm. Rapidly worsened swelling with new erythema and multiple blisters on 04/26, suspicious for necrotizing fasciitis. Patient is now POD 4 from repeat I&D, debridement and new wound vac placement. Patient is stable and has remained afebrile since 05/05. Medications: -Day 4 of Ceftriaxone 2000mg q24h -Plastic surgery consult: -Seen yesterday, will follow up patient in 2-3 weeks to decide skin graft vs. healing by secondary intention with closure of wound -Consult ID for abx recommendations and HIV as below, appreciate recommendations -Started Ceftriaxone IV after fever overnight on 05/05 -Most recent blood cultures from 05/05: NGTD -Intraoperative cultures: Group A beta Strep (Strep pyogenes) from 04/26 -Would appreciate ID's recommendations for antibiotic regimen for discharge planning -OT consulted for evaluation of possible home health needs, which will be arranged by the [facility] -Home with outpatient OT for ROM depending on progress (2) ROSY (acute kidney injury) Code(s): N17.9 - Acute kidney failure, unspecified Status: Acute Plan: Creatinine elevation began on 05/04, likely due to Vancomycin. Is trending downward slightly still it's discontinuation 3 days ago. -Continue IVF NS @ 125 mls/hr -Continue to monitor trend BUN/Cr (3) HIV (human immunodeficiency virus infection) Code(s): B20 - Human immunodeficiency virus [HIV] disease Status: Chronic Plan: PT with HIV, unsure of last CD4 count and not current on antiretroviral therapy with CD4 count 128. -Consulted ID who states that pt can be on prophylactic abx on d/c, but [facility] (4) Nutrition, metabolism, and development symptoms Code(s): R63.8 - Other symptoms and signs concerning food and fluid intake Status: Acute Plan: Fluids: Tolerating PO, NS @ 125mls/hr Electrolytes: monitor and replete as needed Nutrition: regular diet GI Prophylaxis: none indicated at this time (5) DVT prophylaxis Status: Acute Plan: Early ambulation. bilateral SCDs, heparin 5000 units twice daily <Lorri Russell - 05/08/18 12:39> - Assessment and Plan 47yo AAM with PMH of HIV presenting meeting sepsis criteria with left upper arm edema and axillary abscess later determined to be necrotizing fasciitis due to rapidly progressing swelling with blister formation. POD 5 from repeat I&D and debridement of LUE with Orthopedic Surgery. Plastic surgery will continue to follow as an outpatient for closure of wound. [facility] Currently stable. <Lorri Russell - 05/08/18 12:32> - Attending Attestation Patient seen, examined, and discussed with resident team this morning on rounds. I agree with assessment and management as documented and discussed with me. Pt reports some arm pain. He is tolerating dressing changes, with premedication. He is looking forward to placement at SNF soon. <Angle العلي - 05/08/18 21:00>
[2018-05-08] MEDS: Silver Sulfadiazine 1% Ceam 400 GM Jar TOPICAL SCH (14:49)
[2018-05-08] MEDS: Morphine Inj 4 MG/ML Vial IV.PUSH PRN (14:50)
[2018-05-08] MEDS: QUEtiapine 100 MG Tablet PO SCH (22:43)
[2018-05-09] MEDS: Sod Chloride 0.9% Inj 1,000 ML IV.CONT SCH (03:22)
[2018-05-09 07:21] LABS: Hematocrit 25.9 % (39.0-51.0); Hemoglobin 8.7 gm/dL (13.0-17.0); Mean Corpuscular HGB Conc 33.4 % (32.0-36.0); Mean Corpuscular Hemoglobin 29.4 pg (27.0-34.0); Mean Corpuscular Volume 88.3 fL (80.0-100.0); Mean Platelet Volume 6.5 fL (7.0-11.0); Platelet Count 508 th/mm3 (150-450); Red Blood Count 2.94 mil/mm3 (4.50-5.90); Red Cell Distribution Width 14.7 % (11.6-17.2); White Blood Count 4.9 th/mm3 (4.0-11.0)
[2018-05-09 07:45] LABS: Calcium 8.8 mg/dL (8.5-10.1); Carbon Dioxide 26.7 meq/L (21.0-32.0); Potassium 4.3 meq/L (3.5-5.1)
--- NOTE | 2018-05-09 10:59 | P.PNID ---
Subjective Remarks: ID COVERAGE Patient is not a reliable historian. Mr. Quezada is a 47yo AAM with a PMH of HIV (diagnosed in [facility] per patient, sexually transmitted, denies any IVDA. He reports he was diagnosed with HIV 10 years back and since then has been on treatment off and on. He reports he has never has any opportunistic infections or hospitalizations that would point towards these diagnosis. He reports he has been off HAART for last 1 year. He says he was depressed and hence quit taking medications. He denies any suicidal ideations. His PMHx is also significant for reported history of Bipolar disorder, PTSD, MDD unsure if he is on treatment for the same. He denies any IVDA adamantly. With this background patient presents to the hospital with left UE arm swelling. He reports this started as an axillary area swelling approximately 2 weeks back for which [facility] and [facility]. He denies any trauma, insect bites, or IVDA. He reports he is still on his antibiotics unsure if he has been compliant with his medications. He then went to the doctor at the [facility] on 04/15 and was prescribed doxycycline. He goes on to report that he started draining malodorous green pus. Patient reports that approximately 4 days back patient left upper arm starting swelling, became erythematous, warm. He reports he had no bus ride so he toughed it out. He reports having developed night sweats, fever/chills, fatigue, loss of appetite. He reports pain in his left UE and is unable to move his hand due to significant pain and swelling. He denies any chest pain or back pain. He denies prior endocarditis or epidural abscess. ID consulted for evaluation and Mment of possible LUE abscess ? Nec fascitis. Notes reviewed No fever Pain is under control Getting ready for discharge Spoke with medical team No rash No diarrhea Has been getting wound care to his LUE wounds, now getting silvadene dressings once a day Antibiotics: Rocephin Lines: Lines ok Past Medical History: reviewed Allergies/Adverse Reactions: Allergies No Known Allergies Allergy (Verified 04/25/18 11:26) Objective Vital Signs 05/08/18 12:00 05/08/18 14:50 05/08/18 14:52 Temperature 98.7 F Pulse Rate 80 66 Respiratory Rate 20 16 16 Blood Pressure 107/58 L 102/57 L Pulse Oximetry 100 05/08/18 16:00 05/08/18 19:59 05/09/18 00:00 Temperature 98.3 F 97.9 F 98.0 F Pulse Rate 64 78 71 Respiratory Rate 20 17 16 Blood Pressure 101/59 L 110/69 101/55 L Pulse Oximetry 99 99 98 05/09/18 04:00 05/09/18 09:15 05/09/18 09:36 Temperature 98.0 F 98.5 F 98.5 F Pulse Rate 70 84 71 Respiratory Rate 14 20 14 Blood Pressure 110/60 129/75 121/62 Pulse Oximetry 99 100 100 Intake & Output 05/08/18 05/09/18 05/09/18 18:59 06:59 18:59 Intake Total 480 / 480 100 / 100 Output Total 1300 / 1300 Balance -820 / -820 100 / 100 Weight 86.6 kg Intake: IV 100 / 100 Rocephin Inj 2,000 MG In NS Inj 100 / 100 100 ML @ 200 mls/hr IV.SIG Q24H [facility] Rx#:[id number] Oral 480 / 480 Output: Urine 1300 / 1300 Other: # Voids 2 Date of Last Bowel Movement 05/03/18 05/05/18 21:17 Blood - Peripheral Aerobic Blood Culture - Preliminary No growth in 3 days 05/05/18 21:17 Blood - Peripheral Anaerobic Blood Culture - Preliminary No growth in 3 days 05/05/18 21:30 Blood - Peripheral Aerobic Blood Culture - Preliminary No growth in 3 days 05/05/18 21:30 Blood - Peripheral Anaerobic Blood Culture - Preliminary No growth in 3 days 04/26/18 16:30 Wound - Arm Gram Stain - Final 04/26/18 16:30 Wound - Arm Wound Culture - Final Group A beta (Strep pyogenes) Lab - Hematology Results 05/08/18 05/09/18 04:21 06:54 WBC 5.5 4.9 RBC 3.00 L 2.94 L Hgb 9.0 L 8.7 L Hct 26.4 L 25.9 L MCV 88.0 88.3 MCH 29.9 29.4 MCHC 34.0 33.4 RDW 14.8 14.7 Plt Count 539 H 508 H MPV 6.8 L 6.5 L Lab - Chemistry Results 05/08/18 05/09/18 04:21 06:54 Sodium 141 140 Potassium 4.4 4.3 Chloride 107 106 Carbon Dioxide 25.9 26.7 Anion Gap 8 7 BUN 16 14 Creatinine 1.38 H 1.41 H Estimated GFR 67 L 65 L Random Glucose 81 78 Calcium 8.4 L 8.8 Imaging: ITS Impressions Upper Extremity Ultrasound 04/25/18 00:00 CONCLUSION: Subcutaneous tissue phlegmon in the left axillary region. Forearm CT 04/25/18 12:57 CONCLUSION: 1. Nonspecific subcutaneous edema along the medial aspect of the proximal forearm. 2. The bony structures are grossly intact. Humerus CT 04/25/18 12:57 CONCLUSION: 1. Nonspecific edema throughout the subcutaneous soft tissues along the medial aspect of the upper arm. No drainable loculated fluid collections. 2. The bony structures of the humerus are grossly unremarkable. Chest X-Ray 04/26/18 00:00 CONCLUSION: The lungs are clear. Humerus MRI 04/26/18 00:00 CONCLUSION: Severe cellulitis confined to subcutaneous location with fascial enhancement which may be reactive in nature. There is no evidence of abscess. There is no evidence of osteomyelitis. Physical Exam: GENERAL: In no acute distress SKIN: Warm and dry. HEAD: Atraumatic. Normocephalic. EYES: No scleral icterus. No injection or drainage. ENT: No nasal bleeding or discharge. NECK: Trachea midline. No JVD. CARDIOVASCULAR: Regular rate and rhythm. RESPIRATORY: No accessory muscle use. Clear to auscultation. Course breath sounds, but equal bilaterally. GASTROINTESTINAL: Abdomen soft, non-tender, nondistended. MUSCULOSKELETAL: Extremities without clubbing, cyanosis, or edema. LUE wound - moore with red granulation tissue, minimal induration, no erythema, no odor , has silvadene dressing in place. NEUROLOGICAL: Grossly non-frocal PSYCHIATRIC: Cooperative Assessment and Plan - Plan Severe Sepsis fever, leucocytosis, hypotension, lactic acid elevation. - rewolved Group A strep from Intra-Op wound cultures LUE abscess/cellulitis. With Necrotizing fascitis due to blistering, pain out of proportion, decreased ROM. . Axillary abscess Was on antibiotics prior to admission. HIV Immunocompromised. Recs: Continue Ceftriaxone IV - plan 4 weeks MIdline Wound care per surgery OK to D/C to rehab facility I will fill out antibiotic infusion form D/W patient D/W FP team
--- NOTE | 2018-05-09 11:02 | P.DCO ---
Post Hospital Infusion Therapy Location of Infusion Therapy: [facility] Infusion Therapy Order Patient Weight: 86.6 kg - Diagnosis (1) Necrotizing fasciitis of upper arm Code(s): M72.6 - Necrotizing fasciitis - Administer Medication Ceftriaxone Dose: 2 grams IV Directions: q 24 hours Stop Treatment: 06/05/18 - Additional Information Venous Access: Other (Mildine) Additional Instructions: [x] Peripheral flush and dressing changes per protocol [x] Implanted port and central brake reliner: * Implanted port: 10 ml Normal Saline followed by 5 ml Heparin 100 units/ml Heparin flush after each use and monthly to maintain. [] May leave port accessed during therapy. [] May leave peripheral site accessed for duration of therapy. [x] If patient has SOB or respiratory distress, check oxygen saturation. If less than 90% or clinical signs of respiratory distress, administer oxygen at 2 L/min. via nasal cannula and notify physician. [x] Anaphylaxis/Reaction orders: * Stop infusion. * Keep IV line open with saline flush. * Notify physician. * Monitor vital signs every 15 minutes until symptoms resolve. * Check Oxygen saturation; Oxygen at 2 L/min. via nasal cannula if less than 90% or clinical signs of respiratory distress. * Administer diphenhydramine (Benadryl) 25 mg IV STAT, (unless patient has received as pre-med). May repeat once, if necessary. * Solu-Cortef 250 mg IVP over 30-60 seconds, use 100 mg vials for each dissolution. * Epinephrine (1mg/1 ml) 0.3 mg subcutaneously or IVP now with any signs of respiratory distress. * Check with physician for new additional pre-med orders if patient is re- challenged or re-treated. [x] Remove PICC line when treatment complete. [x] If the patient is admitted to the hospital, the ED, or transferred via [facility] , complete transfer form including medication reconciliation order sheet. Weekly Labs: CBC w/diff, Creatinine, LFTs (Hepatic Function Test) Case Management Consult: Yes Additional Information: Labs every Wednesday Allergies No Known Allergies Allergy (Verified 04/25/18 11:26)
[2018-05-09] MEDS: Senna/Docusate Sodium 8.6/50 MG Tablet PO SCH ×2 (11:25→22:23)
[2018-05-09] MEDS: Folic Acid 1 MG Tablet PO SCH (11:25)
[2018-05-09] MEDS: Multivitamin/Minerals Therapeutic Tablet PO SCH (11:25)
[2018-05-09] MEDS: QUEtiapine 25 MG Tablet PO SCH (11:25)
[2018-05-09] MEDS: Heparin - SQ 10,000 UNITS/ML Vial SQ SCH ×2 (11:26→22:23)
[2018-05-09] MEDS: Celecoxib 200 MG Capsule PO SCH (11:26)
[2018-05-09] MEDS: Silver Sulfadiazine 1% Ceam 400 GM Jar TOPICAL SCH (11:26)
--- NOTE | 2018-05-09 17:26 | P.PNFP ---
Subjective Interval history: Patient seen and examined this morning. He states that he is doing well. His pain is well controlled. No chest pain, no shortness of breath , no fevers or chills, no abdominal pain, urinating and stooling well. <Asya Mcneil - 05/09/18 17:26> Results - Labs Result diagrams: 05/09/18 06:54 05/09/18 06:54 <Angle العلي - 05/09/18 20:17> Abnormal lab results 05/09/18 05/09/18 Range/Units 06:54 06:54 RBC 2.94 L (4.50-5.90) mil/mm3 Hgb 8.7 L (13.0-17.0) gm/dL Hct 25.9 L (39.0-51.0) % Plt Count 508 H (150-450) th/mm3 MPV 6.5 L (7.0-11.0) fL Creatinine 1.41 H (0.60-1.30) mg/dL Estimated GFR 65 L (>89) mL/min Short CBC 05/09/18 Range/Units 06:54 WBC 4.9 (4.0-11.0) th/mm3 Hgb 8.7 L (13.0-17.0) gm/dL Hct 25.9 L (39.0-51.0) % Plt Count 508 H (150-450) th/mm3 BMP 05/09/18 06:54 Sodium 140 Potassium 4.3 Chloride 106 Carbon Dioxide 26.7 BUN 14 Creatinine 1.41 H Calcium 8.8 <Angle العلي - 05/09/18 20:17> Abnormal lab results 05/09/18 05/09/18 Range/Units 06:54 06:54 RBC 2.94 L (4.50-5.90) mil/mm3 Hgb 8.7 L (13.0-17.0) gm/dL Hct 25.9 L (39.0-51.0) % Plt Count 508 H (150-450) th/mm3 MPV 6.5 L (7.0-11.0) fL Creatinine 1.41 H (0.60-1.30) mg/dL Estimated GFR 65 L (>89) mL/min Short CBC 05/09/18 Range/Units 06:54 WBC 4.9 (4.0-11.0) th/mm3 Hgb 8.7 L (13.0-17.0) gm/dL Hct 25.9 L (39.0-51.0) % Plt Count 508 H (150-450) th/mm3 BMP 05/09/18 06:54 Sodium 140 Potassium 4.3 Chloride 106 Carbon Dioxide 26.7 BUN 14 Creatinine 1.41 H Calcium 8.8 <Asya Mcneil G - 05/09/18 17:26> Physical Exam Vital signs: Vital Signs 05/09/18 00:00 05/09/18 04:00 05/09/18 09:15 Temperature 98.0 F 98.0 F 98.5 F Pulse Rate 71 70 84 Respiratory Rate 16 14 20 Blood Pressure 101/55 L 110/60 129/75 Pulse Oximetry 98 99 100 05/09/18 09:36 05/09/18 12:49 05/09/18 17:56 Temperature 98.5 F 98.3 F 98.5 F Pulse Rate 71 80 58 L Respiratory Rate 14 18 16 Blood Pressure 121/62 108/60 133/58 L Pulse Oximetry 100 99 100 Intake & Output 05/09/18 05/09/18 05/10/18 06:59 18:59 06:59 Intake Total 200 / 200 1000 / 1000 Balance 200 / 200 1000 / 1000 Weight 86.6 kg 86.6 kg Intake: IV 200 / 200 Rocephin Inj 2,000 MG In NS Inj 200 / 200 100 ML @ 200 mls/hr IV.SIG Q24H [facility] Rx#:[id number] Oral 1000 / 1000 Other: # Voids 4 # Bowel Movements 1 <Angle العلي - 05/09/18 20:17> Vital Signs 05/08/18 19:59 05/09/18 00:00 05/09/18 04:00 Temperature 97.9 F 98.0 F 98.0 F Pulse Rate 78 71 70 Respiratory Rate 17 16 14 Blood Pressure 110/69 101/55 L 110/60 Pulse Oximetry 99 98 99 05/09/18 09:15 05/09/18 09:36 05/09/18 12:49 Temperature 98.5 F 98.5 F 98.3 F Pulse Rate 84 71 80 Respiratory Rate 20 14 18 Blood Pressure 129/75 121/62 108/60 Pulse Oximetry 100 100 99 Intake & Output 05/08/18 05/09/18 05/09/18 18:59 06:59 18:59 Intake Total 480 / 480 100 / 100 Output Total 1300 / 1300 Balance -820 / -820 100 / 100 Weight 86.6 kg 86.6 kg Intake: IV 100 / 100 Rocephin Inj 2,000 MG In NS Inj 100 / 100 100 ML @ 200 mls/hr IV.SIG Q24H [facility] Rx#:[id number] Oral 480 / 480 Output: Urine 1300 / 1300 Other: # Voids 2 Date of Last Bowel Movement 05/03/18 <Asya Mcneil - 05/09/18 17:26> Narrative: GENERAL: thin AA male laying in bed watching TV, in no acute distress SKIN: Warm and dry. HEAD: Atraumatic. Normocephalic. EYES: No scleral icterus. No injection or drainage. ENT: No nasal bleeding or discharge. NECK: Trachea midline. No JVD. CARDIOVASCULAR: Regular rate and rhythm. RESPIRATORY: No accessory muscle use. Clear to auscultation bilaterally. GASTROINTESTINAL: Abdomen soft, non-tender, nondistended. MUSCULOSKELETAL: Extremities without clubbing or cyanosis. Left arm wrapped in jc bandage. Sensation intact. Cap refill 2+ NEUROLOGICAL: Awake and alert. No obvious cranial nerve deficits. Motor grossly within normal limits. Normal speech. <Asya Mcneil - 05/09/18 17:26> Assessment and Plan - Assessment (1) Necrotizing fasciitis of upper arm Code(s): M72.6 - Necrotizing fasciitis Status: Acute (2) ROSY (acute kidney injury) Code(s): N17.9 - Acute kidney failure, unspecified Status: Acute (3) HIV (human immunodeficiency virus infection) Code(s): B20 - Human immunodeficiency virus [HIV] disease Status: Chronic (4) Nutrition, metabolism, and development symptoms Code(s): R63.8 - Other symptoms and signs concerning food and fluid intake Status: Acute (5) DVT prophylaxis Status: Acute <Angle العلي - 05/09/18 20:17> (1) Necrotizing fasciitis of upper arm Code(s): M72.6 - Necrotizing fasciitis Status: Acute Plan: Initial presentation of left axilla abscess, s/p treatment with doxycycline. Worsening swelling of the left upper arm. Rapidly worsened swelling with new erythema and multiple blisters on 04/26, suspicious for necrotizing fasciitis. Patient is now POD 7 from repeat I&D, debridement and new wound vac placement. Patient is stable and has remained afebrile since 05/05. Medications: -Day 5 of Ceftriaxone 2000mg q24h (05/05- ) -Plastic surgery consult: -Seen yesterday, will follow up patient in 2-3 weeks to decide skin graft vs. healing by secondary intention with closure of wound -Consult ID for abx recommendations and HIV as below, appreciate recommendations -Started Ceftriaxone IV after fever overnight on 05/05, plan to continue for 4 weeks -Pt to be d/c'd with midline -Most recent blood cultures from 05/05: NGTD -Intraoperative cultures: Group A beta Strep (Strep pyogenes) from 04/26 -Would appreciate ID's recommendations for antibiotic regimen for discharge planning -OT consulted for evaluation of possible home health needs, which will be arranged by the [facility] -Home with outpatient OT for ROM depending on progress (2) ROSY (acute kidney injury) Code(s): N17.9 - Acute kidney failure, unspecified Status: Acute Plan: Creatinine elevation began on 05/04, likely due to Vancomycin. Is trending downward slightly still it's discontinuation 3 days ago. -Continue IVF NS @ 125 mls/hr -Continue to monitor trend BUN/Cr (3) HIV (human immunodeficiency virus infection) Code(s): B20 - Human immunodeficiency virus [HIV] disease Status: Chronic Plan: PT with HIV, unsure of last CD4 count and not current on antiretroviral therapy with CD4 count 128. -Consulted ID who states that pt can be on prophylactic abx on d/c, but [facility] (4) Nutrition, metabolism, and development symptoms Code(s): R63.8 - Other symptoms and signs concerning food and fluid intake Status: Acute Plan: Fluids: Tolerating PO, NS @ 125mls/hr Electrolytes: monitor and replete as needed Nutrition: regular diet GI Prophylaxis: none indicated at this time (5) DVT prophylaxis Status: Acute Plan: Early ambulation. bilateral SCDs, heparin 5000 units twice daily <Asya Mcneil - 05/09/18 17:17> - Assessment and Plan 47yo AAM with PMH of HIV presenting meeting sepsis criteria with left upper arm edema and axillary abscess later determined to be necrotizing fasciitis due to rapidly progressing swelling with blister formation. POD 5 from repeat I&D and debridement of LUE with Orthopedic Surgery. Plastic surgery will continue to follow as an outpatient for closure of wound. [facility]. Currently stable. <Asya Mcneil - 05/09/18 17:26> Discharge Planning: Patient POD 7 from 2nd procedure, will continue to follow clinical course. Case management is consulted and will be [facility] with the [facility] team. <Asya Mcneil - 05/09/18 17:26> - Attending Attestation Patient seen and examined this morning, discussed with resident team. I agree with assessment and management as documented and discussed with me. Pt remains clinically stable; requiring IV rocephin daily and daily dressing changes. Appreciate case management, who is working to coordinate discharge planning. <Angle العلي - 05/09/18 20:17>
[2018-05-09] MEDS: QUEtiapine 100 MG Tablet PO SCH (22:23)
[2018-05-10] MEDS: Morphine Inj 4 MG/ML Vial IV.PUSH PRN (00:22)
[2018-05-10] MEDS: Zolpidem Tartrate 5 MG Tablet PO PRN (00:24)
[2018-05-10 06:02] LABS: Hematocrit 24.7 % (39.0-51.0); Hemoglobin 8.3 gm/dL (13.0-17.0); Mean Corpuscular HGB Conc 33.6 % (32.0-36.0); Mean Corpuscular Hemoglobin 29.5 pg (27.0-34.0); Mean Corpuscular Volume 87.8 fL (80.0-100.0); Mean Platelet Volume 6.6 fL (7.0-11.0); Platelet Count 481 th/mm3 (150-450); Red Blood Count 2.81 mil/mm3 (4.50-5.90); Red Cell Distribution Width 14.3 % (11.6-17.2); White Blood Count 3.6 th/mm3 (4.0-11.0)
[2018-05-10 06:21] LABS: Calcium 8.5 mg/dL (8.5-10.1); Carbon Dioxide 26.2 meq/L (21.0-32.0); Potassium 4.1 meq/L (3.5-5.1)
[2018-05-10] MEDS: Multivitamin/Minerals Therapeutic Tablet PO SCH (09:56)
[2018-05-10] MEDS: QUEtiapine 25 MG Tablet PO SCH (09:57)
[2018-05-10] MEDS: Folic Acid 1 MG Tablet PO SCH (09:57)
[2018-05-10] MEDS: Celecoxib 200 MG Capsule PO SCH (09:57)
[2018-05-10] MEDS: Senna/Docusate Sodium 8.6/50 MG Tablet PO SCH ×2 (09:57→21:02)
[2018-05-10] MEDS: Heparin - SQ 10,000 UNITS/ML Vial SQ SCH ×2 (10:03→21:02)
--- NOTE | 2018-05-10 11:51 | P.PNFP ---
Subjective Interval history: Patient seen and examined this morning. He states that his pain is currently well controlled. Denies fever, chills, nausea, vomiting, chest pain, shortness of breath or leg pain. Wound care came yesterday and re-dressed his left upper arm. Per ID, patient is to receive Rocephin for 4 weeks on an outpatient basis and ordered a midline to be placed. Patient had a midline place in the right arm in preparation for discharge. Per case management, he was declined at [facility] due to history of PTSD, but are discussing possible placement at [facility]. He was previously not accepted at [facility] to [facility] because of the wound vac, but case management will call back to today, since he no longer has a wound vac. Update 05/10 12:30: [address] العلي, by request of patient's [facility] case aide, who is in the process of helping find placement for the patient. Update 05/10 14:45: Case management called, stating that the possible accepting [facility], [facility] to [facility], requires a negative nasal MRSA swab, prior to reviewing his chart. Ordered Nasal MRSA swab. Called nurse who is aware of order and will complete now. <Lorri Russell - 05/10/18 14:58> Results - Labs Result diagrams: 05/10/18 05:11 05/10/18 05:11 <Angle العلي - 05/10/18 20:56> Abnormal lab results 05/10/18 05/10/18 Range/Units 05:11 05:11 WBC 3.6 L (4.0-11.0) th/mm3 RBC 2.81 L (4.50-5.90) mil/mm3 Hgb 8.3 L (13.0-17.0) gm/dL Hct 24.7 L (39.0-51.0) % Plt Count 481 H (150-450) th/mm3 MPV 6.6 L (7.0-11.0) fL Creatinine 1.39 H (0.60-1.30) mg/dL Estimated GFR 66 L (>89) mL/min Short CBC 05/10/18 Range/Units 05:11 WBC 3.6 L (4.0-11.0) th/mm3 Hgb 8.3 L (13.0-17.0) gm/dL Hct 24.7 L (39.0-51.0) % Plt Count 481 H (150-450) th/mm3 [facility] 05/10/18 05:11 Sodium 141 Potassium 4.1 Chloride 107 Carbon Dioxide 26.2 BUN 17 Creatinine 1.39 H Calcium 8.5 <Angle العلي - 05/10/18 20:56> Abnormal lab results 05/10/18 05/10/18 Range/Units 05:11 05:11 WBC 3.6 L (4.0-11.0) th/mm3 RBC 2.81 L (4.50-5.90) mil/mm3 Hgb 8.3 L (13.0-17.0) gm/dL Hct 24.7 L (39.0-51.0) % Plt Count 481 H (150-450) th/mm3 MPV 6.6 L (7.0-11.0) fL Creatinine 1.39 H (0.60-1.30) mg/dL Estimated GFR 66 L (>89) mL/min Short CBC 05/10/18 Range/Units 05:11 WBC 3.6 L (4.0-11.0) th/mm3 Hgb 8.3 L (13.0-17.0) gm/dL Hct 24.7 L (39.0-51.0) % Plt Count 481 H (150-450) th/mm3 [facility] 05/10/18 05:11 Sodium 141 Potassium 4.1 Chloride 107 Carbon Dioxide 26.2 BUN 17 Creatinine 1.39 H Calcium 8.5 <Lorri Russell Dalton - 05/10/18 11:50> Physical Exam Vital signs: Vital Signs 05/10/18 00:00 05/10/18 04:00 05/10/18 08:00 Temperature 97.9 F 97.8 F 98.9 F Pulse Rate 76 71 84 Respiratory Rate 16 14 18 Blood Pressure 122/64 110/68 127/59 L Pulse Oximetry 100 100 100 05/10/18 12:00 05/10/18 16:00 05/10/18 20:00 Temperature 98.4 F 98.3 F 98.2 F Pulse Rate 77 68 91 H Respiratory Rate 18 18 19 Blood Pressure 136/66 136/63 126/71 Pulse Oximetry 100 100 100 Intake & Output 05/10/18 05/10/18 05/11/18 06:59 18:59 06:59 Intake Total 100 / 100 Balance 100 / 100 Weight 86.6 kg Intake: IV 100 / 100 Rocephin Inj 2,000 MG In NS Inj 100 / 100 100 ML @ 200 mls/hr IV.SIG Q24H [facility] Rx#:[id number] Other: Date of Last Bowel Movement 05/03/18 05/03/18 <Angle العلي - 05/10/18 20:56> Vital Signs 05/09/18 12:49 05/09/18 17:56 05/09/18 20:00 Temperature 98.3 F 98.5 F 97.8 F Pulse Rate 80 58 L 87 Respiratory Rate 18 16 17 Blood Pressure 108/60 133/58 L 126/66 Pulse Oximetry 99 100 100 05/10/18 00:00 05/10/18 04:00 05/10/18 08:00 Temperature 97.9 F 97.8 F 98.9 F Pulse Rate 76 71 84 Respiratory Rate 14 18 Blood Pressure 122/64 110/68 127/59 L Pulse Oximetry 100 100 100 Intake & Output 05/09/18 05/10/18 05/10/18 18:59 06:59 18:59 Intake Total 1000 / 1000 Balance 1000 / 1000 Weight 86.6 kg 86.6 kg Intake: Oral 1000 / 1000 Other: # Voids 4 Date of Last Bowel Movement 05/03/18 05/03/18 # Bowel Movements 1 <Lorri Russell - 05/10/18 11:50> Narrative: thin AA male sitting up in bed watching television, in no acute distress SKIN: Warm and dry. HEAD: Atraumatic. Normocephalic. EYES: No scleral icterus. No injection or drainage. ENT: No nasal bleeding or discharge. NECK: Trachea midline. No JVD. CARDIOVASCULAR: Regular rate and rhythm. RESPIRATORY: No accessory muscle use. Clear to auscultation bilaterally. GASTROINTESTINAL: Abdomen soft, non-tender, nondistended. MUSCULOSKELETAL: Extremities without clubbing or cyanosis. Left arm wrapped in jc bandage from shoulder to wrist. Sensation intact. Cap refill 2+. NEUROLOGICAL: Awake and alert. No obvious cranial nerve deficits. Motor grossly within normal limits. Normal speech. <Lorri Russell - 05/10/18 14:58> Assessment and Plan - Assessment (1) Necrotizing fasciitis of upper arm Code(s): M72.6 - Necrotizing fasciitis Status: Acute (2) ROSY (acute kidney injury) Code(s): N17.9 - Acute kidney failure, unspecified Status: Acute (3) HIV (human immunodeficiency virus infection) Code(s): B20 - Human immunodeficiency virus [HIV] disease Status: Chronic (4) Nutrition, metabolism, and development symptoms Code(s): R63.8 - Other symptoms and signs concerning food and fluid intake Status: Acute (5) DVT prophylaxis Status: Acute <Angle العلي - 05/10/18 20:56> (1) Necrotizing fasciitis of upper arm Code(s): M72.6 - Necrotizing fasciitis Status: Acute Plan: Initial presentation of left axilla abscess, s/p treatment with doxycycline. Worsening swelling of the left upper arm. Rapidly worsened swelling with new erythema and multiple blisters on 04/26, suspicious for necrotizing fasciitis. Patient is now POD 7 from repeat I&D, debridement and new wound vac placement. Patient is stable and has remained afebrile since 05/05. Medications: -Day 6 of Ceftriaxone 2000mg q24h (05/05- ). -Plastic surgery consult: -Seen yesterday, will follow up patient in 2-3 weeks to decide skin graft vs. healing by secondary intention with closure of wound -Consult ID for abx recommendations and HIV as below, appreciate recommendations -Started Ceftriaxone IV after fever overnight on 05/05, plan to continue for 4 weeks -Pt to be d/c'd with midline, placed on 05/09 -Most recent blood cultures from 05/05: NGTD -Intraoperative cultures: Group A beta Strep (Strep pyogenes) from 04/26 -OT consulted for evaluation of possible home health needs, which will be arranged by the [facility] -Home with outpatient OT for ROM depending on progress -Plan for discharge to SNF[facility] pending [facility] by the [facility] (2) ROSY (acute kidney injury) Code(s): N17.9 - Acute kidney failure, unspecified Status: Acute Plan: Creatinine elevation began on 05/04, likely due to Vancomycin. Now resolved. -Continue IVF NS @ 125 mls/hr -Continue to monitor trend BUN/Cr (3) HIV (human immunodeficiency virus infection) Code(s): B20 - Human immunodeficiency virus [HIV] disease Status: Chronic Plan: PT with HIV, unsure of last CD4 count and not current on antiretroviral therapy with CD4 count 128. -Consulted ID who states that pt can be on prophylactic abx on d/c, but [facility] with [facility] for [facility] (4) Nutrition, metabolism, and development symptoms Code(s): R63.8 - Other symptoms and signs concerning food and fluid intake Status: Acute Plan: Fluids: Tolerating PO, NS @ 125mls/hr Electrolytes: monitor and replete as needed Nutrition: regular diet GI Prophylaxis: none indicated at this time (5) DVT prophylaxis Status: Acute Plan: Early ambulation. bilateral SCDs, heparin 5000 units twice daily <Lorri Russell - 05/10/18 14:24> - Assessment and Plan 47yo AAM with PMH of HIV presenting meeting sepsis criteria with left upper arm edema and axillary abscess later determined to be necrotizing fasciitis due to rapidly progressing swelling with blister formation. POD 5 from repeat I&D and debridement of LUE with Orthopedic Surgery. Plastic surgery will continue to follow as an outpatient for closure of wound. Await[facility] per [facility]. Currently stable. <Lorri Russell - 05/10/18 14:58> - Attending Attestation Patient seen and examined, discussed with resident team this morning. I agree with assessment and management as documented with me. Pt without complaints. Pain is under OK control. [facility] tool salvage worker at bedside, who is helping to arrange placement for patient. <Angle العلي - 05/10/18 20:56>
[2018-05-10] MEDS: QUEtiapine 100 MG Tablet PO SCH (21:02)
[2018-05-10] MEDS: Sod Chloride 0.9% Inj 1,000 ML IV.CONT SCH (22:24)
[2018-05-11] MEDS: Sod Chloride 0.9% Inj 1,000 ML IV.CONT SCH ×3 (06:10→19:55)
[2018-05-11] MEDS: Silver Sulfadiazine 1% Ceam 400 GM Jar TOPICAL SCH ×2 (08:00→08:51)
[2018-05-11] MEDS: Heparin - SQ 10,000 UNITS/ML Vial SQ SCH ×2 (08:49→20:42)
[2018-05-11] MEDS: Multivitamin/Minerals Therapeutic Tablet PO SCH (08:50)
[2018-05-11] MEDS: Celecoxib 200 MG Capsule PO SCH (08:50)
[2018-05-11] MEDS: Senna/Docusate Sodium 8.6/50 MG Tablet PO SCH ×2 (08:50→20:42)
[2018-05-11] MEDS: Folic Acid 1 MG Tablet PO SCH (08:50)
[2018-05-11] MEDS: QUEtiapine 25 MG Tablet PO SCH (08:50)
[2018-05-11 10:48] LABS: Hematocrit 26.9 % (39.0-51.0); Hemoglobin 8.8 gm/dL (13.0-17.0); Mean Corpuscular HGB Conc 32.7 % (32.0-36.0); Mean Corpuscular Hemoglobin 29.3 pg (27.0-34.0); Mean Corpuscular Volume 89.6 fL (80.0-100.0); Mean Platelet Volume 6.5 fL (7.0-11.0); Platelet Count 496 th/mm3 (150-450); Red Blood Count 3.01 mil/mm3 (4.50-5.90); Red Cell Distribution Width 14.7 % (11.6-17.2); White Blood Count 4.1 th/mm3 (4.0-11.0)
--- NOTE | 2018-05-11 11:00 | P.PNFP ---
Subjective Interval history: Patient seen and examined this morning. He states that he is doing well. His pain is well controlled. No fevers or chills, no shortness of breath, no chest pain, no abdominal pain. <EwaAsya G - 05/11/18 11:36> Results - Labs Result diagrams: 05/11/18 09:29 05/11/18 09:29 <Angle العلي - 05/11/18 20:59> Abnormal lab results 05/11/18 05/11/18 Range/Units 09:29 09:29 RBC 3.01 L (4.50-5.90) mil/mm3 Hgb 8.8 L (13.0-17.0) gm/dL Hct 26.9 L (39.0-51.0) % Plt Count 496 H (150-450) th/mm3 MPV 6.5 L (7.0-11.0) fL Creatinine 1.35 H (0.60-1.30) mg/dL Estimated GFR 69 L (>89) mL/min Random Glucose 71 L (74-106) mg/dL Short CBC 05/11/18 Range/Units 09:29 WBC 4.1 (4.0-11.0) th/mm3 Hgb 8.8 L (13.0-17.0) gm/dL Hct 26.9 L (39.0-51.0) % Plt Count 496 H (150-450) th/mm3 BMP 05/11/18 09:29 Sodium 140 Potassium 4.6 Chloride 106 Carbon Dioxide 27.3 BUN 16 Creatinine 1.35 H Calcium 8.8 <Angle العلي - 05/11/18 20:59> Abnormal lab results 05/11/18 Range/Units 09:29 RBC 3.01 L (4.50-5.90) mil/mm3 Hgb 8.8 L (13.0-17.0) gm/dL Hct 26.9 L (39.0-51.0) % Plt Count 496 H (150-450) th/mm3 MPV 6.5 L (7.0-11.0) fL Short CBC 05/11/18 Range/Units 09:29 WBC 4.1 (4.0-11.0) th/mm3 Hgb 8.8 L (13.0-17.0) gm/dL Hct 26.9 L (39.0-51.0) % Plt Count 496 H (150-450) th/mm3 <Asya Mcneil - 05/11/18 11:00> Physical Exam Vital signs: Vital Signs 05/11/18 00:00 05/11/18 03:55 05/11/18 08:00 Temperature 98.1 F 98.0 F 98 F Pulse Rate 90 80 75 Respiratory Rate 18 16 16 Blood Pressure 147/63 H 146/69 H 124/76 Pulse Oximetry 99 99 99 05/11/18 16:00 05/11/18 19:59 Temperature 97.8 F 97.8 F Pulse Rate 85 98 H Respiratory Rate 16 19 Blood Pressure 129/68 134/84 Pulse Oximetry 99 98 Intake & Output 05/11/18 05/11/18 05/12/18 06:59 18:59 06:59 Intake Total 2180 / 2180 1480 / 1480 1000 / 1000 Output Total 1400 / 1400 Balance 780 / 780 1480 / 1480 1000 / 1000 Weight 86.6 kg Intake: IV 1200 / 1200 1000 / 1000 1000 / 1000 NS Inj 1,000 ML @ 125 mls/hr IV 1000 / 1000 1000 / 1000 1000 / 1000 .CONT .Q8H [facility] Rx#:[id number] Rocephin Inj 2,000 MG In NS Inj 200 / 200 100 ML @ 200 mls/hr IV.SIG Q24H [facility] Rx#:[id number] Oral 980 / 980 480 / 480 Output: Urine 1400 / 1400 Other: # Voids 1 Date of Last Bowel Movement 05/10/18 <Angle العلي - 05/11/18 20:59> Vital Signs 05/10/18 12:00 05/10/18 16:00 05/10/18 20:00 Temperature 98.4 F 98.3 F 98.2 F Pulse Rate 77 68 91 H Respiratory Rate 18 18 19 Blood Pressure 136/66 136/63 126/71 Pulse Oximetry 100 100 100 05/11/18 00:00 05/11/18 03:55 05/11/18 08:00 Temperature 98.1 F 98.0 F 98 F Pulse Rate 90 80 75 Respiratory Rate 18 16 16 Blood Pressure 147/63 H 146/69 H 124/76 Pulse Oximetry 99 99 99 Intake & Output 05/10/18 05/11/1818 18:59 06:59 18:59 Intake Total 2180 / 2180 Output Total 1400 / 1400 Balance 780 / 780 Weight 86.6 kg Intake: IV 1200 / 1200 NS Inj 1,000 ML @ 125 mls/hr IV 1000 / 1000 .CONT .Q8H TWAN Rx#:[id number] Rocephin Inj 2,000 MG In NS Inj 200 / 200 100 ML @ 200 mls/hr IV.SIG Q24H TWAN Rx#:[id number] Oral 980 / 980 Output: Urine 1400 / 1400 Other: # Voids 1 Date of Last Bowel Movement 05/03/18 05/10/18 <Asya Mcneil - 05/11/18 11:00> Narrative: thin AA male sitting up in bed reading, in no acute distress SKIN: Warm and dry. HEAD: Atraumatic. Normocephalic. EYES: No scleral icterus. No injection or drainage. ENT: No nasal bleeding or discharge. NECK: Trachea midline. No JVD. CARDIOVASCULAR: Regular rate and rhythm. RESPIRATORY: No accessory muscle use. Clear to auscultation bilaterally. GASTROINTESTINAL: Abdomen soft, non-tender, nondistended. MUSCULOSKELETAL: Extremities without clubbing or cyanosis. Left arm wrapped in jc bandage from shoulder to wrist. Sensation intact. Cap refill 2+. NEUROLOGICAL: Awake and alert. No obvious cranial nerve deficits. Motor grossly within normal limits. Normal speech. <Asya Mcneil - 05/11/18 11:36> Assessment and Plan - Assessment (1) Necrotizing fasciitis of upper arm Code(s): M72.6 - Necrotizing fasciitis Status: Acute (2) ROSY (acute kidney injury) Code(s): N17.9 - Acute kidney failure, unspecified Status: Acute (3) HIV (human immunodeficiency virus infection) Code(s): B20 - Human immunodeficiency virus [HIV] disease Status: Chronic (4) Nutrition, metabolism, and development symptoms Code(s): R63.8 - Other symptoms and signs concerning food and fluid intake Status: Acute (5) DVT prophylaxis Status: Acute <WhitneyAmelie castellanose - 05/11/18 20:59> (1) Necrotizing fasciitis of upper arm Code(s): M72.6 - Necrotizing fasciitis Status: Acute Plan: Initial presentation of left axilla abscess, s/p treatment with doxycycline. Worsening swelling of the left upper arm. Rapidly worsened swelling with new erythema and multiple blisters on 04/26, suspicious for necrotizing fasciitis. Patient is now POD 7 from repeat I&D, debridement and new wound vac placement. Patient is stable and has remained afebrile since 05/05. Medications: -Day 7 of Ceftriaxone 2000mg q24h (05/05- ). -Plastic surgery consult: -Seen yesterday, will follow up patient in 2-3 weeks to decide skin graft vs. healing by secondary intention with closure of wound -Consult ID for abx recommendations and HIV as below, appreciate recommendations -Started Ceftriaxone IV after fever on 05/05, plan to continue for 4 weeks -Pt to be d/c'd with midline, placed on 05/09 -Most recent blood cultures from 05/05: NGTD -Intraoperative cultures: Group A beta Strep (Strep pyogenes) from 04/26 -OT consulted for evaluation of possible home health needs, which will be [facility] by the [facility] -Home with outpatient OT for ROM depending on progress -Plan for discharge to SNF/[facility] pending [facility] by the [facility] (2) ROSY (acute kidney injury) Code(s): N17.9 - Acute kidney failure, unspecified Status: Acute Plan: Creatinine elevation began on 05/04, likely due to Vancomycin. -Continue IVF NS @ 125 mls/hr -Continue to monitor trend BUN/Cr (3) HIV (human immunodeficiency virus infection) Code(s): B20 - Human immunodeficiency virus [HIV] disease Status: Chronic Plan: PT with HIV, unsure of last CD4 count and not current on antiretroviral therapy with CD4 count 128. -Consulted ID who states that pt can be on prophylactic abx on d/c, but has good f[facility] with [facility] for [facility] (4) Nutrition, metabolism, and development symptoms Code(s): R63.8 - Other symptoms and signs concerning food and fluid intake Status: Acute Plan: Fluids: Tolerating PO, NS @ 125mls/hr Electrolytes: monitor and replete as needed Nutrition: regular diet GI Prophylaxis: none indicated at this time (5) DVT prophylaxis Status: Acute Plan: Early ambulation. bilateral SCDs, heparin 5000 units twice daily <Asya Mcneil - 05/11/18 11:27> - Assessment and Plan 47yo AAM with PMH of HIV presenting meeting sepsis criteria with left upper arm edema and axillary abscess later determined to be necrotizing fasciitis due to rapidly progressing swelling with blister formation. POD 9 from repeat I&D and debridement of LUE with Orthopedic Surgery. Plastic surgery will continue to follow as an outpatient for closure of wound. Currently stable. <Asya Mcneil - 05/11/18 11:36> Discharge Planning: Patient POD 9 from 2nd procedure, will continue to follow clinical course. Case management is consulted and will be in touch with the [facility] management team. <Asya Mcneil - 05/11/18 11:36> - Attending Attestation Patient seen and examined, and discussed with resident team this morning. I agree with assessment and management as documented and discussed with me. Pt without any new concerns. [facility] with [facility] for [facility]x and wound care. <Angle العلي - 05/11/18 20:59>
[2018-05-11 11:07] LABS: Calcium 8.8 mg/dL (8.5-10.1); Carbon Dioxide 27.3 meq/L (21.0-32.0); Potassium 4.6 meq/L (3.5-5.1)
[2018-05-11] MEDS: QUEtiapine 100 MG Tablet PO SCH (20:42)
[2018-05-12] MEDS: Sod Chloride 0.9% Inj 1,000 ML IV.CONT SCH ×2 (04:03→22:00)
[2018-05-12 09:08] LABS: Hematocrit 26.7 % (39.0-51.0); Hemoglobin 8.8 gm/dL (13.0-17.0); Mean Corpuscular HGB Conc 32.8 % (32.0-36.0); Mean Corpuscular Hemoglobin 29.3 pg (27.0-34.0); Mean Corpuscular Volume 89.4 fL (80.0-100.0); Mean Platelet Volume 6.2 fL (7.0-11.0); Platelet Count 490 th/mm3 (150-450); Red Blood Count 2.99 mil/mm3 (4.50-5.90); Red Cell Distribution Width 15.2 % (11.6-17.2); White Blood Count 4.3 th/mm3 (4.0-11.0)
[2018-05-12 09:18] LABS: Calcium 8.9 mg/dL (8.5-10.1); Potassium 4.3 meq/L (3.5-5.1)
[2018-05-12] MEDS: Folic Acid 1 MG Tablet PO SCH (09:22)
[2018-05-12] MEDS: Heparin - SQ 10,000 UNITS/ML Vial SQ SCH (09:23)
[2018-05-12] MEDS: QUEtiapine 25 MG Tablet PO SCH (09:23)
[2018-05-12] MEDS: Multivitamin/Minerals Therapeutic Tablet PO SCH (09:23)
[2018-05-12] MEDS: Celecoxib 200 MG Capsule PO SCH (11:29)
[2018-05-12] MEDS: Silver Sulfadiazine 1% Ceam 400 GM Jar TOPICAL SCH (11:30)
[2018-05-12] MEDS: Senna/Docusate Sodium 8.6/50 MG Tablet PO SCH (11:30)
--- NOTE | 2018-05-12 12:16 | P.PNFP ---
Subjective Interval history: Pt seen and examined this morning. He states that he is doing well. Pain is well controlled. No fever/chills, no chest pain, no shortness of breath, no abdominal pain, he is urinating and stooling well. Looking forward to being discharged whenever that is arranged. <Asya Mcneil Yancy - 05/12/18 17:38> Results - Labs Result diagrams: 05/12/18 08:42 05/12/18 08:42 <Angle العلي - 05/12/18 20:33> Abnormal lab results 05/12/18 05/12/18 Range/Units 08:42 08:42 RBC 2.99 L (4.50-5.90) mil/mm3 Hgb 8.8 L (13.0-17.0) gm/dL Hct 26.7 L (39.0-51.0) % Plt Count 490 H (150-450) th/mm3 MPV 6.2 L (7.0-11.0) fL Creatinine 1.35 H (0.60-1.30) mg/dL Estimated GFR 69 L (>89) mL/min Random Glucose 66 L (74-106) mg/dL Short CBC 05/12/18 Range/Units 08:42 WBC 4.3 (4.0-11.0) th/mm3 Hgb 8.8 L (13.0-17.0) gm/dL Hct 26.7 L (39.0-51.0) % Plt Count 490 H (150-450) th/mm3 BMP 05/12/18 08:42 Sodium 141 Potassium 4.3 Chloride 107 Carbon Dioxide 25.0 BUN 15 Creatinine 1.35 H Calcium 8.9 <Angle العلي - 05/12/18 20:33> Abnormal lab results 05/12/18 05/12/18 Range/Units 08:42 08:42 RBC 2.99 L (4.50-5.90) mil/mm3 Hgb 8.8 L (13.0-17.0) gm/dL Hct 26.7 L (39.0-51.0) % Plt Count 490 H (150-450) th/mm3 MPV 6.2 L (7.0-11.0) fL Creatinine 1.35 H (0.60-1.30) mg/dL Estimated GFR 69 L (>89) mL/min Random Glucose 66 L (74-106) mg/dL Short CBC 05/12/18 Range/Units 08:42 WBC 4.3 (4.0-11.0) th/mm3 Hgb 8.8 L (13.0-17.0) gm/dL Hct 26.7 L (39.0-51.0) % Plt Count 490 H (150-450) th/mm3 BMP 05/12/18 08:42 Sodium 141 Potassium 4.3 Chloride 107 Carbon Dioxide 25.0 BUN 15 Creatinine 1.35 H Calcium 8.9 <Asya Mcneil G - 05/12/18 12:16> Physical Exam Vital signs: Vital Signs 05/12/18 00:00 05/12/18 04:00 05/12/18 05:24 Temperature 98.7 F 98.8 F Pulse Rate 87 80 Respiratory Rate 16 16 18 Blood Pressure 126/67 120/60 Pulse Oximetry 97 97 05/12/18 08:00 05/12/18 12:00 05/12/18 16:00 Temperature 98.0 F 98.1 F 98.5 F Pulse Rate 80 88 Respiratory Rate 18 16 18 Blood Pressure 136/69 130/72 136/61 Pulse Oximetry 100 100 100 05/12/18 20:00 Temperature 98.2 F Pulse Rate 90 Respiratory Rate 18 Blood Pressure 140/70 Pulse Oximetry 100 Intake & Output 05/12/18 05/12/18 05/13/18 06:59 18:59 06:59 Intake Total 2099 1840 / 1840 Output Total 1885 / 1885 Balance 2099 -45 / -45 Intake: IV 2099 NS Inj 1,000 ML @ 125 mls/hr IV 1999 .CONT .Q8H [facility] Rx#:[id number] Rocephin Inj 2,000 MG In NS Inj 100 / 100 100 ML @ 200 mls/hr IV.SIG Q24H [facility] Rx#:[id number] Oral 1540 / 1540 Anesthesia Amount 300 / 300 Output: Urine 1700 / 1700 Estimated Blood Loss 10 10 Wound Drainage 175 / 175 Left Arm 175 / 175 Other: Mode Setting Left Arm Continuous Left Axilla Continuous Left Forearm Continuous # Voids 3 Date of Last Bowel Movement 05/10/18 05/10/18 # Bowel Movements 1 <Angle العلي - 05/12/18 20:33> Vital Signs 05/11/18 16:00 05/11/18 19:59 05/11/18 20:00 Temperature 97.8 F 97.8 F Pulse Rate 85 98 H Respiratory Rate 16 19 16 Blood Pressure 129/68 134/84 Pulse Oximetry 99 98 05/12/18 00:00 05/12/18 04:00 05/12/18 05:24 Temperature 98.7 F 98.8 F Pulse Rate 87 80 Respiratory Rate 16 16 18 Blood Pressure 126/67 120/60 Pulse Oximetry 97 97 05/12/18 08:00 Temperature 98.0 F Pulse Rate Respiratory Rate 18 Blood Pressure 136/69 Pulse Oximetry 100 Intake & Output 05/11/18 05/12/18 05/12/18 18:59 06:59 18:59 Intake Total 1480 / 1480 2099 / 2100 780 / 780 Output Total 1585 / 1585 Balance 1480 / 1480 2099 / 2099 -805 / -805 Intake: IV 1000 / 1000 2099 / 2099 NS Inj 1,000 ML @ 125 mls/hr IV 1000 / 1000 1999 / 1999 .CONT .Q8H [facility] Rx#:[id number] Rocephin Inj 2,000 MG In NS Inj 100 / 100 100 ML @ 200 mls/hr IV.SIG Q24H [facility] Rx#:[id number] Oral 480 / 480 480 / 480 Anesthesia Amount 300 / 300 Output: Urine 1400 / 1400 Estimated Blood Loss 10 / 10 Wound Drainage 175 / 175 Left Arm 175 / 175 Other: Mode Setting Left Arm Continuous Left Axilla Continuous Left Forearm Continuous # Voids 1 Date of Last Bowel Movement 05/10/18 05/10/18 05/10/18 # Bowel Movements 1 <Asya Mcneil - 05/12/18 12:16> Narrative: thin AA male sitting up in bed reading, in no acute distress SKIN: Warm and dry. HEAD: Atraumatic. Normocephalic. EYES: No scleral icterus. No injection or drainage. ENT: No nasal bleeding or discharge. NECK: Trachea midline. No JVD. CARDIOVASCULAR: Regular rate and rhythm. RESPIRATORY: No accessory muscle use. Clear to auscultation bilaterally. GASTROINTESTINAL: Abdomen soft, non-tender, nondistended. MUSCULOSKELETAL: Extremities without clubbing or cyanosis. Left arm wrapped in jc bandage from shoulder to wrist. Sensation intact. Cap refill 2+. NEUROLOGICAL: Awake and alert. No obvious cranial nerve deficits. Motor grossly within normal limits. Normal speech. <Asya Mcneil - 05/12/18 17:38> Assessment and Plan - Assessment (1) Necrotizing fasciitis of upper arm Code(s): M72.6 - Necrotizing fasciitis Status: Acute (2) ROSY (acute kidney injury) Code(s): N17.9 - Acute kidney failure, unspecified Status: Acute (3) HIV (human immunodeficiency virus infection) Code(s): B20 - Human immunodeficiency virus [HIV] disease Status: Chronic (4) Nutrition, metabolism, and development symptoms Code(s): R63.8 - Other symptoms and signs concerning food and fluid intake Status: Acute (5) DVT prophylaxis Status: Acute <SeverianoAngle - 05/12/18 20:33> (1) Necrotizing fasciitis of upper arm Code(s): M72.6 - Necrotizing fasciitis Status: Acute Plan: Initial presentation of left axilla abscess, s/p treatment with doxycycline. Worsening swelling of the left upper arm. Rapidly worsened swelling with new erythema and multiple blisters on 04/26, suspicious for necrotizing fasciitis. Patient is now POD 7 from repeat I&D, debridement and new wound vac placement. Patient is stable and has remained afebrile since 05/05. Medications: -Ceftriaxone 2000mg q24h (05/05- ). -Plastic surgery consult: -Will follow up with patient in 2-3 weeks to decide skin graft vs. healing by secondary intention with closure of wound -Consult ID for abx recommendations and HIV as below, appreciate recommendations -Started Ceftriaxone IV after fever on 05/05, plan to continue for 4 weeks -Pt to be d/c'd with midline, placed on 05/09 -Most recent blood cultures from 05/05: NGTD -Intraoperative cultures: Group A beta Strep (Strep pyogenes) from 04/26 -OT consulted for evaluation of possible home health needs, which will be arranged by the [place] -Home with outpatient OT for ROM depending on progress -Plan for [facility] to SN[facility] (2) ROSY (acute kidney injury) Code(s): N17.9 - Acute kidney failure, unspecified Status: Acute Plan: Creatinine elevation began on 05/04, likely due to Vancomycin. Is now trending downward -Continue IVF NS @ 125 mls/hr -Continue to monitor trend BUN/Cr (3) HIV (human immunodeficiency virus infection) Code(s): B20 - Human immunodeficiency virus [HIV] disease Status: Chronic Plan: PT with HIV, unsure of last CD4 count and not current on antiretroviral therapy with CD4 count 128. -Consulted ID who states that pt can be on prophylactic abx on d/c, but [facility] (4) Nutrition, metabolism, and development symptoms Code(s): R63.8 - Other symptoms and signs concerning food and fluid intake Status: Acute Plan: Fluids: Tolerating PO, NS @ 125mls/hr Electrolytes: monitor and replete as needed Nutrition: regular diet GI Prophylaxis: none indicated at this time (5) DVT prophylaxis Status: Acute Plan: Early ambulation. bilateral SCDs, heparin 5000 units twice daily <Asya Mcneil - 05/12/18 17:34> - Assessment and Plan 47yo AAM with PMH of HIV presenting meeting sepsis criteria with left upper arm edema and axillary abscess later determined to be necrotizing fasciitis due to rapidly progressing swelling with blister formation. POD 10 from repeat I&D and debridement of LUE with Orthopedic Surgery. Plastic surgery will continue to follow as an outpatient for closure of wound. Currently stable. <Asya Mcneil - 05/12/18 17:38> Discussed Condition With: Dr. العلي <Asya Mcenil - 05/12/18 17:38> Discharge Planning: Will continue to follow clinical course. Case management is consulted and is [facility] with [facility]. <Asya Mcneil - 05/12/18 17:38> - Attending Attestation Patient seen and examined, discussed with resident team. I agree with assessment and management as documented and discussed with me. Pt remains stable. [facility] by [facility]. No new concerns. Continue daily dressing changes and rocephin. <Angle العلي - 05/12/18 20:33>
--- NOTE | 2018-05-12 13:56 | P.DCO ---
- Occupational Therapy Order: Evaluate and treat, Fine motor coordination - Home Health Nursing Order: Signs/symptoms of disease process, Medication education-adverse effect, Wound care and dressing changes (Apply Silvadene to Adaptic and apply the Adaptic to the left arm wound. Cover with Telfa and a dry sterile dressing.), IV medication administration - Certification I have seen patient Korin Quezada on 05/12/18. My clinical findings support the need for the requested home health care services because: Deconditioned with increased weakness, Need for psychosocial assistance, Injectable medication education/administration I certify that my clinical findings support that this patient is homebound because: Post-op weakness, Unable to use public transportation
[2018-05-13] MEDS: QUEtiapine 100 MG Tablet PO SCH ×2 (03:16→21:24)
[2018-05-13] MEDS: Heparin - SQ 10,000 UNITS/ML Vial SQ SCH ×3 (03:16→21:23)
[2018-05-13] MEDS: Senna/Docusate Sodium 8.6/50 MG Tablet PO SCH ×3 (03:16→21:24)
[2018-05-13] MEDS: Sod Chloride 0.9% Inj 1,000 ML IV.CONT SCH (05:41)
[2018-05-13 06:16] LABS: Hematocrit 24.9 % (39.0-51.0); Hemoglobin 8.3 gm/dL (13.0-17.0); Mean Corpuscular HGB Conc 33.4 % (32.0-36.0); Mean Corpuscular Hemoglobin 29.8 pg (27.0-34.0); Mean Corpuscular Volume 89.2 fL (80.0-100.0); Mean Platelet Volume 6.7 fL (7.0-11.0); Platelet Count 440 th/mm3 (150-450); Red Blood Count 2.79 mil/mm3 (4.50-5.90); White Blood Count 3.6 th/mm3 (4.0-11.0)
[2018-05-13 06:39] LABS: Calcium 8.5 mg/dL (8.5-10.1); Carbon Dioxide 27.2 meq/L (21.0-32.0); Potassium 4.3 meq/L (3.5-5.1)
[2018-05-13] MEDS: QUEtiapine 25 MG Tablet PO SCH (09:42)
[2018-05-13] MEDS: Folic Acid 1 MG Tablet PO SCH (09:42)
[2018-05-13] MEDS: Celecoxib 200 MG Capsule PO SCH (09:42)
[2018-05-13] MEDS: Multivitamin/Minerals Therapeutic Tablet PO SCH (09:42)
--- NOTE | 2018-05-13 11:37 | P.PNFP ---
Subjective Interval history: Patient seen and examined this morning. He states that he is doing well. No complaints. No fevers/chills, no chest pain, no shortness of breath, no abdominal pain, no nausea/vomiting, Urinating and stooling well. <Asya Mcneil - 05/13/18 11:37> Results - Labs Result diagrams: 05/13/18 04:44 05/13/18 04:44 <Angle العلي - 05/13/18 20:59> Abnormal lab results 05/13/18 05/13/18 Range/Units 04:44 04:44 WBC 3.6 L (4.0-11.0) th/mm3 RBC 2.79 L (4.50-5.90) mil/mm3 Hgb 8.3 L (13.0-17.0) gm/dL Hct 24.9 L (39.0-51.0) % MPV 6.7 L (7.0-11.0) fL Chloride 109 H (98-107) meq/L Creatinine 1.34 H (0.60-1.30) mg/dL Estimated GFR 69 L (>89) mL/min Random Glucose 73 L (74-106) mg/dL Short CBC 05/13/18 Range/Units 04:44 WBC 3.6 L (4.0-11.0) th/mm3 Hgb 8.3 L (13.0-17.0) gm/dL Hct 24.9 L (39.0-51.0) % Plt Count 440 (150-450) th/mm3 BMP 05/13/18 04:44 Sodium 142 Potassium 4.3 Chloride 109 H Carbon Dioxide 27.2 BUN 15 Creatinine 1.34 H Calcium 8.5 <Angle العلي - 05/13/18 20:59> Abnormal lab results 05/13/18 05/13/18 Range/Units 04:44 04:44 WBC 3.6 L (4.0-11.0) th/mm3 RBC 2.79 L (4.50-5.90) mil/mm3 Hgb 8.3 L (13.0-17.0) gm/dL Hct 24.9 L (39.0-51.0) % MPV 6.7 L (7.0-11.0) fL Chloride 109 H (98-107) meq/L Creatinine 1.34 H (0.60-1.30) mg/dL Estimated GFR 69 L (>89) mL/min Random Glucose 73 L (74-106) mg/dL Short CBC 05/13/18 Range/Units 04:44 WBC 3.6 L (4.0-11.0) th/mm3 Hgb 8.3 L (13.0-17.0) gm/dL Hct 24.9 L (39.0-51.0) % Plt Count 440 (150-450) th/mm3 BMP 05/13/18 04:44 Sodium 142 Potassium 4.3 Chloride 109 H Carbon Dioxide 27.2 BUN 15 Creatinine 1.34 H Calcium 8.5 <Asya Mcneil G - 05/13/18 11:37> Physical Exam Vital signs: Vital Signs 05/13/18 00:00 05/13/18 04:00 05/13/18 05:07 Temperature 98.1 F 98.1 F 98.2 F Pulse Rate 80 72 90 Respiratory Rate 17 16 18 Blood Pressure 136/69 118/67 135/68 Pulse Oximetry 100 100 05/13/18 08:00 05/13/18 12:00 05/13/18 15:52 Temperature 98.2 F 97.8 F 98.3 F Pulse Rate 70 80 71 Respiratory Rate 16 18 18 Blood Pressure 135/79 132/78 128/63 Pulse Oximetry 100 100 100 Intake & Output 05/13/18 05/13/18 05/14/18 06:59 18:59 06:59 Intake Total 1480 / 1480 1960 / 1960 Output Total 986 / 986 Balance 1480 / 1480 974 / 974 Weight 82.6 kg 74.6 kg Intake: IV 1000 / 1000 NS Inj 1,000 ML @ 125 mls/hr IV 1000 / 1000 .CONT .Q8H [facility] Rx#:[id number] Oral 1180 / 1180 Oral Supplement 480 / 480 480 / 480 Anesthesia Amount 300 / 300 Output: Urine 800 / 800 Stool / Estimated Blood Loss Wound Drainage 175 / 175 Left Arm 175 / 175 Other: Mode Setting Left Arm Continuous Left Axilla Continuous Left Forearm Continuous # Voids 2 3 Date of Last Bowel Movement 05/10/18 05/13/18 # Bowel Movements 1 Weight On Admission 74.6 kg <Angle العلي - 05/13/18 20:59> Vital Signs 05/12/18 12:00 05/12/18 16:00 05/12/18 20:00 Temperature 98.1 F 98.5 F 98.2 F Pulse Rate 80 88 90 Respiratory Rate 16 18 18 Blood Pressure 130/72 136/61 140/70 Pulse Oximetry 100 100 100 05/13/18 00:00 05/13/18 04:00 05/13/18 05:07 Temperature 98.1 F 98.1 F 98.2 F Pulse Rate 80 72 90 Respiratory Rate 17 16 18 Blood Pressure 136/69 118/67 135/68 Pulse Oximetry 100 100 05/13/18 08:00 Temperature 98.2 F Pulse Rate 70 Respiratory Rate 16 Blood Pressure 135/79 Pulse Oximetry 100 Intake & Output 05/12/18 05/13/18 05/13/18 18:59 06:59 18:59 Intake Total 2840 / 2840 1480 / 1480 880 / 880 Output Total 1885 / 1885 485 / 485 Balance 955 / 955 1480 / 1480 395 / 395 Weight 82.6 kg Intake: IV 1000 / 1000 1000 / 1000 NS Inj 1,000 ML @ 125 mls/hr IV 1000 / 1000 1000 / 1000 .CONT .Q8H [facility] Rx#:[id number] Oral 1540 / 1540 100 / 100 Oral Supplement 480 / 480 480 / 480 Anesthesia Amount 300 / 300 300 / 300 Output: Urine 1700 / 1700 300 / 300 Estimated Blood Loss 10 / 10 10 / 10 Wound Drainage 175 / 175 175 / 175 Left Arm 175 / 175 175 / 175 Other: Mode Setting Left Arm Continuous Continuous Left Axilla Continuous Continuous Left Forearm Continuous Continuous # Voids 3 2 2 Date of Last Bowel Movement 05/10/18 05/10/18 05/10/18 # Bowel Movements 1 1 <EwaAsya - 05/13/18 11:37> Narrative: thin AA male laying in bed, in no acute distress SKIN: Warm and dry. HEAD: Atraumatic. Normocephalic. EYES: No scleral icterus. No injection or drainage. ENT: No nasal bleeding or discharge. NECK: Trachea midline. No JVD. CARDIOVASCULAR: Regular rate and rhythm. RESPIRATORY: No accessory muscle use. Clear to auscultation bilaterally. GASTROINTESTINAL: Abdomen soft, non-tender, nondistended. MUSCULOSKELETAL: Extremities without clubbing or cyanosis. Left arm wrapped in jc bandage from axilla to forearm. Sensation intact. Cap refill 2+. NEUROLOGICAL: Awake and alert. No obvious cranial nerve deficits. Motor grossly within normal limits. Normal speech. <Asya Mcneil - 05/13/18 11:37> Assessment and Plan - Assessment (1) Necrotizing fasciitis of upper arm Code(s): M72.6 - Necrotizing fasciitis Status: Acute (2) ROSY (acute kidney injury) Code(s): N17.9 - Acute kidney failure, unspecified Status: Acute (3) HIV (human immunodeficiency virus infection) Code(s): B20 - Human immunodeficiency virus [HIV] disease Status: Chronic (4) Nutrition, metabolism, and development symptoms Code(s): R63.8 - Other symptoms and signs concerning food and fluid intake Status: Acute (5) DVT prophylaxis Status: Acute <Angle العلي - 05/13/18 20:59> (1) Necrotizing fasciitis of upper arm Code(s): M72.6 - Necrotizing fasciitis Status: Acute Plan: Initial presentation of left axilla abscess, s/p treatment with doxycycline. Worsening swelling of the left upper arm. Rapidly worsened swelling with new erythema and multiple blisters on 04/26, suspicious for necrotizing fasciitis. Patient is now POD 7 from repeat I&D, debridement and new wound vac placement. Patient is stable and has remained afebrile since 05/05. Medications: -Ceftriaxone 2000mg q24h (05/05- ). -Plastic surgery consult: -Will follow up with patient in 2-3 weeks to decide skin graft vs. healing by secondary intention with closure of wound -Consult ID for abx recommendations and HIV as below, appreciate recommendations -Started Ceftriaxone IV after fever on 05/05, plan to continue for 4 weeks -Pt to be d/c'd with midline, placed on 05/09 -Most recent blood cultures from 05/05: NGTD -Intraoperative cultures: Group A beta Strep (Strep pyogenes) from 04/26 -OT consulted for evaluation of possible home health needs, which will be arranged by the [place] -Home with outpatient OT for ROM depending on progress -Plan for [facility] to [facility] (2) ROSY (acute kidney injury) Code(s): N17.9 - Acute kidney failure, unspecified Status: Acute Plan: Creatinine elevation began on 05/04, likely due to Vancomycin. Is now trending downward -d/c IVF for discharge to [facility] -Continue to monitor trend BUN/Cr (3) HIV (human immunodeficiency virus infection) Code(s): B20 - Human immunodeficiency virus [HIV] disease Status: Chronic Plan: PT with HIV, unsure of last CD4 count and not current on antiretroviral therapy with CD4 count 128. -Consulted ID who states that pt can be on prophylactic abx on d/c, but [facility] (4) Nutrition, metabolism, and development symptoms Code(s): R63.8 - Other symptoms and signs concerning food and fluid intake Status: Acute Plan: Fluids: Tolerating PO Electrolytes: monitor and replete as needed Nutrition: regular diet GI Prophylaxis: none indicated at this time (5) DVT prophylaxis Status: Acute Plan: Early ambulation. bilateral SCDs, heparin 5000 units twice daily <Asya Mcneil - 05/13/18 16:59> - Assessment and Plan 47yo AAM with PMH of HIV presenting meeting sepsis criteria with left upper arm edema and axillary abscess later determined to be necrotizing fasciitis due to rapidly progressing swelling with blister formation. POD 10 from repeat I&D and debridement of LUE with Orthopedic Surgery. Plastic surgery will continue to follow as an outpatient for closure of wound. Currently stable. <Asya Mcneil - 05/13/18 11:37> Discharge Planning: Will continue to follow clinical course. Case management is consulted and is [facility]. Discharge to [facility] pending. Likely Wednesday. <Asya Mcneil - 05/13/18 16:59> - Attending Attestation Patient seen and examined, discussed this morning with Dr. Mcneil. I agree with assessment and management as documented and discussed with me. PT is medically stable. Continue antibiotics, dressing changes, until arrangements to go to [facility] made. Anticipate discharge on Wednesday. <Angle العلي - 05/13/18 20:59>
[2018-05-13] MEDS: Silver Sulfadiazine 1% Ceam 400 GM Jar TOPICAL SCH (17:14)
[2018-05-14 04:44] LABS: Hemoglobin 8.8 gm/dL (13.0-17.0); Mean Corpuscular HGB Conc 33.9 % (32.0-36.0); Mean Corpuscular Hemoglobin 29.7 pg (27.0-34.0); Mean Corpuscular Volume 87.6 fL (80.0-100.0); Platelet Count 436 th/mm3 (150-450); Red Blood Count 2.97 mil/mm3 (4.50-5.90); Red Cell Distribution Width 14.7 % (11.6-17.2)
[2018-05-14 05:07] LABS: Calcium 8.6 mg/dL (8.5-10.1); Carbon Dioxide 25.7 meq/L (21.0-32.0); Potassium 3.9 meq/L (3.5-5.1)
[2018-05-14] MEDS: Celecoxib 200 MG Capsule PO SCH (09:55)
[2018-05-14] MEDS: Multivitamin/Minerals Therapeutic Tablet PO SCH (09:55)
[2018-05-14] MEDS: QUEtiapine 25 MG Tablet PO SCH (09:55)
[2018-05-14] MEDS: Folic Acid 1 MG Tablet PO SCH (09:56)
[2018-05-14] MEDS: Heparin - SQ 10,000 UNITS/ML Vial SQ SCH ×2 (09:56→20:28)
[2018-05-14] MEDS: Senna/Docusate Sodium 8.6/50 MG Tablet PO SCH ×2 (09:57→20:27)
[2018-05-14] MEDS: Silver Sulfadiazine 1% Ceam 400 GM Jar TOPICAL SCH (09:58)
--- NOTE | 2018-05-14 10:43 | P.PNFP ---
Addendum entered and electronically signed by Lorri Russell DO, R1 05/14/18 12:10: Spoke to orthopedic PA on-call who stated that they do not recommend stitch removal prior to 2 weeks following surgery. Per PA, Dr. Allen will be able to see the patient on Wednesday prior to discharge and give further recommendations for future suture removal at that time. Original Note: Subjective Interval history: Patient seen and examined this morning. He states that he is doing well. Patient still has multiple stitches in forearm from prior I&D 12 days ago. Contacted orthopedics yesterday who said that they would see the patient and determine when the stitches should come out. He has not seen them yet today. Denies fever, chills, nausea, vomiting, abdominal pain, urinary problems, or leg pain. Case management working with the [facility] to place patient in an [facility]. Patient's paperwork was sent and was ready for discharge yesterday, but the admitting nurse at the [facility] was unavailable. He is pending discharge, likely on Wednesday, when the admitting nurse returns. <Lorri Russell - 05/14/18 11:21> Results - Labs Result diagrams: 05/14/18 04:24 05/14/18 04:24 <Angle العلي - 05/14/18 15:45> Abnormal lab results 05/14/18 05/14/18 Range/Units 04:24 04:24 WBC 3.0 L (4.0-11.0) th/mm3 RBC 2.97 L (4.50-5.90) mil/mm3 Hgb 8.8 L (13.0-17.0) gm/dL Hct 26.0 L (39.0-51.0) % MPV 6.0 L (7.0-11.0) fL Creatinine 1.34 H (0.60-1.30) mg/dL Estimated GFR 69 L (>89) mL/min Short CBC 05/14/18 Range/Units 04:24 WBC 3.0 L (4.0-11.0) th/mm3 Hgb 8.8 L (13.0-17.0) gm/dL Hct 26.0 L (39.0-51.0) % Plt Count 436 (150-450) th/mm3 BMP 05/14/18 04:24 Sodium 141 Potassium 3.9 Chloride 107 Carbon Dioxide 25.7 BUN 15 Creatinine 1.34 H Calcium 8.6 <Angle العلي - 05/14/18 15:45> Abnormal lab results 05/14/18 05/14/18 Range/Units 04:24 04:24 WBC 3.0 L (4.0-11.0) th/mm3 RBC 2.97 L (4.50-5.90) mil/mm3 Hgb 8.8 L (13.0-17.0) gm/dL Hct 26.0 L (39.0-51.0) % MPV 6.0 L (7.0-11.0) fL Creatinine 1.34 H (0.60-1.30) mg/dL Estimated GFR 69 L (>89) mL/min Short CBC 05/14/18 Range/Units 04:24 WBC 3.0 L (4.0-11.0) th/mm3 Hgb 8.8 L (13.0-17.0) gm/dL Hct 26.0 L (39.0-51.0) % Plt Count 436 (150-450) th/mm3 BMP 05/14/18 04:24 Sodium 141 Potassium 3.9 Chloride 107 Carbon Dioxide 25.7 BUN 15 Creatinine 1.34 H Calcium 8.6 <DrewLorri Hoffman - 05/14/18 10:43> Physical Exam Vital signs: Vital Signs 05/13/18 15:52 05/13/18 20:00 05/14/18 00:00 Temperature 98.3 F 98.4 F 98.1 F Pulse Rate 71 74 61 Respiratory Rate 18 18 18 Blood Pressure 128/63 140/80 128/58 L Pulse Oximetry 100 98 100 05/14/18 04:00 05/14/18 08:00 05/14/18 12:00 Temperature 97.8 F 97.8 F 98.1 F Pulse Rate 58 L 60 80 Respiratory Rate 18 20 20 Blood Pressure 117/56 L 117/60 108/56 L Pulse Oximetry 99 99 100 Intake & Output 05/13/18 05/14/18 05/14/18 18:59 06:59 18:59 Intake Total 1960 / 1959 120 / 120 960 / 960 Output Total 986 / 986 3 / 3 Balance 974 / 974 120 / 120 957 / 957 Weight 74.6 kg 74.1 kg Intake: Oral 1180 / 1180 120 / 120 960 / 960 Oral Supplement 480 / 480 Anesthesia Amount 300 / 300 Output: Urine 800 / 800 3 / 3 Stool 1 / 1 Estimated Blood Loss 10 10 Wound Drainage 175 / 175 Left Arm 175 / 175 Other: Mode Setting Left Arm Continuous Left Axilla Continuous Left Forearm Continuous # Voids 3 2 Date of Last Bowel Movement 05/13/18 05/13/18 # Bowel Movements 1 0 Weight On Admission 74.6 kg <Angle العلي - 05/14/18 15:45> Vital Signs 05/13/18 12:00 05/13/18 15:52 05/13/18 20:00 Temperature 97.8 F 98.3 F 98.4 F Pulse Rate 80 71 74 Respiratory Rate 18 Blood Pressure 132/78 128/63 140/80 Pulse Oximetry 100 100 98 05/14/18 00:00 05/14/18 04:00 05/14/18 08:00 Temperature 98.1 F 97.8 F 97.8 F Pulse Rate 61 58 L 60 Respiratory Rate 20 Blood Pressure 128/58 L 117/56 L 117/60 Pulse Oximetry 100 99 99 Intake & Output 05/13/18 05/14/18 05/14/18 18:59 06:59 18:59 Intake Total 1960 / 1960 120 / 120 Output Total 986 / 986 Balance 974 / 974 120 / 120 Weight 74.6 kg 74.1 kg Intake: Oral 1180 / 1180 120 / 120 Oral Supplement 480 / 480 Anesthesia Amount 300 / 300 Output: Urine 800 / 800 Stool 1 / 1 Estimated Blood Loss 10 10 Wound Drainage 175 / 175 Left Arm 175 / 175 Other: Mode Setting Left Arm Continuous Left Axilla Continuous Left Forearm Continuous # Voids 3 2 Date of Last Bowel Movement 05/13/18 05/13/18 # Bowel Movements 1 0 Weight On Admission 74.6 kg <Lorri Russell - 05/14/18 10:43> Narrative: thin AA male laying in bed, in no acute distress SKIN: Warm and dry. HEAD: Atraumatic. Normocephalic. EYES: No scleral icterus. No injection or drainage. ENT: No nasal bleeding or discharge. NECK: Trachea midline. No JVD. CARDIOVASCULAR: Regular rate and rhythm. RESPIRATORY: No accessory muscle use. Clear to auscultation bilaterally. GASTROINTESTINAL: Abdomen soft, non-tender, nondistended. MUSCULOSKELETAL: Extremities without clubbing or cyanosis. Left arm wrapped in jc bandage from axilla to forearm. Multiple stiches in place in left forearm. Sensation intact. Cap refill 2+. NEUROLOGICAL: Awake and alert. No obvious cranial nerve deficits. Motor grossly within normal limits. Normal speech. <DrewLorri Dalton - 05/14/18 11:21> Assessment and Plan - Assessment (1) Necrotizing fasciitis of upper arm Code(s): M72.6 - Necrotizing fasciitis Status: Acute (2) ROSY (acute kidney injury) Code(s): N17.9 - Acute kidney failure, unspecified Status: Acute (3) HIV (human immunodeficiency virus infection) Code(s): B20 - Human immunodeficiency virus [HIV] disease Status: Chronic (4) Nutrition, metabolism, and development symptoms Code(s): R63.8 - Other symptoms and signs concerning food and fluid intake Status: Acute (5) DVT prophylaxis Status: Acute <Angle العلي - 05/14/18 15:45> (1) Necrotizing fasciitis of upper arm Code(s): M72.6 - Necrotizing fasciitis Status: Acute Plan: Initial presentation of left axilla abscess, s/p treatment with doxycycline. Worsening swelling of the left upper arm. Rapidly worsened swelling with new erythema and multiple blisters on 04/26, suspicious for necrotizing fasciitis. Patient is now POD 7 from repeat I&D, debridement and new wound vac placement. Patient is stable and has remained afebrile since 05/05. Medications: -Ceftriaxone 2000mg q24h (05/05- ), plan to continue for 4 weeks -Plastic surgery consult: -Will follow up with patient in 2-3 weeks to decide skin graft vs. healing by secondary intention with closure of wound -Ortho consult: -Awaiting recommendations for stitch removal for discharge planning -Consult ID for abx recommendations and HIV as below, appreciate recommendations -Most recent blood cultures from 05/05: NGTD -Intraoperative cultures: Group A beta Strep (Strep pyogenes) from 04/26 -Started Ceftriaxone IV after fever on 05/05, plan to continue for 4 weeks -Pt to be d/c'd with midline, placed on 05/09 -OT consulted for evaluation of possible home health needs, [facility] -Home with outpatient OT for ROM depending on progress -Continue dressing changes -Plan for discharge to [facility] (2) ROSY (acute kidney injury) Code(s): N17.9 - Acute kidney failure, unspecified Status: Acute Plan: Creatinine elevation began on 05/04, likely due to Vancomycin. Is now trending downward -d/c IVF for discharge to [facility] (3) HIV (human immunodeficiency virus infection) Code(s): B20 - Human immunodeficiency virus [HIV] disease Status: Chronic Plan: PT with HIV, unsure of last CD4 count and not current on antiretroviral therapy with CD4 count 128. -Consulted ID who states that pt can be on prophylactic abx on d/c, but [facility] (4) Nutrition, metabolism, and development symptoms Code(s): R63.8 - Other symptoms and signs concerning food and fluid intake Status: Acute Plan: Fluids: Tolerating PO Electrolytes: monitor and replete as needed Nutrition: regular diet GI Prophylaxis: none indicated at this time Will discontinue telemetry in preparation for discharge (5) DVT prophylaxis Status: Acute Plan: Early ambulation. bilateral SCDs, heparin 5000 units twice daily <Lorri Russell - 05/14/18 11:01> - Assessment and Plan 47yo AAM with PMH of HIV presenting meeting sepsis criteria with left upper arm edema and axillary abscess later determined to be necrotizing fasciitis due to rapidly progressing swelling with blister formation. POD 10 from repeat I&D and debridement of LUE with Orthopedic Surgery. Plastic surgery will continue to follow as an outpatient for closure of wound. Currently stable. <Lorri Russell - 05/14/18 11:21> Discharge Planning: We will continue to follow clinical course. Case management is consulted and is coordinating care with the [facility] case management team. Discharge to [facility] pending. Likely Wednesday. <Lorri Russell - 05/14/18 11:21> - Attending Attestation Patient seen, examined, and discussed with Dr Russell this morning. I agree with assessment and management as documented and discussed with me. No new concerns. Anticipate discharge on Wednesday to [facility]. <Angle العلي - 05/14/18 15:45>
[2018-05-14] MEDS: QUEtiapine 100 MG Tablet PO SCH (20:26)
[2018-05-14] MEDS: Morphine Inj 4 MG/ML Vial IV.PUSH PRN (22:03)
[2018-05-15] MEDS: Heparin - SQ 10,000 UNITS/ML Vial SQ SCH ×2 (08:24→20:12)
[2018-05-15] MEDS: QUEtiapine 25 MG Tablet PO SCH (08:25)
[2018-05-15] MEDS: Folic Acid 1 MG Tablet PO SCH (08:25)
[2018-05-15] MEDS: Multivitamin/Minerals Therapeutic Tablet PO SCH (08:25)
[2018-05-15] MEDS: Celecoxib 200 MG Capsule PO SCH (08:25)
[2018-05-15] MEDS: Silver Sulfadiazine 1% Ceam 400 GM Jar TOPICAL SCH (08:26)
[2018-05-15] MEDS: Senna/Docusate Sodium 8.6/50 MG Tablet PO SCH ×2 (08:26→20:13)
--- NOTE | 2018-05-15 09:16 | P.PNADD ---
Addendum to Inpatient Note Reason for Addendum: Additional Documentation Additional information: Off Service note: Patient is a 47-year-old -[place] male with past medical history of HIV , bipolar disorder, PTSD, MDD who was admitted for cellulitis of the left upper extremity. CT of the forearm and humerus on 04/25 showed non-specific edema of the soft tissues along the medical aspect of o the upper arm and proximal forearm without drainable fluid collection. ULE US showed small superficial fluid collection in the axilla. On admission, patient met sepsis criteria with WBC of 26.2 and tachycardia in the 100s. Lactic acid was high at 2.7, blood cultures were collected and patient was started on Vancomycin and Zosyn. ID was consulted for antibiotic recommendations and HIV treatment options. General surgery was consulted for possible I&D. Patient experienced fever, increased swelling and pain, in addition to blistering skin overnight on 04/25, concerning for necrotizing fasciitis. Both general surgery and orthopedics consulted. Patient underwent emergent and extensive debridement of the ULE on 04/26. ID added Clindamycin to the antibiotic regimen at this time. Psychiatry consulted on 04/28 for patients history of bipolar disorder, PTSD and MDD. Patient started on Seroquel, which he has tolerated well. Patient is now POD 13 from second I&D and wound VAC placement on 05/02. Wound vac was discontinued on 05/07. Preliminary results from the initial wound culture was positive for MRSA, but showed group A B-strep on final growth (05/05). Patient deescalated from Clindamycin (04/26-05/03), Zosyn (04/25-05/04) and Vanco (04/25 -05/05) and placed on Ceftriaxone (05/05). All following blood cultures and wound cultures have been negative. Patient has remained stable and afebrile since 05/07. Plastics surgery examined on 05/06 and stated that they will continue to follow him on an outpatient basis. They will decide on skin graft versus secondary wound healing with surgical closure in follow-up in a couple of weeks. Per ID recommendations, will continue IV ceftriaxone for 4 weeks upon discharge. In preparation for discharge, midline was placed in the right arm on 05/09. Awaiting orthopedics recommendations for stitch removal on Wednesday morning 05/16. Case management aware. Patient awaiting placement at [facility] through [facility]. Patient unable to be transferred on Wednesday due to admission nurse absence. Anticipate discharge on Wednesday pending [facility] admission.
--- NOTE | 2018-05-15 10:42 | P.PNFP ---
Subjective Interval history: Pt seen and examined bedside today. He is eating and drinking without difficulty. Denies any difficulties with urination or BM's, has recently had a BM. Denies any fever/chills. He continues to have some pain over his wound but it is improving. Denies CP/SOB/dizzyness. Denies fever/chills. <Gayathri Holt - 05/15/18 11:28> Results - Labs Result diagrams: 05/14/18 04:24 05/14/18 04:24 <Angle اللعي - 05/15/18 20:35> Physical Exam Vital signs: Vital Signs 05/15/18 00:00 05/15/18 04:00 05/15/18 08:00 Temperature 98.0 F 98.1 F 98.4 F Pulse Rate 71 61 68 Respiratory Rate 16 16 20 Blood Pressure 131/59 L 119/58 L 114/56 L Pulse Oximetry 97 99 98 05/15/18 12:00 05/15/18 16:00 05/15/18 20:00 Temperature 98.2 F 98.5 F 98.4 F Pulse Rate 71 87 70 Respiratory Rate 20 20 17 Blood Pressure 103/56 L 125/69 132/68 Pulse Oximetry 98 99 98 Intake & Output 05/15/18 05/15/18 05/16/18 06:59 18:59 06:59 Intake Total 360 / 360 Output Total 3 / 3 Balance 357 / 357 Weight 74.9 kg Intake: Oral 360 / 360 Output: Urine 3 / 3 Other: # Incontinent Voids 2 Date of Last Bowel Movement 05/14/18 05/14/18 <Angle العلي - 05/15/18 20:35> Vital Signs 05/14/18 12:00 05/14/18 16:00 05/14/18 20:00 Temperature 98.1 F 98.3 F 98.1 F Pulse Rate 80 70 63 Respiratory Rate 20 20 16 Blood Pressure 108/56 L 114/59 L 128/66 Pulse Oximetry 100 99 98 05/15/18 00:00 05/15/18 04:00 05/15/18 08:00 Temperature 98.0 F 98.1 F 98.4 F Pulse Rate 71 61 68 Respiratory Rate 16 16 20 Blood Pressure 131/59 L 119/58 L 114/56 L Pulse Oximetry 97 99 98 Intake & Output 05/14/18 05/15/18 05/15/18 18:59 06:59 18:59 Intake Total 960 / 960 Output Total Balance 957 / 957 Weight 74.9 kg Intake: Oral 960 / 960 Output: Urine Other: # Incontinent Voids 2 Date of Last Bowel Movement 05/14/18 <Gayathri Holt 05/15/18 10:43> - Constitutional no acute distress <Gayathri Holt 05/15/18 11:28> - Routine Respiratory Exam Present: CTA bilaterally <Gayathri Holt 05/15/18 11:28> - Routine Cardiovascular Exam Present: RRR, S1, S2 <Gayathri Holt 05/15/18 11:28> - Routine Abdominal Exam Present: soft, normoactive bowel sounds <Gayathri Holt 05/15/18 11:28> - Routine Extremities Exam Present: pulses intact, normal capillary refill <Gayathri Holt 05/15/18 11 :28> - Routine Skin Exam Present: intact <Gayathri Holt 05/15/18 11:28> - Routine Neurological Exam Present: alert, oriented X3 <Gayathri Holt 05/15/18 11:28> - Urinary Catheter Management Straight Cath placed during this visit: no <Amelie العليe 05/15/18 20:35> yes, but has since been removed by the nurse <Gayathri Holt 05/15/18 11:28> Reason for continuing: Not indwelling catheter <JonathonGayathri 05/15/18 10: 43> Insertion date: 05/15/18 <JonathonGayathri 05/15/18 10:43> Insertion time: 04:55 <JonathonGayathri 05/15/18 10:43> Removal date: 05/15/18 <SheilacedcarolGayathri 05/15/18 10:43> Removal time: 04:55 <JonathonGayathri 05/15/18 10:43> Assessment and Plan - Assessment (1) Necrotizing fasciitis of upper arm Code(s): M72.6 - Necrotizing fasciitis Status: Acute (2) ROSY (acute kidney injury) Code(s): N17.9 - Acute kidney failure, unspecified Status: Acute (3) HIV (human immunodeficiency virus infection) Code(s): B20 - Human immunodeficiency virus [HIV] disease Status: Chronic (4) Nutrition, metabolism, and development symptoms Code(s): R63.8 - Other symptoms and signs concerning food and fluid intake Status: Acute (5) DVT prophylaxis Status: Acute <Angle اعللي - 05/15/18 20:35> (1) Necrotizing fasciitis of upper arm Code(s): M72.6 - Necrotizing fasciitis Status: Acute Plan: Initial presentation of left axilla abscess, s/p treatment with doxycycline. Worsening swelling of the left upper arm. Rapidly worsened swelling with new erythema and multiple blisters on 04/26, suspicious for necrotizing fasciitis. Patient is now POD 7 from repeat I&D, debridement and new wound vac placement. Patient is stable and has remained afebrile since 05/05. Medications: -Ceftriaxone 2000mg q24h (05/05- ), plan to continue for 4 weeks -Plastic surgery consult: -Will follow up with patient in 2-3 weeks to decide skin graft vs. healing by secondary intention with closure of wound -Ortho consult: -Awaiting recommendations for stitch removal for discharge planning -Consult ID for abx recommendations and HIV as below, appreciate recommendations -Most recent blood cultures from 05/05: NGTD -Intraoperative cultures: Group A beta Strep (Strep pyogenes) from 04/26 -Started Ceftriaxone IV after fever on 05/05, plan to continue for 4 weeks -Pt to be d/c'd with midline, placed on 05/09 -OT consulted for evaluation of possible home health needs, which will be arranged by the [facility] -Home with outpatient OT for ROM depending on progress -Continue dressing changes -Plan for [facility], planned for Wednesday (2) ROSY (acute kidney injury) Code(s): N17.9 - Acute kidney failure, unspecified Status: Acute Plan: Creatinine elevation began on 05/04, likely due to Vancomycin. Is now trending downward -d/c IVF for discharge to [facility] (3) HIV (human immunodeficiency virus infection) Code(s): B20 - Human immunodeficiency virus [HIV] disease Status: Chronic Plan: PT with HIV, unsure of last CD4 count and not current on antiretroviral therapy with CD4 count 128. -Consulted ID who states that pt can be on prophylactic abx on d/c, but [facility] (4) Nutrition, metabolism, and development symptoms Code(s): R63.8 - Other symptoms and signs concerning food and fluid intake Status: Acute Plan: Fluids: Tolerating PO Electrolytes: monitor and replete as needed Nutrition: regular diet GI Prophylaxis: none indicated at this time Will discontinue telemetry in preparation for discharge (5) DVT prophylaxis Status: Acute Plan: Early ambulation. bilateral SCDs, heparin 5000 units twice daily <Gayathri Holt - 05/15/18 11:20> - Assessment and Plan 47yo AAM with PMH of HIV presenting meeting sepsis criteria with left upper arm edema and axillary abscess later determined to be necrotizing fasciitis due to rapidly progressing swelling with blister formation. POD 10 from repeat I&D and debridement of LUE with Orthopedic Surgery. Plastic surgery will continue to follow as an outpatient for closure of wound. Currently stable. Plan to d/c on IV ABX, with f/u weekly labs as requested. <Gayathri Holt - 05/15/18 11:28> - Attending Attestation Patient seen and examined this afternoon, discussed with resident team. I agree with assessment and management as documented and discussed with me. Pt resting comfortably this afternoon. Anticipate discharge tomorrow. <Angle العلي - 05/15/18 20:35>
[2018-05-15] MEDS: QUEtiapine 100 MG Tablet PO SCH (20:13)
[2018-05-15] MEDS: Morphine Inj 4 MG/ML Vial IV.PUSH PRN (21:57)
[2018-05-16] MEDS: Celecoxib 200 MG Capsule PO SCH (08:25)
[2018-05-16] MEDS: QUEtiapine 25 MG Tablet PO SCH (08:26)
[2018-05-16] MEDS: Heparin - SQ 10,000 UNITS/ML Vial SQ SCH (08:26)
[2018-05-16] MEDS: Silver Sulfadiazine 1% Ceam 400 GM Jar TOPICAL SCH (08:26)
[2018-05-16] MEDS: Multivitamin/Minerals Therapeutic Tablet PO SCH (08:26)
[2018-05-16] MEDS: Folic Acid 1 MG Tablet PO SCH (08:26)
[2018-05-16] MEDS: Senna/Docusate Sodium 8.6/50 MG Tablet PO SCH (08:26)
[2018-05-16] MEDS: Morphine Inj 4 MG/ML Vial IV.PUSH PRN (12:40)
--- NOTE | 2018-05-16 13:03 | P.PNFP ---
Subjective Interval history: Patient seen and examined this morning. No acute events overnight. Patient reports feeling well. Denies any new symptoms. States his arm pain is well controlled. Denies any fever/chills, chest pain, shortness of breath, abdominal pain. Ready to go to [facility] today. <Antonio Vo Roland - 05/16/18 13:03> Results - Labs Result diagrams: 05/14/18 04:24 05/14/18 04:24 <Angle العلي - 05/16/18 20:40> - Imaging Upper Extremity Ultrasound 04/25/18 00:00 CONCLUSION: Subcutaneous tissue phlegmon in the left axillary region. Forearm CT 04/25/18 12:57 CONCLUSION: 1. Nonspecific subcutaneous edema along the medial aspect of the proximal forearm. 2. The bony structures are grossly intact. Humerus CT 04/25/18 12:57 CONCLUSION: 1. Nonspecific edema throughout the subcutaneous soft tissues along the medial aspect of the upper arm. No drainable loculated fluid collections. 2. The bony structures of the humerus are grossly unremarkable. Chest X-Ray 04/26/18 00:00 CONCLUSION: The lungs are clear. Humerus MRI 04/26/18 00:00 CONCLUSION: Severe cellulitis confined to subcutaneous location with fascial enhancement which may be reactive in nature. There is no evidence of abscess. There is no evidence of osteomyelitis. <HaleighpaigeAntonio Roland - 05/16/18 13:03> Physical Exam Vital signs: Vital Signs 05/16/18 00:00 05/16/18 04:00 05/16/18 08:44 Temperature 98.0 F 98.1 F 98.8 F Pulse Rate 75 67 68 Respiratory Rate 16 16 18 Blood Pressure 109/58 L 122/57 L 120/58 L Pulse Oximetry 96 98 98 05/16/18 13:09 Temperature 98.3 F Pulse Rate 84 Respiratory Rate 14 Blood Pressure 108/56 L Pulse Oximetry 96 Intake & Output 05/16/18 05/16/18 05/17/18 06:59 18:59 06:59 Intake Total 221 / 221 Balance 221 / 221 Weight 76.2 kg Intake: Oral 221 / 221 Other: # Voids 2 Date of Last Bowel Movement 05/15/18 <Angle العلي - 05/16/18 20:40> Vital Signs 05/15/18 16:00 05/15/18 20:00 05/16/18 00:00 Temperature 98.5 F 98.4 F 98.0 F Pulse Rate 87 70 75 Respiratory Rate 20 17 16 Blood Pressure 125/69 132/68 109/58 L Pulse Oximetry 99 98 96 05/16/18 04:00 05/16/18 08:44 Temperature 98.1 F 98.8 F Pulse Rate 67 68 Respiratory Rate 16 18 Blood Pressure 122/57 L 120/58 L Pulse Oximetry 98 98 Intake & Output 05/15/18 05/16/18 05/16/18 18:59 06:59 18:59 Intake Total 460 / 460 221 / 221 Output Total 3 / 3 Balance 457 / 457 221 / 221 Weight 76.2 kg Intake: IV 100 / 100 Rocephin Inj 2,000 MG In NS Inj 100 / 100 100 ML @ 200 mls/hr IV.SIG Q24H TWAN Rx#:[id number] Oral 360 / 360 221 / 221 Output: Urine 3 / 3 Other: # Voids 2 Date of Last Bowel Movement 05/14/18 05/15/18 <Antonio Vo 05/16/18 13:03> Narrative: GEN: thin AA male laying in bed, in no acute distress SKIN: Warm and dry. CARDIOVASCULAR: Regular rate and rhythm. RESPIRATORY: No accessory muscle use. Clear to auscultation bilaterally. GASTROINTESTINAL: Abdomen soft, non-tender, nondistended. MUSCULOSKELETAL: Extremities without clubbing or cyanosis. Left arm wrapped in jc bandage from axilla to forearm. Multiple stitches in place in left forearm. Sensation intact. Cap refill 2+. NEUROLOGICAL: Awake and alert. No obvious cranial nerve deficits. Motor grossly within normal limits. Normal speech. <Antonio Vo - 05/16/18 13:03> - Urinary Catheter Management Straight Cath placed during this visit: no <Angle العلي 05/16/18 20:40> yes, but has since been removed by the nurse <Antonio Vo 05/16/18 13:03> Reason for continuing: Not indwelling catheter <Antonio Vo 05/16/18 13 :03> Insertion date: 05/15/18 <Antonio Vo 05/16/18 13:03> Insertion time: 04:55 <Antonio Vo 05/16/18 13:03> Removal date: 05/15/18 <Antonio Vo - 05/16/18 13:03> Removal time: 04:55 <Antonio Vo - 05/16/18 13:03> Assessment and Plan - Assessment (1) Necrotizing fasciitis of upper arm Code(s): M72.6 - Necrotizing fasciitis Status: Acute (2) ROSY (acute kidney injury) Code(s): N17.9 - Acute kidney failure, unspecified Status: Acute (3) HIV (human immunodeficiency virus infection) Code(s): B20 - Human immunodeficiency virus [HIV] disease Status: Chronic (4) Nutrition, metabolism, and development symptoms Code(s): R63.8 - Other symptoms and signs concerning food and fluid intake Status: Acute (5) DVT prophylaxis Status: Acute <Angle العلي - 05/16/18 20:40> (1) Necrotizing fasciitis of upper arm Code(s): M72.6 - Necrotizing fasciitis Status: Acute Plan: Initial presentation of left axilla abscess, s/p treatment with doxycycline. Worsening swelling of the left upper arm. Rapidly worsened swelling with new erythema and multiple blisters on 04/26, suspicious for necrotizing fasciitis. Patient is now Post-op from repeat I&D, debridement and new wound vac placement. Patient is stable and has remained afebrile since 05/05. Medications: -Ceftriaxone 2000mg q24h (05/05- ), plan to continue for 4 weeks -Plastic surgery consult: -Will follow up with patient in 2-3 weeks to decide skin graft vs. healing by secondary intention with closure of wound -Ortho consult: -Discussed with Dr. Allen; ok to remove stitches and f/u with plastic surgery -Consult ID for abx recommendations and HIV as below, appreciate recommendations -Most recent blood cultures from 05/05: NGTD -Intraoperative cultures: Group A beta Strep (Strep pyogenes) from 04/26 -Started Ceftriaxone IV after fever on 05/05, plan to continue for 4 weeks -Pt to be d/c'd with midline, placed on 05/09 -OT consulted for evaluation of possible home health needs, which will be arranged by the [facility] -Home with outpatient OT for ROM depending on progress -Continue dressing changes -Plan for [facility], [facility] (2) ROSY (acute kidney injury) Code(s): N17.9 - Acute kidney failure, unspecified Status: Acute Plan: Creatinine elevation began on 05/04, likely due to Vancomycin. Is now trending downward -d/c IVF for discharge to [facility] (3) HIV (human immunodeficiency virus infection) Code(s): B20 - Human immunodeficiency virus [HIV] disease Status: Chronic Plan: PT with HIV, unsure of last CD4 count and not current on antiretroviral therapy with CD4 count 128. -Consulted ID who states that pt can be on prophylactic abx on d/c, but [facility] -Started on Bactrim for PJP prophylaxis upon discharge (4) Nutrition, metabolism, and development symptoms Code(s): R63.8 - Other symptoms and signs concerning food and fluid intake Status: Acute Plan: Fluids: Tolerating PO Electrolytes: monitor and replete as needed Nutrition: regular diet GI Prophylaxis: none indicated at this time (5) DVT prophylaxis Status: Acute Plan: Early ambulation. bilateral SCDs, heparin 5000 units twice daily <Antonio Vo - 05/16/18 12:58> - Assessment and Plan 47yo AAM with PMH of HIV presenting meeting sepsis criteria with left upper arm edema and axillary abscess later determined to be necrotizing fasciitis due to rapidly progressing swelling with blister formation. POD 11 from repeat I&D and debridement of LUE with Orthopedic Surgery. Plastic surgery will continue to follow as an outpatient for closure of wound. Currently stable. Plan to d/c on IV ABX, with f/u weekly labs as requested. <Antonio Vo - 05/16/18 13:03> - Attending Attestation Patient seen, examined, and discussed this morning with resident team. I agree with assessment and management as documented with me. Pt without complaints. Plan to discharge today to [facility], if all can be arranged. Greater than 30 minutes spent personally counselling and coordinating care at discharge. <Angle العلي - 05/16/18 20:40>
[2018-05-16 13:10] VITALS: BP 108/56; PULSE 84; RESP 14; TEMP 98.3; O2SAT 96
--- NOTE | 2018-05-16 14:10 | P.DS ---
Date of admission: 04/25/18 15:21 Primary care physician: UNKNOWN Attending physician on discharge: Angle العلي Anticipated date of discharge: 05/16/18 Brief History from admission: Mr. Quezada is a 47yo male with a PMH of HIV, Bipolar disorder, PTSD, MDD presenting with left upper arm swelling. He starts that this issue started 2 weeks ago with an abscess in his left axilla that was the size of a little knot. He is unsure of the inciting even (no bites etc). He then went to the doctor [facility] on 04/15 and was prescribed doxycycline. He has not yet finished the course. After taking this his axilla started draining malodorous green pus. 4 days ago his left upper arm starting swelling. He developed night sweats, fever/chills, fatigue, loss of appetite. No hx of IV drug use. Pt has not been on any medications in over a year for any of his chronic problems. Is to restart antiretroviral therapy at the [facility] next month. DS: Diagnosis - Discharge Diagnosis (1) Necrotizing fasciitis of upper arm Status: Acute (2) ROSY (acute kidney injury) Status: Acute (3) HIV (human immunodeficiency virus infection) Status: Chronic (4) Nutrition, metabolism, and development symptoms Status: Acute (5) DVT prophylaxis Status: Acute DS: Medications - Discharge Medications Prescriptions: celecoxib [Celebrex] 200 mg PO DAILY 30 Days #30 cap hydrocodone-acetaminophen 1 tab PO Q4H PRN #18 tab PRN Reason: Pain (Scale Score 7-10) pantoprazole 40 mg PO DAILY 30 Days #30 tab prazosin [Minipress] 5 mg PO HS 30 Days #30 cap quetiapine 25 mg PO DAILY 30 Days #30 tab quetiapine 100 mg PO HS 30 Days #30 tab sulfamethoxazole-trimethoprim [Bactrim] 1 tab PO DAILY 60 Days #60 tab zolpidem 5 mg PO HS PRN #30 tab PRN Reason: Insomnia DS: Summary Hospital Course: Patient is a 47-year-old -[place] male with past medical history of HIV , bipolar disorder, PTSD, MDD who was admitted for cellulitis of the left upper extremity. CT of the forearm and humerus on 04/25 showed non-specific edema of the soft tissues along the medical aspect of o the upper arm and proximal forearm without drainable fluid collection. ULE US showed small superficial fluid collection in the axilla. On admission, patient met sepsis criteria with WBC of 26.2 and tachycardia in the 100s. Lactic acid was high at 2.7, blood cultures were collected and patient was started on Vancomycin and Zosyn. ID was consulted for antibiotic recommendations and HIV treatment options. General surgery was consulted for possible I&D. Patient experienced fever, increased swelling and pain, in addition to blistering skin overnight on 04/25, concerning for necrotizing fasciitis. Both general surgery and orthopedics consulted. Patient underwent emergent and extensive debridement of the ULE on 04/26. ID added Clindamycin to the antibiotic regimen at this time. Psychiatry consulted on 04/28 for patients history of bipolar disorder, PTSD and MDD. Patient started on Seroquel, which he has tolerated well. Patient is now POD 13 from second I&D and wound VAC placement on 05/02. Wound vac was discontinued on 05/07. Preliminary results from the initial wound culture was positive for MRSA, but showed group A B-strep on final growth (05/05). Patient deescalated from Clindamycin (04/26-05/03), Zosyn (04/25-05/04) and Vanco (04/25 -05/05) and placed on Ceftriaxone (05/05). All following blood cultures and wound cultures have been negative. Patient has remained stable and afebrile since 05/07. Plastics surgery examined on 05/06 and stated that they will continue to follow him on an outpatient basis. They will decide on skin graft versus secondary wound healing with surgical closure in follow-up in a couple of weeks. Per ID recommendations, will continue IV ceftriaxone for 4 weeks upon discharge. In preparation for discharge, midline was placed in the right arm on 05/09. Awaiting orthopedics recommendations for stitch removal on Wednesday morning 05/16. Case management aware. Patient awaiting placement at [facility] through [place]. Patient unable to be transferred on Wednesday due to admission nurse absence. - Time Spent with Patient Total time spent providing and/or coordinating discharge services: Exam Vital signs: Vital Signs 05/15/18 16:00 05/15/18 20:00 05/16/18 00:00 Temperature 98.5 F 98.4 F 98.0 F Pulse Rate 87 70 75 Respiratory Rate 20 17 16 Blood Pressure 125/69 132/68 109/58 L Pulse Oximetry 99 98 96 05/16/18 04:00 05/16/18 08:44 05/16/18 13:09 Temperature 98.1 F 98.8 F 98.3 F Pulse Rate 67 68 84 Respiratory Rate 16 18 14 Blood Pressure 122/57 L 120/58 L 108/56 L Pulse Oximetry 98 98 96 Intake & Output 05/15/18 05/16/18 05/16/18 18:59 06:59 18:59 Intake Total 460 / 460 221 / 221 Output Total 3 / 3 Balance 457 / 457 221 / 221 Weight 76.2 kg Intake: IV 100 / 100 Rocephin Inj 2,000 MG In NS Inj 100 / 100 100 ML @ 200 mls/hr IV.SIG Q24H TWAN Rx#:[id number] Oral 360 / 360 221 / 221 Output: Urine 3 / 3 Other: # Voids 2 Date of Last Bowel Movement 05/14/18 05/15/18 Narrative: GEN: thin AA male laying in bed, in no acute distress SKIN: Warm and dry. CARDIOVASCULAR: Regular rate and rhythm. RESPIRATORY: No accessory muscle use. Clear to auscultation bilaterally. GASTROINTESTINAL: Abdomen soft, non-tender, nondistended. MUSCULOSKELETAL: Extremities without clubbing or cyanosis. Left arm wrapped in jc bandage from axilla to forearm. Multiple stitches in place in left forearm. Sensation intact. Cap refill 2+. NEUROLOGICAL: Awake and alert. No obvious cranial nerve deficits. Motor grossly within normal limits. Normal speech. Results Procedures completed during hospitalization: Incision and drainage, irrigation and excisional debridement of left arm, left elbow, left forearm. Labs on day of discharge: Preliminary micro results at discharge 04/26/18 16:30 Mycobacterial Culture - Preliminary Wound - Arm No growth in 2 weeks 04/26/18 16:30 Mycobacterial Culture - Preliminary Wound - Arm No growth in 2 weeks 04/26/18 16:30 Fungal Culture - Preliminary Wound - Arm No growth in 2 weeks 04/26/18 16:30 Fungal Culture - Preliminary Wound - Arm No growth in 2 weeks - Impressions ITS Impressions Upper Extremity Ultrasound 04/25/18 00:00 CONCLUSION: Subcutaneous tissue phlegmon in the left axillary region. Forearm CT 04/25/18 12:57 CONCLUSION: 1. Nonspecific subcutaneous edema along the medial aspect of the proximal forearm. 2. The bony structures are grossly intact. Humerus CT 04/25/18 12:57 CONCLUSION: 1. Nonspecific edema throughout the subcutaneous soft tissues along the medial aspect of the upper arm. No drainable loculated fluid collections. 2. The bony structures of the humerus are grossly unremarkable. Chest X-Ray 04/26/18 00:00 CONCLUSION: The lungs are clear. Humerus MRI 04/26/18 00:00 CONCLUSION: Severe cellulitis confined to subcutaneous location with fascial enhancement which may be reactive in nature. There is no evidence of abscess. There is no evidence of osteomyelitis. Discharge Plan - Discharge Disposition Patient Disposition: 04 [facility] - Discharge Condition Condition: Stable - Discharge Order Discharge Orders: Discharge Order (Routine); Ordered 05/16/18 Ordered By: Antonio Vo - Discharge Details Anticipated Discharge Date: 05/16/18 Discharge Comment: Pending ortho recommendations for stitch removal - Physicians Team Primary Care Provider: UNKNOWN, Attending Provider: Angle العلي Other Providers: Pamela Stokes MD ; Jax Allen MD ; Jean Peraza MD ; Eliot Posada MD ; Veronica Daniel MD
== END 2018-05-16 13:48 ==
LOC: NEPC 10:36 → NEDA 15:21 → N07 18:38 → N03 04-26 20:28 → N04 05-13 18:27
PROVIDERS: ADMIT Family Medicine; ATTEND Family Medicine
DX: M79.89 Other specified soft tissue disorders; M72.6 Necrotizing fasciitis; T36.8X5A Adverse effect of other systemic antibiotics, initial encounter; B95.62 Methicillin resistant Staphylococcus aureus infection as the cause of diseases classified elsewhere; R59.9 Enlarged lymph nodes, unspecified; F12.90 Cannabis use, unspecified, uncomplicated; B20 Human immunodeficiency virus [HIV] disease; B95.0 Streptococcus, group A, as the cause of diseases classified elsewhere; M79.602 Pain in left arm; N17.9 Acute kidney failure, unspecified; G47.00 Insomnia, unspecified; F43.10 Post-traumatic stress disorder, unspecified; R00.0 Tachycardia, unspecified; R60.0 Localized edema; R63.0 Anorexia; Z91.19 Patient's noncompliance with other medical treatment and regimen; L03.114 Cellulitis of left upper limb; R65.21 Severe sepsis with septic shock; M25.522 Pain in left elbow; A41.9 Sepsis, unspecified organism; F31.9 Bipolar disorder, unspecified; F17.210 Nicotine dependence, cigarettes, uncomplicated

== ENCOUNTER 2018-06-25 21:20 | Inpatient (IN) ==
--- NOTE | 2018-06-25 21:56 | ED ---
HPI General Chief complaint: Medical Clearance Stated complaint: Medical Time Seen by Provider: 06/25/18 21:28 Source: patient and EMS Mode of arrival: EMS Limitations: no limitations History of Present Illness HPI narrative: Patient is a 47-year-old male who was transferred from [facility] for admission to the hospital. Upon review of patient's medical records, patient was initially seen at [facility] and was found to be septic due to an infection to his left upper extremity. Patient has history of necrotizing fasciitis and was operated on by Dr. Allen with orthopedic surgery in April. They were concerned for sepsis due to infection to his left upper extremity. The ER physician discussed case with orthopedic surgery who recommended discussion with Dr. Coto with general surgery who then recommended call to orthopedic surgery. Case was reviewed with Dr. Cartagena who requested that patient be transferred back to [facility]. Case was discussed with Dr. Evgeny Stokes who accepted patient to their service. Patient had a full workup at [facility] and was given vancomycin as well as zosyn as well as multiple liters of fluid at [facility] as patient was initially hypotensive- patient currently with no complaints. Related Data Home Medications Medication Instructions Recorded Confirmed naproxen 375 mg PO BID PRN 06/25/18 06/25/18 quetiapine 150 mg PO QPM 06/25/18 06/25/18 Allergies Allergy/AdvReac Type Severity Reaction Status Date / Time No Known Allergies Allergy Verified 06/25/18 21:33 Review of Systems ROS: all other systems reviewed are negative [facility] Medical History Medical History Necrotizing fasciitis (Acute) Bipolar disorder (Acute) HIV (human immunodeficiency virus infection) (Acute) PTSD (post-traumatic stress disorder) (Acute) Surgical History Surgical History No history of previous surgery (Acute) Family History Family History Other Unknown family medical history Social History Social History Substance History: No History of Abuse Smoking Status: Current every day smoker Tobacco Type: Cigarettes How Often Do You Have a Drink Containing Alcohol: Never Recent Travel in [facility] within the Last 8 Weeks: No Recent Out of Country Travel within the Last 8 Weeks: No Immunization History Tetanus Immunization: Unsure Hx Influenza Vaccine This Season: No Exam Narrative Exam Narrative: GENERAL: NAD SKIN: Focused skin assessment warm/dry. HEAD: Atraumatic. Normocephalic. EYES: Pupils equal and round. No scleral icterus. No injection or drainage. ENT: No nasal bleeding or discharge. Mucous membranes pink and moist. NECK: Trachea midline. No JVD. CARDIOVASCULAR: Regular rate and rhythm. No murmur appreciated. RESPIRATORY: No accessory muscle use. Clear to auscultation. Breath sounds equal bilaterally. GASTROINTESTINAL: Abdomen soft, non-tender, nondistended. Hepatic and splenic margins not palpable. MUSCULOSKELETAL: No obvious deformities. No clubbing. No cyanosis. No edema. Patient with wound to left upper extremity, there is no discharge or drainage or redness, no signs of necrotizing faciitis NEUROLOGICAL: Awake and alert. No obvious cranial nerve deficits. Motor grossly within normal limits. Normal speech. PSYCHIATRIC: Appropriate mood and affect; insight and judgment normal. Course Initial Documented Vital Signs Temperature 97.6 F 06/25/18 21:24 Pulse Rate 87 06/25/18 21:24 Respiratory Rate 18 06/25/18 21:24 Blood Pressure 131/83 06/25/18 21:24 Pulse Oximetry 98 06/25/18 21:24 Last Documented Vital Signs Temperature 97.6 F 06/25/18 21:24 Pulse Rate 87 06/25/18 21:24 Respiratory Rate 18 06/25/18 21:24 Blood Pressure 131/83 06/25/18 21:24 Pulse Oximetry 98 06/25/18 21:24 Medical Decision Making MDM Narrative Medical decision making narrative: Patient had a full workup at [facility] , he was given antibiotics there as well. Patient has already been accepted by Dr. Evgeny Stokes for admission to her service. 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 Patient with no complaints at this time. Case reviewed with Dr. Peraza who accepts pt to service for admission Medical Screen Exam Complete: Yes Emergency Medical Condition: Yes Differential Diagnosis Differential Diagnosis: nec fas, cellulitis, bacteremia Medical Records Medical records reviewed: Yes I reviewed the patient's medical records. Lab Data Lab Results 06/25/18 Range/Units 23:42 Total Creatine Kinase 477 H (39-308) U/L CK-MB (CK-2) 1.5 (0.5-3.6) ng/mL CK-MB (CK-2) % 0.3 (0.0-4.0) % Troponin I 0.02 (0.02-0.05) ng/mL Discharge Plan Discharge Disposition Patient Disposition: 30 Still Patient Discharge Condition Condition: Stable Discharge Details Diagnosis: Sepsis Physicians Team ED Provider: Dara Chacon Primary Care Provider: UNKNOWN, Attending Provider: Jean Peraza Other Providers: Lisa Chow ; Kamlesh Cartagena Status ED Status: Admitted Patient
--- NOTE | 2018-06-25 23:11 | P.HPCC ---
History of Present Illness Primary Care Physician: UNKNOWN History of Present Illness: 47-year-old gentleman with history of necrotizing fasciitis treated by Dr. Allen here in April this year presents in a transfer from [facility]. The patient was at the bus stop when bystanders noticed that he fell on the bench and was behaving strange. Upon approaching the patient he started to shake and appeared to be having a seizure. EMS was called. After EMS arrival the patient was standing and when they attempted to touch him he started to exhibit the same seizure-like activity. He suddenly became very aggressive per EMS and started to throw punches. The patient was kicking around and became extremely combative. He was given ketamine 100 mg IM and was transferred to emergency department at [facility]. He continued to be combative and was given another 50 mg of ketamine IM. In the emergency department at [facility] he was noticed to have a fever and became slightly hypotensive. He was resuscitated with IV fluids with the good response in hemodynamics, was given broad-spectrum IV antibiotics and was transferred here for higher level of care. Inpatient Certification: I certify that the inpatient services were ordered in accordance with Medicare regulations governing the order. 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 - Medical History Medical History: Medical History (Last Reviewed 06/25/18 @ 21:57 by Dara Chacon) Necrotizing fasciitis Bipolar disorder HIV (human immunodeficiency virus infection) PTSD (post-traumatic stress disorder) - Surgical History Surgical History: Surgical History (Last Reviewed 06/25/18 @ 21:57 by Dara Chacon) No history of previous surgery - Family History Family History: Family History (Last Reviewed 06/25/18 @ 21:57 by Dara Chacon) Other Unknown family medical history - Tobacco History Tobacco Use In Past 30 Days: Yes Smoking Status: Current every day smoker Tobacco Type: Cigarettes - Alcohol History How Often Do You Have a Drink Containing Alcohol: Never - Substance Use History Substance History: No History of Abuse - Travel History Recent Travel in the USA Within the Last 8 Weeks: No Recent Travel Out of the Country Within the Last 8 Weeks: No - Immunization History Tetanus Immunization: Unsure Hx Influenza Vaccine This Season: No Medications and Allergies Allergies Allergy/AdvReac Type Severity Reaction Status Date / Time No Known Allergies Allergy Verified 06/25/18 21:33 Home Medications Medication Instructions Recorded Confirmed Type naproxen 375 mg PO BID PRN 06/25/18 06/25/18 History quetiapine 150 mg PO QPM 06/25/18 06/25/18 History Exam Vital signs: Vital Signs 06/25/18 21:24 Temperature 97.6 F Pulse Rate 87 Respiratory Rate 18 Blood Pressure 131/83 Pulse Oximetry 98 Intake & Output 06/25/18 06/25/18 06/26/18 06:59 18:59 06:59 Weight 81.647 kg - Constitutional no acute distress - Routine HEENT Exam Head: Present: normocephalic, atraumatic Eye: Present: PERRL ENT: Present: mucous membranes moist - Routine Neck Exam Present: supple, full ROM. Absent: JVD, carotid bruit - Routine Respiratory Exam Absent: accessory muscle use, rhonchi, stridor, wheezes - Routine Cardiovascular Exam Present: RRR, S1, S2 - Routine Abdominal Exam Present: soft, normoactive bowel sounds. Absent: tenderness, distended - Routine Extremities Exam Present: full ROM. Absent: cyanosis, clubbing, edema - Routine Skin Exam Present: dry. Absent: cyanosis - Routine Neurological Exam Present: alert, oriented X3 Septic Shock Reassessment Septic shock perfusion: reassessment completed Caprini VTE Risk Assessment Caprini VTE Risk Assessment: Moderate/High Risk (score >= 2) Caprini Risk Assessment Model: Point Value = 1 Point Value = 2 Point Value = 3 Point Value = 5 Age 41-60 Minor surgery BMI > 25 kg/m2 Swollen legs Varicose veins or History of unexplained or recurrent spontaneous Oral contraceptives or hormone replacement Sepsis (< 1 month) Serious lung disease, including pneumonia (< 1 month) Abnormal pulmonary function Acute myocardial infarction Congestive heart failure (< 1 month) History of inflammatory bowel disease Medical patient at bed rest Age 61-74 Arthroscopic surgery Major open surgery (> 45 min) Laparoscopic surgery (> 45 min) Malignancy Confined to bed (> 72 hours) Immobilizing plaster cast Central venous access Age >= 75 History of VTE Family history of VTE Factor V Leiden Prothrombin [id number] Lupus anticoagulant Anticardiolipin antibodies Elevated serum homocysteine Heparin-induced thrombocytopenia Other congenital or acquired thrombophilia Stroke (< 1 month) Elective arthroplasty Hip, pelvis, or leg fracture Acute spinal cord injury (< 1 month) Prophylaxis Regimen: Total Risk Factor Score Risk Level Prophylaxis Regimen 0-1 Low Early ambulation 2 Moderate Order ONE of the following: *Sequential Compression Device (SCD) *Heparin 5000 units SQ BID 3-4 Higher Order ONE of the following medications: *Heparin 5000 units SQ TID *Enoxaparin/Lovenox 40 mg SQ daily (WT < 150 kg, CrCl > 30 mL/min) *Enoxaparin/Lovenox 30 mg SQ daily (WT < 150 kg, CrCl > 10-29 mL/min) *Enoxaparin/Lovenox 30 mg SQ BID (WT < 150 kg, CrCl > 30 mL/min) AND/OR *Sequential Compression Device (SCD) 5 or more Highest Order ONE of the following medications: *Heparin 5000 units SQ TID (Preferred with Epidurals) *Enoxaparin/Lovenox 40 mg SQ daily (WT < 150 kg, CrCl > 30 mL/min) *Enoxaparin/Lovenox 30 mg SQ daily (WT < 150 kg, CrCl > 10-29 mL/min) *Enoxaparin/Lovenox 30 mg SQ BID (WT < 150 kg, CrCl > 30 mL/min) AND *Sequential Compression Device (SCD) Assessment and Plan - Assessment and Plan Plan: Fever/hypotension -Continue IV fluid resuscitation -Broad-spectrum antibiotics -Blood cultures to follow -Immunocompromised patient with HIV -infectious disease consultation Seizure -Neuro checks per unit protocol -CT head negative per report from [facility] -Neurology consultation -Drug screen toxicology pending Rhabdomyolysis -From the seizure -IV fluid resuscitation -Monitor trend Depression -Quetiapine DVT GI prophylaxis -Teds SCDs -Lovenox -Pepcid 35 minutes of critical
[2018-06-25] MEDS ORDERED: Bisacodyl 10 MG Supp RECTAL PRN (23:13)
[2018-06-25] MEDS ORDERED: Acetaminophen 325 MG Tablet PO PRN (23:13)
[2018-06-25] MEDS ORDERED: Vancomycin Consult Pharmacy OTHER PRN (23:22)
[2018-06-25] MEDS: Sod Chloride 0.9% Inj 1,000 ML IV.CONT SCH (23:45)
[2018-06-26] MEDS: Enoxaparin Inj 40 MG/0.4 ML Syringe SQ SCH ×2 (00:12→23:43)
[2018-06-26] MEDS: Piperacil/Tazo 4.5 GM Premix 4.5 GM/100 ML BAG IV.SIG SCH ×5 (00:13→23:43)
[2018-06-26 00:21] LABS: Troponin I 0.02 ng/mL (0.02-0.05)
[2018-06-26 00:34] LABS: CKMB Percent 0.3 % (0.0-4.0); Creatine Kinase MB 1.5 ng/mL (0.5-3.6)
[2018-06-26] MEDS ORDERED: Vancomycin Inj 1,000 MG in Sodium Chlor 0.9% Inj 250 ML IV.SIG ONE (01:00)
[2018-06-26] MEDS ORDERED: Chlorhexidine Gluconate 2% 1 Pack (2 Cloths) TOPICAL PRN (04:00)
[2018-06-26 04:03] LABS: Baso % (Auto) 0.6 % (0.0-2.0); Eos # (Auto) 0.5 th/mm3 (0.0-0.4); Hematocrit 37.7 % (39.0-51.0); Hemoglobin 12.8 gm/dL (13.0-17.0); Lymph # (Auto) 0.9 th/mm3 (1.0-4.8); Lymph % (Auto) 10.2 % (9.0-44.0); Mean Corpuscular Hemoglobin 31.2 pg (27.0-34.0); Mean Corpuscular Volume 91.8 fL (80.0-100.0); Mean Platelet Volume 6.3 fL (7.0-11.0); Mono # (Auto) 0.4 th/mm3 (0.0-0.9); Mono % (Auto) 4.8 % (0.0-8.0); Neut # (Auto) 6.9 th/mm3 (1.8-7.7); Neut % (Auto) 78.4 % (16.0-70.0); Platelet Count 253 th/mm3 (150-450); Red Blood Count 4.11 mil/mm3 (4.50-5.90); Red Cell Distribution Width 14.8 % (11.6-17.2); White Blood Count 8.8 th/mm3 (4.0-11.0)
[2018-06-26 04:17] LABS: Activated Partial Thrombo Time 24.8 sec (24.3-30.1); INR 1.1 Ratio; Prothrombin Time 11.2 sec (9.8-11.6)
[2018-06-26 04:29] LABS: Albumin 3.1 g/dL (3.4-5.0); Anion Gap 9 meq/L (5-15); Aspartate Aminotransferase 25 U/L (15-37); Blood Urea Nitrogen 9 mg/dL (7-18); Calcium 8.2 mg/dL (8.5-10.1); Carbon Dioxide 24.1 meq/L (21.0-32.0); Chloride 112 meq/L (98-107); Glomerular Filtration Rate 81 mL/min (>89); Glucose,Random 75 mg/dL (74-106); Magnesium 1.8 mg/dL (1.5-2.5); Potassium 4.1 meq/L (3.5-5.1); Sodium 145 meq/L (136-145)
[2018-06-26 04:29] LABS: Amphetamine Screen,Urine Neg (Neg); Barbiturate Screen,Urine Neg (Neg); Cannabinoid Screen,Urine Neg (Neg); Cocaine Screen,Urine Pos (Neg)
[2018-06-26 04:34] LABS: Alanine Aminotransferase 31 U/L (12-78); Alkaline Phosphatase 62 U/L (45-117); Phosphorus 3.6 mg/dL (2.5-4.9); Total Protein 7.1 g/dL (6.4-8.2)
[2018-06-26 04:35] LABS: Opiate Screen,Urine Neg (Neg)
[2018-06-26] MEDS: Chlorhexidine Gluconate 2% 1 Pack (2 Cloths) TOPICAL SCH (06:39)
--- NOTE | 2018-06-26 08:14 | P.PNIM ---
Subjective Interval history: f/u; seizure/hypotension in no acute distress. resting comfortably with no complaints although he doesn't remember how he ended up in the hospital. no fever. denies pain. d/w the RN. Physical Exam Vital signs: Vital Signs 06/25/18 21:24 06/26/18 00:00 06/26/18 00:50 Temperature 97.6 F Pulse Rate 87 88 90 Respiratory Rate 18 18 16 Blood Pressure 131/83 111/69 106/62 Pulse Oximetry 98 99 99 06/26/18 02:16 06/26/18 03:33 06/26/18 03:56 Temperature 98.2 F Pulse Rate 89 92 H Respiratory Rate 16 16 Blood Pressure 100/59 L 107/56 L Pulse Oximetry 97 06/26/18 04:54 06/26/18 06:23 Temperature Pulse Rate 89 97 H Respiratory Rate 14 Blood Pressure 105/58 L Pulse Oximetry 96 Intake & Output 06/25/18 06/26/18 06/26/18 18:59 06:59 18:59 Intake Total 350 / 350 Output Total 600 / 600 Balance -250 / -250 Weight 83.5 kg Intake: IV 350 / 350 Zosyn 4.5 GM Premix 4.5 gm In 100 / 100 100 ml @ 200 mls/hr IV.SIG Q6H TWAN Rx#:[id number] Vancomycin Inj 1,000 MG In NS 250 / 250 Inj 250 ML @ 250 mls/hr IV.SIG ONCE ONE Rx#:[id number] Output: Urine 600 / 600 Other: Date of Last Bowel Movement 06/25/18 Weight On Admission 83.5 kg - Constitutional no acute distress - Routine Respiratory Exam Present: CTA bilaterally - Routine Cardiovascular Exam Present: RRR - Routine Abdominal Exam Present: soft - Routine Extremities Exam Comments: left arm covered with clean dressing. - Routine Neurological Exam Present: alert, oriented X3 Results - Labs CBC & Chem 7: 06/26/18 03:42 06/26/18 03:42 Laboratory Results - last 24 hr 06/25/18 06/26/18 06/26/18 23:42 03:42 03:42 WBC 8.8 RBC 4.11 L Hgb 12.8 L Hct 37.7 L MCV 91.8 MCH 31.2 MCHC 34.0 RDW 14.8 Plt Count 253 MPV 6.3 L Neut % (Auto) 78.4 H Lymph % (Auto) 10.2 [place] % (Auto) 4.8 Eos % (Auto) 6.0 H Baso % (Auto) 0.6 Neut # (Auto) 6.9 Lymph # (Auto) 0.9 L [place] # (Auto) 0.4 Eos # (Auto) 0.5 H Baso # (Auto) 0.0 WBC Differential . Differential Comment Auto diff final PT 11.2 INR 1.1 APTT 24.8 Sodium Potassium Chloride Carbon Dioxide Anion Gap BUN Creatinine Estimated GFR Random Glucose Lactic Acid Calcium Phosphorus Magnesium Total Bilirubin AST ALT Alkaline Phosphatase Total Creatine Kinase 477 H CK-MB (CK-2) 1.5 CK-MB (CK-2) % 0.3 Troponin I 0.02 Total Protein Albumin Nasal Screen MRSA (PCR) Urine Opiates Screen Ur Barbiturates Screen Ur Amphetamines Screen U Benzodiazepines Scrn Urine Cocaine Screen U Cannabinoids Screen 06/26/18 06/26/18 06/26/18 03:42 03:42 03:47 WBC RBC Hgb Hct MCV MCH MCHC RDW Plt Count MPV Neut % (Auto) Lymph % (Auto) [place] % (Auto) Eos % (Auto) Baso % (Auto) Neut # (Auto) Lymph # (Auto) [place] # (Auto) Eos # (Auto) Baso # (Auto) WBC Differential Differential Comment PT INR APTT Sodium 145 Potassium 4.1 Chloride 112 H Carbon Dioxide 24.1 Anion Gap 9 BUN 9 Creatinine 1.17 Estimated GFR 81 L Random Glucose 75 Lactic Acid 1.0 Calcium 8.2 L Phosphorus 3.6 Magnesium 1.8 Total Bilirubin 0.5 AST 25 ALT 31 Alkaline Phosphatase 62 Total Creatine Kinase CK-MB (CK-2) CK-MB (CK-2) % Troponin I Less than 0.02 L Total Protein 7.1 Albumin 3.1 L Nasal Screen MRSA (PCR) Urine Opiates Screen Neg Ur Barbiturates Screen Neg Ur Amphetamines Screen Neg U Benzodiazepines Scrn Neg Urine Cocaine Screen Pos H U Cannabinoids Screen Neg 06/26/18 06:15 WBC RBC Hgb Hct MCV MCH MCHC RDW Plt Count MPV Neut % (Auto) Lymph % (Auto) [place] % (Auto) Eos % (Auto) Baso % (Auto) Neut # (Auto) Lymph # (Auto) [place] # (Auto) Eos # (Auto) Baso # (Auto) WBC Differential Differential Comment PT INR APTT Sodium Potassium Chloride Carbon Dioxide Anion Gap BUN Creatinine Estimated GFR Random Glucose Lactic Acid Calcium Phosphorus Magnesium Total Bilirubin AST ALT Alkaline Phosphatase Total Creatine Kinase CK-MB (CK-2) CK-MB (CK-2) % Troponin I Total Protein Albumin Nasal Screen MRSA (PCR) Not detected Urine Opiates Screen Ur Barbiturates Screen Ur Amphetamines Screen U Benzodiazepines Scrn Urine Cocaine Screen U Cannabinoids Screen Assessment and Plan - Plan Fever/hypotension- now with no fever over night and BP stable. -Continue IV fluid . -Broad-spectrum antibiotics -Blood cultures to follow -Immunocompromised patient with HIV -infectious disease consultation Seizure -Neuro checks -CT head negative per report from [facility] -obtain EEG -Neurology consultation -Drug screen toxicology positive for cocaine Rhabdomyolysis -From the seizure -IV fluid resuscitation -Monitor trend necrotizing fascitis - s/p I/D in April -says that he finished the course of antibiotic therapy and now being followed up by [place] plastic surgery for possible graft placement -ortho consulted. Depression -Quetiapine DVT GI prophylaxis -Teds SCDs -Lovenox -Pepcid transfer to floor. Discharge Planning: within the next 24-48 hrs if stable and after being evaluated by consultants.
--- NOTE | 2018-06-26 08:17 | P.CONOP ---
[facility] Orthopedics Consult Note - [facility] Consult date: 06/26/18 Requesting physician: Jean Peraza Consult reason: other (Evaluation of left upper extremity with history of fasciotomy) Chief complaint: sepsis Narrative: This 47-year-old male previous patient of Dr. Allen for necrotizing fasciitis had surgical procedures of the left upper extremity including fasciotomy and debridement. These were approximately 2 months ago. The patient has been treated at the [facility] in [place] with wound care and has a plastic surgeon following. He states he was doing well. He apparently had mental status changes yesterday and "woke up" in the hospital at [facility]. Evaluation there apparently concluded that he had sepsis They were unable to have an orthopedist or general surgeon evaluate and felt he required an emergent transfer to [facility] where he was initially treated. Currently the patient is awake and alert and answers questions appropriately. He denies any discomfort in the left upper extremity. He has been very pleased with his progress with the healing of the fasciotomy site. He currently has no other extremity complaint. Review of Systems All other systems reviewed negative except as stated in [facility] - History History Provided By: Patient - Medical History Medical History: Medical History (Last Reviewed 06/26/18 @ 07:19 by Philippe Ellsworth) Necrotizing fasciitis Bipolar disorder HIV (human immunodeficiency virus infection) PTSD (post-traumatic stress disorder) - Surgical History Surgical History: Surgical History (Last Reviewed 06/26/18 @ 07:19 by Philippe Ellsworth) No history of previous surgery - Family History Family History: Family History (Last Reviewed 06/25/18 @ 21:57 by Dara Chacon) Other Unknown family medical history - Tobacco History Second Hand Smoke Exposure: Yes Tobacco Use In Past 30 Days: Yes Smoking Status: Current every day smoker Tobacco Type: Cigarettes - Alcohol History How Often Do You Have a Drink Containing Alcohol: Never - Substance Use History Substance History: No History of Abuse - Travel History Recent Travel in the [place] Within the Last 8 Weeks: No Recent Travel Out of the Country Within the Last 8 Weeks: No - Immunization History Tetanus Immunization: Unsure Hx Influenza Vaccine This Season: No Medications and Allergies Active Medications: Active Medications Acetaminophen (Tylenol) 650 mg PO Q6H PRN PRN Reason: PAIN 1-10 AND/OR FEVER >101F Al Hydroxide/Mg Hydroxide (Milk Of Magnesia Liq) 30 ml PO Q12H PRN PRN Reason: Mild Constipation Albuterol (Duoneb Neb (Prn)) 1 ampul NEB Q2HR NEB PRN PRN Reason: WHEEZING Bisacodyl (Dulcolax Supp) 10 mg RECTAL DAILY PRN PRN Reason: SEVERE CONSITIPATION Chlorhexidine Gluconate (Chlorhexidine 2% Cloth) 3 pack TOPICAL DAILY@0400 [facility] Stop: 07/01/18 03:59 Last Admin: 06/26/18 06:39 Dose: 3 pack Chlorhexidine Gluconate (Chlorhexidine 2% Cloth) 3 pack TOPICAL DAILY@0400 PRN PRN Reason: Extra cloth needed Stop: 07/01/18 03:59 Enoxaparin Sodium (Lovenox Inj) 40 mg SQ Q24H [facility] Last Admin: 06/26/18 00:12 Dose: 40 mg Sodium Chloride (Ns Inj) 1,000 mls @ 84 mls/hr IV.CONT .[id number] [facility] Last Admin: 06/25/18 23:45 Dose: 84 mls/hr Piperacillin/Tazobactam/Dextrose (Zosyn 4.5 Gm Premix) 4.5 gm in 100 mls @ 200 mls/hr IV.SIG Q6H [facility] Last Admin: 06/26/18 06:40 Dose: 200 mls/hr Lactulose (Lactulose Liq) 30 ml PO DAILY PRN PRN Reason: SEVERE CONSITIPATION Metoclopramide HCl (Reglan Inj) 5 mg IV.PUSH Q6HR [facility]; Protocol Last Admin: 06/26/18 06:40 Dose: Not Given Ondansetron HCl (Zofran Inj) 4 mg IV.PUSH Q6H PRN PRN Reason: NAUSEA OR VOMITING Pharmacy Profile Note (Vancomycin Consult Pharmacy) 1 each OTHER PRN PRN PRN Reason: Pharmacy to dose Quetiapine Fumarate (Seroquel) 75 mg PO BID [facility] Senna/Docusate Sodium (Karen-Colace) 1 tab PO BID [facility] Sennosides (Senokot) 17.2 mg PO Q12H PRN PRN Reason: Moderate Constipation Sodium Chloride (Ns Flush) 2 ml IV.FLUSH BID [facility] Sodium Chloride (Ns Flush) 2 ml IV.FLUSH PRN PRN PRN Reason: FLUSH AFTER USING IV ACCESS Temazepam (Restoril) 15 mg PO HS PRN PRN Reason: INSOMNIA Allergies Allergy/AdvReac Type Severity Reaction Status Date / Time No Known Allergies Allergy Verified 06/25/18 21:33 Home Medications Medication Instructions Recorded Confirmed Type naproxen 375 mg PO BID PRN 06/25/18 06/25/18 History quetiapine 150 mg PO QPM 06/25/18 06/25/18 History Exam Vital signs: Vital Signs 06/25/18 21:24 06/26/18 00:00 06/26/18 00:50 Temperature 97.6 F Pulse Rate 87 88 90 Respiratory Rate 18 18 16 Blood Pressure 131/83 111/69 106/62 Pulse Oximetry 98 99 99 06/26/18 02:16 06/26/18 03:33 06/26/18 03:56 Temperature 98.2 F Pulse Rate 89 92 H Respiratory Rate 16 16 Blood Pressure 100/59 L 107/56 L Pulse Oximetry 97 06/26/18 04:54 06/26/18 06:23 Temperature Pulse Rate 89 97 H Respiratory Rate 14 Blood Pressure 105/58 L Pulse Oximetry 96 Intake & Output 06/25/18 06/26/18 06/26/18 18:59 06:59 18:59 Intake Total 350 / 350 Output Total 600 / 600 Balance -250 / -250 Weight 83.5 kg Intake: IV 350 / 350 Zosyn 4.5 GM Premix 4.5 gm In 100 / 100 100 ml @ 200 mls/hr IV.SIG Q6H TWAN Rx#:[id number] Vancomycin Inj 1,000 MG In NS 250 / 250 Inj 250 ML @ 250 mls/hr IV.SIG ONCE ONE Rx#:[id number] Output: Urine 600 / 600 Other: Date of Last Bowel Movement 06/25/18 Weight On Admission 83.5 kg - Constitutional no acute distress, average body habitus - Routine HEENT Exam Head: Present: normocephalic, atraumatic - Routine Neck Exam Present: supple, full ROM - Routine Chest/Breast/Axilla Exam Chest wall: Absent: tenderness - Routine Extremities Exam Present: pulses intact, normal capillary refill. Absent: cyanosis, clubbing, edema - Detailed Upper Extremity Exam Shoulder/Upper Arm: Left decreased ROM (Minimally restricted range of motion of the shoulder.), Right normal inspection Elbow: Left wound (There is a healing wound over the medial aspect of the upper arm. There is healthy granulation tissue. A dressing was in place. He has a well-healed longitudinal incision on the volar aspect of the forearm. It is nontender to palpation.), Left full ROM, Bilateral normal inspection Forearm: Left wound (Well-healed) Wrist: Bilateral normal inspection Hand/Fingers: Bilateral normal inspection Results - Labs Result Diagrams: 06/26/18 03:42 06/26/18 03:42 Labs: Laboratory Results - last 24 hr 06/25/18 06/26/18 06/26/18 23:42 03:42 03:42 WBC 8.8 RBC 4.11 L Hgb 12.8 L Hct 37.7 L MCV 91.8 MCH 31.2 MCHC 34.0 RDW 14.8 Plt Count 253 MPV 6.3 L Neut % (Auto) 78.4 H Lymph % (Auto) 10.2 [place] % (Auto) 4.8 Eos % (Auto) 6.0 H Baso % (Auto) 0.6 Neut # (Auto) 6.9 Lymph # (Auto) 0.9 L [place] # (Auto) 0.4 Eos # (Auto) 0.5 H Baso # (Auto) 0.0 WBC Differential . Differential Comment Auto diff final PT 11.2 INR 1.1 APTT 24.8 Sodium Potassium Chloride Carbon Dioxide Anion Gap BUN Creatinine Estimated GFR Random Glucose Lactic Acid Calcium Phosphorus Magnesium Total Bilirubin AST ALT Alkaline Phosphatase Total Creatine Kinase 477 H CK-MB (CK-2) 1.5 CK-MB (CK-2) % 0.3 Troponin I 0.02 Total Protein Albumin Nasal Screen MRSA (PCR) Urine Opiates Screen Ur Barbiturates Screen Ur Amphetamines Screen U Benzodiazepines Scrn Urine Cocaine Screen U Cannabinoids Screen 06/26/18 06/26/18 06/26/18 03:42 03:42 03:47 WBC RBC Hgb Hct MCV MCH MCHC RDW Plt Count MPV Neut % (Auto) Lymph % (Auto) [place] % (Auto) Eos % (Auto) Baso % (Auto) Neut # (Auto) Lymph # (Auto) [place] # (Auto) Eos # (Auto) Baso # (Auto) WBC Differential Differential Comment PT INR APTT Sodium 145 Potassium 4.1 Chloride 112 H Carbon Dioxide 24.1 Anion Gap 9 BUN 9 Creatinine 1.17 Estimated GFR 81 L Random Glucose 75 Lactic Acid 1.0 Calcium 8.2 L Phosphorus 3.6 Magnesium 1.8 Total Bilirubin 0.5 AST 25 ALT 31 Alkaline Phosphatase 62 Total Creatine Kinase CK-MB (CK-2) CK-MB (CK-2) % Troponin I Less than 0.02 L Total Protein 7.1 Albumin 3.1 L Nasal Screen MRSA (PCR) Urine Opiates Screen Neg Ur Barbiturates Screen Neg Ur Amphetamines Screen Neg U Benzodiazepines Scrn Neg Urine Cocaine Screen Pos H U Cannabinoids Screen Neg 06/26/18 06:15 WBC RBC Hgb Hct MCV MCH MCHC RDW Plt Count MPV Neut % (Auto) Lymph % (Auto) [place] % (Auto) Eos % (Auto) Baso % (Auto) Neut # (Auto) Lymph # (Auto) [place] # (Auto) Eos # (Auto) Baso # (Auto) WBC Differential Differential Comment PT INR APTT Sodium Potassium Chloride Carbon Dioxide Anion Gap BUN Creatinine Estimated GFR Random Glucose Lactic Acid Calcium Phosphorus Magnesium Total Bilirubin AST ALT Alkaline Phosphatase Total Creatine Kinase CK-MB (CK-2) CK-MB (CK-2) % Troponin I Total Protein Albumin Nasal Screen MRSA (PCR) Not detected Urine Opiates Screen Ur Barbiturates Screen Ur Amphetamines Screen U Benzodiazepines Scrn Urine Cocaine Screen U Cannabinoids Screen Assessment and Plan - Problem List (1) Necrotizing fasciitis of upper arm Code(s): M72.6 - Necrotizing fasciitis Status: Resolved Plan: No further orthopedic intervention required. The previous fasciotomy site is healing well with current treatment by wound care. - Assessment and Plan The findings were discussed. It is unclear as to why the patient required transfer from [facility]. He has no localizing signs of infection of the left upper extremity and the fasciotomy site is healing well. He is afebrile. He has a normal white blood cell count. The patient currently is in wound care and has a plastic surgeon following who also agrees that he is progressing. The patient did not seek follow-up care with Dr. Allen because he is getting treatment at the [facility] in [place]. I do not feel the left upper extremity was a source of his mental status change when he presented to [facility]. He can be discharged from an orthopedic standpoint and continue the current treatment regimen at the [facility].
[2018-06-26] MEDS: Senna/Docusate Sodium 8.6/50 MG Tablet PO SCH ×2 (08:53→21:01)
[2018-06-26] MEDS: QUEtiapine 25 MG Tablet PO SCH ×2 (08:53→21:00)
[2018-06-26] MEDS: Sod Chloride 0.9% Inj 1,000 ML IV.CONT SCH ×3 (14:11→23:43)
--- NOTE | 2018-06-26 15:56 | ECG ---
Date Performed: 06/25/2018 Time Performed: 23:39:40 PTAGE: 47 years EKG: Sinus rhythm SMALL INFERIOR Q WAVES OF UNDETERMINED SIGNIFICANCE PROBABLY WITHIN NORMAL LIMITS ABNORMAL ECG NO PREVIOUS TRACING DOCTOR: Kamlesh Lal Interpretating Date/Time 06/26/2018 15:56:30
--- NOTE | 2018-06-26 15:58 | ECG ---
Date Performed: 06/26/2018 Time Performed: 05:59:42 PTAGE: 47 years EKG: Sinus rhythm WITHIN NORMAL LIMITS Compared to previous tracing, the small inferior Q-waves are no longer present. ATYPICAL ECG PREVIOUS TRACING : 06/25/2018 23.39 DOCTOR: Kamlesh Lal Interpretating Date/Time 06/26/2018 15:57:11
[2018-06-26] MEDS: Vancomycin Inj 1,250 MG in Sodium Chlor 0.9% Inj 250 ML IV.SIG SCH (16:20)
[2018-06-26] MEDS ORDERED: Gadobutrol PF 10 MMOL/10 ML Vial (for RAD) IV.SIG ONE (18:22)
--- NOTE | 2018-06-26 18:30 | MG ---
cc: Joselo Parsons MD, PhD TEST NUMBER: [id number]. TECHNIQUE: A 17-channel EEG. DESCRIPTION: Background rhythm reveals a symmetrical alpha activity at a frequency of 8 Hz. During drowsiness, there is slowing in the theta range at 6 Hz. Amplitude is roughly 10-20 microvolts. There are no lateralizing features seen. No epileptiform discharges are present. Hyperventilation was not done. Photic results in a normal driving response. INTERPRETATION: This is a normal electroencephalogram. Joseol Parsons MD, PhD CAROLANN/rubén , 04:50 PM , 04:54 PM
--- NOTE | 2018-06-26 18:33 | MR ---
EXAM DATE: 06/26/2018 6:24 PM EDT AGE/SEX: 47 years / Male INDICATIONS: Altered mental status. Seizure. CLINICAL DATA: This is the patient's initial encounter. Patient reports that signs and symptoms have been present for 1 day and indicates a pain score of 0/10. MEDICAL/SURGICAL HISTORY: None. . Left shoulder ORIF. COMPARISON: No prior exams available for comparison. TECHNIQUE: Multiplanar, multisequence examination of the brain was performed without and with 8 ml Ga davist (gadobutrol) contrast as a single exam dose. FINDINGS: There is no evidence for intracranial hemorrhage, mass effect, mass lesions, edema, or extra-axial fl uid collections. The ventricles are normal size for the patient's age. There are no signs of acute infarction for technique. The diffusion portion, and postcontrast portion are unremarkable. The FLAI R sequence appears intact without any areas of abnormal signal. CONCLUSION: Unremarkable study. Electronically signed by: Layo Jerry MD 06/26/2018 6:32 PM EDT
--- NOTE | 2018-06-26 18:53 | MB ---
cc: Joselo Parsons MD, PhD DATE: 06/26/2018 REASON FOR CONSULTATION: Seizure. HISTORY OF PRESENT ILLNESS: Mr. Quezada is a 47-year-old man who has necrotizing fasciitis. He was transferred from [facility] when he had an episode that appeared to be seizure-like. He was at a bus stop, lost consciousness, had jerking activity in a generalized fashion. EMS was called. When they came, he had another episode. He was very agitated, very aggressive, throwing punches at the time, kicking, etc. He was given ketamine 100 mg IM and transported to the ER at [facility] and given an additional 50 mg of IM ketamine was then transferred here for further evaluation. PAST MEDICAL HISTORY: History of necrotizing fasciitis, bipolar disorder, HIV, PTSD, never had seizures before. SOCIAL HISTORY: He does smoke. He states he does not drink any alcohol. No drug abuse. REVIEW OF SYSTEMS: He does have a history of head trauma in the past. PHYSICAL EXAMINATION: VITAL SIGNS: Blood pressure is 112/57, pulse 74, respirations 20, temperature 98.3 degrees. NEUROLOGIC: Higher level mental functions normal. Cranial nerves intact. Motor exam is normal. Reflexes symmetric. LABORATORY DATA: White count 8,800, hemoglobin 12.8, hematocrit 37.7%, platelet count 253,000. PT 11.2, INR 1.1, PTT 24.8. Sodium is 145, potassium 4.1, chloride 112, CO2 of 24, BUN is 9, creatinine 1.17, GFR is 81, glucose 75, calcium 8.2. IMPRESSION: Probable seizure versus pseudoseizure. RECOMMENDATION: We will get an MRI of the brain, as well as an EEG. Place him under seizure precautions. Use p.r.n. Ativan if he has any recurrent episodes. Would not start anticonvulsants at this time, unless he has any recurrent spells or EEG was positive for epileptiform discharges. Joselo Parsons MD, PhD CAROLANN/damari , 04:19 PM , 04:25 PM
--- NOTE | 2018-06-26 20:00 | MB ---
cc: Sammy Mazariegos MD DATE: 06/26/2018 REQUESTING PHYSICIAN: Jean Peraza MD REASON FOR VISIT: HIV compromise with fever and hypotension. HISTORY OF PRESENT ILLNESS: This is a 47-year-old black male who has HIV disease. The patient recently underwent treatment for necrotizing fasciitis of his left upper extremity. He was following up at the [facility]. A home care nurse is doing dressing at home and he was to followup with the plastic surgeon from the [place]. The patient lives in [facility]. He states that he was on his way to [facility] yesterday when he suddenly woke up in the hospital at [facility]. It was felt that he was septic from his left upper extremity. It is noted that the patient was to be transferred back to [place] to see orthopedic physician because his surgery was performed at [place], so he was transferred to [place]. The patient had normal blood pressure and was afebrile here at [place]. The patient tells me that he feels fine. He denies symptoms included nausea, vomiting, headache, shortness of breath, chills. The patient has HIV disease and follows up with an infectious disease physician at the [place]. He tells me that he takes 1 pill for the HIV every morning at 7 a.m. He states that he just ran out of the pills and is supposed to refill them. He states that he was going to refill medication yesterday when he was going to [facility]. He reports that he has an appointment with the infectious disease physician on 07/05/2018, and he is due to have lab work done for HIV on 06/29/2018. Currently, he is afebrile and his blood pressure is normal. The patient was seen by orthopedics in consultation today and it was felt that there were no signs of infection in the upper extremity where he had surgery for the necrotizing fasciitis. PAST MEDICAL HISTORY: HIV, bipolar disorder, posttraumatic stress disorder, necrotizing fasciitis of the left upper extremity due to strep bacteria (group A beta strep was cultured from the arm wound on 04/26/2018). ALLERGIES: NO KNOWN DRUG ALLERGIES. MEDICATIONS: 1. Lovenox. 2. Reglan. 3. Piperacillin/tazobactam 4. Seroquel. 5. Vancomycin. SOCIAL HISTORY: Positive tobacco. No alcohol. No history of IV drug use. FAMILY HISTORY: Noncontributory. REVIEW OF SYSTEMS: All systems have been reviewed and negative. PHYSICAL EXAMINATION: GENERAL: Thin, well-developed male in no acute distress. He is awake, alert and oriented. VITAL SIGNS: Includes temperature 98.3, BP 108/56, respirations 18, heart rate 84. HEENT: Head is atraumatic. Extraocular movements are grossly intact. Pupils reactive to light. No icterus. Oropharynx moist, mucosa without lesions. NECK: Supple without adenopathy. LUNGS: Clear breath sounds bilaterally. HEART: Regular S1, S2, without murmurs, rubs or gallops. ABDOMEN: Bowel sounds present. Soft, nontender. RECTAL: Not performed. EXTREMITIES: No clubbing or cyanosis. The left upper extremity has a shallow superficial ulceration at the inner aspect of the humerus. This is clean. There is a well-healed incision at the left forearm, below the elbow. SKIN: No rash. NEUROLOGIC: No gross focal findings. PSYCHIATRIC: Calm and cooperative. LABORATORY DATA: WBC 8.8, platelets 253, 78% neutrophils. Creatinine 1.17, BUN 9, sodium 145. Liver function test normal. Urine toxicology screen positive for cocaine. IMPRESSION: 1. HIV disease in a patient who is currently stable. 2. No sign of sepsis in this patient who is afebrile and has normal white blood cell count and normal temperature. It appears that the patient had no fever since admission, and he does not have any signs of opportunistic infection related to HIV disease. RECOMMENDATIONS: 1. Stop all antibiotics. 2. Discharge the patient to follow up with his infectious disease doctor for HIV management. The patient tells me that he has to refill his medications and he has run out of them and needs to get started on them as soon as possible; therefore, it would be to his benefit for him to refill his medications and immediately start taking those medications. I will sign off since there is no need for me to follow this patient. Thank you for this consultation. MD GLENROY Thomas/damari , 04:36 PM , 04:47 PM
[2018-06-27] MEDS: Vancomycin Inj 1,250 MG in Sodium Chlor 0.9% Inj 250 ML IV.SIG SCH ×2 (01:25→13:20)
[2018-06-27] MEDS: Chlorhexidine Gluconate 2% 1 Pack (2 Cloths) TOPICAL SCH (03:11)
[2018-06-27] MEDS: Piperacil/Tazo 4.5 GM Premix 4.5 GM/100 ML BAG IV.SIG SCH ×3 (05:04→18:24)
[2018-06-27 05:41] LABS: Baso # (Auto) 0.1 th/mm3 (0.0-0.2); Baso % (Auto) 1.1 % (0.0-2.0); Eos # (Auto) 0.6 th/mm3 (0.0-0.4); Hematocrit 36.3 % (39.0-51.0); Hemoglobin 12.1 gm/dL (13.0-17.0); Lymph # (Auto) 2.6 th/mm3 (1.0-4.8); Lymph % (Auto) 26.8 % (9.0-44.0); Mean Corpuscular HGB Conc 33.4 % (32.0-36.0); Mean Corpuscular Hemoglobin 30.9 pg (27.0-34.0); Mean Corpuscular Volume 92.7 fL (80.0-100.0); Mean Platelet Volume 6.6 fL (7.0-11.0); Mono # (Auto) 0.6 th/mm3 (0.0-0.9); Mono % (Auto) 5.9 % (0.0-8.0); Neut # (Auto) 5.7 th/mm3 (1.8-7.7); Neut % (Auto) 60.2 % (16.0-70.0); Platelet Count 243 th/mm3 (150-450); Red Blood Count 3.92 mil/mm3 (4.50-5.90); White Blood Count 9.5 th/mm3 (4.0-11.0)
[2018-06-27 06:04] LABS: Anion Gap 9 meq/L (5-15); Blood Urea Nitrogen 7 mg/dL (7-18); Calcium 8.6 mg/dL (8.5-10.1); Carbon Dioxide 25.1 meq/L (21.0-32.0); Chloride 108 meq/L (98-107); Glomerular Filtration Rate 87 mL/min (>89); Glucose,Random 77 mg/dL (74-106); Potassium 3.6 meq/L (3.5-5.1); Sodium 142 meq/L (136-145)
[2018-06-27 06:05] LABS: Creatine Kinase 412 U/L (39-308)
[2018-06-27 06:23] LABS: CKMB Percent 0.2 % (0.0-4.0)
--- NOTE | 2018-06-27 09:23 | P.PNIM ---
Subjective Interval history: in no acute distress. looks comfortable with no new complaints. no seizures. Physical Exam Vital signs: Vital Signs 06/26/18 10:00 06/26/18 12:00 06/26/18 16:00 Temperature 98.3 F 98.8 F Pulse Rate 84 74 103 H Respiratory Rate 20 20 Blood Pressure 112/57 L 118/61 Pulse Oximetry 99 98 06/26/18 20:00 06/27/18 00:00 06/27/18 04:00 Temperature 98.6 F 98.6 F 99.4 F Pulse Rate 95 H 83 90 Respiratory Rate 18 18 18 Blood Pressure 125/61 136/76 138/66 Pulse Oximetry 97 97 96 06/27/18 04:20 06/27/18 06:40 06/27/18 08:00 Temperature 100 F H Pulse Rate 94 H Respiratory Rate 18 18 18 Blood Pressure 126/76 Pulse Oximetry 97 Intake & Output 06/26/18 06/27/18 06/27/18 18:59 06:59 18:59 Intake Total 1942.5 / 1942.5 1680.5 / 1680.5 Output Total 481 / 481 Balance 1461.5 / 1461.5 1680.5 / 1680.5 Weight 85.2 kg Intake: IV 1462.5 / 1462.5 1680.5 / 1680.5 NS Inj 1,000 ML @ 84 mls/hr IV. 1000 / 1000 1218 / 1218 CONT .[id number] TWAN Rx#:[id number] Zosyn 4.5 GM Premix 4.5 gm In 200 / 200 200 / 200 100 ml @ 200 mls/hr IV.SIG Q6H TWAN Rx#:[id number] Vancomycin Inj 1,250 MG In NS 262.5 / 262.5 262.5 / 262.5 Inj 250 ML @ 262.5 mls/hr IV. SIG Q12H TWAN Rx#:[id number] Oral 480 / 480 Output: Urine 480 / 480 Stool Other: # Voids 2 Date of Last Bowel Movement 06/26/18 - Constitutional no acute distress - Routine Respiratory Exam Present: CTA bilaterally - Routine Cardiovascular Exam Present: RRR - Routine Abdominal Exam Present: soft - Routine Extremities Exam Comments: no pedal edema. - Routine Neurological Exam Present: alert, oriented X3 Results - Labs CBC & Chem 7: 06/27/18 04:58 06/27/18 04:58 Laboratory Results - last 24 hr 06/27/18 06/27/18 04:58 04:58 WBC 9.5 RBC 3.92 L Hgb 12.1 L Hct 36.3 L MCV 92.7 MCH 30.9 MCHC 33.4 RDW 15.0 Plt Count 243 MPV 6.6 L Neut % (Auto) 60.2 Lymph % (Auto) 26.8 [place] % (Auto) 5.9 Eos % (Auto) 6.0 H Baso % (Auto) 1.1 Neut # (Auto) 5.7 Lymph # (Auto) 2.6 [place] # (Auto) 0.6 Eos # (Auto) 0.6 H Baso # (Auto) 0.1 WBC Differential . Differential Comment Auto diff final Sodium 142 Potassium 3.6 Chloride 108 H Carbon Dioxide 25.1 Anion Gap 9 BUN 7 Creatinine 1.10 Estimated GFR 87 L Random Glucose 77 Calcium 8.6 Total Creatine Kinase 412 H CK-MB (CK-2) Less than 1.0 CK-MB (CK-2) % 0.2 Microbiology 06/25/18 23:42 Blood - Peripheral Aerobic Blood Culture - Preliminary No growth in 1 day 06/25/18 23:42 Blood - Peripheral Anaerobic Blood Culture - Preliminary No growth in 1 day 06/25/18 23:42 Blood - Peripheral Aerobic Blood Culture - Preliminary No growth in 1 day 06/25/18 23:42 Blood - Peripheral Anaerobic Blood Culture - Preliminary No growth in 1 day - Imaging Impressions Head MRI 06/26/18 00:00 CONCLUSION: Unremarkable study. Assessment and Plan - Plan Fever/hypotension-low grade fever earlier today. -Broad-spectrum antibiotics -Blood cultures negative so far. -Immunocompromised patient with HIV -infectious disease consultation appreciated ; f/u as outpatient. Seizure -MRI brain with no acute abnormality and EEG normal. -no antiepileptics per neurology. -Drug screen toxicology positive for cocaine Rhabdomyolysis -From the seizure -received IV fluid resuscitation necrotizing fascitis - s/p I/D in April -says that he finished the course of antibiotic therapy and now being followed up by [place] plastic surgery for possible graft placement -ortho consult appreciated; f/u as outpatient. Depression -Quetiapine DVT GI prophylaxis -Teds SCDs -Lovenox -Pepcid Discharge Planning: dc home later today if no seizure or fever. see med list. f/u; pcp, ID and plastic surgery. d/w the patient.
--- NOTE | 2018-06-27 09:24 | P.DS ---
Date of admission: 06/25/18 22:27 Primary care physician: UNKNOWN Brief History from admission: 47-year-old gentleman with history of necrotizing fasciitis treated by Dr. Allen here in April this year presents in a transfer from [facility]. The patient was at the bus stop when bystanders noticed that he fell on the bench and was behaving strange. Upon approaching the patient he started to shake and appeared to be having a seizure. EMS was called. After EMS arrival the patient was standing and when they attempted to touch him he started to exhibit the same seizure-like activity. He suddenly became very aggressive per EMS and started to throw punches. The patient was kicking around and became extremely combative. He was given ketamine 100 mg IM and was transferred to emergency department at [facility]. He continued to be combative and was given another 50 mg of ketamine IM. In the emergency department at [facility] he was noticed to have a fever and became slightly hypotensive. He was resuscitated with IV fluids with the good response in hemodynamics, was given broad-spectrum IV antibiotics and was transferred here for higher level of care. DS: Summary Hospital Course: Fever/hypotension- now with no fever over night and BP stable. -Broad-spectrum antibiotics -Blood cultures negative so far. -Immunocompromised patient with HIV -infectious disease consultation appreciated ; f/u as outpatient. Seizure -MRI brain with no acute abnormality and EEG normal. -no antiepileptics per neurology. -Drug screen toxicology positive for cocaine Rhabdomyolysis -From the seizure -received IV fluid resuscitation necrotizing fascitis - s/p I/D in April -says that he finished the course of antibiotic therapy and now being followed up by [place] plastic surgery for possible graft placement -ortho consult appreciated; f/u as outpatient. Depression -Quetiapine - Time Spent with Patient Total time spent providing and/or coordinating discharge services: Less than 30 minutes - Quality: VTE Deep Vein Thrombosis/Pulmonary Embolism Present on Admission: No Exam Vital signs: Vital Signs 06/26/18 10:00 06/26/18 12:00 06/26/18 16:00 Temperature 98.3 F 98.8 F Pulse Rate 84 74 103 H Respiratory Rate 20 20 Blood Pressure 112/57 L 118/61 Pulse Oximetry 99 98 06/26/18 20:00 06/27/18 00:00 06/27/18 04:00 Temperature 98.6 F 98.6 F 99.4 F Pulse Rate 95 H 83 90 Respiratory Rate 18 18 Blood Pressure 125/61 136/76 138/66 Pulse Oximetry 97 97 96 06/27/18 04:20 06/27/18 06:40 06/27/18 08:00 Temperature 100 F H Pulse Rate 94 H Respiratory Rate 18 18 18 Blood Pressure 126/76 Pulse Oximetry 97 Intake & Output 06/26/18 06/27/18 06/27/18 18:59 06:59 18:59 Intake Total 1942.5 / 1942.5 1680.5 / 1680.5 Output Total 481 / 481 Balance 1461.5 / 1461.5 1680.5 / 1680.5 Weight 85.2 kg Intake: IV 1462.5 / 1462.5 1680.5 / 1680.5 NS Inj 1,000 ML @ 84 mls/hr IV. 1000 / 1000 1218 / 1218 CONT .[id number] TWAN Rx#:[id number] Zosyn 4.5 GM Premix 4.5 gm In 200 / 200 200 / 200 100 ml @ 200 mls/hr IV.SIG Q6H TWAN Rx#:[id number] Vancomycin Inj 1,250 MG In NS 262.5 / 262.5 262.5 / 262.5 Inj 250 ML @ 262.5 mls/hr IV. SIG Q12H TWAN Rx#:[id number] Oral 480 / 480 Output: Urine 480 / 480 Stool Other: # Voids 2 Date of Last Bowel Movement 06/26/18 - Constitutional no acute distress - Routine Respiratory Exam Present: CTA bilaterally - Routine Cardiovascular Exam Present: RRR - Routine Abdominal Exam Present: soft - Routine Extremities Exam Comments: no pedal edema. - Routine Neurological Exam Present: alert, oriented X3 Results Procedures completed during hospitalization: none. Labs on day of discharge: Labs from last 24 hours 06/27/18 06/27/18 04:58 04:58 WBC 9.5 RBC 3.92 L Hgb 12.1 L Hct 36.3 L MCV 92.7 MCH 30.9 MCHC 33.4 RDW 15.0 Plt Count 243 MPV 6.6 L Neut % (Auto) 60.2 Lymph % (Auto) 26.8 [place] % (Auto) 5.9 Eos % (Auto) 6.0 H Baso % (Auto) 1.1 Neut # (Auto) 5.7 Lymph # (Auto) 2.6 [place] # (Auto) 0.6 Eos # (Auto) 0.6 H Baso # (Auto) 0.1 WBC Differential . Differential Comment Auto diff final Sodium 142 Potassium 3.6 Chloride 108 H Carbon Dioxide 25.1 Anion Gap 9 BUN 7 Creatinine 1.10 Estimated GFR 87 L Random Glucose 77 Calcium 8.6 Total Creatine Kinase 412 H CK-MB (CK-2) Less than 1.0 CK-MB (CK-2) % 0.2 Preliminary micro results at discharge 06/25/18 23:42 Aerobic Blood Culture - Preliminary Blood - Peripheral No growth in 1 day Anaerobic Blood Culture - Preliminary No growth in 1 day 06/25/18 23:42 Aerobic Blood Culture - Preliminary Blood - Peripheral No growth in 1 day Anaerobic Blood Culture - Preliminary No growth in 1 day - Impressions ITS Impressions Head MRI 06/26/18 00:00 CONCLUSION: Unremarkable study. Discharge Plan - Discharge Condition Condition: Stable - Discharge Order Discharge Orders: Orthopedic Clear for Discharge (Routine); Ordered 06/26/18 Ordered By: Kamlesh Cartagena - Physicians Team Primary Care Provider: UNKNOWN, Attending Provider: Jojo Miner Other Providers: Kamlesh Cartagena MD ; Sammy Mazariegos MD ; Joselo Parsons MD, PhD
[2018-06-27] MEDS: QUEtiapine 25 MG Tablet PO SCH ×2 (11:20→20:55)
[2018-06-27] MEDS: Senna/Docusate Sodium 8.6/50 MG Tablet PO SCH ×2 (11:21→20:55)
[2018-06-27] MEDS: Sod Chloride 0.9% Inj 1,000 ML IV.CONT SCH (11:21)
[2018-06-27] MEDS: Temazepam 15 MG Capsule PO PRN (20:55)
[2018-06-28] MEDS ORDERED: Pharmacy Ordered Lab Info OTHER ONE (01:45)
[2018-06-28] MEDS: Sod Chloride 0.9% Inj 1,000 ML IV.CONT SCH ×3 (02:23→22:03)
[2018-06-28] MEDS: Vancomycin Inj 1,250 MG in Sodium Chlor 0.9% Inj 250 ML IV.SIG SCH (02:24)
[2018-06-28] MEDS: Piperacil/Tazo 4.5 GM Premix 4.5 GM/100 ML BAG IV.SIG SCH ×4 (02:24→17:27)
[2018-06-28] MEDS: Chlorhexidine Gluconate 2% 1 Pack (2 Cloths) TOPICAL SCH (04:05)
[2018-06-28] MEDS: Senna/Docusate Sodium 8.6/50 MG Tablet PO SCH ×2 (09:32→22:04)
[2018-06-28] MEDS: QUEtiapine 25 MG Tablet PO SCH ×2 (09:32→22:04)
--- NOTE | 2018-06-28 10:13 | P.PNIM ---
Subjective Interval history: in no acute distress. no new complaints. no fever, headache,or recurrent seizures. d/w the RN. Physical Exam Vital signs: Vital Signs 06/27/18 12:00 06/27/18 15:47 06/27/18 16:00 Temperature 98.9 F 98.5 F Pulse Rate 95 H 98 H 92 H Respiratory Rate 18 18 Blood Pressure 119/72 124/97 H Pulse Oximetry 98 97 06/27/18 20:20 06/28/18 00:50 06/28/18 06:40 Temperature 98.5 F 98 F 98.8 F Pulse Rate 90 80 88 Respiratory Rate 17 17 18 Blood Pressure 129/70 120/67 128/68 Pulse Oximetry 96 97 98 06/28/18 08:00 Temperature 98 F Pulse Rate 72 Respiratory Rate 20 Blood Pressure 138/66 Pulse Oximetry 97 Intake & Output 06/27/18 06/28/18 06/28/18 18:59 06:59 18:59 Intake Total 2164.5 / 2164.5 2062.5 / 2062.5 100 / 100 Balance 2164.5 / 2164.5 2062.5 / 2062.5 100 / 100 Weight 85.5 kg Intake: IV 1144.5 / 1144.5 462.5 / 462.5 100 / 100 NS Inj 1,000 ML @ 84 mls/hr IV. 782 / 782 CONT .[id number] TWAN Rx#:[id number] Zosyn 4.5 GM Premix 4.5 gm In 100 / 100 200 / 200 100 / 100 100 ml @ 200 mls/hr IV.SIG Q6H TWAN Rx#:[id number] Vancomycin Inj 1,250 MG In NS 262.5 / 262.5 262.5 / 262.5 Inj 250 ML @ 262.5 mls/hr IV. SIG Q12H TWAN Rx#:[id number] Oral 1020 / 1020 1600 / 1600 Other: # Voids 5 2 Date of Last Bowel Movement 06/27/18 06/26/18 # Bowel Movements 1 0 - Constitutional no acute distress - Routine Respiratory Exam Present: CTA bilaterally - Routine Cardiovascular Exam Present: RRR - Routine Abdominal Exam Present: soft - Routine Extremities Exam Comments: no pedal edema. - Routine Neurological Exam Present: alert, oriented X3 Results - Labs CBC & Chem 7: 06/27/18 04:58 06/27/18 04:58 Laboratory Results - last 24 hr 06/28/18 02:00 Vancomycin Trough 4.5 L Microbiology 06/25/18 23:42 Blood - Peripheral Aerobic Blood Culture - Preliminary No growth in 2 days 06/25/18 23:42 Blood - Peripheral Anaerobic Blood Culture - Preliminary No growth in 2 days 06/25/18 23:42 Blood - Peripheral Aerobic Blood Culture - Preliminary No growth in 2 days 06/25/18 23:42 Blood - Peripheral Anaerobic Blood Culture - Preliminary No growth in 2 days - Procedures none. Assessment and Plan - Plan Fever/hypotension- now with no fever over night and BP stable. -Broad-spectrum antibiotics -Blood cultures negative so far. -Immunocompromised patient with HIV -infectious disease consultation appreciated ; f/u as outpatient. Seizure -MRI brain with no acute abnormality and EEG normal. -no antiepileptics per neurology. -Drug screen toxicology positive for cocaine Rhabdomyolysis -From the seizure -received IV fluid resuscitation necrotizing fascitis - s/p I/D in April -says that he finished the course of antibiotic therapy and now being followed up by [place] plastic surgery for possible graft placement -ortho consult appreciated; f/u as outpatient. Depression -Quetiapine DVT GI prophylaxis -Teds SCDs -Lovenox -Pepcid Discharge Planning: dc home today if cleared by neurology. see med list. f/u; pcp, ID and plastic surgery. d/w the patient.
[2018-06-28] MEDS: Vancomycin Inj 1,500 MG in Sodium Chlor 0.9% Inj 500 ML IV.SIG SCH ×2 (10:57→18:26)
--- NOTE | 2018-06-28 11:55 | P.PNADD ---
Addendum to Inpatient Note Reason for Addendum: Additional Documentation (d/w ; LP will be cancelled and the patient was cleared for discharge with outpatient follow-up.)
[2018-06-28] MEDS: Temazepam 15 MG Capsule PO PRN (22:04)
[2018-06-29] MEDS: Piperacil/Tazo 4.5 GM Premix 4.5 GM/100 ML BAG IV.SIG SCH ×2 (00:50→06:18)
[2018-06-29] MEDS: Vancomycin Inj 1,500 MG in Sodium Chlor 0.9% Inj 500 ML IV.SIG SCH (02:52)
[2018-06-29] MEDS: Chlorhexidine Gluconate 2% 1 Pack (2 Cloths) TOPICAL SCH (06:17)
[2018-06-29 07:52] VITALS: O2SAT 98
[2018-06-29 08:05] VITALS: BP 140/62; RESP 18; TEMP 98.1
[2018-06-29] MEDS: QUEtiapine 25 MG Tablet PO SCH (09:38)
[2018-06-29] MEDS: Senna/Docusate Sodium 8.6/50 MG Tablet PO SCH (09:38)
[2018-06-29] MEDS ORDERED: Pharmacy Ordered Lab Info OTHER SCH (09:45)
[2018-06-29 10:24] VITALS: PULSE 68
== END 2018-06-29 09:52 | disposition home or self-care (01) ==
LOC: NEPC 21:20 → NEDA 22:27 → HIMC 06-26 06:05 → N05 06-26 11:27
PROVIDERS: ADMIT Internal Medicine; ATTEND Internal Medicine